=== PATIENT | male | born 1945 ===

== ENCOUNTER 2017-06-01 12:37 | Inpatient (IN) | payer OTHER ==
[2017-06-01 12:47] VITALS: BMI 23.4
[2017-06-01] MEDS ORDERED: Albuterol-Ipratrop 3 mg / 0.5 (3 ml) UD IH STA (12:53)
[2017-06-01] MEDS ORDERED: Magnesium Sulfate 1 gm in D5W 1 GM/100 ML BAG IVPB ONE (12:57)
--- NOTE | 2017-06-01 13:14 | ED PDOC ---
Arrival/HPI - General Chief Complaint: Shortness Of Breath Time Seen by Provider: 06/01/17 12:44 Historian: Patient, EMS EM Caveat: Acuity of Condition, Respiratory Distress - History of Present Illness Narrative History of Present Illness (Text): 06/01/17 13:14 pt p/w + ~ 1-2 days onset of worsening sob/worsening coughing with increased productive sputum/non-bloody; pt states he is wheezing extensively, attempt to use the nebulizer at home failed as he noted his machine was not working; pt states no fever/chills/sweats, no cp/palpitations, no abd pain, no n/v, no numbness/tingling, no urinary/bowel changes, no fall/trauma/sick contact, no travel; pt is here for further eval; pt's without other complaints per EMS, pt was noted to have been wheezing extensively and was given 1 Duonebs prior to ED arrival Time/Duration: Other (1-2 days) Symptom Onset: Sudden Symptom Course: Worsening Quality: Other (n/a) Severity Level: 8 Activities at Onset: Rest Context: Home Past Medical History - Provider Review Nursing Documentation Reviewed: Yes - Travel History Have you recently traveled outside [place] w/in the past 3 mons?: No - Past History Past History: Non-Contributing - Infectious Disease Hx of Infectious Diseases: None - Tetanus Immunization Tetanus Immunization: Unknown - Past Medical History Past Medical History: Non-Contributing (Asthma) - Cardiac Hx Cardiac Disorders: Yes Hx Hypertension: Yes - Pulmonary Hx Respiratory Disorders: Yes Hx Chronic Obstructive Pulmonary Disease (COPD): Yes - Neurological HX Cerebrovascular Accident: No - HEENT Hx HEENT Disorder: No - Renal Hx Renal Failure: No - Endocrine/Metabolic Hx Diabetes Mellitus Type 1: No Hx Diabetes Mellitus Type 2: No Hx Hypothyroidism: No - Hematological/Oncological Hx Cancer: No - Integumentary Hx Dermatological Disorder: Yes (BILATERAL LE SKIN DRYNESS WITH BROWN SKIN DISCOLORATION) - Musculoskeletal/Rheumatological Hx Arthritis: No Hx Rheumatoid Arthritis: No - Gastrointestinal Hx Gastroesophageal Reflux: No - Genitourinary/Gynecological Hx Genitourinary Disorders: Yes Hx Hematuria: Yes Hx Incontinence: Yes Hx Prostate Problems: Yes (BPH) Hx Sexually Transmitted Diseases: No Other/Comment: URINARY RETENTION - Psychiatric Hx Psychophysiologic Disorder: Yes (SMOKED CIGARETTES,ETOH USE QUIT) Hx Anxiety: Yes Hx Bipolar Disorder: Yes Hx Depression: Yes Hx Emotional Abuse: No Hx Physical Abuse: No Hx Schizophrenia: Yes Hx Substance Use: No Other/Comment: H/O SUICIDE - Past Surgical History Past Surgical History: No Previous - Surgical History Other/Comment: VINAY ROMAN CATH - Anesthesia Hx Anesthesia Reactions: No Hx Malignant Hyperthermia: No - Suicidal Assessment Suicidal Thoughts: No Plan: No Comment: pt lives alone Feels Threatened In Home Enviroment: No Family/Social History - Physician Review Nursing Documentation Reviewed: Yes Family/Social History: Unknown Family HX Smoking Status: Former Smoker Hx Alcohol Use: Yes Frequency of alcohol use: Few days per week Hx Substance Use: No Hx Substance Use Treatment: No Allergies/Home Meds Allergies/Adverse Reactions: Allergies No Known Allergies Allergy (Verified 06/01/17 12:47) Home Medications: Home Meds Medication Instructions Recorded Confirmed Tamsulosin [Flomax] 0.4 mg PO BID 01/26/12 06/01/17 Aspirin [Aspirin EC] 81 mg PO DAILY 06/11/14 06/01/17 Pantoprazole Sodium [Protonix] 40 mg PO DAILY 06/11/14 06/01/17 QUEtiapine [Seroquel XR] 600 mg PO HS 06/11/14 06/01/17 Albuterol 0.083% [Albuterol 0.083% 3 ml IH Q6H 12/05/14 06/01/17 Inhal Vicki (2.5 mg/3 ml) UD] Diltiazem HCl [Cardizem] 30 mg PO DAILY 12/05/14 06/01/17 Albuterol HFA [Ventolin HFA 90 2 puff IH TID 06/01/17 06/01/17 mcg/actuation (8 g)] Apixaban [Eliquis] 5 mg PO BID 06/01/17 06/01/17 Cholecalciferol (Vitamin D3) 1 cap PO Q7D 06/01/17 06/01/17 [Vitamin D3] Fluticasone/Salmeterol 500/50 1 puff NEB BID 06/01/17 06/01/17 [Advair Diskus 500/50] Review of Systems - Review of Systems Constitutional: Fatigue. absent: Fevers, Night Sweats Eyes: Normal ENT: Normal Respiratory: SOB, Cough, Sputum, Wheezing Cardiovascular: Normal. absent: Chest Pain, Palpitations Gastrointestinal: Normal Genitourinary Male: Normal Musculoskeletal: Normal Skin: Normal Neurological: Normal Endocrine: Normal Hemo/Lymphatic: Normal Psychiatric: Normal Physical Exam Vital Signs Reviewed: Yes (poor pulse ox, slightly elevated RR) Vital Signs Temp Pulse Resp BP Pulse Ox 06/01/17 13:45 18 96 06/01/17 12:50 97.9 F 90 22 128/77 90 L Temperature: Afebrile Blood Pressure: Normal Pulse: Regular Respiratory Rate: Tachypneic Appearance: Positive for: Other (uncomfortable, mildly unkept) Pain Distress: None Mental Status: Positive for: Alert and Oriented X 3, other (slightly agitated/ uncomfortable; + cooperative) - Systems Exam Head: Present: Atraumatic, Other (mild bi-temoral wasting noted) Pupils: Present: PERRL Extroacular Muscles: Present: EOMI Conjunctiva: Present: Normal Mouth: Present: Other (poor dentitions, mild dry mucous membranes; no drooling/ stridor, no dysphonia) Pharnyx: Present: Normal Nose (External): Present: Atraumatic Nose (Internal): Present: Normal Inspection Neck: Present: Normal Range of Motion Respiratory/Chest: Present: Respiratory Distress (mild resp distress noted), Wheezes (diffuse wheezing noted b/l, no rales/rhonchi), Decreased Breath Sounds (right > left). No: Rales Cardiovascular: Present: Regular Rate and Rhythm, Normal S1, S2. No: Murmurs Abdomen: Present: Normal Bowel Sounds, Other (thin male, no focal tenderness, no burgos's sign, no mcburney's point tenderness). No: Tenderness, Distention Back: Present: Normal Inspection Upper Extremity: Present: Normal Inspection, Normal ROM. No: Cyanosis, Edema Lower Extremity: Present: Normal Inspection, Normal ROM. No: Edema, CALF TENDERNESS, Cyanosis, Rosendo's Sign Neurological: Present: GCS=15, CN II-XII Intact, Speech Normal Skin: Present: Warm, Normal Color, Other (cap refill ~ 1 sec, mild pallor noted) . No: Diaphoretic Psychiatric: Present: Alert, Oriented x 3, Normal Insight, Normal Concentration Medical Decision Making ED Course and Treatment: 06/01/17 15:38 acute on chronic sob, worsening productive cough, persistent wheezing a/p: SOB, coughing, wheezing - labs - iv - xray - treatments - steroids - observe - supportive care after duoneb treatments, pt continues to have right basiliar wheezing/coarse breath sounds >> left; + tachypenia, pt felt some improvement vital signs stable 06/01/17 15:53 pt remained chest pain free 3:50pm - pt is made aware of his medical results pt agrees with admission I spoke to Dr Peoples, pt's PCP, who would like patient admitted by hospitalists I spoke to hospitalists melon packer, Dr Welch, made aware, agrees with ED mgt/ txt/dx, agrees with admission Reassessment Condition: Improving,but remains with symptoms - Critical Care Critical Care Minutes: 45 minutes Critical Care Time: Excluding Proc Time Narrative Critical Care (Text): 06/01/17 15:54 critical care time: 45min, excluding procedure time, excluding time teaching residents/students/mid-level providers; including initial eval/diagnosis, diagnostic interpretation, re-eval, consultations, final disposition - Lab Interpretations Narrative Lab Interpretation (Text): 06/01/17 15:55 elevated BNP, otherwise WNL labs Lab Results: 06/01/17 13:25 06/01/17 13:25 Lab Results 06/01/17 13:25: Sodium 143, Chloride 101, Potassium 3.7, Carbon Dioxide 29, Anion Gap 17, BUN 22 H, Creatinine 0.8, Est GFR ( Amer) > 60, Est GFR ( Non-Af Amer) > 60, Random Glucose 91, Calcium 8.9, Total Bilirubin 0.9, AST 16 L , ALT 21, Alkaline Phosphatase 72, Lactate Dehydrogenase 391, Total Creatine Kinase 39, Troponin I < 0.01, NT-Pro-B Natriuret Pep 868 H, Total Protein 6.6, Albumin 3.2, Globulin 3.4, Albumin/Globulin Ratio 0.9 L 06/01/17 13:25: pO2 34, VBG pH 7.41, VBG pCO2 50.0, VBG HCO3 31.7 H, VBG Total CO2 33.2 H, VBG O2 Sat (Calc) 63.9, VBG Base Excess 5.8 H, VBG Potassium 3.8, Sodium 142.0, Chloride 104.0, Glucose 92, Lactate 1.9, FiO2 21.0, Venous Blood Potassium 3.8 06/01/17 13:25: WBC 8.8 D, RBC 3.31 L, Hgb 10.7 L, Hct 32.4 L, MCV 97.9, MCH 32.3, MCHC 33.0, RDW 13.6, Plt Count 223, MPV 9.3, Gran % 52.2, Lymph % (Auto) 36.9 H, [place] % (Auto) 10.6 H, Eos % (Auto) 0.2 L, Baso % (Auto) 0.1, Gran # 4.60 , Lymph # 3.3, [place] # 0.9 H, Eos # 0.0, Baso # 0.01 I have reviewed the lab results: Yes Interpretation: Abnormal lab values (elevated BNP) - RAD Interpretation Narrative RAD Interpretations (Text): 06/01/17 15:53 FINDINGS: LINES AND TUBES: None. LUNG AND PLEURA: The lungs are hyperinflated and there is peribronchial thickening with chronic changes in both lungs. HEART AND MEDIASTINUM: The heart is not enlarged. The hilar and mediastinal contours are within normal limits. SKELETAL STRUCTURES: The bony structures are within normal limits for the patient's age. VISUALIZED UPPER ABDOMEN: Normal. OTHER FINDINGS: None. IMPRESSION: No active pulmonary disease. COPD. Radiology Orders: 06/01/17 12:48 CHEST TWO VIEWS (PA/LAT) [RAD] Stat Bias Cutter: Radiologist - EKG Interpretation EKG Interpretation (Text): 06/01/17 14:23 Sinus rhythm at 90 bpm, normal axis, + Ectopy, poor baseline, non-specific st-t changes, ABNL EKG; no gross changes compare with old ekg 08/2016 Interpreted by ED Physician: Yes Type: 12 lead EKG Comparison: Similar to previous EKG - Medication Orders Current Medication Orders: Azithromycin (Zithromax 500mg In Ns) 500 mg in 250 mls @ 167 mls/hr IVPB STAT STA PRN Reason: Protocol Stop: 06/01/17 16:13 Last Admin: 06/01/17 15:38 Dose: 167 mls/hr Discontinued Medications Albuterol/Ipratropium (Duoneb 3 Mg/0.5 Mg (3 Ml) Ud) 3 ml IH Q15M SAMEER Stop: 06/01/17 15:04 Albuterol/Ipratropium (Duoneb 3 Mg/0.5 Mg (3 Ml) Ud) 3 ml IH STAT STA Stop: 06/01/17 12:54 Last Admin: 06/01/17 13:30 Dose: 3 ml Aspirin (Ecotrin) 81 mg PO STAT STA Stop: 06/01/17 12:59 Last Admin: 06/01/17 13:31 Dose: 81 mg Magnesium Sulfate/Dextrose (Magnesium Sulfate 1 Gm/100 Ml D5w) 1 gm in 100 mls @ 100 mls/hr IVPB ONCE ONE Stop: 06/01/17 13:56 Last Admin: 06/01/17 13:30 Dose: 100 mls/hr eMAR Start Stop Document 06/01/17 13:30 MS (Rec: 06/01/17 13:30 MS [id number]) Intravenous Solution Start Date 06/01/17 Start Time 13:30 End Date 06/01/17 End time 14:30 Total Infusion Time 60 Ceftriaxone Sodium (Rocephin 1 Gram Ivpb (D5w)) 1 gm in 100 mls @ 200 mls/hr IVPB STAT STA PRN Reason: Protocol Stop: 06/01/17 15:15 Last Admin: 06/01/17 15:18 Dose: 200 mls/hr eMAR Start Stop Document 06/01/17 15:18 MS (Rec: 06/01/17 15:26 MS [id number]) Intravenous Solution Start Date 06/01/17 Start Time 15:26 End Date 06/01/17 End time 15:56 Total Infusion Time 30 Methylprednisolone (Solu-Medrol) 125 mg IVP STAT STA Stop: 06/01/17 12:57 Last Admin: 06/01/17 13:09 Dose: 125 mg IVP Administration Document 06/01/17 13:09 MS (Rec: 06/01/17 13:29 MS [id number]) Charges for Administration # of IVP Administrations 1 Disposition/Present on Arrival - Present on Arrival Any Indicators Present on Arrival: Yes History of DVT/PE: Yes History of Uncontrolled Diabetes: No Urinary Catheter: No History of Decub. Ulcer: No History Surgical Site Infection Following: None - Disposition Have Diagnosis and Disposition been Completed?: Yes Diagnosis: COPD exacerbation, Respiratory distress, acute, Pneumonia Disposition: HOSPITALIZED Disposition Time: 15:30 Patient Plan: Admission, Telemetry Patient Problems: Current Active Problems Problem Status Onset COPD with exacerbation Acute Pneumonia Acute Respiratory distress, acute Acute Condition: STABLE Forms: [employer] (Croatian)
[2017-06-01 13:41] LABS: VENOUS BLOOD GAS BASE EXCESS 5.8 mmol/L (0.0-2.0); VENOUS BLOOD PH 7.41 (7.32-7.43)
[2017-06-01 13:43] LABS: BASO # 0.01 K/mm3 (0.0-2.0); BASO % 0.1 % (0.0-3.0); EOS % 0.2 % (1.5-5.0); GRAN # 4.6 (1.4-6.5); GRAN % 52.2 % (50.0-68.0); HEMATOCRIT 32.4 % (42.0-52.0); LYMPH # 3.3 (1.2-3.4); LYMPH % 36.9 % (22.0-35.0); MEAN CELL VOLUME 97.9 fl (80.0-105.0); MEAN CORPUSCULAR HEMOGLOBIN 32.3 pg (25.0-35.0); MEAN PLATELET VOLUME 9.3 fl (7.0-11.0); MONO # 0.9 (0.1-0.6); MONO % 10.6 % (1.0-6.0); RED CELL DISTRIBUTION WIDTH 13.6 % (11.5-14.5); WHITE BLOOD COUNT 8.8 10^3/ul (4.5-11.0)
[2017-06-01 13:53] LABS: ALB/GLOB RATIO 0.9 (1.1-1.8); ALKALINE PHOSPHATASE 72 U/L (38-126); ALT/SGPT 21 U/L (7-56); AST/SGOT 16 U/L (17-59); BILIRUBIN,TOTAL 0.9 mg/dL (0.2-1.3); BLOOD UREA NITROGEN 22 mg/dL (7-21); CALCIUM 8.9 mg/dL (8.4-10.5); CARBON DIOXIDE 29 mmol/L (21-33); CHLORIDE 101 mmol/L (98-107); GFR AFRICAN-AMERICAN > 60; GLUCOSE,RANDOM 91 mg/dL (70-110); POTASSIUM 3.7 mmol/L (3.6-5.0); SODIUM 143 mmol/L (132-148); TOTAL PROTEIN 6.6 g/dL (5.8-8.3)
[2017-06-01 14:04] LABS: TROPONIN I < 0.01 ng/mL
[2017-06-01] MEDS ORDERED: Azithromycin 500MG/NS 250ml 500 MG/250 ML BAG IVPB STA (14:44)
--- NOTE | 2017-06-01 14:44 | RAD ---
HISTORY: COMPARISON: 09/10/2016 TECHNIQUE: Chest PA and lateral FINDINGS: LINES AND TUBES: None. LUNG AND PLEURA: The lungs are hyperinflated and there is peribronchial thickening with chronic changes in both lungs. HEART AND MEDIASTINUM: The heart is not enlarged. The hilar and mediastinal contours are within normal limits. SKELETAL STRUCTURES: The bony structures are within normal limits for the patient's age. VISUALIZED UPPER ABDOMEN: Normal. OTHER FINDINGS: None. IMPRESSION: No active pulmonary disease. COPD.
[2017-06-01] MEDS ORDERED: cefTRIAXone 1 gm 1 GM/100 ML BAG IVPB STA (14:46)
[2017-06-01] MEDS ORDERED: Albuterol-Ipratrop 3 mg / 0.5 (3 ml) UD IH SCH (14:48)
--- NOTE | 2017-06-01 16:00 | CP.PCM.HP ---
<Eugene Edwards - Last Filed: 06/01/17 17:02> History of Present Illness - History of Present Illness History of Present Illness: Subjective: Patient is a 72 year old male with a past medical history of COPD, asthma, HTN , EtOH abuse, Migraines,, Paroxysmal atrial fibrillation, with multiple admissions for A-fib with RVR, BPH, Hx of urinary retention, Bipolar, schizophrenia, sucidial attempts, and remote hx of polycythemia who presents to the ED via EMS for evaluation and treatment of worsening sob/worsening productive cough (nonbloody clear sputum production). States that he is extensively wheezing since yesterday. He was not able to use his nebulizer machine as it is broken. Denies sick contacts and recent travel. Denies fever, chills, chest pain, shortness of breath, abdominal pain, nausea, vomiting, diarrhea, constipation, and urinary symptoms. 12 Point Review of Systems is negative except as indicated in the HPI PMHx: COPD, asthma, HTN, EtOH abuse, Migraines,, Paroxysmal atrial fibrillation , with multiple admissions for A-fib with RVR, BPH, Hx of urinary retention, Bipolar, schizophrenia, sucidial attempts, and remote hx of polycythemia PSHX: TURP May 2016 (Dr. Dutton) Cardiac catheterization 07/2009 - 30% LAD stenosis FHx: non-contributory SHx: denies recent tobacco use. 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 denies recreational drug use All: NKDA Med: Please See EFRAIN PMD = Bruna Peoples MD [facility] = [facility] Physical Examination: General: agitated Head: atraumatic normocephalic Eyes: EOMI, non icteric Neck: supple Heart: +s1 +s2, no murmurs, no gallops Lungs: expiratory wheezing bilaterally no rales, no rhonchi Abdomen: soft, not tender to palpation, no organomegaly, + bowel sounds x 4 Neuro: AAO x 3, CN II- XII intact, muscle strength 5/5 throughout, Patient is awake, alert, responds to verbal stimuli, answers questions appropriately, follows commands, and moves extremities past midline Extremities: no clubbing, cyanosis, edema Skin: warm and moist Assessment and Plan: Patient is a 72 year old male with a past medical history of COPD, asthma, HTN , EtOH abuse, Migraines,, Paroxysmal atrial fibrillation, with multiple admissions for A-fib with RVR, BPH, Hx of urinary retention, bipolar, schizophrenia, suicidal attempts, and remote hx of polycythemia who was admitted for evaluation and treatment of worsening sob/worsening productive cough. COPD Exacerbation - duonebs q4 - solumedrol 40mg IV q8 - c/w fluticasome/salmeterol - c/w montelukast - supplemental oxygen - azithromycin and ceftriaxone Hx of HTN - HR trended, reviewed, and appreciated, will continue to monitor closely - BPs trended, reviewed, and appreciated, will continue to monitor closely - continue with cardizem Hx of Atrial Fibrillation - ECHO from 2016- LVEF 58%, normal LV thickness and function, no pulm htn - c/w eliquis and cardizem - PT- INR Hx of Bipolar, Schizophrenia, Suicide Attempts - depakote levels - c/w seroquel - will c/w depakote once levels are read - pysch consulted- appreciate recommendations - ativan 1mg q6h Hx of BPH - c/w tamsulosin and proscar Hx of Anemia - Hgbs trended, reviewed, and appreciated, will continue to monitor closely- at baseline - monitor closely via CBC Prophylaxis - GI- pantoprazole - DVT- eqlius Patient seen, case discussed with, and plan approved by attending physician, Dr. Santamaria. Present on Admission - Present on Admission Any Indicators Present on Admission: Yes Past Patient History - Infectious Disease Hx of Infectious Diseases: None - Tetanus Immunizations Tetanus Immunization: Unknown - Past Medical History & Family History Past Medical History?: Yes - Past Social History Smoking Status: Former Smoker - CARDIAC Hx Cardiac Disorders: Yes Hx Hypertension: Yes - PULMONARY Hx Respiratory Disorders: Yes Hx Chronic Obstructive Pulmonary Disease (COPD): Yes - NEUROLOGICAL HX Cerebrovascular Accident: No - HEENT Hx HEENT Problems: No - RENAL Hx Renal Failure: No - ENDOCRINE/METABOLIC Hx Diabetes Mellitus Type 1: No Hx Diabetes Mellitus Type 2: No Hx Hypothyroidism: No - HEMATOLOGICAL/ONCOLOGICAL Hx Cancer: No - INTEGUMENTARY Hx Dermatological Problems: Yes (BILATERAL LE SKIN DRYNESS WITH BROWN SKIN DISCOLORATION) - MUSCULOSKELETAL/RHEUMATOLOGICAL Hx Arthritis: No Hx Rheumatoid Arthritis: No - GASTROINTESTINAL Hx Gastroesophageal Reflux: No - GENITOURINARY/GYNECOLOGICAL Hx Genitourinary Disorders: Yes Hx Hematuria: Yes Hx Incontinence: Yes Hx Prostate Problems: Yes (BPH) Hx Sexually Transmitted Disorders: No Other/Comment: URINARY RETENTION - PSYCHIATRIC Hx Psychophysiologic Disorder: Yes (SMOKED CIGARETTES,ETOH USE QUIT) Hx Anxiety: Yes Hx Bipolar Disorder: Yes Hx Depression: Yes Hx Emotional Abuse: No Hx Physical Abuse: No Hx Schizophrenia: Yes Hx Substance Use: No Other/Comment: H/O SUICIDE - SURGICAL HISTORY Other/Comment: TURP,CARD CATH - ANESTHESIA Hx Anesthesia Reactions: No Hx Malignant Hyperthermia: No Meds Allergies/Adverse Reactions: Allergies Allergy/AdvReac Type Severity Reaction Status Date / Time No Known Allergies Allergy Verified 06/01/17 17:40 Results - Vital Signs Recent Vital Signs: Last Vital Signs Temp 97.9 F 06/01/17 12:50 Pulse 90 06/01/17 12:50 Resp 18 06/01/17 13:45 BP 128/77 06/01/17 12:50 Pulse Ox 96 06/01/17 13:45 - Labs Result Diagrams: 06/01/17 13:25 06/01/17 13:25 Labs: Laboratory Results - last 24 hr 06/01/17 06/01/17 06/01/17 13:25 13:25 13:25 WBC 8.8 D RBC 3.31 L Hgb 10.7 L Hct 32.4 L MCV 97.9 MCH 32.3 MCHC 33.0 RDW 13.6 Plt Count 223 MPV 9.3 Gran % 52.2 Lymph % (Auto) 36.9 H [place] % (Auto) 10.6 H Eos % (Auto) 0.2 L Baso % (Auto) 0.1 Gran # 4.60 Lymph # 3.3 [place] # 0.9 H Eos # 0.0 Baso # 0.01 pO2 34 VBG pH 7.41 VBG pCO2 50.0 VBG HCO3 31.7 H VBG Total CO2 33.2 H VBG O2 Sat (Calc) 63.9 VBG Base Excess 5.8 H VBG Potassium 3.8 Sodium 142.0 143 Chloride 104.0 101 Glucose 92 Lactate 1.9 FiO2 21.0 Potassium 3.7 Carbon Dioxide 29 Anion Gap 17 BUN 22 H Creatinine 0.8 Est GFR ( Amer) > 60 Est GFR (Non-Af Amer) > 60 Random Glucose 91 Calcium 8.9 Total Bilirubin 0.9 AST 16 L ALT 21 Alkaline Phosphatase 72 Lactate Dehydrogenase 391 Total Creatine Kinase 39 Troponin I < 0.01 NT-Pro-B Natriuret Pep 868 H Total Protein 6.6 Albumin 3.2 Globulin 3.4 Albumin/Globulin Ratio 0.9 L Venous Blood Potassium 3.8 <Otis Santamaria - Last Filed: 06/02/17 16:05> Results - Vital Signs Recent Vital Signs: Last Vital Signs Temp 97.9 F 06/02/17 06:00 Pulse 92 H 06/02/17 14:00 Resp 22 06/02/17 06:00 BP 112/53 L 06/02/17 10:59 Pulse Ox 96 06/02/17 06:00 - Labs Result Diagrams: 06/02/17 05:20 06/02/17 05:20 Labs: Laboratory Results - last 24 hr 06/01/17 06/02/17 06/02/17 17:57 04:34 05:20 WBC 4.1 L D RBC 3.11 L Hgb 9.9 L Hct 30.4 L MCV 97.7 MCH 31.8 MCHC 32.6 RDW 13.8 Plt Count 215 MPV 9.5 Gran % 76.9 H Lymph % (Auto) 14.3 L [place] % (Auto) 8.8 H Eos % (Auto) 0.0 L Baso % (Auto) 0.0 Gran # 3.13 Lymph # 0.6 L [place] # 0.4 Eos # 0.0 Baso # 0.00 Neutrophils % (Manual) 68 Band Neutrophils % 3 H Lymphocytes % (Manual) 26 Monocytes % (Manual) 3 Platelet Evaluation Normal PT 15.1 H INR 1.38 H pCO2 40 pO2 98.0 HCO3 27.2 ABG pH 7.44 ABG Total CO2 28.4 H ABG O2 Saturation 98.9 H ABG Base Excess 2.8 ABG Potassium 3.5 L VBG pH VBG pCO2 VBG HCO3 VBG Total CO2 VBG O2 Sat (Calc) VBG Base Excess VBG Potassium Sodium 140.0 Chloride 105.0 Glucose 320 H Lactate 2.4 H FiO2 28.0 Potassium Carbon Dioxide Anion Gap BUN Creatinine Est GFR ( Amer) Est GFR (Non-Af Amer) Random Glucose Lactic Acid Calcium Total Bilirubin AST ALT Alkaline Phosphatase Total Protein Albumin Globulin Albumin/Globulin Ratio Arterial Blood Potassium 3.5 L Venous Blood Potassium Valproic Acid 06/02/17 06/02/17 06/02/17 05:20 08:30 08:30 WBC RBC Hgb Hct MCV MCH MCHC RDW Plt Count MPV Gran % Lymph % (Auto) [place] % (Auto) Eos % (Auto) Baso % (Auto) Gran # Lymph # [place] # Eos # Baso # Neutrophils % (Manual) Band Neutrophils % Lymphocytes % (Manual) Monocytes % (Manual) Platelet Evaluation PT INR pCO2 pO2 30 HCO3 ABG pH ABG Total CO2 ABG O2 Saturation ABG Base Excess ABG Potassium VBG pH 7.35 VBG pCO2 56.0 VBG HCO3 30.9 H VBG Total CO2 32.6 H VBG O2 Sat (Calc) 49.0 VBG Base Excess 3.8 H VBG Potassium 3.5 L Sodium 141 141.0 Chloride 101 103.0 Glucose 153 H Lactate 2.3 H FiO2 21.0 Potassium 3.4 L Carbon Dioxide 24 Anion Gap 19 BUN 32 H Creatinine 0.8 Est GFR ( Amer) > 60 Est GFR (Non-Af Amer) > 60 Random Glucose 273 H Lactic Acid 2.5 H Calcium 8.8 Total Bilirubin 0.4 AST 18 ALT 8 Alkaline Phosphatase 58 Total Protein 6.4 Albumin 3.1 Globulin 3.3 Albumin/Globulin Ratio 1.0 L Arterial Blood Potassium Venous Blood Potassium 3.5 L Valproic Acid 06/02/17 06/02/17 10:20 11:20 WBC RBC Hgb Hct MCV MCH MCHC RDW Plt Count MPV Gran % Lymph % (Auto) [place] % (Auto) Eos % (Auto) Baso % (Auto) Gran # Lymph # [place] # Eos # Baso # Neutrophils % (Manual) Band Neutrophils % Lymphocytes % (Manual) Monocytes % (Manual) Platelet Evaluation PT INR pCO2 pO2 33 HCO3 ABG pH ABG Total CO2 ABG O2 Saturation ABG Base Excess ABG Potassium VBG pH 7.33 VBG pCO2 39.0 L VBG HCO3 20.6 L VBG Total CO2 21.8 L VBG O2 Sat (Calc) 67.7 H VBG Base Excess -4.9 L VBG Potassium 2.6 L Sodium 145.0 Chloride 111.0 H Glucose 144 H Lactate 1.9 FiO2 21.0 Potassium Carbon Dioxide Anion Gap BUN Creatinine Est GFR ( Amer) Est GFR (Non-Af Amer) Random Glucose Lactic Acid Calcium Total Bilirubin AST ALT Alkaline Phosphatase Total Protein Albumin Globulin Albumin/Globulin Ratio Arterial Blood Potassium Venous Blood Potassium 2.6 L Valproic Acid < 10 L Attending/Attestation - Attestation I have personally seen and examined this patient.: Yes I have fully participated in the care of the patient.: Yes I have reviewed all pertinent clinical information: Yes Notes (Text): 06/02/17 16:02 attending note; Patient seen and examined with resident in ER. Patient is a 72 year old male with a past medical history of COPD, asthma, Hypertension, alcohol abuse, Migraines,, Paroxysmal atrial fibrillation, with multiple admissions for A-fib ,BPH, schizophrenia submitted with COPD exacerbation. Continue oxygen, DuoNeb treatment on IV Solu-Medrol. A. fib/history of PE; continue eliquis. schizophrenia; patient is very anxious. Psychiatric evaluation requested. Continue home meds. Upon discharge patient will follow-up with PMD .
[2017-06-01] MEDS ORDERED: CHOLECALCIFEROL PO SCH (16:15)
[2017-06-01] MEDS ORDERED: cefTRIAXone 1,000 MG in Sodium Chloride 0.9% 50 ML IVPB SCH (17:15)
[2017-06-01] MEDS: MethylPREDNISolone 40 mg Vial IV SCH (17:47)
[2017-06-01] MEDS ORDERED: Fluticasone-Salmeterol 500-50mcg Diskus IH SCH (18:00)
[2017-06-01] MEDS ORDERED: Albuterol HFA 90 mcg/actuation (8 g) IH SCH (18:00)
[2017-06-01] MEDS ORDERED: Divalproex 250 mg ER (ONCE DAILY formulation) PO SCH ×2 (18:00)
[2017-06-01 18:11] LABS: INR 1.38 (0.93-1.08)
[2017-06-01] MEDS ORDERED: Influenza Vaccine 60 mcg/0.5 mL SYR (4YR UP) IM ONE (19:22)
[2017-06-01] MEDS ORDERED: Pneumococcal 23-Valent Vaccine IM ONE (19:22)
[2017-06-01] MEDS: Albuterol-Ipratrop 3 mg / 0.5 (3 ml) UD IH SCH ×2 (19:30→23:39)
[2017-06-01] MEDS ORDERED: Albuterol 0.083% Inhal Sol (2.5 mg/3 mL) UD IH SCH (20:00)
[2017-06-01] MEDS ORDERED: Budesonide 0.5 mg/2 ml Inhal Susp UD IH SCH (20:00)
[2017-06-01] MEDS ORDERED: Arformoterol 15 mcg/2 ml Inh Sol IH SCH (20:00)
[2017-06-01] MEDS ORDERED: QUEtiapine 300 mg XR Tab PO SCH (22:00)
[2017-06-02] MEDS: Albuterol-Ipratrop 3 mg / 0.5 (3 ml) UD IH SCH ×5 (04:14→23:31)
[2017-06-02 04:36] LABS: ARTERIAL BLOOD GAS HCO3 27.2 mmol/L (21-28); ARTERIAL BLOOD GAS PH 7.44 (7.35-7.45)
[2017-06-02] MEDS ORDERED: guaiFENesin-DM 600-30 mg ER Tab PO ONE (04:49)
[2017-06-02 06:26] LABS: GRAN # 3.13 (1.4-6.5); GRAN % 76.9 % (50.0-68.0); HEMATOCRIT 30.4 % (42.0-52.0); LYMPH # 0.6 (1.2-3.4); LYMPH % 14.3 % (22.0-35.0); MEAN CELL VOLUME 97.7 fl (80.0-105.0); MEAN CORPUSCULAR HEMOGLOBIN 31.8 pg (25.0-35.0); MEAN CORPUSCULAR HGB CONC 32.6 g/dl (31.0-37.0); MEAN PLATELET VOLUME 9.5 fl (7.0-11.0); MONO # 0.4 (0.1-0.6); MONO % 8.8 % (1.0-6.0); PLATELET COUNT 215 10^3/uL (120.0-450.0); RED CELL DISTRIBUTION WIDTH 13.8 % (11.5-14.5); WHITE BLOOD COUNT 4.1 10^3/ul (4.5-11.0)
[2017-06-02] MEDS ORDERED: SODIUM CHLORIDE 0.9% IV SCH (07:00)
[2017-06-02] MEDS ORDERED: METHYLPREDNISOLONE IV SCH (07:00)
[2017-06-02 08:29] LABS: BAND 3 % (0-2); NEUTROPHIL 68 % (50.0-70.0); PLATELET ESTIMATE NORMAL (NORMAL)
[2017-06-02 08:48] LABS: VENOUS BLOOD GAS BASE EXCESS 3.8 mmol/L (0.0-2.0); VENOUS BLOOD PH 7.35 (7.32-7.43)
[2017-06-02 08:56] LABS: ALKALINE PHOSPHATASE 58 U/L (38-126); ALT/SGPT 8 U/L (7-56); AST/SGOT 18 U/L (17-59); BILIRUBIN,TOTAL 0.4 mg/dL (0.2-1.3); BLOOD UREA NITROGEN 32 mg/dL (7-21); CALCIUM 8.8 mg/dL (8.4-10.5); CARBON DIOXIDE 24 mmol/L (21-33); CHLORIDE 101 mmol/L (98-107); GFR AFRICAN-AMERICAN > 60; GLUCOSE,RANDOM 273 mg/dL (70-110); POTASSIUM 3.4 mmol/L (3.6-5.0); SODIUM 141 mmol/L (132-148); TOTAL PROTEIN 6.4 g/dL (5.8-8.3)
[2017-06-02] MEDS: MethylPREDNISolone 40 mg Vial IV SCH ×2 (08:59→18:17)
[2017-06-02] MEDS: Pantoprazole 40 mg EC Tab PO SCH (08:59)
[2017-06-02] MEDS ORDERED: Potassium Chloride 20 mEq ER Tab PO ONE (09:10)
[2017-06-02] MEDS: Azithromycin 500MG/NS 250ml 500 MG/250 ML BAG IVPB SCH (09:27)
[2017-06-02] MEDS ORDERED: cefTRIAXone 1,000 MG in Sodium Chloride 0.9% 50 ML IVPB SCH (10:00)
[2017-06-02] MEDS: Ergocalciferol 50,000 Intl Units Cap PO SCH (11:07)
[2017-06-02 11:46] LABS: VENOUS BLOOD GAS BASE EXCESS -4.9 mmol/L (0.0-2.0); VENOUS BLOOD PH 7.33 (7.32-7.43)
--- NOTE | 2017-06-02 12:06 | CP.PCM.PN ---
Addendum entered and electronically signed by Eugene Edwards DO 06/02/17 12:08: Addendum to Assessment and Plan Patient meets SIRs criteria without a source. Patient is already on IVF and antibiotics. Original Note: <Eugene Edwards - Last Filed: 06/02/17 11:44> Subjective - Date & Time of Evaluation Date of Evaluation: 06/02/17 Time of Evaluation: 07:45 - Subjective Subjective: Subjective: Patient seen and examined at bedside. Resting comfortably in bed. No acute overnight events. Patient states SOB has improved relative to baseline. Offers no new complaints at this time. Denies fever, chills, chest pain, abdominal pain , nausea, vomiting, diarrhea, constipation, and urinary symptoms. Physical Examination: General: agitated Head: atraumatic normocephalic Eyes: EOMI, non icteric Neck: supple Heart: +s1 +s2, no murmurs, no gallops Lungs: expiratory wheezing bilaterally no rales, no rhonchi Abdomen: soft, not tender to palpation, no organomegaly, + bowel sounds x 4 Neuro: AAO x 3, CN II- XII intact, muscle strength 5/5 throughout, Patient is awake, alert, responds to verbal stimuli, answers questions appropriately, follows commands, and moves extremities past midline Extremities: no clubbing, cyanosis, edema Skin: warm and moist Assessment and Plan: Patient is a 72 year old male with a past medical history of COPD, asthma, HTN , EtOH abuse, Migraines,, Paroxysmal atrial fibrillation, with multiple admissions for A-fib with RVR, BPH, Hx of urinary retention, bipolar, schizophrenia, suicidal attempts, and remote hx of polycythemia who was admitted for evaluation and treatment of worsening sob/worsening productive cough COPD Exacerbation - duonebs q4 - solumedrol 40mg IV q8 - start bipap at night - supplemental oxygen - azithromycin and ceftriaxone - pulm consulted- appreciate recommendations Hx of HTN - HR trended, reviewed, and appreciated, will continue to monitor closely - BPs trended, reviewed, and appreciated, will continue to monitor closely - continue with cardizem Hx of Atrial Fibrillation - ECHO from 2016- LVEF 58%, normal LV thickness and function, no pulm htn - c/w eliquis and cardizem - PT- INR Hx of Bipolar, Schizophrenia, Suicide Attempts - c/w seroquel - depakote levels low- start on depakote 750mg BID - adonis consulted- appreciate recommendations - ativan 1mg q6h Hx of BPH - c/w tamsulosin and proscar Hx of Anemia - Hgbs trended, reviewed, and appreciated, will continue to monitor closely- at baseline - monitor closely via CBC Prophylaxis - GI- pantoprazole - DVT- eqlius Patient seen, case discussed with, and plan approved by attending physician, Dr. Santamaria. Objective - Vital Signs/Intake and Output Vital Signs (last 24 hours): Temp Pulse Resp BP Pulse Ox 97.9 F 81 22 112/53 L 96 06/02/17 06:00 06/02/17 10:59 06/02/17 06:00 06/02/17 10:59 06/02/17 06:00 Intake and Output: 06/02/17 06/02/17 06:59 18:59 Intake Total 720 Balance 720 - Medications Medications: Current Medications Albuterol/Ipratropium (Duoneb 3 Mg/0.5 Mg (3 Ml) Ud) 3 ml IH [id number] [facility] Last Admin: 06/02/17 11:01 Dose: 3 ml Apixaban (Eliquis) 5 mg PO BID [facility] PRN Reason: Protocol Last Admin: 06/02/17 08:59 Dose: 5 mg Aspirin (Ecotrin) 81 mg PO DAILY [facility] Last Admin: 06/02/17 08:59 Dose: 81 mg Diltiazem HCl (Cardizem) 30 mg PO BID [facility] Last Admin: 06/02/17 10:59 Dose: Not Given Ergocalciferol (Drisdol 50,000 Intl Units Cap) 1 cap PO Q7D [facility] Last Admin: 06/02/17 11:07 Dose: 1 cap Finasteride (Proscar) 5 mg PO DAILY [facility] Last Admin: 06/02/17 08:59 Dose: 5 mg Ceftriaxone Sodium 1,000 mg/ (Sodium Chloride) 50 mls @ 100 mls/hr IVPB Q24H [facility] PRN Reason: Protocol Last Admin: 06/02/17 09:27 Dose: 100 mls/hr Azithromycin (Zithromax 500mg In Ns) 500 mg in 250 mls @ 167 mls/hr IVPB DAILY [facility] PRN Reason: Protocol Last Admin: 06/02/17 09:27 Dose: 167 mls/hr Sodium Chloride (Sodium Chloride 0.9%) 1,000 mls @ 75 mls/hr IV .[id number] [facility] Lorazepam (Ativan) 1 mg IV Q6H PRN; Protocol PRN Reason: Agitation Methylprednisolone (Solu-Medrol) 40 mg IV BID [facility] Last Admin: 06/02/17 08:59 Dose: 40 mg Montelukast Sodium (Singulair) 10 mg PO HS [facility] Last Admin: 06/01/17 21:45 Dose: 10 mg Pantoprazole Sodium (Protonix Ec Tab) 40 mg PO ACB [facility] Last Admin: 06/02/17 08:59 Dose: 40 mg Quetiapine Fumarate (Seroquel Xr) 600 mg PO HS [facility] PRN Reason: Protocol Last Admin: 06/01/17 21:44 Dose: 600 mg Tamsulosin HCl (Flomax) 0.4 mg PO BID [facility] Last Admin: 06/02/17 08:59 Dose: 0.4 mg - Labs Labs: 06/02/17 05:20 06/02/17 05:20 PT 15.1 SECONDS (9.4-12.5) H 06/01/17 17:57 INR 1.38 (0.93-1.08) H 06/01/17 17:57 <Otis Santamaria - Last Filed: 06/02/17 16:09> Objective - Vital Signs/Intake and Output Vital Signs (last 24 hours): Temp Pulse Resp BP Pulse Ox 97.9 F 92 H 22 112/53 L 96 06/02/17 06:00 06/02/17 14:00 06/02/17 06:00 06/02/17 10:59 06/02/17 06:00 Intake and Output: 06/02/17 06/02/17 06:59 18:59 Intake Total 720 Balance 720 - Medications Medications: Current Medications Albuterol/Ipratropium (Duoneb 3 Mg/0.5 Mg (3 Ml) Ud) 3 ml IH [id number] [facility] Last Admin: 06/02/17 11:01 Dose: 3 ml Apixaban (Eliquis) 5 mg PO BID [facility] PRN Reason: Protocol Last Admin: 06/02/17 08:59 Dose: 5 mg Aspirin (Ecotrin) 81 mg PO DAILY [facility] Last Admin: 06/02/17 08:59 Dose: 81 mg Diltiazem HCl (Cardizem) 30 mg PO BID [facility] Last Admin: 06/02/17 10:59 Dose: Not Given Divalproex Sodium (Depakote Dr (*Bid*)) 250 mg PO BID [facility] PRN Reason: Protocol Ergocalciferol (Drisdol 50,000 Intl Units Cap) 1 cap PO Q7D [facility] Last Admin: 06/02/17 11:07 Dose: 1 cap Finasteride (Proscar) 5 mg PO DAILY [facility] Last Admin: 06/02/17 08:59 Dose: 5 mg Ceftriaxone Sodium 1,000 mg/ (Sodium Chloride) 50 mls @ 100 mls/hr IVPB Q24H [facility] PRN Reason: Protocol Last Admin: 06/02/17 09:27 Dose: 100 mls/hr Azithromycin (Zithromax 500mg In Ns) 500 mg in 250 mls @ 167 mls/hr IVPB DAILY [facility] PRN Reason: Protocol Last Admin: 06/02/17 09:27 Dose: 167 mls/hr Sodium Chloride (Sodium Chloride 0.9%) 1,000 mls @ 75 mls/hr IV .[id number] [facility] Last Admin: 06/02/17 13:07 Dose: 75 mls/hr Lorazepam (Ativan) 1 mg IV Q6H PRN; Protocol PRN Reason: Agitation Methylprednisolone (Solu-Medrol) 40 mg IV BID [facility] Last Admin: 06/02/17 08:59 Dose: 40 mg Montelukast Sodium (Singulair) 10 mg PO HS [facility] Last Admin: 06/01/17 21:45 Dose: 10 mg Pantoprazole Sodium (Protonix Ec Tab) 40 mg PO ACB [facility] Last Admin: 06/02/17 08:59 Dose: 40 mg Quetiapine Fumarate (Seroquel Xr) 300 mg PO [facility] PRN Reason: Protocol Tamsulosin HCl (Flomax) 0.4 mg PO BID [facility] Last Admin: 06/02/17 08:59 Dose: 0.4 mg - Labs Labs: 06/02/17 05:20 06/02/17 05:20 PT 15.1 SECONDS (9.4-12.5) H 06/01/17 17:57 INR 1.38 (0.93-1.08) H 06/01/17 17:57 Attending/Attestation - Attestation I have personally seen and examined this patient.: Yes I have fully participated in the care of the patient.: Yes I have reviewed all pertinent clinical information, including history, physical exam and plan: Yes Notes (Text): 06/02/17 16:05 attending note; Patient seen and examined with resident in ER. Patient is a 72 year old male with a past medical history of COPD, asthma, Hypertension, alcohol abuse, Migraines,, Paroxysmal atrial fibrillation, with multiple admissions for A-fib ,BPH, schizophrenia submitted with COPD exacerbation. on oxygen, DuoNeb treatment on IV Solu-Medrol. slowly improving respiratory status. A. fib/history of PE; continue eliquis. pulmonary evaluation appreciated. schizophrenia; patient is very anxious. Psychiatric evaluation requested. Continue home meds. difficulty swallowing pills as per psychiatrist. Speech and swallow evaluation appreciated. Currently tolerating cough or aspiration. aspiration precautions ordered. Head end elevated. nursing staff informed. case discussed with social media content specialist for discharge planning. Upon discharge patient will follow-up with PMD . 06/02/17 16:08
[2017-06-02] MEDS: Sodium Chloride 0.9% 1,000 ML IV SCH (13:07)
--- NOTE | 2017-06-02 13:25 | CP.PCM.CON ---
History of Present Illness - History of Present Illness History of Present Illness: PULMONARY CONSULT NOTE HPI: Patient is 72yo male with PMhx of Asthma/COPD, HTN, EtOH abuse, PAF on A/V , Schizophrenia, CAD, presented with SOB and increased cough production. Pt reports he is chronically SOB, with worsening Dyspnea on exertion over the last few days, associated with cough productive of "hill sputum". Denies fever, chills, chest pain, palpitations, COVARRUBIAS, dizziness. No other constitutional symptoms. In the ER, CXR without focal consolidation, started on IV steroids and duonebs with Rocephin/Azithro. Since being in the hospital patient reports he has not felt significant improvement. Patient reports at home he is only on Duonebs, and was prescribed Advair ( unknown dose), but does not take it. PMHx: COPD, asthma, HTN, EtOH abuse,PAF on A/C, BPH, Bipolar, schizophrenia, PSHX: TURP May 2016 FHx: non-contributory SHx: former smoker, quit 1970 denies drug use All: NKDA Med: as per EMR Review of Systems - Review of Systems Review of Systems: as per HPI Past Patient History - Infectious Disease Hx of Infectious Diseases: None - Tetanus Immunizations Tetanus Immunization: Unknown - Past Medical History & Family History Past Medical History?: Yes - Past Social History Smoking Status: Former Smoker - CARDIAC Hx Cardiac Disorders: Yes Hx Hypertension: Yes - PULMONARY Hx Respiratory Disorders: Yes Hx Chronic Obstructive Pulmonary Disease (COPD): Yes - NEUROLOGICAL HX Cerebrovascular Accident: No - HEENT Hx HEENT Problems: No - RENAL Hx Renal Failure: No - ENDOCRINE/METABOLIC Hx Diabetes Mellitus Type 1: No Hx Diabetes Mellitus Type 2: No Hx Hypothyroidism: No - HEMATOLOGICAL/ONCOLOGICAL Hx Cancer: No - INTEGUMENTARY Hx Dermatological Problems: Yes (BILATERAL LE SKIN DRYNESS WITH BROWN SKIN DISCOLORATION) - MUSCULOSKELETAL/RHEUMATOLOGICAL Hx Arthritis: No Hx Falls: Yes - GASTROINTESTINAL Hx Gastroesophageal Reflux: No - GENITOURINARY/GYNECOLOGICAL Hx Genitourinary Disorders: Yes (TURP) Hx Hematuria: Yes Hx Incontinence: Yes Hx Prostate Problems: Yes (BPH) Hx Sexually Transmitted Disorders: No Other/Comment: URINARY RETENTION - PSYCHIATRIC Hx Psychophysiologic Disorder: Yes (SMOKED CIGARETTES,ETOH USE QUIT) Hx Anxiety: Yes Hx Bipolar Disorder: Yes Hx Depression: Yes Hx Emotional Abuse: No Hx Physical Abuse: No Hx Schizophrenia: Yes Hx Substance Use: No Other/Comment: H/O SUICIDE - SURGICAL HISTORY Hx Surgeries: Yes Other/Comment: VINAY ROMAN CATH - ANESTHESIA Hx Anesthesia Reactions: No Hx Malignant Hyperthermia: No Meds Allergies/Adverse Reactions: Allergies Allergy/AdvReac Type Severity Reaction Status Date / Time No Known Allergies Allergy Verified 06/01/17 17:40 - Medications Medications: Current Medications Albuterol/Ipratropium (Duoneb 3 Mg/0.5 Mg (3 Ml) Ud) 3 ml IH [id number] Last Admin: 06/02/17 11:01 Dose: 3 ml Apixaban (Eliquis) 5 mg PO BID [facility] PRN Reason: Protocol Last Admin: 06/02/17 08:59 Dose: 5 mg Aspirin (Ecotrin) 81 mg PO DAILY [facility] Last Admin: 06/02/17 08:59 Dose: 81 mg Diltiazem HCl (Cardizem) 30 mg PO BID [facility] Last Admin: 06/02/17 10:59 Dose: Not Given Divalproex Sodium (Depakote Dr (*Bid*)) 750 mg PO BID [facility] PRN Reason: Protocol Ergocalciferol (Drisdol 50,000 Intl Units Cap) 1 cap PO Q7D [facility] Last Admin: 06/02/17 11:07 Dose: 1 cap Finasteride (Proscar) 5 mg PO DAILY [facility] Last Admin: 06/02/17 08:59 Dose: 5 mg Ceftriaxone Sodium 1,000 mg/ (Sodium Chloride) 50 mls @ 100 mls/hr IVPB Q24H [facility] PRN Reason: Protocol Last Admin: 06/02/17 09:27 Dose: 100 mls/hr Azithromycin (Zithromax 500mg In Ns) 500 mg in 250 mls @ 167 mls/hr IVPB DAILY [facility] PRN Reason: Protocol Last Admin: 06/02/17 09:27 Dose: 167 mls/hr Sodium Chloride (Sodium Chloride 0.9%) 1,000 mls @ 75 mls/hr IV .[id number] [facility] Lorazepam (Ativan) 1 mg IV Q6H PRN; Protocol PRN Reason: Agitation Methylprednisolone (Solu-Medrol) 40 mg IV BID [facility] Last Admin: 06/02/17 08:59 Dose: 40 mg Montelukast Sodium (Singulair) 10 mg PO HS [facility] Last Admin: 06/01/17 21:45 Dose: 10 mg Pantoprazole Sodium (Protonix Ec Tab) 40 mg PO ACB [facility] Last Admin: 06/02/17 08:59 Dose: 40 mg Quetiapine Fumarate (Seroquel Xr) 600 mg PO [facility] PRN Reason: Protocol Last Admin: 06/01/17 21:44 Dose: 600 mg Tamsulosin HCl (Flomax) 0.4 mg PO BID [facility] Last Admin: 06/02/17 08:59 Dose: 0.4 mg Physical Exam - Constitutional Appears: Well, Non-toxic, No Acute Distress, Cachectic - Head Exam Head Exam: ATRAUMATIC - Eye Exam Eye Exam: Normal appearance - ENT Exam ENT Exam: Mucous Membranes Moist - Respiratory Exam Respiratory Exam: Prolonged Expiratory Phase, Wheezes, NORMAL BREATHING PATTERN - Cardiovascular Exam Cardiovascular Exam: REGULAR RHYTHM, +S1, +S2 - GI/Abdominal Exam GI & Abdominal Exam: Normal Bowel Sounds, Soft - Extremities Exam Extremities exam: Positive for: normal inspection Results - Vital Signs Recent Vital Signs: Last Vital Signs Temp 97.9 F 06/02/17 06:00 Pulse 81 06/02/17 10:59 Resp 22 06/02/17 06:00 BP 112/53 L 06/02/17 10:59 Pulse Ox 96 06/02/17 06:00 - Labs Result Diagrams: 06/02/17 05:20 06/02/17 05:20 Labs: Laboratory Results - last 24 hr 06/01/17 06/02/17 06/02/17 17:57 04:34 05:20 WBC 4.1 L D RBC 3.11 L Hgb 9.9 L Hct 30.4 L MCV 97.7 MCH 31.8 MCHC 32.6 RDW 13.8 Plt Count 215 MPV 9.5 Gran % 76.9 H Lymph % (Auto) 14.3 L [place] % (Auto) 8.8 H Eos % (Auto) 0.0 L Baso % (Auto) 0.0 Gran # 3.13 Lymph # 0.6 L [place] # 0.4 Eos # 0.0 Baso # 0.00 Neutrophils % (Manual) 68 Band Neutrophils % 3 H Lymphocytes % (Manual) 26 Monocytes % (Manual) 3 Platelet Evaluation Normal PT 15.1 H INR 1.38 H pCO2 40 pO2 98.0 HCO3 27.2 ABG pH 7.44 ABG Total CO2 28.4 H ABG O2 Saturation 98.9 H ABG Base Excess 2.8 ABG Potassium 3.5 L VBG pH VBG pCO2 VBG HCO3 VBG Total CO2 VBG O2 Sat (Calc) VBG Base Excess VBG Potassium Sodium 140.0 Chloride 105.0 Glucose 320 H Lactate 2.4 H FiO2 28.0 Potassium Carbon Dioxide Anion Gap BUN Creatinine Est GFR ( Amer) Est GFR (Non-Af Amer) Random Glucose Lactic Acid Calcium Total Bilirubin AST ALT Alkaline Phosphatase Total Protein Albumin Globulin Albumin/Globulin Ratio Arterial Blood Potassium 3.5 L Venous Blood Potassium Valproic Acid 06/02/17 06/02/17 06/02/17 05:20 08:30 08:30 WBC RBC Hgb Hct MCV MCH MCHC RDW Plt Count MPV Gran % Lymph % (Auto) [place] % (Auto) Eos % (Auto) Baso % (Auto) Gran # Lymph # [place] # Eos # Baso # Neutrophils % (Manual) Band Neutrophils % Lymphocytes % (Manual) Monocytes % (Manual) Platelet Evaluation PT INR pCO2 pO2 30 HCO3 ABG pH ABG Total CO2 ABG O2 Saturation ABG Base Excess ABG Potassium VBG pH 7.35 VBG pCO2 56.0 VBG HCO3 30.9 H VBG Total CO2 32.6 H VBG O2 Sat (Calc) 49.0 VBG Base Excess 3.8 H VBG Potassium 3.5 L Sodium 141 141.0 Chloride 101 103.0 Glucose 153 H Lactate 2.3 H FiO2 21.0 Potassium 3.4 L Carbon Dioxide 24 Anion Gap 19 BUN 32 H Creatinine 0.8 Est GFR ( Amer) > 60 Est GFR (Non-Af Amer) > 60 Random Glucose 273 H Lactic Acid 2.5 H Calcium 8.8 Total Bilirubin 0.4 AST 18 ALT 8 Alkaline Phosphatase 58 Total Protein 6.4 Albumin 3.1 Globulin 3.3 Albumin/Globulin Ratio 1.0 L Arterial Blood Potassium Venous Blood Potassium 3.5 L Valproic Acid 06/02/17 06/02/17 10:20 11:20 WBC RBC Hgb Hct MCV MCH MCHC RDW Plt Count MPV Gran % Lymph % (Auto) [place] % (Auto) Eos % (Auto) Baso % (Auto) Gran # Lymph # [place] # Eos # Baso # Neutrophils % (Manual) Band Neutrophils % Lymphocytes % (Manual) Monocytes % (Manual) Platelet Evaluation PT INR pCO2 pO2 33 HCO3 ABG pH ABG Total CO2 ABG O2 Saturation ABG Base Excess ABG Potassium VBG pH 7.33 VBG pCO2 39.0 L VBG HCO3 20.6 L VBG Total CO2 21.8 L VBG O2 Sat (Calc) 67.7 H VBG Base Excess -4.9 L VBG Potassium 2.6 L Sodium 145.0 Chloride 111.0 H Glucose 144 H Lactate 1.9 FiO2 21.0 Potassium Carbon Dioxide Anion Gap BUN Creatinine Est GFR ( Amer) Est GFR (Non-Af Amer) Random Glucose Lactic Acid Calcium Total Bilirubin AST ALT Alkaline Phosphatase Total Protein Albumin Globulin Albumin/Globulin Ratio Arterial Blood Potassium Venous Blood Potassium 2.6 L Valproic Acid < 10 L - Imaging and Cardiology Chest x-ray Status: Image reviewed by me, Report reviewed by me Assessment & Plan - Assessment and Plan (Free Text) Assessment: 72yo male a/w COPD exacerbation COPD exacerbation SOB - currently afebrile. HD stable, comfortable - on exam, Cachetic, in NAD, lung exam with diffuse wheezing - reports increased sputum production Recommend: - cont with IV steroids, Solumedrol 40mg IV BID - Rocephin Azithromycin - Duonebs q4-6pRN - Singulair 10mg daily - would hold off BIPAP, no evidence of CO2 retention on ABG - PT eval - Nutrition consult - Will need to be on Advair or Symbicort upon discharge - Pulmonary will continue to follow
--- NOTE | 2017-06-02 17:44 | CARD ---
APPROVED REPORT EKG Measurement Heart [id number] CT [id number] <Conclusion> Sinus rhythm with premature supraventricular complexes significant artifacts Otherwise normal ECG
[2017-06-02] MEDS ORDERED: Divalproex 250 mg DR (BID formulation) PO SCH (18:00)
[2017-06-02] MEDS: Divalproex 250 mg DR (BID formulation) PO SCH (18:17)
[2017-06-02] MEDS: QUEtiapine 300 mg XR Tab PO SCH (21:58)
[2017-06-03] MEDS: Albuterol-Ipratrop 3 mg / 0.5 (3 ml) UD IH SCH ×6 (03:27→23:35)
[2017-06-03] MEDS: Sodium Chloride 0.9% 1,000 ML IV SCH ×2 (06:25→21:37)
[2017-06-03 07:40] LABS: GRAN # 6.45 (1.4-6.5); HEMATOCRIT 32.1 % (42.0-52.0); LYMPH # 0.9 (1.2-3.4); LYMPH % 10.5 % (22.0-35.0); MEAN CELL VOLUME 98.5 fl (80.0-105.0); MEAN CORPUSCULAR HEMOGLOBIN 31.9 pg (25.0-35.0); MEAN CORPUSCULAR HGB CONC 32.4 g/dl (31.0-37.0); MEAN PLATELET VOLUME 9.9 fl (7.0-11.0); MONO % 11.5 % (1.0-6.0); RED CELL DISTRIBUTION WIDTH 13.7 % (11.5-14.5); WHITE BLOOD COUNT 8.3 10^3/ul (4.5-11.0)
[2017-06-03 08:01] LABS: ALB/GLOB RATIO 0.9 (1.1-1.8); ALKALINE PHOSPHATASE 58 U/L (38-126); ALT/SGPT 23 U/L (7-56); AST/SGOT 18 U/L (17-59); BILIRUBIN,TOTAL 0.4 mg/dL (0.2-1.3); BLOOD UREA NITROGEN 27 mg/dL (7-21); CALCIUM 8.8 mg/dL (8.4-10.5); CARBON DIOXIDE 29 mmol/L (21-33); CHLORIDE 105 mmol/L (98-107); GFR AFRICAN-AMERICAN > 60; GLUCOSE,RANDOM 118 mg/dL (70-110); POTASSIUM 4.4 mmol/L (3.6-5.0); SODIUM 144 mmol/L (132-148); TOTAL PROTEIN 6.1 g/dL (5.8-8.3)
[2017-06-03] MEDS: QUEtiapine 300 mg XR Tab PO SCH ×2 (11:09→22:05)
[2017-06-03] MEDS: Divalproex 250 mg DR (BID formulation) PO SCH ×2 (11:10→18:24)
[2017-06-03] MEDS: Pantoprazole 40 mg EC Tab PO SCH (11:10)
[2017-06-03] MEDS: MethylPREDNISolone 40 mg Vial IV SCH (11:11)
[2017-06-03] MEDS: cefTRIAXone 1 gm 1 GM/100 ML BAG IVPB SCH (11:15)
--- NOTE | 2017-06-03 12:13 | CP.PCM.PN ---
<Adriana Acosta - Last Filed: 06/03/17 13:14> Subjective - Date & Time of Evaluation Date of Evaluation: 06/03/17 Time of Evaluation: 12:09 - Subjective Subjective: Adriana Acosta DO, PGY-1, Hospitalist Service Patient seen and examined at bedside. Patient is sleeping comfortably after being given IV Geodon for agitation/code rodrigues. Nurse reports patient is coughing up pink sputum. Objective - Vital Signs/Intake and Output Vital Signs (last 24 hours): Temp Pulse Resp BP Pulse Ox 97.5 F L 50 L 24 127/88 95 06/03/17 08:37 06/03/17 11:10 06/03/17 08:37 06/03/17 11:10 06/03/17 08:37 Intake and Output: 06/03/17 06/03/17 06:59 18:59 Intake Total 1885 120 Output Total 200 Balance 1685 120 - Medications Medications: Current Medications Albuterol/Ipratropium (Duoneb 3 Mg/0.5 Mg (3 Ml) Ud) 3 ml IH [id number] [facility] Last Admin: 06/03/17 11:28 Dose: 3 ml Apixaban (Eliquis) 5 mg PO BID [facility] PRN Reason: Protocol Last Admin: 06/03/17 11:10 Dose: 5 mg Aspirin (Ecotrin) 81 mg PO DAILY [facility] Last Admin: 06/03/17 11:10 Dose: 81 mg Diltiazem HCl (Cardizem) 30 mg PO BID [facility] Last Admin: 06/03/17 11:10 Dose: 30 mg Divalproex Sodium (Depakote Dr (*Bid*)) 250 mg PO BID [facility] PRN Reason: Protocol Last Admin: 06/03/17 11:10 Dose: 250 mg Ergocalciferol (Drisdol 50,000 Intl Units Cap) 1 cap PO Q7D [facility] Last Admin: 06/02/17 11:07 Dose: 1 cap Finasteride (Proscar) 5 mg PO DAILY [facility] Last Admin: 06/03/17 11:10 Dose: 5 mg Azithromycin (Zithromax 500mg In Ns) 500 mg in 250 mls @ 167 mls/hr IVPB DAILY [facility] PRN Reason: Protocol Last Admin: 06/02/17 09:27 Dose: 167 mls/hr Sodium Chloride (Sodium Chloride 0.9%) 1,000 mls @ 75 mls/hr IV .[id number] [facility] Last Admin: 06/03/17 06:25 Dose: 75 mls/hr Ceftriaxone Sodium (Rocephin 1 Gram Ivpb (D5w)) 1 gm in 100 mls @ 100 mls/hr IVPB Q24H [facility] PRN Reason: Protocol Last Admin: 06/03/17 11:15 Dose: 100 mls/hr Lorazepam (Ativan) 1 mg IV Q6H PRN; Protocol PRN Reason: Agitation Last Admin: 06/03/17 07:03 Dose: 1 mg Lorazepam (Ativan) 2 mg IVP Q3H PRN; Protocol PRN Reason: Agitation Methylprednisolone (Solu-Medrol) 40 mg IV BID [facility] Last Admin: 06/03/17 11:11 Dose: 40 mg Montelukast Sodium (Singulair) 10 mg PO HS [facility] Last Admin: 06/02/17 21:59 Dose: 10 mg Pantoprazole Sodium (Protonix Ec Tab) 40 mg PO ACB [facility] Last Admin: 06/03/17 11:10 Dose: 40 mg Quetiapine Fumarate (Seroquel Xr) 300 mg PO AMHS [facility] PRN Reason: Protocol Last Admin: 06/03/17 11:09 Dose: 300 mg Tamsulosin HCl (Flomax) 0.4 mg PO DAILY [facility] - Labs Labs: 06/03/17 06:00 06/03/17 06:00 PT 15.1 SECONDS (9.4-12.5) H 06/01/17 17:57 INR 1.38 (0.93-1.08) H 06/01/17 17:57 - Constitutional Appears: Non-toxic, No Acute Distress - Head Exam Head Exam: ATRAUMATIC, NORMOCEPHALIC - Eye Exam Eye Exam: EOMI, Normal appearance - Respiratory Exam Respiratory Exam: Prolonged Expiratory Phase, Wheezes (diffuse) - Cardiovascular Exam Cardiovascular Exam: RRR, +S1, +S2 - GI/Abdominal Exam GI & Abdominal Exam: Soft, Normal Bowel Sounds - Extremities Exam Extremities Exam: Normal Inspection. absent: Normal Capillary Refill - Back Exam Back Exam: NORMAL INSPECTION. absent: CVA tenderness (L), CVA tenderness (R) - Neurological Exam Neurological Exam: Alert, Awake, CN II-XII Intact, Oriented x3 - Psychiatric Exam Psychiatric exam: Normal Affect, Normal Mood - Skin Skin Exam: Dry, Intact, Normal Color, Warm Assessment and Plan - Assessment and Plan (Free Text) Assessment: Assessment and Plan: Patient is a 72 year old male with a past medical history of COPD, asthma, PE in August 2016, hypertension, EtOH abuse, Migraines, Paroxysmal atrial fibrillation, , BPH, urinary retention, bipolar, schizophrenia, suicidal attempts, and (remote history of polycythemia) who was admitted for evaluation and treatment of worsening sob/worsening productive cough. COPD Exacerbation - Sputum gram stain shows few neutrophils, gram positive cocci in chains, few gram variable rods - Duonebs q4h - Solumedrol 30mg IV q12h - Oxygen 2L NC - Azithromycin and Ceftriaxone - Pulmonology consulted appreciated Hx of Atrial Fibrillation - Eliquis 5 mg PO BID - Diltiazem 30 mg PO BID Hx of Bipolar, Schizophrenia, Suicide Attempts - Quitiapine 300 mg PO AMHS - Depakote 250 mg BID, recheck valproic acid level - Lorazepam 2 mg q3h for agitation - Geodon 20 mg IM PRN for severe agitation - Hx of BPH Tamsulosin 0.4 mg Finasteride 5 mg PO daily Hx of Anemia - Hgbs trended, reviewed, and appreciated, will continue to monitor closely- at baseline - monitor closely via CBC Prophylaxis - GI- pantoprazole - DVT-Eliquis Plan: Disposition: Patient on steroid taper and empiric treatment for community acquired pneumonia. Patient, once medically stable, will be evaluated by psychiatry. <Otis Santamaria - Last Filed: 06/03/17 15:03> Objective - Vital Signs/Intake and Output Vital Signs (last 24 hours): Temp Pulse Resp BP Pulse Ox 97.5 F L 50 L 24 127/88 95 06/03/17 08:37 06/03/17 11:10 06/03/17 08:37 06/03/17 11:10 06/03/17 08:37 Intake and Output: 06/03/17 06/03/17 06:59 18:59 Intake Total 1885 1080 Output Total 200 400 Balance 1685 680 - Medications Medications: Current Medications Albuterol/Ipratropium (Duoneb 3 Mg/0.5 Mg (3 Ml) Ud) 3 ml IH [id number] [facility] Last Admin: 06/03/17 11:28 Dose: 3 ml Apixaban (Eliquis) 5 mg PO BID [facility] PRN Reason: Protocol Last Admin: 06/03/17 11:10 Dose: 5 mg Aspirin (Ecotrin) 81 mg PO DAILY [facility] Last Admin: 06/03/17 11:10 Dose: 81 mg Diltiazem HCl (Cardizem) 30 mg PO BID [facility] Last Admin: 06/03/17 11:10 Dose: 30 mg Divalproex Sodium (Depakote Dr (*Bid*)) 250 mg PO BID [facility] PRN Reason: Protocol Last Admin: 06/03/17 11:10 Dose: 250 mg Ergocalciferol (Drisdol 50,000 Intl Units Cap) 1 cap PO Q7D [facility] Last Admin: 06/02/17 11:07 Dose: 1 cap Finasteride (Proscar) 5 mg PO DAILY [facility] Last Admin: 06/03/17 11:10 Dose: 5 mg Azithromycin (Zithromax 500mg In Ns) 500 mg in 250 mls @ 167 mls/hr IVPB DAILY [facility] PRN Reason: Protocol Last Admin: 06/03/17 12:45 Dose: 167 mls/hr Sodium Chloride (Sodium Chloride 0.9%) 1,000 mls @ 75 mls/hr IV .[id number] [facility] Last Admin: 06/03/17 06:25 Dose: 75 mls/hr Ceftriaxone Sodium (Rocephin 1 Gram Ivpb (D5w)) 1 gm in 100 mls @ 100 mls/hr IVPB Q24H [facility] PRN Reason: Protocol Last Admin: 06/03/17 11:15 Dose: 100 mls/hr Lorazepam (Ativan) 2 mg IVP Q3H PRN; Protocol PRN Reason: Agitation Methylprednisolone (Solu-Medrol) 30 mg IVP Q12 [facility] Montelukast Sodium (Singulair) 10 mg PO HS [facility] Last Admin: 06/02/17 21:59 Dose: 10 mg Pantoprazole Sodium (Protonix Ec Tab) 40 mg PO ACB [facility] Last Admin: 06/03/17 11:10 Dose: 40 mg Quetiapine Fumarate (Seroquel Xr) 300 mg PO AMHS [facility] PRN Reason: Protocol Last Admin: 06/03/17 11:09 Dose: 300 mg Tamsulosin HCl (Flomax) 0.4 mg PO DAILY [facility] - Labs Labs: 06/03/17 06:00 06/03/17 06:00 PT 15.1 SECONDS (9.4-12.5) H 06/01/17 17:57 INR 1.38 (0.93-1.08) H 06/01/17 17:57 Attending/Attestation - Attestation I have personally seen and examined this patient.: Yes I have fully participated in the care of the patient.: Yes I have reviewed all pertinent clinical information, including history, physical exam and plan: Yes Notes (Text): 06/03/17 15:02 attending note; Patient seen and examined with resident. patient had an episode of agitation this morning. Seen by psychiatrist. Patient is a 72 year old male with a past medical history of COPD, asthma, Hypertension, alcohol abuse, Migraines,, Paroxysmal atrial fibrillation, with multiple admissions for A-fib ,BPH, schizophrenia submitted with COPD exacerbation. Continue oxygen, DuoNeb treatment on IV Solu-Medrol. we will taper IV Solu-Medrol. Improving respiratory status. A. fib/history of PE; continue eliquis. schizophrenia; patient is very anxious at times. Psychiatric evaluation appreciated. started on IV Ativan and Geodon when necessary. Upon discharge patient will follow-up with PMD .
[2017-06-03] MEDS: Azithromycin 500MG/NS 250ml 500 MG/250 ML BAG IVPB SCH (12:45)
[2017-06-03] MEDS: guaiFENesin 100 mg/5 ml Syrup UD PO PRN ×2 (18:24→22:06)
[2017-06-03] MEDS ORDERED: MethylPREDNISolone 40 mg Vial IVP SCH (22:00)
--- NOTE | 2017-06-03 22:21 | CON ---
HISTORY OF PRESENT ILLNESS: The patient is a 72-year-old male with extensive psychiatric history, diagnosed with schizoaffective disorder, numerous psychiatric admissions for voluntary and involuntary at [facility] as well as [facility], [facility], reportedly compliant with his medications prior to admission, who was brought in by EMS to the ER for treatment of worsening shortness of breath, wheezing, and productive cough. Psychiatry is following up with the patient with his psychiatric history. Dr. Davila's dictated note is not available at this time. I reviewed recent notes and spoke with Dr. Santamaria as well as interviewed the patient at bedside. The patient does not appear to be at his psychiatric baseline. I am familiar with patient from his multiple admissions to [facility] and generally, the patient is calmer and more passive than his current behavior. The patient is oriented to month, date, location, year, and circumstances, and he indicates he wants to get better. He reports that his main concern is not psychiatric, but it is medical at this time. He denies hallucinations, suicidal thoughts, homicidal thoughts, or depression. No side effects from current medications. The patient is caustic and needlessly argumentative with his provider, mainly indicated that he needs to walk and exercise because he does not want to . It is an illogical connection and he does not respond to reassurance or redirection very well and self-escalates easily. His thoughts are more disorganized than his baseline because his baseline effort is not great. He does appear to show some signs of decompensation on the unit. Nonetheless, he does appear to be cooperative with nursing staff at this time and has been taking his psychiatric medications thus far as of last night. His insight and judgement are considered to be impaired. VITAL SIGNS: Reviewed by this provider. LABORATORY DATA: Labs were also reviewed by this provider. MEDICATIONS: Relevant psychiatric medications include Depakote 250 mg p.o. b.i.d., Ativan 1 mg IV q.6 p.r.n., Ativan 2 mg IV q.3 p.r.n., and Seroquel XR 300 mg in a.m. and h.s. IMPRESSION: Schizoaffective disorder. RECOMMENDATIONS: We will continue with current treatment and plan. Consider increase in Depakote as the patient continues to be labile on the unit. Psychiatry will continue to follow up with this patient. At this time, we would recommend psychiatric hospitalization as the patient does not appear to be at his baseline; however, we will continue to follow up with the patient on the unit, and hopefully if his medical condition improves, his thought process will improve. However, at this point, he is not agreeable to psychiatric voluntary hospitalization and if there is no improvement, we will require screening. Chidi Patel MD
[2017-06-04] MEDS: guaiFENesin 100 mg/5 ml Syrup UD PO PRN ×2 (06:27→14:25)
[2017-06-04] MEDS: cefTRIAXone 1 gm 1 GM/100 ML BAG IVPB SCH (06:43)
[2017-06-04 06:59] LABS: ALB/GLOB RATIO 0.9 (1.1-1.8); ALKALINE PHOSPHATASE 50 U/L (38-126); ALT/SGPT 21 U/L (7-56); AST/SGOT 15 U/L (17-59); BILIRUBIN,TOTAL 0.4 mg/dL (0.2-1.3); BLOOD UREA NITROGEN 17 mg/dL (7-21); CALCIUM 8.7 mg/dL (8.4-10.5); CARBON DIOXIDE 33 mmol/L (21-33); CHLORIDE 102 mmol/L (98-107); GFR AFRICAN-AMERICAN > 60; GLUCOSE,RANDOM 123 mg/dL (70-110); POTASSIUM 4.6 mmol/L (3.6-5.0); SODIUM 143 mmol/L (132-148); TOTAL PROTEIN 5.8 g/dL (5.8-8.3)
[2017-06-04 07:34] LABS: BASO # 0.01 K/mm3 (0.0-2.0); BASO % 0.1 % (0.0-3.0); GRAN # 7.88 (1.4-6.5); GRAN % 89.5 % (50.0-68.0); HEMATOCRIT 32.3 % (42.0-52.0); LYMPH # 0.6 (1.2-3.4); MEAN CELL VOLUME 99.4 fl (80.0-105.0); MEAN CORPUSCULAR HGB CONC 32.2 g/dl (31.0-37.0); MEAN PLATELET VOLUME 9.8 fl (7.0-11.0); MONO # 0.3 (0.1-0.6); MONO % 3.4 % (1.0-6.0); RED CELL DISTRIBUTION WIDTH 13.6 % (11.5-14.5); WHITE BLOOD COUNT 8.8 10^3/ul (4.5-11.0)
[2017-06-04] MEDS: Albuterol-Ipratrop 3 mg / 0.5 (3 ml) UD IH SCH ×5 (08:16→23:15)
--- NOTE | 2017-06-04 08:31 | CP.PCM.PN ---
<Adriana Acosta - Last Filed: 06/04/17 13:07> Subjective - Date & Time of Evaluation Date of Evaluation: 06/04/17 Time of Evaluation: 08:29 - Subjective Subjective: Adriana Acosta DO, PGY-1, Hospitalist Service Patient seen and examined at bedside. Patient is sleeping comfortably. Nurse reports patient has had fair appetite- yesterday, he ate breakfast and lunch, and a shake for dinner. He appears to be less agitated according to the nursing staff. Dr. Murillo note was reviewed and appreciated. Objective - Vital Signs/Intake and Output Vital Signs (last 24 hours): Temp Pulse Resp BP Pulse Ox 97 F L 80 22 141/91 H 96 06/04/17 08:03 06/04/17 08:03 06/04/17 08:03 06/04/17 08:03 06/04/17 08:03 Intake and Output: 06/04/17 06/04/17 06:59 18:59 Intake Total 1800 Balance 1800 - Medications Medications: Current Medications Albuterol/Ipratropium (Duoneb 3 Mg/0.5 Mg (3 Ml) Ud) 3 ml IH [id number] [facility] Last Admin: 06/04/17 08:16 Dose: 3 ml Apixaban (Eliquis) 5 mg PO BID [facility] PRN Reason: Protocol Last Admin: 06/03/17 18:24 Dose: 5 mg Aspirin (Ecotrin) 81 mg PO DAILY [facility] Last Admin: 06/03/17 11:10 Dose: 81 mg Diltiazem HCl (Cardizem) 30 mg PO BID [facility] Last Admin: 06/03/17 18:24 Dose: 30 mg Divalproex Sodium (Depakote Dr(*Bid*)) 500 mg PO TID [facility] PRN Reason: Protocol Ergocalciferol (Drisdol 50,000 Intl Units Cap) 1 cap PO Q7D [facility] Last Admin: 06/02/17 11:07 Dose: 1 cap Finasteride (Proscar) 5 mg PO DAILY [facility] Last Admin: 06/03/17 11:10 Dose: 5 mg Guaifenesin (Robitussin) 100 mg PO Q4H PRN PRN Reason: Cough Last Admin: 06/04/17 06:27 Dose: 100 mg Azithromycin (Zithromax 500mg In Ns) 500 mg in 250 mls @ 167 mls/hr IVPB DAILY [facility] PRN Reason: Protocol Last Admin: 06/03/17 12:45 Dose: 167 mls/hr Sodium Chloride (Sodium Chloride 0.9%) 1,000 mls @ 75 mls/hr IV .[id number] [facility] Last Admin: 06/03/17 21:37 Dose: 75 mls/hr Ceftriaxone Sodium (Rocephin 1 Gram Ivpb (D5w)) 1 gm in 100 mls @ 100 mls/hr IVPB Q24H [facility] PRN Reason: Protocol Last Admin: 06/04/17 06:43 Dose: 100 mls/hr Lorazepam (Ativan) 2 mg IVP Q3H PRN; Protocol PRN Reason: Agitation Last Admin: 06/04/17 06:25 Dose: 2 mg Methylprednisolone (Solu-Medrol) 20 mg IVP Q12 [facility] Montelukast Sodium (Singulair) 10 mg PO HS [facility] Last Admin: 06/03/17 22:06 Dose: 10 mg Pantoprazole Sodium (Protonix Ec Tab) 40 mg PO ACB [facility] Last Admin: 06/03/17 11:10 Dose: 40 mg Quetiapine Fumarate (Seroquel Xr) 300 mg PO AMHS [facility] PRN Reason: Protocol Last Admin: 06/03/17 22:05 Dose: 300 mg Tamsulosin HCl (Flomax) 0.4 mg PO DAILY [facility] - Labs Labs: 06/04/17 06:00 06/04/17 05:00 PT 15.1 SECONDS (9.4-12.5) H 06/01/17 17:57 INR 1.38 (0.93-1.08) H 06/01/17 17:57 - Constitutional Appears: Non-toxic, No Acute Distress, Unkempt - Head Exam Head Exam: ATRAUMATIC, NORMOCEPHALIC - Eye Exam Eye Exam: EOMI, Normal appearance - ENT Exam ENT Exam: Mucous Membranes Moist, Normal Oropharynx - Neck Exam Neck Exam: Normal Inspection - Respiratory Exam Respiratory Exam: Clear to Ausculation Bilateral, NORMAL BREATHING PATTERN - GI/Abdominal Exam GI & Abdominal Exam: Soft, Normal Bowel Sounds - Extremities Exam Additional comments: left hand is swollen, not erythematous or warm - Back Exam Back Exam: NORMAL INSPECTION. absent: CVA tenderness (L), CVA tenderness (R) - Neurological Exam Neurological Exam: Awake, Normal Gait - Psychiatric Exam Psychiatric exam: Agitated (when awake) - Skin Skin Exam: Dry, Intact, Normal Color, Warm Assessment and Plan - Assessment and Plan (Free Text) Assessment: 72 year old with COPD, schizoaffective disorder, and BPH who presented to [facility] for increasing shortness of breath and productive sputum. He is currently being treated for a COPD exacerbation, empirically for a Community Acquired Pneumonia , and for his chronic medical conditions. Psychiatry feels he may need to be committed given his mood changes. Plan: 1) COPD exacerbation - Ceftriaxone 1 gm IVP q24h - Azithromycin 500 mg qday - Duoneb 3 ml IH q4resp - Methylprednisolone 20 mg q12h - Guaifenesin 100 mg q4h PRN - Montelukast 10 mg PO Daily - Sputum gram stain and cultures negative - oxygen 2 L NC 2) Atrial fibrillation - Diltiazem 30 mg BID PO - Eliquis 5 mg BID PO - Aspirin 81 mg daily 3) BPH - Finasteride 5 mg PO daily - Tamsulosin 0.4 mg PO daily 4) Schizoaffective disorder, not controlled - Quetiapine 300 mg AMHS - Depakote Delayed Release 500 mg TID - Psychiatry recommendations appreciated - Ativan discontinued in order to better observe patient's baseline mental status/psyche 5) GI prophylaxis - Protonix EC 40 mg PO daily Disposition: Once patient is medically stable, [facility] <Otis Santamaria - Last Filed: 06/04/17 15:17> Objective - Vital Signs/Intake and Output Vital Signs (last 24 hours): Temp Pulse Resp BP Pulse Ox 97 F L 80 22 141/91 H 96 06/04/17 08:03 06/04/17 10:03 06/04/17 08:03 06/04/17 10:03 06/04/17 08:03 Intake and Output: 06/04/17 06/04/17 06:59 18:59 Intake Total 1800 Balance 1800 - Medications Medications: Current Medications Albuterol/Ipratropium (Duoneb 3 Mg/0.5 Mg (3 Ml) Ud) 3 ml IH [id number] [facility] Last Admin: 06/04/17 11:16 Dose: 3 ml Apixaban (Eliquis) 5 mg PO BID [facility] PRN Reason: Protocol Last Admin: 06/04/17 10:04 Dose: 5 mg Aspirin (Ecotrin) 81 mg PO DAILY [facility] Last Admin: 06/04/17 10:04 Dose: 81 mg Diltiazem HCl (Cardizem) 30 mg PO BID [facility] Last Admin: 06/04/17 10:03 Dose: 30 mg Divalproex Sodium (Depakote Dr(*Bid*)) 500 mg PO TID [facility] PRN Reason: Protocol Last Admin: 06/04/17 14:03 Dose: 500 mg Ergocalciferol (Drisdol 50,000 Intl Units Cap) 1 cap PO Q7D [facility] Last Admin: 06/02/17 11:07 Dose: 1 cap Finasteride (Proscar) 5 mg PO DAILY [facility] Last Admin: 06/04/17 10:04 Dose: 5 mg Guaifenesin (Robitussin) 100 mg PO Q4H PRN PRN Reason: Cough Last Admin: 06/04/17 06:27 Dose: 100 mg Azithromycin (Zithromax 500mg In Ns) 500 mg in 250 mls @ 167 mls/hr IVPB DAILY [facility] PRN Reason: Protocol Last Admin: 06/04/17 10:05 Dose: 167 mls/hr Sodium Chloride (Sodium Chloride 0.9%) 1,000 mls @ 75 mls/hr IV .[id number] [facility] Last Admin: 06/04/17 14:06 Dose: 75 mls/hr Ceftriaxone Sodium (Rocephin 1 Gram Ivpb (D5w)) 1 gm in 100 mls @ 100 mls/hr IVPB Q24H [facility] PRN Reason: Protocol Last Admin: 06/04/17 06:43 Dose: 100 mls/hr Lorazepam (Ativan) 1 mg IVP Q4 [facility] PRN Reason: Protocol Methylprednisolone (Solu-Medrol) 20 mg IVP Q12 [facility] Last Admin: 06/04/17 10:04 Dose: 20 mg Montelukast Sodium (Singulair) 10 mg PO HS [facility] Last Admin: 06/03/17 22:06 Dose: 10 mg Pantoprazole Sodium (Protonix Ec Tab) 40 mg PO ACB [facility] Last Admin: 06/04/17 10:05 Dose: 40 mg Quetiapine Fumarate (Seroquel Xr) 300 mg PO AMHS [facility] PRN Reason: Protocol Last Admin: 06/04/17 10:04 Dose: 300 mg Tamsulosin HCl (Flomax) 0.4 mg PO DAILY [facility] Last Admin: 06/04/17 10:04 Dose: 0.4 mg - Labs Labs: 06/04/17 06:00 06/04/17 05:00 PT 15.1 SECONDS (9.4-12.5) H 06/01/17 17:57 INR 1.38 (0.93-1.08) H 06/01/17 17:57 Attending/Attestation - Attestation I have personally seen and examined this patient.: Yes I have fully participated in the care of the patient.: Yes I have reviewed all pertinent clinical information, including history, physical exam and plan: Yes Notes (Text): 06/04/17 15:11 attending note; Patient seen and examined with resident. patient had episodes of agitation. currently resting comfortably. Not in any acute distress. Seen by psychiatrist. Patient is a 72 year old male with a past medical history of COPD, asthma, Hypertension, alcohol abuse, Migraines,, Paroxysmal atrial fibrillation, with multiple admissions for A-fib ,BPH, schizophrenia submitted with COPD exacerbation. Continue oxygen, DuoNeb treatment on IV Solu-Medrol on IV Rocephin and Zithromax. we will taper IV Solu-Medrol. stable respiratory status. A. fib/history of PE; continue eliquis. schizophrenia; patient is very anxious at times. Psychiatric evaluation appreciated. started on IV Ativan and Geodon when necessary. case discussed with psychiatrist in detail. Patient refused inpatient psychiatric admission. Reevaluation by psychiatrist in a.m. Possible involuntary commitment evaluation tomorrow. Upon discharge patient will follow-up with PMD . 06/04/17 15:16
[2017-06-04] MEDS ORDERED: Divalproex 250 mg DR (BID formulation) PO SCH (10:00)
[2017-06-04] MEDS: Divalproex 500 mg DR(BID formulation) PO SCH ×3 (10:03→18:52)
[2017-06-04] MEDS: QUEtiapine 300 mg XR Tab PO SCH ×2 (10:04→21:40)
[2017-06-04] MEDS: MethylPREDNISolone 40 mg Vial IVP SCH ×2 (10:04→21:40)
[2017-06-04] MEDS: Azithromycin 500MG/NS 250ml 500 MG/250 ML BAG IVPB SCH (10:05)
[2017-06-04] MEDS: Pantoprazole 40 mg EC Tab PO SCH (10:05)
--- NOTE | 2017-06-04 10:27 | CP.PCM.PCO ---
Addendum Addendum: Met with patient at bedside and attempted interview however patient was deeply sedated. Nursing and physician notes indicate that patient has been irritable and agitated. Code Jesus called yesterday. Will c/w current medications including geodon and ativan prns. Likely screening by [facility] when medically cleared, patient was not interested in voluntary transfer to the psychiatric unit yesterday when discussed. Will endorse to Dr. Davila. 06/04/17 10:25
[2017-06-04] MEDS: Sodium Chloride 0.9% 1,000 ML IV SCH (14:06)
[2017-06-05] MEDS: Albuterol-Ipratrop 3 mg / 0.5 (3 ml) UD IH SCH ×5 (04:27→19:22)
[2017-06-05 06:22] LABS: BASO # 0.01 K/mm3 (0.0-2.0); BASO % 0.1 % (0.0-3.0); GRAN # 10.1 (1.4-6.5); GRAN % 85.7 % (50.0-68.0); LYMPH # 0.9 (1.2-3.4); LYMPH % 7.8 % (22.0-35.0); MEAN CELL VOLUME 99.4 fl (80.0-105.0); MEAN CORPUSCULAR HEMOGLOBIN 31.4 pg (25.0-35.0); MEAN CORPUSCULAR HGB CONC 31.6 g/dl (31.0-37.0); MEAN PLATELET VOLUME 9.6 fl (7.0-11.0); MONO # 0.8 (0.1-0.6); MONO % 6.4 % (1.0-6.0); RED CELL DISTRIBUTION WIDTH 13.7 % (11.5-14.5); WHITE BLOOD COUNT 11.8 10^3/ul (4.5-11.0)
[2017-06-05] MEDS: Pantoprazole 40 mg EC Tab PO SCH (06:41)
[2017-06-05] MEDS: cefTRIAXone 1 gm 1 GM/100 ML BAG IVPB SCH (06:41)
[2017-06-05 06:56] LABS: ALB/GLOB RATIO 0.9 (1.1-1.8); ALKALINE PHOSPHATASE 49 U/L (38-126); ALT/SGPT 13 U/L (7-56); AST/SGOT 14 U/L (17-59); BILIRUBIN,TOTAL 0.4 mg/dL (0.2-1.3); BLOOD UREA NITROGEN 15 mg/dL (7-21); CALCIUM 8.9 mg/dL (8.4-10.5); CARBON DIOXIDE 34 mmol/L (21-33); CHLORIDE 99 mmol/L (98-107); GFR AFRICAN-AMERICAN > 60; GLUCOSE,RANDOM 113 mg/dL (70-110); POTASSIUM 4.6 mmol/L (3.6-5.0); SODIUM 144 mmol/L (132-148); TOTAL PROTEIN 5.9 g/dL (5.8-8.3)
--- NOTE | 2017-06-05 08:02 | CON ---
DATE: 06/02/2017 HISTORY OF PRESENT ILLNESS: In short, the patient is a 72-year-old male, reports that history of schizoaffective disorder. The patient has multiple admissions to the psychiatric inpatient unit as well as stayed hospitalizations in the past. This job specification writer is very familiar with this patient from the consultation services here in [place]. The patient was admitted into the medical side for evaluation of worsening of shortness of breath, productive cough, also wheeziness. Psych consult was called because the patient had history of mental illness to evaluate mental status as well as the patient is on psychotropic medication. This job specification writer evaluated the patient. Discussed with the medical team and nurse practitioner. The patient is very familiar to this job specification writer and remember this job specification writer by her name. The patient said that he came to the hospital because of shortness of breath, "I have pneumonia, I have bronchitis, I cannot breath." The patient also said that at present moment , he feels little bit better. The patient said that he has oxygen machine broken at house. The patient reported being compliant with the medications. The patient said that he is following up by PAC team in the community. The patient denied hearing voices. Denied seeing things. Denied paranoid ideations. The patient reported being upset over his medical condition. This job specification writer contacted PAC team. Discussed with . The patient has difficulty to swallow at home and was not compliant with the medications as per the report. The patient supposed to be on Seroquel extended release 600 mg daily, Depakote extended release 750 twice a day. The patient also supposed to be on Singulair 10 mg at the nighttime, Flomax 0.4 mg twice a day, Protonix 40 mg daily, Cardizem 30 mg twice a day, Eliquis 5 mg twice a day, aspirin 81 mg p.o. daily, Proscar 5 mg daily, vitamin D 50,000 units per week, albuterol nebulizer, Advair 500/50 twice a day, Ventolin HFA 2 puffs 3 times a day. PHYSICAL EXAMINATION VITAL SIGNS: This job specification writer reviewed vital signs, temperature 97.9, pulse is 92, blood pressure 112/53, respirations 22, oxygen saturation is 96. At the time of admission oxygen saturation was 90. MENTAL STATUS EXAMINATION: The patient is alert, remember this job specification writer by name, intermittent eye contact, appeared to be anxious, restless. Mood described, I have pneumonia, I have bronchitis, I am upset because of that. Affect was constricted. Thought process concrete. Thought content; the patient denied visual, auditory, or tactile hallucinations. Denied paranoid ideations. The patient denied thoughts of harming himself or others, but the patient was related to this job specification writer with some and some cognitive limitations. Insight and judgment seems to be limited. Impulses are well controlled. MEDICATIONS: Reviewed. The patient is on antibiotics azithromycin and ceftriaxone. The patient also is on DuoNeb, Eliquis, aspirin, Cardizem, Depakote initially was resumed with 750 twice a day, but if patient did not take that medication, we will not resume the same dose. We will start with 250 twice a day. Proscar, Ativan was started, Solu-Medrol, Singulair, Protonix, Seroquel was initially started at 600 mg, but the patient was not taking Seroquel for a while as per report on the PAC team. Sodium chloride will be continued. Flomax is continued. LABORATORY DATA: Reviewed. Hematology reviewed 4.1. Coagulation reviewed. Blood gas reviewed. Chemistries; potassium is 3.4. Toxicology; valproic acid less than 10, most likely the patient was not compliant with the medications. IMPRESSION: As per history of schizoaffective disorder, the patient has multiple medical issues, chronic obstructive pulmonary disease. See medical team notes for more detailed information. PLAN: Continue current management. Continue current medications. The patient also most likely was noncompliant with the medication because of difficulty of swallow. The patient's swallow evaluation recommended. If the patient was noncompliant with medication, which seems to be true, Depakote will be resumed with the smaller doses 250 mg twice a day with the plan to increase that to 750 twice a day. The patient also was not compliant with the other medications and that is why Seroquel needs to be at least divided into twice a day 300 mg. PAC team the patient today. This job specification writer also has problem conversation with PAC team about the patient's care. Discussed with the medical team. Dr. Patel will follow up on this patient over the weekend. Should you have any questions, give me a call back. Thank you very much for letting me to participate in the care of your patient. Sofia Davila MD
[2017-06-05] MEDS: Divalproex 500 mg DR(BID formulation) PO SCH (09:22)
[2017-06-05] MEDS: QUEtiapine 300 mg XR Tab PO SCH (09:23)
[2017-06-05] MEDS: guaiFENesin 100 mg/5 ml Syrup UD PO PRN (09:33)
--- NOTE | 2017-06-05 10:18 | CP.PCM.PN ---
<Adriana Acosta - Last Filed: 06/05/17 10:51> Subjective - Date & Time of Evaluation Date of Evaluation: 06/05/17 Time of Evaluation: 10:14 - Subjective Subjective: Adriana Acosta DO, PGY-1, Hospitalist Service Patient seen and examined at bedside. Patient has tic-like (motor cough) and repeats phrases. Patient is not oriented, and repeats phrase after phrase. I spoke with psychiatry and respiratory therapy in regards to the care of the patient. Objective - Vital Signs/Intake and Output Vital Signs (last 24 hours): Temp Pulse Resp BP Pulse Ox 98.5 F 99 H 22 138/81 99 06/05/17 08:55 06/05/17 09:23 06/05/17 08:55 06/05/17 09:23 06/05/17 08:55 Intake and Output: 06/05/17 06/05/17 06:59 18:59 Intake Total 720 Output Total 350 Balance 370 - Medications Medications: Current Medications Albuterol/Ipratropium (Duoneb 3 Mg/0.5 Mg (3 Ml) Ud) 3 ml IH [id number] [facility] Last Admin: 06/05/17 07:36 Dose: 3 ml Apixaban (Eliquis) 5 mg PO BID [facility] PRN Reason: Protocol Last Admin: 06/05/17 09:22 Dose: 5 mg Aspirin (Ecotrin) 81 mg PO DAILY [facility] Last Admin: 06/05/17 09:22 Dose: 81 mg Diltiazem HCl (Cardizem) 30 mg PO BID [facility] Last Admin: 06/05/17 09:23 Dose: 30 mg Divalproex Sodium (Depakote Dr(*Bid*)) 500 mg PO TID [facility] PRN Reason: Protocol Last Admin: 06/05/17 09:22 Dose: 500 mg Ergocalciferol (Drisdol 50,000 Intl Units Cap) 1 cap PO Q7D [facility] Last Admin: 06/02/17 11:07 Dose: 1 cap Finasteride (Proscar) 5 mg PO DAILY [facility] Last Admin: 06/05/17 09:23 Dose: 5 mg Guaifenesin (Robitussin) 100 mg PO Q4H PRN PRN Reason: Cough Last Admin: 06/05/17 09:33 Dose: 100 mg Azithromycin (Zithromax 500mg In Ns) 500 mg in 250 mls @ 167 mls/hr IVPB DAILY [facility] PRN Reason: Protocol Last Admin: 06/04/17 10:05 Dose: 167 mls/hr Ceftriaxone Sodium (Rocephin 1 Gram Ivpb (D5w)) 1 gm in 100 mls @ 100 mls/hr IVPB Q24H [facility] PRN Reason: Protocol Last Admin: 06/05/17 06:41 Dose: 100 mls/hr Lorazepam (Ativan) 1 mg IVP Q4 PRN; Protocol PRN Reason: Anxiety Last Admin: 06/04/17 22:44 Dose: 1 mg Methylprednisolone (Solu-Medrol) 20 mg IVP Q12 [facility] Montelukast Sodium (Singulair) 10 mg PO HS [facility] Last Admin: 06/04/17 21:40 Dose: 10 mg Pantoprazole Sodium (Protonix Ec Tab) 40 mg PO ACB [facility] Last Admin: 06/05/17 06:41 Dose: 40 mg Quetiapine Fumarate (Seroquel Xr) 300 mg PO AMHS [facility] PRN Reason: Protocol Last Admin: 06/05/17 09:23 Dose: 300 mg Tamsulosin HCl (Flomax) 0.4 mg PO DAILY [facility] Last Admin: 06/05/17 09:22 Dose: 0.4 mg - Labs Labs: 06/05/17 05:15 06/05/17 05:15 PT 15.1 SECONDS (9.4-12.5) H 06/01/17 17:57 INR 1.38 (0.93-1.08) H 06/01/17 17:57 - Constitutional Appears: Non-toxic, Unkempt, Confused - Head Exam Head Exam: ATRAUMATIC, NORMOCEPHALIC - Eye Exam Eye Exam: EOMI, Normal appearance, PERRL Pupil Exam: NORMAL ACCOMODATION - ENT Exam ENT Exam: Mucous Membranes Moist, Normal Oropharynx - Neck Exam Neck Exam: Normal Inspection - Respiratory Exam Respiratory Exam: Wheezes Additional comments: when talking patient starts coughing frenetically - Cardiovascular Exam Cardiovascular Exam: RRR, +S1, +S2 - GI/Abdominal Exam GI & Abdominal Exam: Soft. absent: Rigid, Rebound - Extremities Exam Extremities Exam: Normal Capillary Refill, Normal Inspection - Back Exam Back Exam: NORMAL INSPECTION. absent: CVA tenderness (L), CVA tenderness (R) - Neurological Exam Neurological Exam: Awake, CN II-XII Intact - Psychiatric Exam Psychiatric exam: Agitated Additional comments: agitated, - Skin Skin Exam: Dry, Intact, Normal Color, Warm Assessment and Plan - Assessment and Plan (Free Text) Assessment: 72 year old with COPD, schizoaffective disorder, and likely a form of tic disorder who [place] [facility] [place] shortness of breath and productive sputum. He is currently being treated for a COPD exacerbation, empirically for a Community Acquired Pneumonia, and for his chronic medical conditions. Psychiatry feels he may need to be committed given his mood changes; however, given his persistent cough and seemingly worsening respiratory status- likely secondary to his non-compliance with all of the different breathing treatment we are offering the patient, and worsening psychomotor agitation from IV steroids, he may or may not be a candidate until he is medically optimized by continuing empiric antibiotics, continuing Duonebulized treatment, restarting IV solumedrol, discontinuing the Seroquel and Depakote; and starting Risperidone 2 mg PO daily along with Clonidine 0.3 mg PO q6h, for a total of three doses a day. The Risperidone has a dual benefit in treating his schizoaffective disorder and his motor tics while the clonidine will be for mostly suppresing his motor tics and general psychomotor agitation. Plan: 1) COPD exacerbation - Ceftriaxone 1 gm IVP q24h - Azithromycin 500 mg qday - Duoneb 3 ml IH q4resp- patient is not allowing the breathing treatment to take effect due to his psychomotor agitation and uncontrolled mood disorder. - Methylprednisolone 20 mg q12h - Montelukast 10 mg PO Daily - Sputum gram stain and cultures negative - oxygen 2 L NC 2) Atrial fibrillation - Diltiazem 30 mg BID PO - Eliquis 5 mg BID PO - Aspirin 81 mg daily 3) BPH - Finasteride 5 mg PO daily - Tamsulosin 0.4 mg PO daily 4) Schizoaffective disorder, not controlled, with motor tics (presents as a cough) - Risperidone to start tomorrow, 2 mg daily - Clonidine 0.3 mg PO q6h, total of three doses - Psychiatry recommendations appreciated - Ativan PRN 5) GI prophylaxis - Protonix EC 40 mg PO daily Disposition: Once patient is medically stable, with the help of psychiatry, he can be evaluated for inpatient psychiatric admission <Efra Zuñiga - Last Filed: 06/05/17 12:17> Objective - Vital Signs/Intake and Output Vital Signs (last 24 hours): Temp Pulse Resp BP Pulse Ox 98.5 F 93 H 22 159/100 H 99 06/05/17 08:55 06/05/17 11:11 06/05/17 08:55 06/05/17 11:11 06/05/17 08:55 Intake and Output: 06/05/17 06/05/17 06:59 18:59 Intake Total 720 Output Total 350 Balance 370 - Medications Medications: Current Medications Albuterol/Ipratropium (Duoneb 3 Mg/0.5 Mg (3 Ml) Ud) 3 ml IH [id number] [facility] Last Admin: 06/05/17 11:02 Dose: 3 ml Apixaban (Eliquis) 5 mg PO BID [facility] PRN Reason: Protocol Last Admin: 06/05/17 09:22 Dose: 5 mg Aspirin (Ecotrin) 81 mg PO DAILY [facility] Last Admin: 06/05/17 09:22 Dose: 81 mg Diltiazem HCl (Cardizem) 30 mg PO BID [facility] Last Admin: 06/05/17 09:23 Dose: 30 mg Ergocalciferol (Drisdol 50,000 Intl Units Cap) 1 cap PO Q7D [facility] Last Admin: 06/02/17 11:07 Dose: 1 cap Finasteride (Proscar) 5 mg PO DAILY [facility] Last Admin: 06/05/17 09:23 Dose: 5 mg Azithromycin (Zithromax 500mg In Ns) 500 mg in 250 mls @ 167 mls/hr IVPB DAILY [facility] PRN Reason: Protocol Last Admin: 06/05/17 10:48 Dose: 167 mls/hr Ceftriaxone Sodium (Rocephin 1 Gram Ivpb (D5w)) 1 gm in 100 mls @ 100 mls/hr IVPB Q24H [facility] PRN Reason: Protocol Last Admin: 06/05/17 06:41 Dose: 100 mls/hr Lorazepam (Ativan) 1 mg IVP Q4 PRN; Protocol PRN Reason: Anxiety Last Admin: 06/04/17 22:44 Dose: 1 mg Methylprednisolone (Solu-Medrol) 20 mg IVP Q12 [facility] Last Admin: 06/05/17 10:46 Dose: 20 mg Montelukast Sodium (Singulair) 10 mg PO HS [facility] Last Admin: 06/04/17 21:40 Dose: 10 mg Pantoprazole Sodium (Protonix Ec Tab) 40 mg PO ACB [facility] Last Admin: 06/05/17 06:41 Dose: 40 mg Risperidone (Risperdal Tab) 2 mg PO DAILY [facility] PRN Reason: Protocol Tamsulosin HCl (Flomax) 0.4 mg PO DAILY [facility] Last Admin: 06/05/17 09:22 Dose: 0.4 mg - Labs Labs: 06/05/17 05:15 06/05/17 05:15 PT 15.1 SECONDS (9.4-12.5) H 06/01/17 17:57 INR 1.38 (0.93-1.08) H 06/01/17 17:57 Attending/Attestation - Attestation I have personally seen and examined this patient.: Yes I have fully participated in the care of the patient.: Yes I have reviewed all pertinent clinical information, including history, physical exam and plan: Yes Notes (Text): 06/05/17 12:13 72 year old male with past medical history of COPD, hypertension, paroxysmal afib, and schizophrenia/schizoaffective disorder who is admitted for COPD exacerbation. Today still has cough and wheezing, partly secondary to noncompliance with respiratory treatments. He is on iv steroids, duonebs and antibiotics. Repeat CXR is ordered for today. Psychiatry is following patient as well. Started on risperdal and trial of clonidine for psychomotor agitation/?tics. He is on cardizem and eliquis for history of paroxysmal afib. Efra Zuñiga MD Hospitalist.
[2017-06-05] MEDS: MethylPREDNISolone 40 mg Vial IVP SCH ×2 (10:46→21:17)
[2017-06-05] MEDS: Azithromycin 500MG/NS 250ml 500 MG/250 ML BAG IVPB SCH (10:48)
--- NOTE | 2017-06-05 12:55 | PN ---
DATE: SUBJECTIVE: In short, the patient is a 72-year-old male with long history of schizoaffective disorder. The patient is followed by psychiatric team in [place] PACT team. The patient has history of long psych admissions as well as state hospitalization. The patient was admitted on the medical side for shortness of breath, inability to swallow. Psych consult was called for evaluation of medication as well as because the patient has long history of mental illness. Please see initial consultation note for more detailed information. The patient was followed up by Dr. Patel over the weekend. The patient was not doing well from the medical standpoint as well as psychiatric standpoint. The patient needed to be medicated and lul [facility] was called. Yesterday Dr. Patel tried to evaluate the patient, but the patient was deeply sedated. Today, this blurb writer had prolonged conversation with medical assistant ob gyn. Medical team expressed concerns about tic like motor cough and asked if it is possible for patient to be switched from the Seroquel to Risperdal. We will discuss with the PACT team, but since patient does not have history of side effects from any medication, we will initiate Risperdal. On top of that, the patient appears to be very anxious, very short of breath. Ativan will be also started, Seroquel will be on hold, Depakote will be continued. The patient was seen and examined, but the patient has breathing treatment. The patient was not able to have full sentences and appears to be restless. PHYSICAL EXAMINATION: VITAL SIGNS: Reviewed. Temperature 98.5, pulse is 93, blood pressure 159/100, respiration 22, oxygen saturation is 99. MEDICATIONS: Reviewed. The patient is on DuoNeb, Eliquis, aspirin, Zithromax, Rocephin, Cardizem, Drisdol, Proscar, Ativan 1 mg IV push q.4h. as needed, yesterday was the last dose, Solu-Medrol, Singulair, Protonix, Risperdal will be started 1 mg 3 times a day, also Ativan 0.5 mg 3 times a day. Geodon will be as needed, 20 mg q.8h. as needed for severe agitation. The patient is also on Flomax. LABORATORY DATA: Labs reviewed. The patient has leukocytosis of 11.8. Blood gas reviewed. Chemistry reviewed. Toxicology reviewed. MENTAL STATUS EXAMINATION: The patient appears to be restless, intermittent eye contact, having breathing treatment during the interview. Patient was not able to have full sentences while talking. Mood described "I am fine." Affect was flat. Thought process seems to be disorganized. Thought content, the patient has residual psychotic symptoms, but denies hearing voices. Insight and judgment limited. Impulses are unpredictable. IMPRESSION: The patient has history of schizoaffective disorder. The patient has multiple medical issues. Most likely the patient has delirium stage as well. PLAN: This blurb writer had discussed the case with the medical team, was advised to call Neurology consult to rule out motor tics and cough. Meanwhile, we will discontinue Seroquel, we will start Risperdal liquid form 1 mg 3 times a day for psychosis as well as Ativan will be started 0.5 mg 3 times a day scheduled for anxiety. The patient will be continued on Depakote and the patient will be getting as-needed medication called Geodon 20 mg 3 times a day as needed for severe agitation. The patient also will be continued on Ativan IV push as needed for agitation and anxiety. We will follow up on this patient and advise accordingly. The patient most likely needs to have screening after medical stabilization. At the same time, this blurb writer cannot be excluding the fact that the patient might be improving after medical improvement. We will follow up on this patient and advise accordingly. Thank you very much for letting me participate in care of your patient. Sofia Davila MD
--- NOTE | 2017-06-05 14:13 | RAD ---
HISTORY: worsening cough and dyspnea COMPARISON: 06/01/2017 FINDINGS: LUNGS: There is an infiltrate in the right lower lobe suspicious for pneumonia PLEURA: No significant pleural effusion identified, no pneumothorax apparent. CARDIOVASCULAR: Normal. OSSEOUS STRUCTURES: No significant abnormalities. VISUALIZED UPPER ABDOMEN: Normal. OTHER FINDINGS: None. IMPRESSION: Right lower lobe infiltrate
[2017-06-05] MEDS: AMPicillin/Sulbactam 1.5gm 1 GM/100 ML BAG IVPB SCH ×2 (21:17→23:16)
[2017-06-06] MEDS: Albuterol-Ipratrop 3 mg / 0.5 (3 ml) UD IH SCH ×6 (01:14→20:00)
[2017-06-06] MEDS: AMPicillin/Sulbactam 1.5gm 1 GM/100 ML BAG IVPB SCH ×4 (05:05→23:07)
[2017-06-06 06:30] LABS: GRAN # 5.92 (1.4-6.5); GRAN % 82.7 % (50.0-68.0); HEMATOCRIT 34.1 % (42.0-52.0); LYMPH # 0.7 (1.2-3.4); LYMPH % 9.7 % (22.0-35.0); MEAN CELL VOLUME 100.9 fl (80.0-105.0); MEAN CORPUSCULAR HEMOGLOBIN 31.4 pg (25.0-35.0); MEAN CORPUSCULAR HGB CONC 31.1 g/dl (31.0-37.0); MEAN PLATELET VOLUME 9.7 fl (7.0-11.0); MONO # 0.5 (0.1-0.6); MONO % 7.6 % (1.0-6.0); RED CELL DISTRIBUTION WIDTH 13.7 % (11.5-14.5); WHITE BLOOD COUNT 7.2 10^3/ul (4.5-11.0)
[2017-06-06 07:10] LABS: ALB/GLOB RATIO 0.9 (1.1-1.8); ALKALINE PHOSPHATASE 48 U/L (38-126); ALT/SGPT 24 U/L (7-56); AST/SGOT 15 U/L (17-59); BILIRUBIN,TOTAL 0.2 mg/dL (0.2-1.3); BLOOD UREA NITROGEN 23 mg/dL (7-21); CALCIUM 8.8 mg/dL (8.4-10.5); CARBON DIOXIDE 38 mmol/L (21-33); CHLORIDE 98 mmol/L (98-107); GFR AFRICAN-AMERICAN > 60; GLUCOSE,RANDOM 133 mg/dL (70-110); POTASSIUM 5.2 mmol/L (3.6-5.0); SODIUM 142 mmol/L (132-148)
[2017-06-06] MEDS: Valproic Acid 250 mg/5 ml UD Cup PO SCH ×2 (09:09→17:59)
[2017-06-06] MEDS: MethylPREDNISolone 40 mg Vial IVP SCH ×2 (09:09→21:02)
[2017-06-06] MEDS: Pantoprazole 40 mg EC Tab PO SCH (09:10)
[2017-06-06] MEDS: guaiFENesin 200 mg/10 ml Syrup UD PO SCH ×4 (10:54→23:07)
--- NOTE | 2017-06-06 18:23 | CP.PCM.PN ---
<Adriana Acosta - Last Filed: 06/06/17 19:52> Subjective - Date & Time of Evaluation Date of Evaluation: 06/06/17 Time of Evaluation: 07:30 - Subjective Subjective: Patient seen and examined at bedside. Patient asks how he is doing. He states his, "in the ER, they told me I had a collapsed lung." He states he needs to know how to repair a collapsed lung, in case his lung collapses on him. 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 He then asks what if he needs a transplant too. All questions were answered to my best ability, and the patient was provided reassurance. He displays tangential thought, and in the morning when I evaluated he seemed to be speaking full sentences and not exhibiting a tic-like cough. Nurse reports no events overnight. Objective - Vital Signs/Intake and Output Vital Signs (last 24 hours): Temp Pulse Resp BP Pulse Ox 98.2 F 112 H 18 133/91 H 95 06/06/17 08:22 06/06/17 17:59 06/06/17 08:22 06/06/17 17:59 06/05/17 16:00 Intake and Output: 06/06/17 06/06/17 06:59 18:59 Intake Total 420 Output Total 200 Balance 220 - Medications Medications: Current Medications Acetylcysteine (Acetylcysteine 20%) 4 ml IH [id number] [facility] Albuterol/Ipratropium (Duoneb 3 Mg/0.5 Mg (3 Ml) Ud) 3 ml IH [id number] [facility] Last Admin: 06/06/17 15:52 Dose: 3 ml Apixaban (Eliquis) 5 mg PO BID [facility] PRN Reason: Protocol Last Admin: 06/06/17 17:59 Dose: 5 mg Aspirin (Ecotrin) 81 mg PO DAILY [facility] Last Admin: 06/06/17 09:10 Dose: 81 mg Diltiazem HCl (Cardizem) 30 mg PO BID [facility] Last Admin: 06/06/17 17:59 Dose: 30 mg Ergocalciferol (Drisdol 50,000 Intl Units Cap) 1 cap PO Q7D [facility] Last Admin: 06/02/17 11:07 Dose: 1 cap Finasteride (Proscar) 5 mg PO DAILY [facility] Last Admin: 06/06/17 09:10 Dose: 5 mg Guaifenesin (Robitussin) 200 mg PO Q4H [facility] Last Admin: 06/06/17 17:59 Dose: 200 mg Haloperidol (Haldol) 1 mg PO BID [facility] PRN Reason: Protocol Ampicillin Sodium/Sulbactam Sodium (Unasyn) 1 gm in 100 mls @ 100 mls/hr IVPB Q6 [facility] PRN Reason: Protocol Last Admin: 06/06/17 11:49 Dose: 100 mls/hr Lorazepam (Ativan) 1 mg IVP Q4 PRN; Protocol PRN Reason: Anxiety Last Admin: 06/06/17 01:14 Dose: 1 mg Lorazepam (Ativan) 0.5 mg PO TID [facility] PRN Reason: Protocol Last Admin: 06/06/17 17:58 Dose: 0.5 mg Methylprednisolone (Solu-Medrol) 10 mg IVP Q12 [facility] Montelukast Sodium (Singulair) 10 mg PO HS [facility] Last Admin: 06/05/17 21:17 Dose: 10 mg Pantoprazole Sodium (Protonix Ec Tab) 40 mg PO ACB [facility] Last Admin: 06/06/17 09:10 Dose: 40 mg Quetiapine Fumarate (Seroquel Xr) 300 mg PO AMHS [facility] PRN Reason: Protocol Tamsulosin HCl (Flomax) 0.4 mg PO DAILY [facility] Last Admin: 06/06/17 09:10 Dose: 0.4 mg Valproate Sodium (Depakene Oral Soln) 500 mg PO BID [facility] Last Admin: 06/06/17 17:59 Dose: 500 mg Ziprasidone (Geodon Inj) 20 mg IM TID PRN; Protocol PRN Reason: Agitation - Labs Labs: 06/06/17 05:30 06/06/17 05:30 PT 15.1 SECONDS (9.4-12.5) H 06/01/17 17:57 INR 1.38 (0.93-1.08) H 06/01/17 17:57 - Constitutional Appears: Non-toxic, No Acute Distress - Head Exam Head Exam: ATRAUMATIC, NORMOCEPHALIC - Eye Exam Eye Exam: EOMI, Normal appearance - ENT Exam ENT Exam: Mucous Membranes Moist, Normal Oropharynx - Neck Exam Neck Exam: Normal Inspection - Respiratory Exam Respiratory Exam: Accessory Muscle Use Additional comments: monophasic, inspiratory stridor - Cardiovascular Exam Cardiovascular Exam: RRR, +S1, +S2 - GI/Abdominal Exam GI & Abdominal Exam: Soft, Normal Bowel Sounds - Extremities Exam Extremities Exam: Normal Capillary Refill, Normal Inspection - Back Exam Back Exam: NORMAL INSPECTION. absent: CVA tenderness (L), CVA tenderness (R) - Psychiatric Exam Additional comments: tangential speech and thoughts - Skin Skin Exam: Dry, Intact, Normal Color, Warm Assessment and Plan - Assessment and Plan (Free Text) Assessment: 1) COPD exacerbation - Ceftriaxone 1 gm IVP q24h - Azithromycin 500 mg qday - Duoneb 3 ml IH q4resp- patient is not allowing the breathing treatment to take effect due to his psychomotor agitation and uncontrolled mood disorder. - Methylprednisolone 20 mg q12h - Montelukast 10 mg PO Daily - Sputum gram stain and cultures negative - oxygen 2 L NC 2) Atrial fibrillation - Diltiazem 30 mg BID PO - Eliquis 5 mg BID PO - Aspirin 81 mg daily 3) BPH - Finasteride 5 mg PO daily - Tamsulosin 0.4 mg PO daily 4) Schizoaffective disorder, not controlled, with motor tics (presents as a cough) - Risperidone to start tomorrow, 2 mg daily - Clonidine 0.3 mg PO q6h, total of three doses - Psychiatry recommendations appreciated - Ativan PRN 5) GI prophylaxis - Protonix EC 40 mg PO daily Disposition: Once patient is medically stable, with the help of psychiatry, he can be evaluated for inpatient psychiatric admission Plan: 1) COPD exacerbation with possible aspiration pneumonia - Ampicillin/Sulfabactam 1 gm q6h - Duoneb 3 ml IH q4RESP [facility] - Acetylcysteine 20% 4 ml IH [id number] [facility] - Methylprednisolone 10 mg q12h - Montelukast 10 mg PO Daily - Sputum gram stain and cultures negative - Oxygen via non-rebreather mask to maintain pulse oximetry greater than 92%. - Robitussin 2) Atrial fibrillation - Diltiazem 30 mg BID PO - Eliquis 5 mg BID PO - Aspirin 81 mg daily 3) BPH - Finasteride 5 mg PO daily - Tamsulosin 0.4 mg PO daily 4) Schizoaffective disorder, possible motor tics - Seroquel 300 mg PO AMHS - Ativan 1 mg q4h PRN - 0.5 mg Ativan TID [facility] - Ziprasidone 20 mg IM TID PRN - Haldol 1 mg PO BID [facility] - Depakene 500 mg PO BID 5) GI prophylaxis - Protonix EC 40 mg PO daily Disposition: Once patient is medically stable, with the help of psychiatry, he can be evaluated for inpatient psychiatric admission by [facility] <Efra Zuñiga - Last Filed: 06/06/17 21:10> Objective - Vital Signs/Intake and Output Vital Signs (last 24 hours): Temp Pulse Resp BP Pulse Ox 97.5 F L 112 H 28 H 133/91 H 88 L 06/06/17 16:00 06/06/17 17:59 06/06/17 16:00 06/06/17 17:59 06/06/17 16:00 - Medications Medications: Current Medications Acetylcysteine (Acetylcysteine 20%) 4 ml IH [id number] [facility] Last Admin: 06/06/17 20:00 Dose: 4 ml Albuterol/Ipratropium (Duoneb 3 Mg/0.5 Mg (3 Ml) Ud) 3 ml IH [id number] [facility] Last Admin: 06/06/17 20:00 Dose: 3 ml Apixaban (Eliquis) 5 mg PO BID [facility] PRN Reason: Protocol Last Admin: 06/06/17 17:59 Dose: 5 mg Aspirin (Ecotrin) 81 mg PO DAILY [facility] Last Admin: 06/06/17 09:10 Dose: 81 mg Diltiazem HCl (Cardizem) 30 mg PO BID [facility] Last Admin: 06/06/17 17:59 Dose: 30 mg Ergocalciferol (Drisdol 50,000 Intl Units Cap) 1 cap PO Q7D [facility] Last Admin: 06/02/17 11:07 Dose: 1 cap Finasteride (Proscar) 5 mg PO DAILY [facility] Last Admin: 06/06/17 09:10 Dose: 5 mg Guaifenesin (Robitussin) 200 mg PO Q4H [facility] Last Admin: 06/06/17 17:59 Dose: 200 mg Haloperidol (Haldol) 1 mg PO BID [facility] PRN Reason: Protocol Last Admin: 06/06/17 18:29 Dose: 1 mg Ampicillin Sodium/Sulbactam Sodium (Unasyn) 1 gm in 100 mls @ 100 mls/hr IVPB Q6 [facility] PRN Reason: Protocol Last Admin: 06/06/17 18:29 Dose: 100 mls/hr Lorazepam (Ativan) 1 mg IVP Q4 PRN; Protocol PRN Reason: Anxiety Last Admin: 06/06/17 01:14 Dose: 1 mg Lorazepam (Ativan) 0.5 mg PO TID [facility] PRN Reason: Protocol Last Admin: 06/06/17 17:58 Dose: 0.5 mg Methylprednisolone (Solu-Medrol) 10 mg IVP Q12 [facility] Montelukast Sodium (Singulair) 10 mg PO HS [facility] Last Admin: 06/05/17 21:17 Dose: 10 mg Pantoprazole Sodium (Protonix Ec Tab) 40 mg PO ACB [facility] Last Admin: 06/06/17 09:10 Dose: 40 mg Quetiapine Fumarate (Seroquel Xr) 300 mg PO AMHS [facility] PRN Reason: Protocol Tamsulosin HCl (Flomax) 0.4 mg PO DAILY [facility] Last Admin: 06/06/17 09:10 Dose: 0.4 mg Valproate Sodium (Depakene Oral Soln) 500 mg PO BID [facility] Last Admin: 06/06/17 17:59 Dose: 500 mg Ziprasidone (Geodon Inj) 20 mg IM TID PRN; Protocol PRN Reason: Agitation - Labs Labs: 06/06/17 05:30 06/06/17 05:30 PT 15.1 SECONDS (9.4-12.5) H 06/01/17 17:57 INR 1.38 (0.93-1.08) H 06/01/17 17:57 Attending/Attestation - Attestation I have personally seen and examined this patient.: Yes I have fully participated in the care of the patient.: Yes I have reviewed all pertinent clinical information, including history, physical exam and plan: Yes Notes (Text): 06/06/17 21:07 72 year old male with past medical history of COPD, hypertension, paroxysmal afib, and schizophrenia/schizoaffective disorder who is admitted for COPD exacerbation. He is on tapering iv steroids and duonebs. Repeat CXR yesterday showed RLL pneumonia and antibiotics were switched to unasyn. He still has upper respiratory secretions, wheezing and cough. Mucomyst is added. Psychiatry is following patient as well. He is on risperdal for psychomotor agitation/?tics. Neurology evaluation was requested. He is on cardizem and eliquis for history of paroxysmal afib. Efra Zuñiga MD Hospitalist.
[2017-06-06] MEDS: Acetylcysteine 20% Inhal Soln (4ml) IH SCH (20:00)
[2017-06-06] MEDS: QUEtiapine 300 mg XR Tab PO SCH (21:01)
--- NOTE | 2017-06-07 02:26 | PN ---
DATE: SUBJECTIVE: The patient is 72-year-old. The patient has long history of mental illness, schizoaffective disorder, schizophrenia and spectrum disorder. The patient was admitted on the medical side for evaluation of shortness of breath. The patient has productive sputum and COPD exacerbation. Psych consult was called for evaluation of medications. This underwriter mortgage loan made adjustment of medication as per medical team request. The patient has been on Seroquel for many years and was tolerating that medication well. Medical team requested to start Risperdal, but at present moment, medical team started Haldol. It is no point for the patient to be on 3 antipsychotic medications. Please be aware that the patient has long history of mental illness and side effect profile is very high. This underwriter mortgage loan will discontinue Risperdal as of now. Will continue Seroquel, Haldol was started by medical team. The patient was not able to have like full sentences and has shortness of breath. As per staff, the patient also has circumstantial and tangential thought process, but there is no agitation or aggression. This underwriter mortgage loan also had prolonged conversation with the PAC team, Risperdal was not effective in the past so this underwriter mortgage loan will resume Seroquel. Vital signs reviewed; seems to be stable. Medications reviewed, Risperdal will be discontinued because the patient was on this medication, but was not improving. Seroquel will be resumed, Haldol was started by medical team. This underwriter mortgage loan suggested to call for Neurology consultation. IMPRESSION: Long history of schizophrenia spectrum, rule out schizoaffective disorder. PLAN: This underwriter mortgage loan will resume Seroquel 300 mg twice a day, haloperidol should be continued because medical team feels that it could be helpful for tic-like spasmatic episodes while he is breathing. This underwriter mortgage loan would suggest Neurology consultation to rule out any neurological causes or difficult to swallow. This underwriter mortgage loan also would continue Depakote as well as Ativan as needed for anxiety and agitation. The patient does not have any aggression or agitation. Discussed with the medical team. Should you have any questions give me a call back. Thank you very much. Sofia Davila MD [facility] # [phone]
[2017-06-07] MEDS: Acetylcysteine 20% Inhal Soln (4ml) IH SCH ×5 (04:50→19:45)
[2017-06-07] MEDS: Albuterol-Ipratrop 3 mg / 0.5 (3 ml) UD IH SCH ×4 (04:50→19:45)
[2017-06-07] MEDS: AMPicillin/Sulbactam 1.5gm 1 GM/100 ML BAG IVPB SCH ×3 (05:30→18:02)
[2017-06-07] MEDS: guaiFENesin 200 mg/10 ml Syrup UD PO SCH ×6 (05:31→21:11)
[2017-06-07 06:21] LABS: GRAN # 6.15 (1.4-6.5); GRAN % 77.2 % (50.0-68.0); HEMATOCRIT 32.3 % (42.0-52.0); LYMPH # 1.1 (1.2-3.4); LYMPH % 13.4 % (22.0-35.0); MEAN CELL VOLUME 100.6 fl (80.0-105.0); MEAN CORPUSCULAR HEMOGLOBIN 31.5 pg (25.0-35.0); MEAN CORPUSCULAR HGB CONC 31.3 g/dl (31.0-37.0); MEAN PLATELET VOLUME 9.6 fl (7.0-11.0); MONO # 0.8 (0.1-0.6); MONO % 9.4 % (1.0-6.0); RED CELL DISTRIBUTION WIDTH 13.5 % (11.5-14.5)
--- NOTE | 2017-06-07 06:43 | CP.PCM.PN ---
Subjective - Date & Time of Evaluation Date of Evaluation: 06/07/17 Time of Evaluation: 00:10 - Subjective Subjective: pt is noticed to have severe sob , pt is admitted with copd exacerbation. has hx of schizoaffective disorder.and atrial fib. Objective - Vital Signs/Intake and Output Vital Signs (last 24 hours): Temp Pulse Resp BP Pulse Ox 97.6 F 110 H 28 H 132/90 92 L 06/06/17 22:00 06/06/17 22:00 06/06/17 22:00 06/06/17 22:00 06/06/17 22:00 Intake and Output: 06/06/17 06/07/17 18:59 06:59 Intake Total 1020 Output Total 400 Balance 620 - Medications Medications: Current Medications Acetylcysteine (Acetylcysteine 20%) 4 ml IH [id number] [facility] Last Admin: 06/07/17 04:50 Dose: 4 ml Albuterol/Ipratropium (Duoneb 3 Mg/0.5 Mg (3 Ml) Ud) 3 ml IH [id number] [facility] Last Admin: 06/07/17 04:50 Dose: 3 ml Apixaban (Eliquis) 5 mg PO BID [facility] PRN Reason: Protocol Last Admin: 06/06/17 17:59 Dose: 5 mg Aspirin (Ecotrin) 81 mg PO DAILY [facility] Last Admin: 06/06/17 09:10 Dose: 81 mg Diltiazem HCl (Cardizem) 30 mg PO BID [facility] Last Admin: 06/06/17 17:59 Dose: 30 mg Ergocalciferol (Drisdol 50,000 Intl Units Cap) 1 cap PO Q7D [facility] Last Admin: 06/02/17 11:07 Dose: 1 cap Finasteride (Proscar) 5 mg PO DAILY [facility] Last Admin: 06/06/17 09:10 Dose: 5 mg Guaifenesin (Robitussin) 200 mg PO Q4H [facility] Last Admin: 06/07/17 05:32 Dose: 200 mg Haloperidol (Haldol) 1 mg PO BID [facility] PRN Reason: Protocol Last Admin: 06/06/17 18:29 Dose: 1 mg Ampicillin Sodium/Sulbactam Sodium (Unasyn) 1 gm in 100 mls @ 100 mls/hr IVPB Q6 [facility] PRN Reason: Protocol Last Admin: 06/07/17 05:30 Dose: 100 mls/hr Lorazepam (Ativan) 1 mg IVP Q4 PRN; Protocol PRN Reason: Anxiety Last Admin: 06/07/17 01:18 Dose: 1 mg Lorazepam (Ativan) 0.5 mg PO TID [facility] PRN Reason: Protocol Last Admin: 06/06/17 17:58 Dose: 0.5 mg Methylprednisolone (Solu-Medrol) 10 mg IVP Q12 [facility] Last Admin: 06/06/17 21:02 Dose: 10 mg Montelukast Sodium (Singulair) 10 mg PO HS [facility] Last Admin: 06/06/17 21:01 Dose: 10 mg Pantoprazole Sodium (Protonix Ec Tab) 40 mg PO ACB [facility] Last Admin: 06/06/17 09:10 Dose: 40 mg Quetiapine Fumarate (Seroquel Xr) 300 mg PO AMHS [facility] PRN Reason: Protocol Last Admin: 06/06/17 21:01 Dose: 300 mg Tamsulosin HCl (Flomax) 0.4 mg PO DAILY [facility] Last Admin: 06/06/17 09:10 Dose: 0.4 mg Valproate Sodium (Depakene Oral Soln) 500 mg PO BID [facility] Last Admin: 06/06/17 17:59 Dose: 500 mg Ziprasidone (Geodon Inj) 20 mg IM TID PRN; Protocol PRN Reason: Agitation - Labs Labs: 06/07/17 06:00 06/06/17 05:30 PT 15.1 SECONDS (9.4-12.5) H 06/01/17 17:57 INR 1.38 (0.93-1.08) H 06/01/17 17:57 - Constitutional Appears: In Acute Distress - Head Exam Head Exam: NORMOCEPHALIC - Eye Exam Eye Exam: PERRL Pupil Exam: PERRL - ENT Exam ENT Exam: Mucous Membranes Moist - Neck Exam Neck Exam: Full ROM - Respiratory Exam Respiratory Exam: Wheezes - Cardiovascular Exam Cardiovascular Exam: RRR, +S1, +S2 - Rectal Exam Rectal Exam: Deferred - Extremities Exam Extremities Exam: Full ROM - Neurological Exam Neurological Exam: Alert, Oriented x3 - Psychiatric Exam Psychiatric exam: Anxious - Skin Skin Exam: Dry, Warm Assessment and Plan - Assessment and Plan (Free Text) Assessment: acute exacerbation of copd. atrial fib . hx of schizo affective disorder. Plan: duo neb stat. benadryl 25 mg stat x1 pt improved.
[2017-06-07 06:59] LABS: ALB/GLOB RATIO 0.9 (1.1-1.8); ALKALINE PHOSPHATASE 46 U/L (38-126); ALT/SGPT 15 U/L (7-56); AST/SGOT 22 U/L (17-59); BILIRUBIN,TOTAL 0.5 mg/dL (0.2-1.3); BLOOD UREA NITROGEN 24 mg/dL (7-21); CALCIUM 8.9 mg/dL (8.4-10.5); CHLORIDE 96 mmol/L (98-107); GFR AFRICAN-AMERICAN > 60; GLUCOSE,RANDOM 120 mg/dL (70-110); POTASSIUM 4.8 mmol/L (3.6-5.0); SODIUM 144 mmol/L (132-148); TOTAL PROTEIN 5.8 g/dL (5.8-8.3)
[2017-06-07 07:25] LABS: CARBON DIOXIDE 39 mmol/L (21-33)
[2017-06-07] MEDS: Pantoprazole 40 mg EC Tab PO SCH (08:24)
[2017-06-07] MEDS: MethylPREDNISolone 40 mg Vial IVP SCH ×2 (09:40→21:12)
[2017-06-07] MEDS: Valproic Acid 250 mg/5 ml UD Cup PO SCH ×2 (09:43→17:59)
[2017-06-07] MEDS: QUEtiapine 300 mg XR Tab PO SCH ×2 (09:45→21:11)
[2017-06-07] MEDS ORDERED: Fluticasone-Salmeterol 500-50mcg Diskus INH SCH (11:15)
--- NOTE | 2017-06-07 11:28 | CP.PCM.PN ---
Subjective - Date & Time of Evaluation Date of Evaluation: 06/07/17 Time of Evaluation: 10:40 - Subjective Subjective: Pt seen and examined, currently having breakfast. Reports to cough, dry non productive. Reports mild SOB. Pulse Ox 87-88% on room air on my exam. Refused to walk to determine pulse ox. Objective - Vital Signs/Intake and Output Vital Signs (last 24 hours): Temp Pulse Resp BP Pulse Ox 97.9 F 102 H 22 128/88 92 L 06/07/17 06:00 06/07/17 06:00 06/07/17 06:00 06/07/17 06:00 06/07/17 06:00 Intake and Output: 06/07/17 06/07/17 06:59 18:59 Intake Total 1020 700 Output Total 400 1000 Balance 620 -300 - Medications Medications: Current Medications Acetaminophen (Tylenol 325mg Tab) 650 mg PO Q4H PRN PRN Reason: Pain, Mild (1-3) Last Admin: 06/07/17 08:25 Dose: 650 mg Acetylcysteine (Acetylcysteine 20%) 4 ml IH [id number] [facility] Last Admin: 06/07/17 11:02 Dose: 4 ml Albuterol/Ipratropium (Duoneb 3 Mg/0.5 Mg (3 Ml) Ud) 3 ml IH [id number] [facility] Apixaban (Eliquis) 5 mg PO BID [facility] PRN Reason: Protocol Last Admin: 06/07/17 09:46 Dose: 5 mg Aspirin (Ecotrin) 81 mg PO DAILY [facility] Last Admin: 06/07/17 09:45 Dose: 81 mg Diltiazem HCl (Cardizem) 30 mg PO BID [facility] Last Admin: 06/07/17 09:46 Dose: 30 mg Ergocalciferol (Drisdol 50,000 Intl Units Cap) 1 cap PO Q7D [facility] Last Admin: 06/02/17 11:07 Dose: 1 cap Finasteride (Proscar) 5 mg PO DAILY [facility] Last Admin: 06/07/17 09:44 Dose: 5 mg Guaifenesin (Robitussin) 200 mg PO Q4H [facility] Last Admin: 06/07/17 09:43 Dose: 200 mg Haloperidol (Haldol) 1 mg PO BID [facility] PRN Reason: Protocol Last Admin: 12/06/17 09:43 Dose: 1 mg Ampicillin Sodium/Sulbactam Sodium (Unasyn) 1 gm in 100 mls @ 100 mls/hr IVPB Q6 [facility] PRN Reason: Protocol Last Admin: 06/07/17 05:30 Dose: 100 mls/hr Lorazepam (Ativan) 1 mg IVP Q4 PRN; Protocol PRN Reason: Anxiety Last Admin: 06/07/17 01:18 Dose: 1 mg Lorazepam (Ativan) 0.5 mg PO TID [facility] PRN Reason: Protocol Last Admin: 06/07/17 09:46 Dose: 0.5 mg Methylprednisolone (Solu-Medrol) 40 mg IVP Q12 [facility] Montelukast Sodium (Singulair) 10 mg PO HS [facility] Last Admin: 06/06/17 21:01 Dose: 10 mg Pantoprazole Sodium (Protonix Ec Tab) 40 mg PO ACB [facility] Last Admin: 06/07/17 08:24 Dose: 40 mg Quetiapine Fumarate (Seroquel Xr) 300 mg PO AMHS [facility] PRN Reason: Protocol Last Admin: 06/07/17 09:45 Dose: 300 mg Fluticasone/Salmeterol (Advair Diskus 500/50) 1 puff INH Q12 [facility] Tamsulosin HCl (Flomax) 0.4 mg PO DAILY [facility] Last Admin: 06/07/17 09:45 Dose: 0.4 mg Tiotropium Marydel (Spiriva) 18 mcg IH DAILY [facility] Valproate Sodium (Depakene Oral Soln) 500 mg PO BID [facility] Last Admin: 06/07/17 09:43 Dose: 500 mg Ziprasidone (Geodon Inj) 20 mg IM TID PRN; Protocol PRN Reason: Agitation - Labs Labs: 06/07/17 06:00 06/07/17 06:00 PT 15.1 SECONDS (9.4-12.5) H 06/01/17 17:57 INR 1.38 (0.93-1.08) H 06/01/17 17:57 - Constitutional Appears: No Acute Distress, Cachectic - Head Exam Head Exam: ATRAUMATIC - ENT Exam ENT Exam: Mucous Membranes Moist - Respiratory Exam Respiratory Exam: Prolonged Expiratory Phase, Wheezes, NORMAL BREATHING PATTERN - Cardiovascular Exam Cardiovascular Exam: REGULAR RHYTHM, +S1, +S2 - GI/Abdominal Exam GI & Abdominal Exam: Soft, Normal Bowel Sounds - Extremities Exam Extremities Exam: Normal Inspection - Neurological Exam Neurological Exam: Alert, Awake, Oriented x3 - Psychiatric Exam Psychiatric exam: Anxious, Flat Affect Assessment and Plan - Assessment and Plan (Free Text) Assessment: 72yo male a/w COPD exacerbation, SOB COPD exacerbation SOB - currently AAOx3, NAD, comfortable while sitting in chair - O2 sat 87-88% on room air on my exam, refused to ambulate - Patient already anticoagulated with Eliquis, doubt thromboembolic event. - on exam has diffuse wheezing, with prolonged inspiratory phase - CXR from 06/06 with cinreased markings in RLL, Procalcitonin negative, finished course of antibiotics Recommend: - supp O2, goal sat 88-92%, please avoid NRB - would increase IV steroids to Solumedrol 40mg IV BID - Duonebs q4-6pRN - Singulair 10mg daily, Advair 500/50 BID - PT eval - Nutrition consult - Pulmonary will continue to follow
[2017-06-07] MEDS: Tiotropium 18 mcg Cap For Inhalation IH SCH (12:38)
--- NOTE | 2017-06-07 13:53 | CON ---
DATE: 06/07/2017 REASON FOR CONSULTATION: Vocal tics. HISTORY OF PRESENT ILLNESS: The patient is a 72-year-old male who has been asked for evaluation of vocal tics. The patient has diagnosis of schizophrenia. Apparently, he has vocal tics for a while. He has tried Risperdal and clonidine, but neither helped him in the past. Because of this vocal tics, it is difficult for him to eat also. At the moment, he was admitted with exacerbation of COPD. REVIEW OF SYSTEMS: Denies any headache, dizziness. Positive for cough. Positive for shortness of breath. Positive for some abdominal pain. Denies any constipation, diarrhea, dysuria, cough, or sputum production. PAST MEDICAL HISTORY: Includes COPD, asthma, hypertension, migraines, paroxysmal atrial fibrillation, urinary retention, schizophrenia, polycythemia. PAST SURGICAL HISTORY: Includes cardiac catheterization, TURP. ALLERGIES: NO KNOWN DRUG ALLERGIES. SOCIAL HISTORY: Denies smoking. Used to smoke in the past. Denies use of alcohol or illicit drugs. FAMILY HISTORY: Noncontributory to the case. PHYSICAL EXAMINATION: GENERAL: The patient is an elderly male, lying on the bed, having slight shortness of breath. VITAL SIGNS: His blood pressure is 128/80, heart rate is 102 per minute, breathing at a rate of 16 per minute, temperature is 97.9 degrees Fahrenheit. HEENT: Normocephalic and atraumatic. NECK: Supple. There are no carotid bruits. LUNGS: Clear CARDIOVASCULAR SYSTEM: S1 and S2 audible. No murmurs. ABDOMEN: Soft and nontender. Bowel sounds are present. NEUROLOGY: Mental status: The patient is awake and alert, oriented to time, place, and person. Speech is fluent. I did not appreciate any vocal tics at the moment. He follows all simple commands. Cranial nerve examination: Pupils are 3 mm bilaterally reactive to light. Visual guerrero are full. Extraocular movements are intact. There is no facial asymmetry. Palate is upgoing bilaterally. Tongue is midline. Motor examination: Tone is normal. Power is 5/5 bilaterally in all extremities. Reflexes are 1+ and symmetrical. Plantars are downgoing bilaterally. Gait is deferred at the moment. Sensory examination intact to soft touch and pinprick. LABORATORY DATA: Labs reviewed, showed WBC of 8.0, hemoglobin of 10.1, hematocrit 32.3, and platelet of 275. His sodium is 144, potassium 4.8, chloride 96, carbon dioxide content of 39, BUN of 24, creatinine 0.7, and glucose of 120. IMPRESSION: 1. Vocal tics. 2. Chronic obstructive pulmonary disease exacerbation. 3. History of atrial fibrillation. RECOMMENDATION: 1. The patient to be tried on haloperidol 1 mg twice a day to see if that helps his vocal tics. 2. If that does not help, then patient may be tried on pimozide. However, we should give few days of trial with Haldol before switching to pimozide. 3. Please continue supportive care and other treatment. Thank you for the opportunity to participate in the care of this patient. Adenike Rothman MD
--- NOTE | 2017-06-07 15:45 | CP.PCM.PN ---
<Adriana Acosta - Last Filed: 06/07/17 15:53> Subjective - Date & Time of Evaluation Date of Evaluation: 06/07/17 Time of Evaluation: 08:00 - Subjective Subjective: Adriana Acosta DO, PGY-1, Hospitalist Service Patient seen and examined at bedside. Patient denies any fevers, chills, chest pain, but admits to dyspnea. Nurse reports no atypical events overnight Objective - Vital Signs/Intake and Output Vital Signs (last 24 hours): Temp Pulse Resp BP Pulse Ox 97.9 F 102 H 22 128/88 92 L 06/07/17 06:00 06/07/17 06:00 06/07/17 06:00 06/07/17 06:00 06/07/17 06:00 Intake and Output: 06/07/17 06/07/17 06:59 18:59 Intake Total 1020 700 Output Total 400 1000 Balance 620 -300 - Medications Medications: Current Medications Acetaminophen (Tylenol 325mg Tab) 650 mg PO Q4H PRN PRN Reason: Pain, Mild (1-3) Last Admin: 06/07/17 12:38 Dose: 650 mg Acetylcysteine (Acetylcysteine 20%) 4 ml IH [id number] [facility] Last Admin: 06/07/17 11:02 Dose: 4 ml Albuterol/Ipratropium (Duoneb 3 Mg/0.5 Mg (3 Ml) Ud) 3 ml IH [id number] [facility] Apixaban (Eliquis) 5 mg PO BID [facility] PRN Reason: Protocol Last Admin: 06/07/17 09:46 Dose: 5 mg Arformoterol Tartrate (Brovana) 15 mcg IH [id number] [facility] Aspirin (Ecotrin) 81 mg PO DAILY [facility] Last Admin: 06/07/17 09:45 Dose: 81 mg Budesonide (Pulmicort Respules) 1 mg IH [id number] [facility] Diltiazem HCl (Cardizem) 30 mg PO BID [facility] Last Admin: 06/07/17 09:46 Dose: 30 mg Ergocalciferol (Drisdol 50,000 Intl Units Cap) 1 cap PO Q7D [facility] Last Admin: 06/02/17 11:07 Dose: 1 cap Finasteride (Proscar) 5 mg PO DAILY [facility] Last Admin: 06/07/17 09:44 Dose: 5 mg Guaifenesin (Robitussin) 200 mg PO Q4H [facility] Last Admin: 06/07/17 09:43 Dose: 200 mg Haloperidol (Haldol) 1 mg PO BID [facility] PRN Reason: Protocol Last Admin: 06/07/17 09:43 Dose: 1 mg Ampicillin Sodium/Sulbactam Sodium (Unasyn) 1 gm in 100 mls @ 100 mls/hr IVPB Q6 [facility] PRN Reason: Protocol Last Admin: 06/07/17 05:30 Dose: 100 mls/hr Lorazepam (Ativan) 1 mg IVP Q4 PRN; Protocol PRN Reason: Anxiety Last Admin: 06/07/17 01:18 Dose: 1 mg Lorazepam (Ativan) 0.5 mg PO TID [facility] PRN Reason: Protocol Last Admin: 06/07/17 09:46 Dose: 0.5 mg Methylprednisolone (Solu-Medrol) 40 mg IVP Q12 [facility] Montelukast Sodium (Singulair) 10 mg PO HS [facility] Last Admin: 06/06/17 21:01 Dose: 10 mg Pantoprazole Sodium (Protonix Ec Tab) 40 mg PO ACB [facility] Last Admin: 06/07/17 08:24 Dose: 40 mg Quetiapine Fumarate (Seroquel Xr) 300 mg PO AMHS [facility] PRN Reason: Protocol Last Admin: 06/07/17 09:45 Dose: 300 mg Tamsulosin HCl (Flomax) 0.4 mg PO DAILY [facility] Last Admin: 06/07/17 09:45 Dose: 0.4 mg Tiotropium [place] (Spiriva) 18 mcg IH DAILY [facility] Last Admin: 06/07/17 12:38 Dose: 18 mcg Valproate Sodium (Depakene Oral Soln) 500 mg PO BID [facility] Last Admin: 06/07/17 09:43 Dose: 500 mg Ziprasidone (Geodon Inj) 20 mg IM TID PRN; Protocol PRN Reason: Agitation - Labs Labs: 06/07/17 06:00 06/07/17 06:00 PT 15.1 SECONDS (9.4-12.5) H 06/01/17 17:57 INR 1.38 (0.93-1.08) H 06/01/17 17:57 - Constitutional Appears: Well, Non-toxic - Head Exam Head Exam: ATRAUMATIC, NORMOCEPHALIC - Eye Exam Eye Exam: EOMI, Normal appearance Pupil Exam: NORMAL ACCOMODATION - ENT Exam ENT Exam: Mucous Membranes Moist, Normal Oropharynx - Neck Exam Neck Exam: Normal Inspection - Respiratory Exam Additional comments: tachypneic - Cardiovascular Exam Cardiovascular Exam: RRR, +S1, +S2 - GI/Abdominal Exam GI & Abdominal Exam: Soft, Normal Bowel Sounds - Extremities Exam Extremities Exam: Normal Capillary Refill, Normal Inspection. absent: Pedal Edema - Back Exam Back Exam: NORMAL INSPECTION. absent: CVA tenderness (L), CVA tenderness (R) - Psychiatric Exam Additional comments: not normal - Skin Skin Exam: Dry, Intact, Normal Color, Warm Assessment and Plan - Assessment and Plan (Free Text) Assessment: 72 year old with COPD, schizoaffective disorder, atrial fibrillation, and likely a form of tic disorder who presented to [facility] for increasing shortness of breath and productive sputum. Plan: 1) COPD exacerbation with possible aspiration pneumonia - WBC is less than 10 today; patient is afebrile, - Ampicillin/Sulfabactam 1 gm q6h - Duoneb 3 ml IH q4RESP [facility] - Acetylcysteine 20% 4 ml IH [id number] [facility] - Methylprednisolone 40 mg q12h - Montelukast 10 mg PO Daily - Budesonide 1 mg q12h - Sputum gram stain and cultures negative - Robitussin 200 mg PO q4h [facility] - Brovana 15 mcg q12h resp 2) Atrial fibrillation - Diltiazem 30 mg BID PO - Eliquis 5 mg BID PO - Aspirin 81 mg daily 3) BPH - Finasteride 5 mg PO daily - Tamsulosin 0.4 mg PO daily 4) Schizoaffective disorder, possible motor tics - Seroquel 300 mg PO AMHS - Ativan 1 mg q4h PRN - 0.5 mg Ativan TID [facility] - Ziprasidone 20 mg IM TID PRN - Haldol 1 mg PO BID [facility] - Depakene 500 mg PO BID 5) GI prophylaxis - Protonix EC 40 mg PO daily 6) Aches and pain - Acetaminophen 325 mg tab PRN Pulmonology, Psychiatry, PACT, INSULATION FOREMAN, Respiratory team, Neurology recommendations appreciated. <Efra Zuñiga - Last Filed: 06/07/17 16:15> Objective - Vital Signs/Intake and Output Vital Signs (last 24 hours): Temp Pulse Resp BP Pulse Ox 97.9 F 102 H 22 128/88 92 L 06/07/17 06:00 06/07/17 06:00 06/07/17 06:00 06/07/17 06:00 06/07/17 06:00 Intake and Output: 06/07/17 06/07/17 06:59 18:59 Intake Total 1020 700 Output Total 400 1000 Balance 620 -300 - Medications Medications: Current Medications Acetaminophen (Tylenol 325mg Tab) 650 mg PO Q4H PRN PRN Reason: Pain, Mild (1-3) Last Admin: 06/07/17 12:38 Dose: 650 mg Acetylcysteine (Acetylcysteine 20%) 4 ml IH [id number] [facility] Last Admin: 06/07/17 11:02 Dose: 4 ml Albuterol/Ipratropium (Duoneb 3 Mg/0.5 Mg (3 Ml) Ud) 3 ml IH [id number] [facility] Apixaban (Eliquis) 5 mg PO BID [facility] PRN Reason: Protocol Last Admin: 06/07/17 09:46 Dose: 5 mg Arformoterol Tartrate (Brovana) 15 mcg IH [id number] [facility] Aspirin (Ecotrin) 81 mg PO DAILY [facility] Last Admin: 06/07/17 09:45 Dose: 81 mg Budesonide (Pulmicort Respules) 1 mg IH [id number] [facility] Diltiazem HCl (Cardizem) 30 mg PO BID [facility] Last Admin: 06/07/17 09:46 Dose: 30 mg Ergocalciferol (Drisdol 50,000 Intl Units Cap) 1 cap PO Q7D [facility] Last Admin: 06/02/17 11:07 Dose: 1 cap Finasteride (Proscar) 5 mg PO DAILY [facility] Last Admin: 06/07/17 09:44 Dose: 5 mg Guaifenesin (Robitussin) 200 mg PO Q4H [facility] Last Admin: 06/07/17 15:22 Dose: 200 mg Haloperidol (Haldol) 1 mg PO BID [facility] PRN Reason: Protocol Last Admin: 06/07/17 09:43 Dose: 1 mg Ampicillin Sodium/Sulbactam Sodium (Unasyn) 1 gm in 100 mls @ 100 mls/hr IVPB Q6 [facility] PRN Reason: Protocol Last Admin: 06/07/17 15:21 Dose: 100 mls/hr Lorazepam (Ativan) 1 mg IVP Q4 PRN; Protocol PRN Reason: Anxiety Last Admin: 06/07/17 01:18 Dose: 1 mg Lorazepam (Ativan) 0.5 mg PO TID [facility] PRN Reason: Protocol Last Admin: 06/07/17 15:22 Dose: 0.5 mg Methylprednisolone (Solu-Medrol) 40 mg IVP Q12 [facility] Montelukast Sodium (Singulair) 10 mg PO HS [facility] Last Admin: 06/06/17 21:01 Dose: 10 mg Pantoprazole Sodium (Protonix Ec Tab) 40 mg PO ACB [facility] Last Admin: 06/07/17 08:24 Dose: 40 mg Quetiapine Fumarate (Seroquel Xr) 300 mg PO AMHS [facility] PRN Reason: Protocol Last Admin: 06/07/17 09:45 Dose: 300 mg Tamsulosin HCl (Flomax) 0.4 mg PO DAILY [facility] Last Admin: 06/07/17 09:45 Dose: 0.4 mg Tiotropium [place] (Spiriva) 18 mcg IH DAILY [facility] Last Admin: 06/07/17 12:38 Dose: 18 mcg Valproate Sodium (Depakene Oral Soln) 500 mg PO BID [facility] Last Admin: 06/07/17 09:43 Dose: 500 mg Ziprasidone (Geodon Inj) 20 mg IM TID PRN; Protocol PRN Reason: Agitation - Labs Labs: 06/07/17 06:00 06/07/17 06:00 PT 15.1 SECONDS (9.4-12.5) H 06/01/17 17:57 INR 1.38 (0.93-1.08) H 06/01/17 17:57 Attending/Attestation - Attestation I have personally seen and examined this patient.: Yes I have fully participated in the care of the patient.: Yes I have reviewed all pertinent clinical information, including history, physical exam and plan: Yes Notes (Text): 06/07/17 16:10 72 year old male with past medical history of COPD, hypertension, paroxysmal afib, and schizophrenia/schizoaffective disorder who is admitted for COPD exacerbation and pneumonia. Overnight events were reviewed. Pulmonary follow up was requested and his steroids were increased. He is also on mucomyst and duonebs. Continue with supplement oxygen as needed. Continue with unasyn. Psychiatry is following patient as well. He is on risperdal for psychomotor agitation/?tics. Neurology evaluation was appreciated who suggestive trial of haldol. He is on cardizem and eliquis for history of paroxysmal afib. Efra Zuñiga MD Hospitalist.
[2017-06-07] MEDS: Budesonide 0.5 mg/2 ml Inhal Susp UD IH SCH (19:45)
[2017-06-07] MEDS: Arformoterol 15 mcg/2 ml Inh Sol IH SCH (19:45)
[2017-06-08] MEDS: AMPicillin/Sulbactam 1.5gm 1 GM/100 ML BAG IVPB SCH ×5 (00:33→23:22)
[2017-06-08] MEDS: Acetylcysteine 20% Inhal Soln (4ml) IH SCH ×4 (02:30→19:23)
[2017-06-08] MEDS: Albuterol-Ipratrop 3 mg / 0.5 (3 ml) UD IH SCH ×4 (02:30→19:27)
[2017-06-08] MEDS: guaiFENesin 200 mg/10 ml Syrup UD PO SCH ×6 (04:24→21:57)
[2017-06-08 07:14] LABS: BASO # 0.01 K/mm3 (0.0-2.0); BASO % 0.1 % (0.0-3.0); GRAN # 7.02 (1.4-6.5); GRAN % 85.6 % (50.0-68.0); HEMATOCRIT 34.8 % (42.0-52.0); LYMPH # 0.8 (1.2-3.4); LYMPH % 9.3 % (22.0-35.0); MEAN CELL VOLUME 101.8 fl (80.0-105.0); MEAN CORPUSCULAR HEMOGLOBIN 31.6 pg (25.0-35.0); MEAN PLATELET VOLUME 9.4 fl (7.0-11.0); MONO # 0.4 (0.1-0.6); RED CELL DISTRIBUTION WIDTH 13.5 % (11.5-14.5); WHITE BLOOD COUNT 8.2 10^3/ul (4.5-11.0)
[2017-06-08] MEDS: Budesonide 0.5 mg/2 ml Inhal Susp UD IH SCH ×2 (08:16→19:22)
[2017-06-08] MEDS: Arformoterol 15 mcg/2 ml Inh Sol IH SCH ×2 (08:16→19:22)
[2017-06-08] MEDS: Pantoprazole 40 mg EC Tab PO SCH (08:25)
--- NOTE | 2017-06-08 08:37 | PN ---
DATE: 06/07/2017 SUBJECTIVE: The patient was followed up today. The patient has long history of mental illness, most likely schizophrenia spectrum disorder. The patient was followed up by PACT team in the community. This sports writer involved into the patient care for medication management. The patient has multiple issues as well including COPD exacerbation, possible aspiration pneumonia. Please see medical team notes for more detailed information. This sports writer just adjusting medication on daily basis. The patient was resumed on ____Depakene because the patient has difficulty to swallow. Seroquel was resumed because the patient has history of early decompensation if she will be off psychotropic medications. Haloperidol was started by medical team in order to give the patient relief from the tic-like disorder and inability to swallow. The patient also is on small dose of Ativan. The patient seems to be improving from the mental standpoint, but still saying that he cannot breathe as well as the patient said that my lungs are collapsing. VITAL SIGNS: Seems to be stable. Temperature is 97.7, pulse is 92, respirations 26, blood pressure 129/76, saturation 92, later on today it was 95. LABS: Reviewed. The patient does not have leukocytosis. Granulocytes level are within normal limits. There are no signs of granulocytosis. Coagulation reviewed. Chemistry reviewed. is 0.08. Toxicology reviewed. MENTAL STATUS EXAMINATION: The patient seems to be dramatic, exaggerating. The patient obviously has difficulty to breathe and talk in full sentences. Mood described, "I don't feel good." Affect was constricted. Mood congruent. Thought process at times circumstantial, but seems to be coherent. Thought content, the patient denied visual, auditory, or tactile hallucinations. Denied paranoid ideation. The patient denied thoughts of harming himself or others. Denied intents or plan. Insight and judgment improving. Impulses were well controlled. IMPRESSION: The patient has long history of mental illness, schizophrenia spectrum disorder, multiple medical issues. PLAN: Depakote resumed. Monitor Depakote level. The patient also is on Ativan small dose for anxiety. Seroquel was resumed 300 mg twice a day. The patient was not improving on Risperdal. Please continue haloperidol, but this is up to the medical team for tic-like spasmodic episodes in his throat. PACT team is following the patient up on the medical side. Physical therapy evaluation. The patient was seen by dust box tender and public health outreach worker. The patient is on Spiriva as well as Robitussin, as well as Unasyn. Before discharge the patient, PACT team has to be notified. Nurse practitioner, Fernando, will take over, over the weekend, Dr. Patel covers. Meanwhile, Dr. Bates will follow up on this patient. Sofia Davila MD
[2017-06-08 08:58] LABS: ALB/GLOB RATIO 0.9 (1.1-1.8); ALKALINE PHOSPHATASE 50 U/L (38-126); ALT/SGPT 18 U/L (7-56); AST/SGOT 17 U/L (17-59); BILIRUBIN,TOTAL 0.5 mg/dL (0.2-1.3); BLOOD UREA NITROGEN 18 mg/dL (7-21); CALCIUM 9.2 mg/dL (8.4-10.5); CHLORIDE 94 mmol/L (98-107); GFR AFRICAN-AMERICAN > 60; GLUCOSE,RANDOM 139 mg/dL (70-110); POTASSIUM 4.8 mmol/L (3.6-5.0); SODIUM 143 mmol/L (132-148); TOTAL PROTEIN 6.5 g/dL (5.8-8.3)
[2017-06-08] MEDS: Valproic Acid 250 mg/5 ml UD Cup PO SCH ×2 (09:57→17:37)
[2017-06-08] MEDS: Tiotropium 18 mcg Cap For Inhalation IH SCH (09:57)
[2017-06-08] MEDS: MethylPREDNISolone 40 mg Vial IVP SCH ×2 (09:57→21:58)
[2017-06-08] MEDS: QUEtiapine 300 mg XR Tab PO SCH ×2 (09:58→21:58)
[2017-06-08 10:02] LABS: CARBON DIOXIDE 38 mmol/L (21-33)
[2017-06-08 14:31] LABS: ARTERIAL BLOOD GAS O2 CONTENT 13.3 ML/dl (15-23); ARTERIAL BLOOD GAS PH 7.41 (7.35-7.45); ARTERIAL BLOOD HGB O2 SAT 91.3 % (95.0-98.0); CARBOXYHEMOGLOBIN 2.7 % (0.5-1.5); HHB 4.9 % (0-5); METHEMOGLOBIN 1.1 % (0.0-3.0)
[2017-06-08 14:35] LABS: ARTERIAL BLOOD GAS HCO3 41.8 mmol/L (21-28)
--- NOTE | 2017-06-08 14:43 | CP.PCM.PN ---
<Adriana Acosta - Last Filed: 06/08/17 15:57> Subjective - Date & Time of Evaluation Date of Evaluation: 06/08/17 Time of Evaluation: 09:43 - Subjective Subjective: Adriana Acosta DO PGY-1, Hospitalist Service Patient seen and examined at bedside. Patient states that he "feels like his lungs are collapsing and that he is going to ." Nurse reports no events overnight. Patient was taken off non-rebreather mask and placed on simple face mask with oxygen at 3L NC. Objective - Vital Signs/Intake and Output Vital Signs (last 24 hours): Temp Pulse Resp BP Pulse Ox 97.4 F L 97 H 22 122/78 91 L 06/08/17 07:50 06/08/17 07:50 06/08/17 07:50 06/08/17 07:50 06/08/17 07:50 Intake and Output: 06/08/17 06/08/17 06:59 18:59 Intake Total 680 Output Total 1000 Balance -320 - Medications Medications: Current Medications Acetaminophen (Tylenol 325mg Tab) 650 mg PO Q4H PRN PRN Reason: Pain, Mild (1-3) Last Admin: 06/07/17 12:38 Dose: 650 mg Acetylcysteine (Acetylcysteine 20%) 4 ml IH [id number] [facility] Last Admin: 06/08/17 14:09 Dose: 4 ml Albuterol/Ipratropium (Duoneb 3 Mg/0.5 Mg (3 Ml) Ud) 3 ml IH [id number] [facility] Last Admin: 06/08/17 14:09 Dose: 3 ml Apixaban (Eliquis) 5 mg PO BID [facility] PRN Reason: Protocol Last Admin: 06/08/17 09:57 Dose: 5 mg Arformoterol Tartrate (Brovana) 15 mcg IH [id number] [facility] Last Admin: 06/08/17 08:16 Dose: 15 mcg Aspirin (Ecotrin) 81 mg PO DAILY [facility] Last Admin: 06/08/17 09:58 Dose: 81 mg Budesonide (Pulmicort Respules) 1 mg IH [id number] [facility] Last Admin: 06/08/17 08:16 Dose: 1 mg Diltiazem HCl (Cardizem) 30 mg PO BID [facility] Last Admin: 06/08/17 09:58 Dose: 30 mg Ergocalciferol (Drisdol 50,000 Intl Units Cap) 1 cap PO Q7D [facility] Last Admin: 06/02/17 11:07 Dose: 1 cap Finasteride (Proscar) 5 mg PO DAILY [facility] Last Admin: 06/07/17 09:44 Dose: 5 mg Guaifenesin (Robitussin) 200 mg PO Q4H [facility] Last Admin: 06/08/17 09:57 Dose: 200 mg Haloperidol (Haldol) 1 mg PO BID [facility] PRN Reason: Protocol Last Admin: 06/08/17 09:58 Dose: 1 mg Ampicillin Sodium/Sulbactam Sodium (Unasyn) 1 gm in 100 mls @ 100 mls/hr IVPB Q6 [facility] PRN Reason: Protocol Last Admin: 06/08/17 13:49 Dose: 100 mls/hr Lorazepam (Ativan) 1 mg IVP Q4 PRN; Protocol PRN Reason: Anxiety Last Admin: 06/08/17 11:51 Dose: 1 mg Lorazepam (Ativan) 0.5 mg PO TID [facility] PRN Reason: Protocol Last Admin: 06/08/17 09:58 Dose: 0.5 mg Methylprednisolone (Solu-Medrol) 40 mg IVP Q12 [facility] Last Admin: 06/08/17 09:57 Dose: 40 mg Montelukast Sodium (Singulair) 10 mg PO HS [facility] Last Admin: 06/07/17 21:12 Dose: 10 mg Pantoprazole Sodium (Protonix Ec Tab) 40 mg PO ACB [facility] Last Admin: 06/08/17 08:25 Dose: 40 mg Quetiapine Fumarate (Seroquel Xr) 300 mg PO AMHS [facility] PRN Reason: Protocol Last Admin: 06/08/17 09:58 Dose: 300 mg Tamsulosin HCl (Flomax) 0.4 mg PO DAILY [facility] Last Admin: 06/08/17 09:58 Dose: 0.4 mg Tiotropium [place] (Spiriva) 18 mcg IH DAILY [facility] Last Admin: 06/08/17 09:57 Dose: 18 mcg Valproate Sodium (Depakene Oral Soln) 500 mg PO BID [facility] Last Admin: 06/08/17 09:57 Dose: 500 mg Ziprasidone (Geodon Inj) 20 mg IM TID PRN; Protocol PRN Reason: Agitation - Labs Labs: 06/08/17 06:30 06/08/17 06:30 PT 15.1 SECONDS (9.4-12.5) H 06/01/17 17:57 INR 1.38 (0.93-1.08) H 06/01/17 17:57 - Constitutional Appears: Toxic, Chronically Ill - Head Exam Head Exam: ATRAUMATIC, NORMOCEPHALIC - Eye Exam Eye Exam: EOMI, Normal appearance - ENT Exam ENT Exam: Mucous Membranes Moist, Normal Oropharynx - Neck Exam Neck Exam: Normal Inspection - Respiratory Exam Respiratory Exam: Decreased Breath Sounds (right lung sounds diminished compared to left) Additional comments: tachypneic - Cardiovascular Exam Cardiovascular Exam: RRR, +S1, +S2 - GI/Abdominal Exam GI & Abdominal Exam: Soft, Normal Bowel Sounds. absent: Guarding - Extremities Exam Extremities Exam: Normal Inspection - Back Exam Back Exam: NORMAL INSPECTION. absent: CVA tenderness (L), CVA tenderness (R) - Neurological Exam Neurological Exam: Alert, Awake, CN II-XII Intact, Oriented x3 Neuro motor strength exam: Left Upper Extremity: 5, Right Upper Extremity: 5, Left Lower Extremity: 5, Right Lower Extremity: 5 - Psychiatric Exam Psychiatric exam: Flat Affect - Skin Skin Exam: Dry, Intact, Normal Color, Warm Assessment and Plan - Assessment and Plan (Free Text) Assessment: 72 year old with COPD, schizoaffective disorder, history of pulmonary embolism, atrial fibrillation, and likely a form of tic disorder who presented to [facility] for worsening shortness of breath and a productive sputum. The patient is being treated for a COPD exacerbation and his chronic medical problems. . Plan: 1) COPD exacerbation with possible aspiration pneumonia: patient afebrile without leukocytosis - ABG reads as pCO2 66, pO2 64, HCO3 41.8, pH 7.41 - Ampicillin/Sulfabactam 1 gm q6h - O2 3L Nasal Cannula - Duoneb 3 ml IH q4RESP [facility] - Acetylcysteine 20% 4 ml IH [id number] [facility] - Methylprednisolone 40 mg q12h - Montelukast 10 mg PO Daily - Budesonide 1 mg q12h - Robitussin 200 mg PO q4h [facility] - Brovana 15 mcg q12h resp - Pulmonology recommendations appreciated 2) Atrial fibrillation - Diltiazem 30 mg BID PO - Eliquis 5 mg BID PO - Aspirin 81 mg daily 3) BPH - Finasteride 5 mg PO daily - Tamsulosin 0.4 mg PO daily 4) Schizoaffective disorder - Seroquel 300 mg PO AMHS - Ativan 1 mg q4h PRN - 0.5 mg Ativan TID [facility] - Ziprasidone 20 mg IM TID PRN - Haldol 1 mg PO BID [facility] - Depakene 500 mg PO BID - Psychiatry recommendations appreciated 5) GI prophylaxis - Protonix EC 40 mg PO daily 6) Aches and pain - Acetaminophen 325 mg tab PRN <Efra Zuñiga - Last Filed: 06/08/17 17:43> Objective - Vital Signs/Intake and Output Vital Signs (last 24 hours): Temp Pulse Resp BP Pulse Ox 97.4 F L 60 20 141/72 99 06/08/17 17:26 06/08/17 17:26 06/08/17 17:26 06/08/17 17:26 06/08/17 17:26 Intake and Output: 06/08/17 06/08/17 06:59 18:59 Intake Total 680 Output Total 1000 Balance -320 - Medications Medications: Current Medications Acetaminophen (Tylenol 325mg Tab) 650 mg PO Q4H PRN PRN Reason: Pain, Mild (1-3) Last Admin: 06/07/17 12:38 Dose: 650 mg Acetylcysteine (Acetylcysteine 20%) 4 ml IH [id number] [facility] Last Admin: 06/08/17 14:09 Dose: 4 ml Albuterol/Ipratropium (Duoneb 3 Mg/0.5 Mg (3 Ml) Ud) 3 ml IH [id number] [facility] Last Admin: 06/08/17 14:09 Dose: 3 ml Apixaban (Eliquis) 5 mg PO BID [facility] PRN Reason: Protocol Last Admin: 06/08/17 09:57 Dose: 5 mg Arformoterol Tartrate (Brovana) 15 mcg IH [id number] [facility] Last Admin: 06/08/17 08:16 Dose: 15 mcg Aspirin (Ecotrin) 81 mg PO DAILY [facility] Last Admin: 06/08/17 09:58 Dose: 81 mg Budesonide (Pulmicort Respules) 1 mg IH [id number] [facility] Last Admin: 06/08/17 08:16 Dose: 1 mg Diltiazem HCl (Cardizem) 30 mg PO BID [facility] Last Admin: 06/08/17 09:58 Dose: 30 mg Ergocalciferol (Drisdol 50,000 Intl Units Cap) 1 cap PO Q7D [facility] Last Admin: 06/02/17 11:07 Dose: 1 cap Finasteride (Proscar) 5 mg PO DAILY [facility] Last Admin: 06/08/17 15:01 Dose: 5 mg Guaifenesin (Robitussin) 200 mg PO Q4H [facility] Last Admin: 06/08/17 15:01 Dose: 200 mg Haloperidol (Haldol) 1 mg PO BID [facility] PRN Reason: Protocol Last Admin: 06/08/17 09:58 Dose: 1 mg Ampicillin Sodium/Sulbactam Sodium (Unasyn) 1 gm in 100 mls @ 100 mls/hr IVPB Q6 [facility] PRN Reason: Protocol Last Admin: 06/08/17 13:49 Dose: 100 mls/hr Lorazepam (Ativan) 1 mg IVP Q4 PRN; Protocol PRN Reason: Anxiety Last Admin: 06/08/17 11:51 Dose: 1 mg Lorazepam (Ativan) 0.5 mg PO TID [facility] PRN Reason: Protocol Last Admin: 06/08/17 15:00 Dose: 0.5 mg Methylprednisolone (Solu-Medrol) 40 mg IVP Q12 [facility] Last Admin: 06/08/17 09:57 Dose: 40 mg Montelukast Sodium (Singulair) 10 mg PO HS [facility] Last Admin: 06/07/17 21:12 Dose: 10 mg Pantoprazole Sodium (Protonix Ec Tab) 40 mg PO ACB [facility] Last Admin: 06/08/17 08:25 Dose: 40 mg Quetiapine Fumarate (Seroquel Xr) 300 mg PO AMHS [facility] PRN Reason: Protocol Last Admin: 06/08/17 09:58 Dose: 300 mg Tamsulosin HCl (Flomax) 0.4 mg PO DAILY [facility] Last Admin: 06/08/17 09:58 Dose: 0.4 mg Tiotropium [place] (Spiriva) 18 mcg IH DAILY [facility] Last Admin: 06/08/17 09:57 Dose: 18 mcg Valproate Sodium (Depakene Oral Soln) 500 mg PO BID [facility] Last Admin: 06/08/17 09:57 Dose: 500 mg Ziprasidone (Geodon Inj) 20 mg IM TID PRN; Protocol PRN Reason: Agitation - Labs Labs: 06/08/17 06:30 06/08/17 06:30 PT 15.1 SECONDS (9.4-12.5) H 06/01/17 17:57 INR 1.38 (0.93-1.08) H 06/01/17 17:57 Attending/Attestation - Attestation I have personally seen and examined this patient.: Yes I have fully participated in the care of the patient.: Yes I have reviewed all pertinent clinical information, including history, physical exam and plan: Yes Notes (Text): 06/08/17 17:36 72 year old male with past medical history of COPD, hypertension, paroxysmal afib, and schizophrenia/schizoaffective disorder who is admitted for COPD exacerbation and pneumonia. He is on iv steroids, duonebs, and antibiotics. Wheezing is still present although he sounds less congested today. Pulmonary follow up today was requested. Psychiatry is following patient as well. He is on risperdal and also started on trial of haldol for psychomotor agitation/?tics. Neurology evaluation was appreciated. He is on cardizem and eliquis for history of paroxysmal afib. Efra Zuñiga MD Hospitalist.
[2017-06-09] MEDS: Acetylcysteine 20% Inhal Soln (4ml) IH SCH ×4 (01:06→19:42)
[2017-06-09] MEDS: Albuterol-Ipratrop 3 mg / 0.5 (3 ml) UD IH SCH ×5 (01:06→19:41)
[2017-06-09] MEDS: guaiFENesin 200 mg/10 ml Syrup UD PO SCH ×7 (01:44→21:45)
[2017-06-09] MEDS: AMPicillin/Sulbactam 1.5gm 1 GM/100 ML BAG IVPB SCH ×3 (06:11→17:05)
--- NOTE | 2017-06-09 06:42 | CP.PCM.PN ---
<Eugene Edwards - Last Filed: 06/09/17 07:01> Subjective - Date & Time of Evaluation Date of Evaluation: 06/09/17 Time of Evaluation: 03:55 - Subjective Subjective: Code star was called on patient: Patient seen and examined. Patient was resting comfortably in bedside chair. As per tech the patient experienced a mechanical fall after getting out of bed to use the bedside commode. Patient was found sitting on the ground and, as per witnesses, transferred to the bedside chair with no overt difficulty. Patient offers no new complaints at this time. States that he did not step properly on the ground getting out of bed leading to his fall. Admits to baseline SOB. Denies fever, chills, chest pain, loss of consciousness, dizziness, and head trauma. Physical Examination: Head: AT-NC Eyes: Perrla Heart: +s1 +s2 Lungs: CTA bilaterally Abdomen: soft NTTP Neuro: CN II- XII intact, no focal neurological deficits, awake, alert, responds to verbal stimuli, follows commands, moves extremities past midline. 5 /5 muscle strength throughout, sensation intact to touch throughout major dermatomes Assessment and Plan: Patient 72 year old male with a past medical history of COPD, asthma, HTN, EtOH abuse, Migraines,, Paroxysmal atrial fibrillation, with multiple admissions for A-fib with RVR, BPH, Hx of urinary retention, Bipolar, schizophrenia, sucidial attempts, and remote hx of polycythemia who experienced a mechanical fall. Mechanical Fall - patient education provided on importance of safe transfer - at this time no acute imaging is required - 1:1 ordered - monitor closely, neurochecks q4 Case discussed with attending physician. Objective - Vital Signs/Intake and Output Vital Signs (last 24 hours): Temp Pulse Resp BP Pulse Ox 97.4 F L 60 20 141/72 99 06/08/17 17:26 06/08/17 17:26 06/08/17 17:26 06/08/17 17:26 06/08/17 17:26 Intake and Output: 06/08/17 06/09/17 18:59 06:59 Intake Total 240 Output Total 1800 Balance -1560 - Medications Medications: Current Medications Acetaminophen (Tylenol 325mg Tab) 650 mg PO Q4H PRN PRN Reason: Pain, Mild (1-3) Last Admin: 06/08/17 17:39 Dose: 650 mg Acetylcysteine (Acetylcysteine 20%) 4 ml IH [id number] [facility] Last Admin: 06/09/17 01:06 Dose: 4 ml Albuterol/Ipratropium (Duoneb 3 Mg/0.5 Mg (3 Ml) Ud) 3 ml IH [id number] [facility] Last Admin: 06/09/17 04:02 Dose: 3 ml Apixaban (Eliquis) 5 mg PO BID [facility] PRN Reason: Protocol Last Admin: 06/08/17 17:38 Dose: 5 mg Arformoterol Tartrate (Brovana) 15 mcg IH [id number] [facility] Last Admin: 06/08/17 19:22 Dose: 15 mcg Aspirin (Ecotrin) 81 mg PO DAILY [facility] Last Admin: 06/08/17 09:58 Dose: 81 mg Budesonide (Pulmicort Respules) 1 mg IH [id number] [facility] Last Admin: 06/08/17 19:22 Dose: 1 mg Diltiazem HCl (Cardizem) 30 mg PO BID [facility] Last Admin: 06/08/17 17:39 Dose: 30 mg Ergocalciferol (Drisdol 50,000 Intl Units Cap) 1 cap PO Q7D [facility] Last Admin: 06/02/17 11:07 Dose: 1 cap Finasteride (Proscar) 5 mg PO DAILY [facility] Last Admin: 06/08/17 15:01 Dose: 5 mg Guaifenesin (Robitussin) 200 mg PO Q4H [facility] Last Admin: 06/09/17 01:44 Dose: 200 mg Haloperidol (Haldol) 1 mg PO BID [facility] PRN Reason: Protocol Last Admin: 06/08/17 17:38 Dose: 1 mg Ampicillin Sodium/Sulbactam Sodium (Unasyn) 1 gm in 100 mls @ 100 mls/hr IVPB Q6 [facility] PRN Reason: Protocol Last Admin: 06/08/17 23:22 Dose: 100 mls/hr Lorazepam (Ativan) 1 mg IVP Q4 PRN; Protocol PRN Reason: Anxiety Last Admin: 06/09/17 01:45 Dose: 1 mg Lorazepam (Ativan) 0.5 mg PO TID [facility] PRN Reason: Protocol Last Admin: 06/08/17 17:38 Dose: 0.5 mg Methylprednisolone (Solu-Medrol) 40 mg IVP Q12 [facility] Last Admin: 06/08/17 21:58 Dose: 40 mg Montelukast Sodium (Singulair) 10 mg PO HS [facility] Last Admin: 06/08/17 21:57 Dose: 10 mg Pantoprazole Sodium (Protonix Ec Tab) 40 mg PO ACB [facility] Last Admin: 06/08/17 08:25 Dose: 40 mg Quetiapine Fumarate (Seroquel Xr) 300 mg PO AMHS [facility] PRN Reason: Protocol Last Admin: 06/08/17 21:58 Dose: 300 mg Tamsulosin HCl (Flomax) 0.4 mg PO DAILY [facility] Last Admin: 06/08/17 09:58 Dose: 0.4 mg Tiotropium [place] (Spiriva) 18 mcg IH DAILY [facility] Last Admin: 06/08/17 09:57 Dose: 18 mcg Valproate Sodium (Depakene Oral Soln) 500 mg PO BID [facility] Last Admin: 06/08/17 17:37 Dose: 500 mg Ziprasidone (Geodon Inj) 20 mg IM TID PRN; Protocol PRN Reason: Agitation - Labs Labs: 06/08/17 06:30 06/08/17 06:30 PT 15.1 SECONDS (9.4-12.5) H 06/01/17 17:57 INR 1.38 (0.93-1.08) H 06/01/17 17:57 <Fawn Slaughter - Last Filed: 06/14/17 04:54> Objective - Vital Signs/Intake and Output Vital Signs (last 24 hours): Temp Pulse Resp BP Pulse Ox 97.6 F 84 84 H 137/82 92 L 06/13/17 16:00 06/13/17 23:51 06/13/17 16:00 06/13/17 17:45 06/13/17 16:00 Intake and Output: 06/13/17 06/14/17 18:59 06:59 Intake Total 1240 Output Total 300 Balance 940 - Medications Medications: Current Medications Acetaminophen (Tylenol 325mg Tab) 650 mg PO Q4H PRN PRN Reason: Pain, Mild (1-3) Last Admin: 06/13/17 15:25 Dose: 650 mg Albuterol/Ipratropium (Duoneb 3 Mg/0.5 Mg (3 Ml) Ud) 3 ml IH Q2H PRN PRN Reason: Shortness of Breath Albuterol/Ipratropium (Duoneb 3 Mg/0.5 Mg (3 Ml) Ud) 3 ml IH Q4H [facility] Last Admin: 06/13/17 23:03 Dose: 3 ml Apixaban (Eliquis) 5 mg PO BID [facility] PRN Reason: Protocol Last Admin: 06/13/17 17:44 Dose: 5 mg Arformoterol Tartrate (Brovana) 15 mcg IH [id number] [facility] Last Admin: 06/13/17 19:43 Dose: 15 mcg Aspirin (Ecotrin) 81 mg PO DAILY [facility] Last Admin: 06/13/17 09:15 Dose: 81 mg Budesonide (Pulmicort Respules) 1 mg IH [id number] [facility] Last Admin: 06/13/17 19:43 Dose: 1 mg Diltiazem HCl (Cardizem) 30 mg PO BID [facility] Last Admin: 06/13/17 17:45 Dose: 30 mg Ergocalciferol (Drisdol 50,000 Intl Units Cap) 1 cap PO Q7D [facility] Last Admin: 06/09/17 11:40 Dose: 1 cap Finasteride (Proscar) 5 mg PO DAILY [facility] Last Admin: 06/13/17 09:16 Dose: 5 mg Sodium Chloride (Sodium Chloride 0.9%) 1,000 mls @ 100 mls/hr IV .Q10H [facility] Last Admin: 06/13/17 21:16 Dose: 100 mls/hr Vancomycin HCl (Vancomycin 1gm) 1 gm in 250 mls @ 167 mls/hr IVPB Q12H [facility] PRN Reason: Protocol Last Admin: 06/14/17 03:35 Dose: 167 mls/hr Piperacillin Sod/Tazobactam Sod (Zosyn 3.375 In Ns 100ml) 100 mls @ 200 mls/hr IVPB Q6 [facility] PRN Reason: Protocol Stop: 06/18/17 00:01 Last Admin: 06/13/17 23:58 Dose: 200 mls/hr Lorazepam (Ativan) 1 mg IVP BID PRN; Protocol PRN Reason: Anxiety Last Admin: 06/13/17 16:45 Dose: 1 mg Methylprednisolone (Solu-Medrol) 20 mg IVP Q12 [facility] Last Admin: 06/13/17 21:15 Dose: 20 mg Montelukast Sodium (Singulair) 10 mg PO HS [facility] Last Admin: 06/13/17 21:18 Dose: Not Given Pantoprazole Sodium (Protonix Ec Tab) 40 mg PO ACB [facility] Last Admin: 06/13/17 09:16 Dose: 40 mg Quetiapine Fumarate (Seroquel Xr) 300 mg PO 1700 [facility] Last Admin: 06/13/17 17:44 Dose: 300 mg Quetiapine Fumarate (Seroquel Xr) 100 mg PO 1700 [facility] Last Admin: 06/13/17 17:44 Dose: 100 mg Tamsulosin HCl (Flomax) 0.4 mg PO DAILY [facility] Last Admin: 06/13/17 09:16 Dose: 0.4 mg Valproate Sodium (Depakene Oral Soln) 500 mg PO BID [facility] Last Admin: 06/13/17 17:45 Dose: 500 mg Ziprasidone (Geodon Inj) 20 mg IM TID PRN; Protocol PRN Reason: Agitation - Labs Labs: 06/13/17 06:00 06/13/17 06:00 PT 15.1 SECONDS (9.4-12.5) H 06/01/17 17:57 INR 1.38 (0.93-1.08) H 06/01/17 17:57 Attending/Attestation - Attestation I have personally seen and examined this patient.: Yes I have fully participated in the care of the patient.: Yes I have reviewed all pertinent clinical information, including history, physical exam and plan: Yes
--- NOTE | 2017-06-09 07:48 | PN ---
DATE: 06/08/2017 SUBJECTIVE: The patient is seen and examined at bedside. He is sleepy, but easily arousable. He appears to be comfortable. Not in respiratory or otherwise distress. PHYSICAL EXAMINATION: VITAL SIGNS: Temperature 97.4, heart rate 97, blood pressure 123/78, respiratory rate 22, oxygen saturation 91% on 2 L nasal cannula. HEENT: Head and neck atraumatic. LUNGS: Scattered wheezes bilaterally, some upper airway rhonchi. HEART: Regular rate and rhythm. S1, S2 distant. ABDOMEN: Soft, nontender, nondistended. MUSCULOSKELETAL: No C/C/E. NEURO: The patient moves all extremities spontaneously. SKIN: Moist. PSYCH: The patient is lethargic. LABORATORY DATA: WBC 8.2, hemoglobin 10.8, platelet count 307. Sodium 143, potassium 4.8, chloride 94, carbon dioxide 38, BUN 18, creatinine 0.7, glucose 139. MEDICATIONS: Tylenol p.r.n., Mucomyst, DuoNeb every 6 hours, Eliquis 5 mg p.o. daily, Brovana, aspirin, Pulmicort inhaler twice a day 1 mg, Cardizem 30 mg p.o. daily, Proscar, Haldol, Robitussin, Ativan p.r.n. and 3 times a day, Solu-Medrol 40 mg IV q.12 hours, Singulair, Protonix, quetiapine, Flomax, valproic acid, Geodon p.r.n. ASSESSMENT AND PLAN: This is a 72-year-old gentleman with severe chronic obstructive pulmonary disease, who presented with COPD exacerbation. At the present, the patient is on inhaled steroids as well as steroid taper, antibiotics, and bronchodilators. I would also recommend BiPAP at night. The patient has psychiatric disorder, which appears to be schizoaffective disorder with episodes of agitation for which the patient is on antipsychotics and benzodiazepines. I would be careful with benzodiazepines as it may suppress respiratory center and tip off his hypoventilation. I would use BiPAP at night. Apparently, the patient may benefit from pulmonary rehab upon discharge from the hospital if his mental status and psychiatric disorder allows. He would benefit from infection prophylaxis with vaccination. Deep vein thrombosis/gastrointestinal prophylaxis. The patient is on apixaban for stroke prophylaxis in the setting of afib. I would continue to target euvolemia, euglycemia, normothermia, and oxygen saturation more than 90%. I would continue with deep vein thrombosis/gastrointestinal prophylaxis. Patient is somewhat lethargic and wheezing-->I will check his ABG to rule out C02 narcosis Addendum: AB.41/66/64. ccm time 40 min Héctor Wallace MD MTDD
[2017-06-09] MEDS: Arformoterol 15 mcg/2 ml Inh Sol IH SCH ×2 (08:03→19:42)
[2017-06-09] MEDS: Budesonide 0.5 mg/2 ml Inhal Susp UD IH SCH ×2 (08:04→19:41)
--- NOTE | 2017-06-09 08:47 | PN ---
DATE: 06/07/2017 He is being seen today in consultation. SUBJECTIVE: The patient is a 72-year-old male seen at bedside . He is being seen in consultation because he has a long history of schizophrenia. He has been medicated and treated on the outpatient by the PACT team and he was admitted to the hospital for respiratory infection. He continues to have severe difficulty breathing and today he is concerned that he is going to . He psychiatrically appears to be clear than he has been. He remembered that he has seen me before. He was able to talk with me about what has been going on with him and he requested to see the Stella. He additionally was able to tell me that his brother, Justin had been to visit as well. He has been compliant with his treatments and medication and hospital routine. Labs were reviewed and nursing staff was consulted. OBJECTIVE: MENTAL STATUS EXAM: The patient is alert. He is oriented x3. His eyes contact is good. His behavior is cooperative today. He is childlike in his appearance. His mood is euthymic, less irritable than previously seen. His affect is improving. His thoughts are tangential and the patient believes that one of his lungs have collapsed, which apparently according to the nursing staff is not true and he feels very strongly that he cannot live without 2 lungs, so he is concerned that they fix up, so that he is able to go on and this is why he wants to see the A[facility]. He denies being suicidal or homicidal. He denies the presence of hallucinations, delusion, or paranoia. He gets irritated with mental status questions because they were asked at him so frequently; however, he does understand that this is something that I have to ask every time I see him. His focus and concentration he indicates are pretty good. 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 His appetite he states is very good, but he does have some trouble sleeping due to his breathing. The patient, at this point, is not medically stable and psychiatrically, he appears to be approaching his baseline. I have spoken with Josefina, his PACT team nurse at [phone] and she describes this is his baseline. We will continue to follow while he is in hospital and I will expect him to return to the PACT team when discharged. Mis King APN [facility] # [id number]
--- NOTE | 2017-06-09 09:03 | PN ---
DATE: 06/08/2017 He is being seen today for a followup consultation. PRESENTATION: Client is a 72-year-old male, seen at his bedside. The patient was originally admitted to the hospital on 06/01/2017 with an infection in his lung. He has a long history of COPD, asthma, hypertension, alcohol abuse, migraines, atrial fibrillation, BPH, urinary retention. Psychiatrically, he has a history of bipolar disorder, schizophrenia, suicide attempts. He has been followed by the PACT team in the community and they were seeing him daily and bringing him his medications. The patient psychiatrically appears to be fairly at his baseline. He is oriented. He is conversational. Today, he appears to be in slightly less respiratory distress and so, he is more talkative. He does tend to focus on his somatic complaints which are many, and his concern is that he is going to from his lung problem or something else that he thinks might be going on. He is medication compliant and appears to be stabilizing psychiatrically. MENTAL STATUS EXAM: The patient is alert and oriented x3. His eye contact is good. His behavior is pleasant and cooperative. His speech rate and volume are labored. He is having a hard time with breathing, so he is sort of almost shouts out and spits out the words as he is talking, but he does enjoy the contact and does enjoy talking anyway. His mood is euthymic today. His affect is improved. His thoughts are goal directed, but there are some delusional things that are concerning some of his physical symptoms, but this appears to be an ongoing issue. He denies being suicidal or homicidal. He denies the presence of hallucinations, delusions or paranoia. His concentration and focus, he indicates, are good. He watches TV and he is able to follow a conversation very well. His memory both short and long-term appears to be adequate. His appetite is good and he is sleeping a little bit better he says because his breathing is improving. DIAGNOSTIC IMPRESSION: Bipolar, schizophrenia, history of suicide attempts. He has good support in the community with the PACT team. PLAN: Client continues to have difficulties with his chronic obstructive pulmonary disease, his asthma, and his respiratory infection. However, he does appear to be improving. Psychiatrically, he appears to be stabilized. He does have concerns about dying, but these are slowly related to the seriousness of his medical symptoms more than anything else. He is now cooperative with all of his treatments. He is taking his medication and appears to be improving. We will continue to follow. Dr. Patel will pear picker with him tomorrow. Mis King APN
[2017-06-09] MEDS: Valproic Acid 250 mg/5 ml UD Cup PO SCH ×2 (09:13→17:03)
[2017-06-09] MEDS: MethylPREDNISolone 40 mg Vial IVP SCH ×2 (09:17→21:45)
[2017-06-09] MEDS: QUEtiapine 300 mg XR Tab PO SCH (09:17)
[2017-06-09] MEDS: Tiotropium 18 mcg Cap For Inhalation IH SCH (09:18)
[2017-06-09] MEDS: Pantoprazole 40 mg EC Tab PO SCH (09:18)
[2017-06-09 09:52] LABS: BASO # 0.01 K/mm3 (0.0-2.0); BASO % 0.1 % (0.0-3.0); GRAN # 8.51 (1.4-6.5); GRAN % 76.4 % (50.0-68.0); HEMATOCRIT 35.2 % (42.0-52.0); LYMPH # 1.3 (1.2-3.4); LYMPH % 11.9 % (22.0-35.0); MEAN CELL VOLUME 101.7 fl (80.0-105.0); MEAN CORPUSCULAR HEMOGLOBIN 32.1 pg (25.0-35.0); MEAN CORPUSCULAR HGB CONC 31.5 g/dl (31.0-37.0); MEAN PLATELET VOLUME 9.3 fl (7.0-11.0); MONO # 1.3 (0.1-0.6); MONO % 11.6 % (1.0-6.0); RED CELL DISTRIBUTION WIDTH 13.5 % (11.5-14.5); WHITE BLOOD COUNT 11.1 10^3/ul (4.5-11.0)
[2017-06-09 10:18] LABS: ALB/GLOB RATIO 0.9 (1.1-1.8); ALKALINE PHOSPHATASE 46 U/L (38-126); ALT/SGPT 19 U/L (7-56); AST/SGOT 17 U/L (17-59); BILIRUBIN,TOTAL 0.3 mg/dL (0.2-1.3); BLOOD UREA NITROGEN 23 mg/dL (7-21); CALCIUM 9.1 mg/dL (8.4-10.5); CARBON DIOXIDE 39 mmol/L (21-33); CHLORIDE 94 mmol/L (98-107); GFR AFRICAN-AMERICAN > 60; GLUCOSE,RANDOM 153 mg/dL (70-110); POTASSIUM 5.1 mmol/L (3.6-5.0); SODIUM 142 mmol/L (132-148); TOTAL PROTEIN 6.3 g/dL (5.8-8.3)
[2017-06-09] MEDS: Ergocalciferol 50,000 Intl Units Cap PO SCH (11:40)
[2017-06-09 12:59] LABS: ARTERIAL BLOOD GAS O2 CAPACITY 14.9 mL/dl (16-24); ARTERIAL BLOOD GAS O2 CONTENT 13.4 ML/dl (15-23); ARTERIAL BLOOD GAS PH 7.42 (7.35-7.45); ARTERIAL BLOOD HGB O2 SAT 86.5 % (95.0-98.0); CARBOXYHEMOGLOBIN 2.7 % (0.5-1.5); HHB 9.9 % (0-5)
[2017-06-09 13:04] LABS: ARTERIAL BLOOD GAS HCO3 46.1 mmol/L (21-28)
--- NOTE | 2017-06-09 14:13 | RAD ---
HISTORY: diminished breath sounds of right lung field COMPARISON: 06/05/2017 FINDINGS: LUNGS: The infiltrate previously seen at the right lung base has resolved. Minimal interstitial changes are seen PLEURA: No significant pleural effusion identified, no pneumothorax apparent. CARDIOVASCULAR: Normal. OSSEOUS STRUCTURES: No significant abnormalities. VISUALIZED UPPER ABDOMEN: Normal. OTHER FINDINGS: None. IMPRESSION: Improved right lower lobe infiltrate
[2017-06-09] MEDS: Sodium Chloride 0.9% 1,000 ML IV SCH (17:05)
--- NOTE | 2017-06-09 20:45 | CP.PCM.PN ---
<Adriana Acosta - Last Filed: 06/09/17 22:50> Subjective - Date & Time of Evaluation Date of Evaluation: 06/09/17 Time of Evaluation: 20:40 - Subjective Subjective: Adriana Acosta DO, PGY-1, Hospitalist Service Patient seen and examined at bedside. Code start noted on chart review. Patient complains of no pain. Patient states he can't go home because he will just have to come back. Nurse reports no events overnight. Objective - Vital Signs/Intake and Output Vital Signs (last 24 hours): Temp Pulse Resp BP Pulse Ox 97.8 F 90 20 132/90 97 06/09/17 08:44 06/09/17 17:02 06/09/17 08:44 06/09/17 17:02 06/09/17 08:44 - Medications Medications: Current Medications Acetaminophen (Tylenol 325mg Tab) 650 mg PO Q4H PRN PRN Reason: Pain, Mild (1-3) Last Admin: 06/08/17 17:39 Dose: 650 mg Acetylcysteine (Acetylcysteine 20%) 4 ml IH [id number] [facility] Last Admin: 06/09/17 19:42 Dose: 4 ml Albuterol/Ipratropium (Duoneb 3 Mg/0.5 Mg (3 Ml) Ud) 3 ml IH [id number] [facility] Last Admin: 06/09/17 19:41 Dose: 3 ml Apixaban (Eliquis) 5 mg PO BID [facility] PRN Reason: Protocol Last Admin: 06/09/17 17:03 Dose: 5 mg Arformoterol Tartrate (Brovana) 15 mcg IH [id number] [facility] Last Admin: 06/09/17 19:42 Dose: 15 mcg Aspirin (Ecotrin) 81 mg PO DAILY [facility] Last Admin: 06/09/17 09:14 Dose: 81 mg Budesonide (Pulmicort Respules) 1 mg IH [id number] [facility] Last Admin: 06/09/17 19:41 Dose: 0.5 mg Diltiazem HCl (Cardizem) 30 mg PO BID [facility] Last Admin: 06/09/17 17:02 Dose: 30 mg Ergocalciferol (Drisdol 50,000 Intl Units Cap) 1 cap PO Q7D [facility] Last Admin: 06/09/17 11:40 Dose: 1 cap Finasteride (Proscar) 5 mg PO DAILY [facility] Last Admin: 06/09/17 09:16 Dose: 5 mg Guaifenesin (Robitussin) 200 mg PO Q4H [facility] Last Admin: 06/09/17 17:36 Dose: 200 mg Ampicillin Sodium/Sulbactam Sodium (Unasyn) 1 gm in 100 mls @ 100 mls/hr IVPB Q6 [facility] PRN Reason: Protocol Last Admin: 06/09/17 17:05 Dose: 100 mls/hr Sodium Chloride (Sodium Chloride 0.9%) 1,000 mls @ 100 mls/hr IV .Q10H [facility] Last Admin: 06/09/17 17:05 Dose: 100 mls/hr Lorazepam (Ativan) 1 mg IVP Q4 PRN; Protocol PRN Reason: Anxiety Last Admin: 06/09/17 08:42 Dose: 1 mg Methylprednisolone (Solu-Medrol) 20 mg IVP Q12 [facility] Montelukast Sodium (Singulair) 10 mg PO HS [facility] Last Admin: 06/08/17 21:57 Dose: 10 mg Pantoprazole Sodium (Protonix Ec Tab) 40 mg PO ACB [facility] Last Admin: 06/09/17 09:18 Dose: 40 mg Quetiapine Fumarate (Seroquel Xr) 200 mg PO AMHS [facility] PRN Reason: Protocol Tamsulosin HCl (Flomax) 0.4 mg PO DAILY [facility] Last Admin: 06/09/17 09:15 Dose: 0.4 mg Tiotropium [place] (Spiriva) 18 mcg IH DAILY [facility] Last Admin: 06/09/17 09:18 Dose: 18 mcg Valproate Sodium (Depakene Oral Soln) 500 mg PO BID [facility] Last Admin: 06/09/17 17:03 Dose: 500 mg Ziprasidone (Geodon Inj) 20 mg IM TID PRN; Protocol PRN Reason: Agitation - Labs Labs: 06/09/17 09:45 06/09/17 09:45 PT 15.1 SECONDS (9.4-12.5) H 06/01/17 17:57 INR 1.38 (0.93-1.08) H 06/01/17 17:57 - Constitutional Appears: Non-toxic, Unkempt - Head Exam Head Exam: ATRAUMATIC, NORMOCEPHALIC - Eye Exam Eye Exam: EOMI, Normal appearance - ENT Exam ENT Exam: Mucous Membranes Moist, Normal Exam - Neck Exam Neck Exam: Normal Inspection - Respiratory Exam Respiratory Exam: Decreased Breath Sounds - Cardiovascular Exam Cardiovascular Exam: RRR, +S1, +S2 - GI/Abdominal Exam GI & Abdominal Exam: Soft, Normal Bowel Sounds - Rectal Exam Rectal Exam: NORMAL INSPECTION - Back Exam Back Exam: NORMAL INSPECTION. absent: CVA tenderness (L), CVA tenderness (R) - Neurological Exam Neurological Exam: Awake, CN II-XII Intact - Psychiatric Exam Psychiatric exam: Normal Affect, Normal Mood - Skin Skin Exam: Dry, Intact, Normal Color, Warm Assessment and Plan - Assessment and Plan (Free Text) Assessment: 72 year old with COPD, schizoaffective disorder, history of pulmonary embolism, atrial fibrillation, and likely a form of tic disorder who presented to [facility] for worsening shortness of breath and a productive sputum. The patient is being treated for a COPD exacerbation and his chronic medical problems. Plan: Plan: 1) COPD exacerbation with possible aspiration pneumonia: patient afebrile without leukocytosis - ABG reads as pCO2 71, pO2 51, HCO3 46, pH 7.42 - Ampicillin/Sulfabactam 1 gm q6h - O2 3L Nasal Cannula - Duoneb 3 ml IH q4RESP [facility] - Acetylcysteine 20% 4 ml IH [id number] [facility] - Methylprednisolone 20 mg q12h - Montelukast 10 mg PO Daily - Budesonide 1 mg q12h - Robitussin 200 mg PO q4h [facility] - Brovana 15 mcg q12h resp - Pulmonology recommendations appreciated 2) Atrial fibrillation - Diltiazem 30 mg BID PO - Eliquis 5 mg BID PO - Aspirin 81 mg daily 3) BPH - Finasteride 5 mg PO daily - Tamsulosin 0.4 mg PO daily 4) Schizoaffective disorder - Seroquel 200 mg PO AMHS - Ativan 1 mg IVP BID PRN for anxiety/agitation - Ziprasidone 20 mg IM TID PRN - Depakene 500 mg PO BID: Valproic acid level 25 - Psychiatry recommendations appreciated 5) GI prophylaxis - Protonix EC 40 mg PO daily 6) Aches and pain - Acetaminophen 325 mg tab PRN <Efra Zuñiga - Last Filed: 06/10/17 06:57> Objective - Vital Signs/Intake and Output Vital Signs (last 24 hours): Temp Pulse Resp BP Pulse Ox 97.8 F 90 20 132/90 97 06/09/17 08:44 06/10/17 01:08 06/09/17 08:44 06/09/17 17:02 06/09/17 08:44 Intake and Output: 06/09/17 06/10/17 18:59 06:59 Intake Total 240 Output Total 950 Balance -710 - Medications Medications: Current Medications Acetaminophen (Tylenol 325mg Tab) 650 mg PO Q4H PRN PRN Reason: Pain, Mild (1-3) Last Admin: 06/10/17 06:23 Dose: 650 mg Acetylcysteine (Acetylcysteine 20%) 4 ml IH [id number] [facility] Last Admin: 06/10/17 01:06 Dose: 4 ml Albuterol/Ipratropium (Duoneb 3 Mg/0.5 Mg (3 Ml) Ud) 3 ml IH [id number] [facility] Last Admin: 06/10/17 01:05 Dose: 3 ml Apixaban (Eliquis) 5 mg PO BID [facility] PRN Reason: Protocol Last Admin: 06/09/17 17:03 Dose: 5 mg Arformoterol Tartrate (Brovana) 15 mcg IH [id number] [facility] Last Admin: 06/09/17 19:42 Dose: 15 mcg Aspirin (Ecotrin) 81 mg PO DAILY [facility] Last Admin: 06/09/17 09:14 Dose: 81 mg Budesonide (Pulmicort Respules) 1 mg IH [id number] [facility] Last Admin: 06/09/17 19:41 Dose: 0.5 mg Diltiazem HCl (Cardizem) 30 mg PO BID [facility] Last Admin: 06/09/17 17:02 Dose: 30 mg Ergocalciferol (Drisdol 50,000 Intl Units Cap) 1 cap PO Q7D [facility] Last Admin: 06/09/17 11:40 Dose: 1 cap Finasteride (Proscar) 5 mg PO DAILY [facility] Last Admin: 06/09/17 09:16 Dose: 5 mg Guaifenesin (Robitussin) 200 mg PO Q4H [facility] Last Admin: 06/10/17 05:53 Dose: 200 mg Ampicillin Sodium/Sulbactam Sodium (Unasyn) 1 gm in 100 mls @ 100 mls/hr IVPB Q6 [facility] PRN Reason: Protocol Last Admin: 06/10/17 05:52 Dose: 100 mls/hr Sodium Chloride (Sodium Chloride 0.9%) 1,000 mls @ 100 mls/hr IV .Q10H [facility] Last Admin: 06/09/17 17:05 Dose: 100 mls/hr Lorazepam (Ativan) 1 mg IVP BID PRN; Protocol PRN Reason: Anxiety Last Admin: 06/10/17 03:47 Dose: 1 mg Methylprednisolone (Solu-Medrol) 20 mg IVP Q12 [facility] Last Admin: 06/09/17 21:45 Dose: 20 mg Montelukast Sodium (Singulair) 10 mg PO HS [facility] Last Admin: 06/09/17 21:45 Dose: 10 mg Pantoprazole Sodium (Protonix Ec Tab) 40 mg PO ACB [facility] Last Admin: 06/09/17 09:18 Dose: 40 mg Quetiapine Fumarate (Seroquel Xr) 200 mg PO AMHS [facility] PRN Reason: Protocol Last Admin: 06/09/17 21:45 Dose: 200 mg Tamsulosin HCl (Flomax) 0.4 mg PO DAILY [facility] Last Admin: 06/09/17 09:15 Dose: 0.4 mg Tiotropium [place] (Spiriva) 18 mcg IH DAILY [facility] Last Admin: 06/09/17 09:18 Dose: 18 mcg Valproate Sodium (Depakene Oral Soln) 500 mg PO BID [facility] Last Admin: 06/09/17 17:03 Dose: 500 mg Ziprasidone (Geodon Inj) 20 mg IM TID PRN; Protocol PRN Reason: Agitation - Labs Labs: 06/09/17 09:45 06/09/17 09:45 PT 15.1 SECONDS (9.4-12.5) H 06/01/17 17:57 INR 1.38 (0.93-1.08) H 06/01/17 17:57 Attending/Attestation - Attestation I have personally seen and examined this patient.: Yes I have fully participated in the care of the patient.: Yes I have reviewed all pertinent clinical information, including history, physical exam and plan: Yes Notes (Text): 06/10/17 06:56 72 year old male with past medical history of COPD, hypertension, paroxysmal afib, and schizophrenia/schizoaffective disorder who is admitted for COPD exacerbation and pneumonia. He is on iv steroids, duonebs, and antibiotics. This morning he was lethargic. ABG was reviewed as above and he was started on bipap and fluids. Pulmonary follow up was appreciated. Continue with steroids taper as per pulmonary. Will also request for psychiatry follow up for medications adjustment. He is on cardizem and eliquis for history of paroxysmal afib. Efra Zuñiga MD Hospitalist.
--- NOTE | 2017-06-09 21:37 | PN ---
DATE: 06/09/2017 SUBJECTIVE: The patient is seen and examined at bedside. He is comfortable. He is comfortably sleeping, but easily arousable. He is on BiPAP 06/07 with backup rate 10. Uneventful day. Breathing appears to be much better today. VITAL SIGNS: Heart rate 90, blood pressure 153/91, temperature 97.8, oxygen saturation 97% on 40% FiO2. The patient pulls >350 ml Vt with respiratory rate 19. HEENT: Head and neck atraumatic. Mucosa dry. LUNGS: Decreased breath sounds bilaterally, but no wheezing today and no upper airway rhonchi. HEART: Regular rate and rhythm, S1 and S2 distant. ABDOMEN: Soft, nontender, nondistended. MUSCULOSKELETAL EXAM: No C/C/E. NEURO: The patient moves all extremities spontaneously. SKIN: Dry. PSYCH: The patient is calmer today. LABORATORY DATA: Sodium 142, potassium 5.1, chloride 94 (low), carbon dioxide 39, BUN 23, creatinine 0.7, glucose 153. WBC 11.1, hemoglobin 11.1, platelet count 335. AST 17, ALT 19, glucose 153, albumin 3.1. ABG is 7.42/71/51 on 40% FiO2. Chest x-ray showed improved in right lower lobe infiltrate. ASSESSMENT AND PLAN: This is a 72-year-old gentleman, who presented with chronic obstructive pulmonary disease exacerbation due to noncompliance with his medication and upper respiratory tract infection. At the present time, the patient clinical examination substantially improved. He, however, has significant component of metabolic/contraction alkalosis. He is negative more than 1.5 L in terms of fluid balance over the last 48 hours. It is possible that his p.o. intake including oral hydration is very much suboptimal due to his psychiatric illness. We will proceed with administration of normal saline at a rate of 100 cc/hour. We will also taper down his systemic steroids, which also may help to offset his metabolic alkalosis. According to nurse, even though the patient was recommended to use BiPAP only at night, he, however, insists on using it during the daytime as well. Hopefully with IV hydration, steroid taper, overuse of BiPAP will not result in significant overventilation and exacerbation of alkalosis. At the present time, I would continue with steroid taper, antibiotics, bronchodilators. BiPAP at night with still be recommended. We will continue with normal saline at 100 cc/hour. We will repeat BMP and ABG in the morning. We will continue with GI prophylaxis. We will continue with apixaban for deep venous thrombosis and with GI prophylaxis ccm time 40 min. Héctor Wallace MD MTDChema
[2017-06-09] MEDS: QUEtiapine 200 mg XR Tab PO SCH (21:45)
--- NOTE | 2017-06-09 22:24 | CON ---
DATE: HISTORY OF PRESENT ILLNESS: The patient is a 72-year-old male with a history of schizoaffective disorder, multiple hospitalizations, both voluntary and involuntary, who was followed by the PACT team in the community. Psychiatry has been involved and the patient's care was medically optimized for multiple medical issues including COPD exacerbations. I saw the patient last week and reviewed Dr. Davila's note and with the patient at bedside today. He does present better today than he did 5 days ago. He is more focused. Behavior is in better control. He is less impulsive, he is less irritable, though at baseline he is little edgy. He is definitely in better control and expressive. His mood is better with self-escalating. The patient still reports he is short of breath with his medical issues. Regarding his psychiatric medications, he denies having any issues with that they look good for him. He denies any hallucinations. He is oriented to month, date, year, and circumstances. Denies any issues with depression. He wants to live and he is hopeful about living but he just wants to be medically stabilized. Overall, the patient is improving from a psychiatric standpoint. He does seem to be close to his psychiatric baseline. This provider is familiar with the patient's psychiatric baseline as I have treated him before at [facility] on the involuntary unit. Vital signs and labs were reviewed by this provider. The patient had elevated blood pressure this morning. RELEVANT PSYCHIATRIC MEDICATIONS: Include Haldol 1 mg p.o. b.i.d., Ativan 0.5 mg p.o. t.i.d., Seroquel XR 300 mg in a.m. and at bedtime, Depakote 500 mg p.o. b.i.d., and Geodon 20 mg IM t.i.d. p.r.n. IMPRESSION: Schizoaffective disorder. PLAN: We will continue with current medications. There are no acute indications to change doses at this time. The patient does appear to be notably improved and close to his psychiatric baseline. Psychiatry will continue to follow up with the patient on the unit and obtain Depakote level for patient. At this time, there does not appear to be any acute indication for psychiatric hospitalization; however, PACT team should be called for if patient is discharged. I would be on this weekend. Please contact me if there are any issues. Chidi Patel MD
[2017-06-10] MEDS: AMPicillin/Sulbactam 1.5gm 1 GM/100 ML BAG IVPB SCH ×4 (00:28→17:32)
[2017-06-10] MEDS: Albuterol-Ipratrop 3 mg / 0.5 (3 ml) UD IH SCH ×4 (01:05→21:15)
[2017-06-10] MEDS: Acetylcysteine 20% Inhal Soln (4ml) IH SCH ×4 (01:06→20:15)
[2017-06-10] MEDS: guaiFENesin 200 mg/10 ml Syrup UD PO SCH ×6 (02:30→22:28)
[2017-06-10] MEDS: Budesonide 0.5 mg/2 ml Inhal Susp UD IH SCH ×2 (08:04→20:15)
[2017-06-10] MEDS: Arformoterol 15 mcg/2 ml Inh Sol IH SCH ×2 (08:04→20:15)
[2017-06-10] MEDS: Valproic Acid 250 mg/5 ml UD Cup PO SCH ×2 (09:11→17:26)
[2017-06-10] MEDS: Pantoprazole 40 mg EC Tab PO SCH (09:13)
[2017-06-10] MEDS: QUEtiapine 200 mg XR Tab PO SCH ×2 (09:14→22:29)
[2017-06-10] MEDS: Tiotropium 18 mcg Cap For Inhalation IH SCH (09:15)
[2017-06-10] MEDS: MethylPREDNISolone 40 mg Vial IVP SCH ×2 (09:15→22:28)
[2017-06-10 09:23] LABS: BASO # 0.01 K/mm3 (0.0-2.0); BASO % 0.1 % (0.0-3.0); GRAN # 6.09 (1.4-6.5); GRAN % 70.7 % (50.0-68.0); HEMATOCRIT 33.6 % (42.0-52.0); LYMPH # 1.5 (1.2-3.4); LYMPH % 17.6 % (22.0-35.0); MEAN CELL VOLUME 101.8 fl (80.0-105.0); MEAN CORPUSCULAR HEMOGLOBIN 31.8 pg (25.0-35.0); MEAN CORPUSCULAR HGB CONC 31.3 g/dl (31.0-37.0); MEAN PLATELET VOLUME 9.3 fl (7.0-11.0); MONO % 11.6 % (1.0-6.0); RED CELL DISTRIBUTION WIDTH 13.7 % (11.5-14.5); WHITE BLOOD COUNT 8.6 10^3/ul (4.5-11.0)
[2017-06-10 09:46] LABS: ALB/GLOB RATIO 0.9 (1.1-1.8); BILIRUBIN,TOTAL 0.3 mg/dL (0.2-1.3); CALCIUM 8.8 mg/dL (8.4-10.5); GFR AFRICAN-AMERICAN > 60; GLUCOSE,RANDOM 85 mg/dL (70-110)
[2017-06-10 09:48] LABS: ALKALINE PHOSPHATASE 43 U/L (38-126); ALT/SGPT 22 U/L (7-56); AST/SGOT 14 U/L (17-59); BLOOD UREA NITROGEN 23 mg/dL (7-21); CARBON DIOXIDE 38 mmol/L (21-33); CHLORIDE 96 mmol/L (98-107); SODIUM 139 mmol/L (132-148)
[2017-06-10 10:25] LABS: ARTERIAL BLOOD GAS HCO3 37.8 mmol/L (21-28); ARTERIAL BLOOD GAS O2 CAPACITY 13.9 mL/dl (16-24); ARTERIAL BLOOD GAS O2 CONTENT 11.7 ML/dl (15-23); ARTERIAL BLOOD HGB O2 SAT 81.5 % (95.0-98.0); CARBOXYHEMOGLOBIN 2.4 % (0.5-1.5); HHB 15.1 % (0-5); METHEMOGLOBIN 0.9 % (0.0-3.0)
[2017-06-10] MEDS: Sodium Chloride 0.9% 1,000 ML IV SCH (12:11)
--- NOTE | 2017-06-10 17:55 | CP.PCM.PN ---
<Acosta Brito - Last Filed: 06/10/17 17:33> Subjective - Date & Time of Evaluation Date of Evaluation: 06/10/17 Time of Evaluation: 07:30 - Subjective Subjective: Acosta Brito DO PGY1 - Internal Medicine Progress Note Patient seen and examined at bedside. Patient was confused and lethargic yesterday, noted to be hypercapnic on ABG, though did well on BIPAP overnight. Patient tolerating BIPAP well, feels more comfortable with it on. Speaking in incomplete, interrupted sentences, requesting 4 egg salad sandwiches. Denies chest pain. Objective - Vital Signs/Intake and Output Vital Signs (last 24 hours): Temp Pulse Resp BP Pulse Ox 97.3 F L 86 21 134/84 93 L 06/10/17 06:00 06/10/17 17:24 06/10/17 06:00 06/10/17 17:24 06/10/17 06:00 Intake and Output: 06/10/17 06/10/17 06:59 18:59 Intake Total 240 Output Total 950 Balance -710 - Medications Medications: Current Medications Acetaminophen (Tylenol 325mg Tab) 650 mg PO Q4H PRN PRN Reason: Pain, Mild (1-3) Last Admin: 06/10/17 06:23 Dose: 650 mg Acetylcysteine (Acetylcysteine 20%) 4 ml IH [id number] [facility] Last Admin: 06/10/17 14:04 Dose: 4 ml Albuterol/Ipratropium (Duoneb 3 Mg/0.5 Mg (3 Ml) Ud) 3 ml IH [id number] [facility] Last Admin: 06/10/17 14:04 Dose: 3 ml Apixaban (Eliquis) 5 mg PO BID [facility] PRN Reason: Protocol Last Admin: 06/10/17 17:26 Dose: 5 mg Arformoterol Tartrate (Brovana) 15 mcg IH [id number] [facility] Last Admin: 06/10/17 08:04 Dose: 15 mcg Aspirin (Ecotrin) 81 mg PO DAILY [facility] Last Admin: 06/10/17 09:11 Dose: 81 mg Budesonide (Pulmicort Respules) 1 mg IH [id number] [facility] Last Admin: 06/10/17 08:04 Dose: 1 mg Diltiazem HCl (Cardizem) 30 mg PO BID [facility] Last Admin: 06/10/17 17:24 Dose: 30 mg Ergocalciferol (Drisdol 50,000 Intl Units Cap) 1 cap PO Q7D [facility] Last Admin: 06/09/17 11:40 Dose: 1 cap Finasteride (Proscar) 5 mg PO DAILY [facility] Last Admin: 06/10/17 09:13 Dose: 5 mg Guaifenesin (Robitussin) 200 mg PO Q4H [facility] Last Admin: 06/10/17 17:26 Dose: Not Given Ampicillin Sodium/Sulbactam Sodium (Unasyn) 1 gm in 100 mls @ 100 mls/hr IVPB Q6 [facility] PRN Reason: Protocol Last Admin: 06/10/17 17:32 Dose: 100 mls/hr Sodium Chloride (Sodium Chloride 0.9%) 1,000 mls @ 100 mls/hr IV .Q10H [facility] Last Admin: 06/10/17 12:11 Dose: 100 mls/hr Lorazepam (Ativan) 1 mg IVP BID PRN; Protocol PRN Reason: Anxiety Last Admin: 06/10/17 08:16 Dose: 1 mg Methylprednisolone (Solu-Medrol) 20 mg IVP Q12 [facility] Last Admin: 06/10/17 09:15 Dose: 20 mg Montelukast Sodium (Singulair) 10 mg PO HS [facility] Last Admin: 06/09/17 21:45 Dose: 10 mg Pantoprazole Sodium (Protonix Ec Tab) 40 mg PO ACB [facility] Last Admin: 06/10/17 09:13 Dose: 40 mg Quetiapine Fumarate (Seroquel Xr) 200 mg PO AMHS [facility] PRN Reason: Protocol Last Admin: 06/10/17 09:14 Dose: 200 mg Tamsulosin HCl (Flomax) 0.4 mg PO DAILY [facility] Last Admin: 06/10/17 09:13 Dose: 0.4 mg Tiotropium [place] (Spiriva) 18 mcg IH DAILY [facility] Last Admin: 06/10/17 09:15 Dose: 18 mcg Valproate Sodium (Depakene Oral Soln) 500 mg PO BID [facility] Last Admin: 06/10/17 17:26 Dose: 500 mg Ziprasidone (Geodon Inj) 20 mg IM TID PRN; Protocol PRN Reason: Agitation - Labs Labs: 06/10/17 08:10 06/10/17 08:10 PT 15.1 SECONDS (9.4-12.5) H 06/01/17 17:57 INR 1.38 (0.93-1.08) H 06/01/17 17:57 - Constitutional Appears: Non-toxic, In Acute Distress (mild), Unkempt, Agitated - Head Exam Head Exam: ATRAUMATIC, NORMOCEPHALIC - Eye Exam Eye Exam: EOMI, Normal appearance - ENT Exam ENT Exam: Mucous Membranes Moist - Neck Exam Neck Exam: Normal Inspection - Respiratory Exam Respiratory Exam: Decreased Breath Sounds Additional comments: Poor inspiratory effort Mild diffuse wheezing - Cardiovascular Exam Cardiovascular Exam: RRR, +S1, +S2 - GI/Abdominal Exam GI & Abdominal Exam: Soft, Normal Bowel Sounds. absent: Tenderness - Extremities Exam Extremities Exam: absent: Calf Tenderness, Pedal Edema - Neurological Exam Neurological Exam: Alert, Awake, Oriented x3 - Psychiatric Exam Psychiatric exam: Normal Affect, Normal Mood - Skin Skin Exam: Dry, Intact Assessment and Plan - Assessment and Plan (Free Text) Assessment: 72 year old with COPD, schizoaffective disorder, history of pulmonary embolism, atrial fibrillation, and likely a form of tic disorder who presented to [facility] for worsening shortness of breath and a productive sputum. The patient is being treated for a COPD exacerbation and his chronic medical problems. Plan: 1) COPD exacerbation with possible aspiration pneumonia: patient afebrile without leukocytosis - Patient seen still on BIPAP from overnight; reports shortness of breath when off BIPAP - Will obtain ABG off BIPAP today to evaluate respiratory status - Continue BIPAP at night - Continue Duoneb 3 ml IH q6h gretta - Continue Unasyn for total 4-7 days; repeat CXR shows improvement of focal consolidations - Acetylcysteine 20% 4 ml IH [id number] [facility] - Continue to taper down on IV steroids per pulm; currently on Methylprednisolone 20 mg q12h - Montelukast 10 mg PO Daily - Budesonide 1 mg q12h - Robitussin 200 mg PO q4h [facility] - Brovana 15 mcg q12h resp - Pulmonology recommendations appreciated 2) Atrial fibrillation - rate controlled - Diltiazem 30 mg BID PO - Eliquis 5 mg BID PO - Aspirin 81 mg daily 3) BPH - Finasteride 5 mg PO daily - Tamsulosin 0.4 mg PO daily 4) Schizoaffective disorder - Seroquel 200 mg PO AMHS - Ativan 1 mg IVP BID PRN for anxiety/agitation - Ziprasidone 20 mg IM TID PRN - Depakene 500 mg PO BID: Valproic acid level 25 - Psychiatry recommendations appreciated 5) GI prophylaxis - Protonix EC 40 mg PO daily Patient seen, discussed, and reviewed with attending <Efra Zuñiga - Last Filed: 06/10/17 18:45> Objective - Vital Signs/Intake and Output Vital Signs (last 24 hours): Temp Pulse Resp BP Pulse Ox 98.3 F 86 18 134/84 93 L 06/10/17 17:53 06/10/17 17:53 06/10/17 17:53 06/10/17 17:53 06/10/17 17:53 Intake and Output: 06/10/17 06/10/17 06:59 18:59 Intake Total 240 Output Total 950 Balance -710 - Medications Medications: Current Medications Acetaminophen (Tylenol 325mg Tab) 650 mg PO Q4H PRN PRN Reason: Pain, Mild (1-3) Last Admin: 06/10/17 06:23 Dose: 650 mg Acetylcysteine (Acetylcysteine 20%) 4 ml IH [id number] [facility] Last Admin: 06/10/17 14:04 Dose: 4 ml Albuterol/Ipratropium (Duoneb 3 Mg/0.5 Mg (3 Ml) Ud) 3 ml IH [id number] [facility] Last Admin: 06/10/17 14:04 Dose: 3 ml Apixaban (Eliquis) 5 mg PO BID [facility] PRN Reason: Protocol Last Admin: 06/10/17 17:26 Dose: 5 mg Arformoterol Tartrate (Brovana) 15 mcg IH [id number] [facility] Last Admin: 06/10/17 08:04 Dose: 15 mcg Aspirin (Ecotrin) 81 mg PO DAILY [facility] Last Admin: 06/10/17 09:11 Dose: 81 mg Budesonide (Pulmicort Respules) 1 mg IH [id number] [facility] Last Admin: 06/10/17 08:04 Dose: 1 mg Diltiazem HCl (Cardizem) 30 mg PO BID [facility] Last Admin: 06/10/17 17:24 Dose: 30 mg Ergocalciferol (Drisdol 50,000 Intl Units Cap) 1 cap PO Q7D [facility] Last Admin: 06/09/17 11:40 Dose: 1 cap Finasteride (Proscar) 5 mg PO DAILY [facility] Last Admin: 06/10/17 09:13 Dose: 5 mg Guaifenesin (Robitussin) 200 mg PO Q4H [facility] Last Admin: 06/10/17 17:33 Dose: 200 mg Ampicillin Sodium/Sulbactam Sodium (Unasyn) 1 gm in 100 mls @ 100 mls/hr IVPB Q6 [facility] PRN Reason: Protocol Last Admin: 06/10/17 17:32 Dose: 100 mls/hr Sodium Chloride (Sodium Chloride 0.9%) 1,000 mls @ 100 mls/hr IV .Q10H [facility] Last Admin: 06/10/17 12:11 Dose: 100 mls/hr Lorazepam (Ativan) 1 mg IVP BID PRN; Protocol PRN Reason: Anxiety Last Admin: 06/10/17 08:16 Dose: 1 mg Methylprednisolone (Solu-Medrol) 20 mg IVP Q12 [facility] Last Admin: 06/10/17 09:15 Dose: 20 mg Montelukast Sodium (Singulair) 10 mg PO HS [facility] Last Admin: 06/09/17 21:45 Dose: 10 mg Pantoprazole Sodium (Protonix Ec Tab) 40 mg PO ACB [facility] Last Admin: 06/10/17 09:13 Dose: 40 mg Quetiapine Fumarate (Seroquel Xr) 200 mg PO AMHS [facility] PRN Reason: Protocol Last Admin: 06/10/17 09:14 Dose: 200 mg Tamsulosin HCl (Flomax) 0.4 mg PO DAILY [facility] Last Admin: 06/10/17 09:13 Dose: 0.4 mg Tiotropium [place] (Spiriva) 18 mcg IH DAILY [facility] Last Admin: 06/10/17 09:15 Dose: 18 mcg Valproate Sodium (Depakene Oral Soln) 500 mg PO BID [facility] Last Admin: 06/10/17 17:26 Dose: 500 mg Ziprasidone (Geodon Inj) 20 mg IM TID PRN; Protocol PRN Reason: Agitation - Labs Labs: 06/10/17 08:10 06/10/17 08:10 PT 15.1 SECONDS (9.4-12.5) H 06/01/17 17:57 INR 1.38 (0.93-1.08) H 06/01/17 17:57 Attending/Attestation - Attestation I have personally seen and examined this patient.: Yes I have fully participated in the care of the patient.: Yes I have reviewed all pertinent clinical information, including history, physical exam and plan: Yes Notes (Text): 06/10/17 18:44 72 year old male with past medical history of COPD, hypertension, paroxysmal afib, and schizophrenia/schizoaffective disorder who is admitted for COPD exacerbation and pneumonia. He is on iv steroids, duonebs, and antibiotics. Pulmonary is following. He is on bipap. Repeat ABG today was reviewed. Psychiatry is also following for agitation and anxiety. He is on cardizem and eliquis for history of paroxysmal afib. Efra Zuñiga MD Hospitalist.
--- NOTE | 2017-06-11 01:38 | CON ---
DATE: HISTORY OF PRESENT ILLNESS: The patient is a 72-year-old male who has a history of schizoaffective disorder, numerous hospitalizations, both involuntary and voluntary, who is followed by PACT team at [facility]. Psychiatry is involved in the patient's care on the medical floor, specifically Dr. Davila followed the patient during the week and I met this patient yesterday and again today. Yesterday, he presented better than he did 5 days prior when I first interviewed him on the unit. He was more focused. His behavior was better controlled. He was less impulsive, and he was less irritable and he was less belligerent and demanding and could maintain a conversation. The patient ____ express himself better and less obtund. He did not appear to be lethargic during my interview yesterday. Regarding his psychiatric symptoms, he appears to be close to baseline. This provider is familiar with the patient's baseline, because I have treated this patient psychiatrically on the inpatient unit at [facility] for multiple involuntary hospitalizations. I was contacted yesterday regarding the patient's lethargy which I did not observe yesterday morning; however, I cannot rule out that he became progressively more tired during the day. I recommended Seroquel to decrease to 200 mg a.m. and at bedtime and the medical team went ahead and discontinued Ativan as well as Haldol. I met the patient today and he does appear lethargic this morning despite the medication changes. He is also very tired and does have laryngitis and his voice does appear to be quite weak. He is short of breath and he has difficulty responding questioning. He is not actively delusional although difficult to maintain a projective conversation due to his distress from trying to vocalize with laryngitis. Again, the patient does not want to , not suicidal, not homicidal. However, he has a lot of anxiety regarding his medical issues and he does not feel safe to go home because he does not feel medically well. VITAL SIGNS: Not reviewed by this provider. RELEVANT PSYCHIATRIC MEDICATIONS: Include Ativan 1 mg IV b.i.d. p.r.n. The patient received 1 dose at 3:47 a.m. and one dose at 8:16 a.m. due to behavior and for the anxiety. Seroquel XR 200 mg a.m. and at bedtime and Depakote 500 mg p.o. b.i.d. as well as Geodon 20 mg IM t.i.d. p.r.n. IMPRESSION: Schizoaffective disorder. PLAN: We will continue with Seroquel XR 200 mg a.m. and at bedtime, Depakote 500 mg p.o. b.i.d., and Geodon 20 mg IM t.i.d. p.r.n. and monitor the patient's behavior. Of note, Depakote level that was ordered yesterday returned at 25, which is low. This dose does not appear to be toxic for the patient. As a conservative measure, this provider left a voice mail for Martine Lynne from [facility] this morning at approximately 9:25 a.m., number I called is [phone]. I left my cell phone number and requested to call back as soon as possible just to let her view the patient's medications with Martine. Prior documentation does indicate that this has been done already; however, I want to ensure that everything has been viewed appropriately and accurately as well as comprehensively regarding this elderly gentleman with a long psychiatric history and multiple medical issues. Psychiatry will continue to follow up with the patient and update medication according to behavior and collateral information obtained from Martine Lynne. Chidi Patel MD
[2017-06-11] MEDS: Albuterol-Ipratrop 3 mg / 0.5 (3 ml) UD IH SCH ×3 (02:20→13:58)
[2017-06-11] MEDS: Acetylcysteine 20% Inhal Soln (4ml) IH SCH ×2 (02:20→07:49)
[2017-06-11] MEDS: guaiFENesin 200 mg/10 ml Syrup UD PO SCH ×4 (02:30→21:59)
[2017-06-11] MEDS: AMPicillin/Sulbactam 1.5gm 1 GM/100 ML BAG IVPB SCH ×4 (05:54→17:07)
[2017-06-11] MEDS: Arformoterol 15 mcg/2 ml Inh Sol IH SCH ×2 (07:49→19:52)
[2017-06-11] MEDS: Budesonide 0.5 mg/2 ml Inhal Susp UD IH SCH (07:50)
--- NOTE | 2017-06-11 09:33 | CP.PCM.PCO ---
Addendum Addendum: Spoke with Martine Lynne at 9:30 am today ([phone]). Martine provided list of patient's psychiatric medications today. * Patient is prescribed Depakote ER 1500 mg daily, 250 mg tablets x6, BECAUSE PATIENT HAS TROUBLE SWALLOWING 500 MG TABLETS. Will continue dose at 1000 mg until patient's alertness and medical condition improve. * Patient is prescribed Seroquel XR 600 mg ONCE DAILY. It is unclear why it was prescribed as Seroquel XR 300 mg TWICE DAILY. Please note that this Seroquel XR 300 mg po bid dose was changed to Seroquel XR 200 mg po bid on 06/10/17 due to patient's sedation. This provider changed timing of dose to Seroquel XR 400 mg at 5 pm to be started on 06/12/17. Please review dictated progress note from today for more information. Per Martine Lynne from PACT, patient should be assessed for ability to care for self once he is medically cleared. Martine Lynne believes patient has limited skills and has refused [employer] for years. He cannot use oxygen machine by himself and never uses it at home despite multiple interactive teaching.
[2017-06-11 09:49] LABS: BASO # 0.01 K/mm3 (0.0-2.0); BASO % 0.1 % (0.0-3.0); GRAN # 7.06 (1.4-6.5); HEMATOCRIT 34.2 % (42.0-52.0); LYMPH % 19.7 % (22.0-35.0); MEAN CELL VOLUME 101.8 fl (80.0-105.0); MEAN CORPUSCULAR HEMOGLOBIN 31.8 pg (25.0-35.0); MEAN CORPUSCULAR HGB CONC 31.3 g/dl (31.0-37.0); MEAN PLATELET VOLUME 9.1 fl (7.0-11.0); MONO # 0.9 (0.1-0.6); MONO % 9.2 % (1.0-6.0); RED CELL DISTRIBUTION WIDTH 13.7 % (11.5-14.5); WHITE BLOOD COUNT 9.9 10^3/ul (4.5-11.0)
[2017-06-11] MEDS ORDERED: Acetylcysteine 20% Inhal Soln (4ml) IH PRN (09:58)
[2017-06-11] MEDS: MethylPREDNISolone 40 mg Vial IVP SCH ×2 (09:58→22:49)
[2017-06-11] MEDS: Valproic Acid 250 mg/5 ml UD Cup PO SCH ×2 (09:58→17:08)
[2017-06-11] MEDS ORDERED: Albuterol-Ipratrop 3 mg / 0.5 (3 ml) UD IH PRN (09:58)
[2017-06-11] MEDS: QUEtiapine 200 mg XR Tab PO SCH (09:59)
[2017-06-11] MEDS: Tiotropium 18 mcg Cap For Inhalation IH SCH (09:59)
[2017-06-11] MEDS: Pantoprazole 40 mg EC Tab PO SCH (09:59)
[2017-06-11 10:06] LABS: ALB/GLOB RATIO 0.8 (1.1-1.8); ALKALINE PHOSPHATASE 52 U/L (38-126); ALT/SGPT 19 U/L (7-56); AST/SGOT 23 U/L (17-59); BILIRUBIN,TOTAL 0.4 mg/dL (0.2-1.3); BLOOD UREA NITROGEN 18 mg/dL (7-21); CALCIUM 8.6 mg/dL (8.4-10.5); CARBON DIOXIDE 40 mmol/L (21-33); CHLORIDE 96 mmol/L (98-107); GFR AFRICAN-AMERICAN > 60; GLUCOSE,RANDOM 88 mg/dL (70-110); POTASSIUM 4.7 mmol/L (3.6-5.0); SODIUM 140 mmol/L (132-148); TOTAL PROTEIN 6.1 g/dL (5.8-8.3)
[2017-06-11 10:19] LABS: ARTERIAL BLOOD GAS HCO3 38.5 mmol/L (21-28); ARTERIAL BLOOD GAS O2 CAPACITY 13.9 mL/dl (16-24); ARTERIAL BLOOD GAS O2 CONTENT 11.7 ML/dl (15-23); ARTERIAL BLOOD GAS PH 7.43 (7.35-7.45); ARTERIAL BLOOD HGB O2 SAT 81.7 % (95.0-98.0); CARBOXYHEMOGLOBIN 2.1 % (0.5-1.5); HHB 15.5 % (0-5); METHEMOGLOBIN 0.7 % (0.0-3.0)
--- NOTE | 2017-06-11 16:26 | CP.PCM.PN ---
<Acosta Brito - Last Filed: 06/11/17 16:23> Subjective - Date & Time of Evaluation Date of Evaluation: 06/11/17 Time of Evaluation: 07:30 - Subjective Subjective: Acosta Brito DO PGY1 - Internal Medicine Progress Note Patient seen and examined at bedside. Patient again required BIPAP overnight, but intermittently refused it. Today, he is again requesting BIPAP. He is very anxious about being discharged, and repeatedly states that he cannot go home. Patient occasionally seen breathing, speaking, and behaving normally on room air , but at other times, seen very agitated, and desaturating even on 4-5L O2 by NC. Patient denies any chest pain, fever, chills, abdominal pain. Objective - Vital Signs/Intake and Output Vital Signs (last 24 hours): Temp Pulse Resp BP Pulse Ox 97.8 F 87 19 141/86 89 L 06/11/17 06:00 06/11/17 06:00 06/11/17 06:00 06/11/17 06:00 06/11/17 06:00 - Medications Medications: Current Medications Acetaminophen (Tylenol 325mg Tab) 650 mg PO Q4H PRN PRN Reason: Pain, Mild (1-3) Last Admin: 06/11/17 11:11 Dose: 650 mg Acetylcysteine (Acetylcysteine 20%) 4 ml IH [id number] PRN PRN Reason: Upper Respiratory Secretions Albuterol/Ipratropium (Duoneb 3 Mg/0.5 Mg (3 Ml) Ud) 3 ml IH [id number] [facility] Last Admin: 06/11/17 13:58 Dose: 3 ml Albuterol/Ipratropium (Duoneb 3 Mg/0.5 Mg (3 Ml) Ud) 3 ml IH Q2H PRN PRN Reason: Shortness of Breath Apixaban (Eliquis) 5 mg PO BID [facility] PRN Reason: Protocol Last Admin: 06/11/17 09:58 Dose: 5 mg Arformoterol Tartrate (Brovana) 15 mcg IH [id number] [facility] Last Admin: 06/11/17 07:49 Dose: 15 mcg Aspirin (Ecotrin) 81 mg PO DAILY [facility] Last Admin: 06/11/17 09:58 Dose: 81 mg Budesonide (Pulmicort Respules) 1 mg IH [id number] [facility] Last Admin: 06/11/17 07:50 Dose: 1 mg Diltiazem HCl (Cardizem) 30 mg PO BID [facility] Last Admin: 06/11/17 10:19 Dose: 30 mg Ergocalciferol (Drisdol 50,000 Intl Units Cap) 1 cap PO Q7D [facility] Last Admin: 06/09/17 11:40 Dose: 1 cap Finasteride (Proscar) 5 mg PO DAILY [facility] Last Admin: 06/11/17 09:59 Dose: 5 mg Guaifenesin (Robitussin) 200 mg PO Q4H [facility] Last Admin: 06/11/17 10:25 Dose: Not Given Ampicillin Sodium/Sulbactam Sodium (Unasyn) 1 gm in 100 mls @ 100 mls/hr IVPB Q6 [facility]TTA PRN Reason: Protocol Last Admin: 06/11/17 11:11 Dose: 100 mls/hr Sodium Chloride (Sodium Chloride 0.9%) 1,000 mls @ 100 mls/hr IV .Q10H [facility] Last Admin: 06/10/17 12:11 Dose: 100 mls/hr Lorazepam (Ativan) 1 mg IVP BID PRN; Protocol PRN Reason: Anxiety Last Admin: 06/11/17 10:51 Dose: 1 mg Methylprednisolone (Solu-Medrol) 20 mg IVP Q12 [facility] Last Admin: 06/11/17 09:58 Dose: 20 mg Montelukast Sodium (Singulair) 10 mg PO HS [facility] Last Admin: 06/10/17 22:30 Dose: 10 mg Pantoprazole Sodium (Protonix Ec Tab) 40 mg PO ACB [facility] Last Admin: 06/11/17 09:59 Dose: 40 mg Quetiapine Fumarate (Seroquel Xr) 400 mg PO 1700 [facility] Tamsulosin HCl (Flomax) 0.4 mg PO DAILY [facility] Last Admin: 06/11/17 09:59 Dose: 0.4 mg Tiotropium [place] (Spiriva) 18 mcg IH DAILY [facility] Last Admin: 06/11/17 09:59 Dose: 18 mcg Valproate Sodium (Depakene Oral Soln) 500 mg PO BID [facility] Last Admin: 06/11/17 09:58 Dose: 500 mg Ziprasidone (Geodon Inj) 20 mg IM TID PRN; Protocol PRN Reason: Agitation - Labs Labs: 06/11/17 09:30 06/11/17 09:30 PT 15.1 SECONDS (9.4-12.5) H 06/01/17 17:57 INR 1.38 (0.93-1.08) H 06/01/17 17:57 - Constitutional Appears: Non-toxic, In Acute Distress, Confused, Chronically Ill - Head Exam Head Exam: ATRAUMATIC, NORMOCEPHALIC - Eye Exam Eye Exam: EOMI, Normal appearance - ENT Exam ENT Exam: Mucous Membranes Dry - Neck Exam Neck Exam: Normal Inspection - Respiratory Exam Additional comments: Slight diffuse wheezing heard on exam Patient intermittently seen breathing comfortably on room air, but occasionally seen in distress even on 4-5 L O2 by NC. - Cardiovascular Exam Cardiovascular Exam: RRR, +S1, +S2 - GI/Abdominal Exam GI & Abdominal Exam: Soft, Normal Bowel Sounds. absent: Tenderness - Extremities Exam Extremities Exam: absent: Calf Tenderness, Pedal Edema - Neurological Exam Neurological Exam: Alert, Awake, Oriented x3 - Psychiatric Exam Psychiatric exam: Agitated, Anxious - Skin Skin Exam: Dry, Intact Assessment and Plan - Assessment and Plan (Free Text) Assessment: 72 year old with COPD, schizoaffective disorder, history of pulmonary embolism, atrial fibrillation, and likely a form of tic disorder who presented to [facility] for worsening shortness of breath and a productive sputum. The patient is being treated for a COPD exacerbation and his chronic medical problems. Plan: 1) COPD exacerbation with possible aspiration pneumonia: patient afebrile without leukocytosis - ABG off BIPAP yesterday showed hypoxemia on 4LNC. Patient still requiring BIPAP - Will obtain ABG off BIPAP today to reevaluate respiratory status - Continue BIPAP at night - Continue Duoneb 3 ml IH q6h gretta and Q2h PRN - Continue Unasyn for total 4-7 days (d6) - Acetylcysteine 20% 4 ml IH [id number] - Changed to PRN, secretions decreased - Continue to taper down on IV steroids per pulm; currently on Methylprednisolone 20 mg q12h - Montelukast 10 mg PO Daily - Budesonide 1 mg q12h - Robitussin 200 mg PO q4h GRETTA - Brovana 15 mcg q12h resp - Pulmonology recommendations appreciated 2) Atrial fibrillation - rate controlled - Diltiazem 30 mg BID PO - Eliquis 5 mg BID PO - Aspirin 81 mg daily 3) BPH - Finasteride 5 mg PO daily - Tamsulosin 0.4 mg PO daily 4) Schizoaffective disorder - Seroquel 400mg PO 1700 - recently adjusted by psych - Ativan 1 mg IVP BID PRN for anxiety/agitation - Ziprasidone 20 mg IM TID PRN - Depakene 500 mg PO BID: Valproic acid level 25 - Psychiatry recommendations appreciated 5) GI/DVT prophylaxis - Protonix EC 40 mg PO daily - SCDs Patient seen, discussed, and reviewed with attending <Efra Zuñiga - Last Filed: 06/11/17 16:40> Objective - Vital Signs/Intake and Output Vital Signs (last 24 hours): Temp Pulse Resp BP Pulse Ox 97.8 F 87 19 141/86 89 L 06/11/17 06:00 06/11/17 06:00 06/11/17 06:00 06/11/17 06:00 06/11/17 06:00 - Medications Medications: Current Medications Acetaminophen (Tylenol 325mg Tab) 650 mg PO Q4H PRN PRN Reason: Pain, Mild (1-3) Last Admin: 06/11/17 11:11 Dose: 650 mg Acetylcysteine (Acetylcysteine 20%) 4 ml IH [id number] PRN PRN Reason: Upper Respiratory Secretions Albuterol/Ipratropium (Duoneb 3 Mg/0.5 Mg (3 Ml) Ud) 3 ml IH [id number] [facility] Last Admin: 06/11/17 13:58 Dose: 3 ml Albuterol/Ipratropium (Duoneb 3 Mg/0.5 Mg (3 Ml) Ud) 3 ml IH Q2H PRN PRN Reason: Shortness of Breath Apixaban (Eliquis) 5 mg PO BID [facility] PRN Reason: Protocol Last Admin: 06/11/17 09:58 Dose: 5 mg Arformoterol Tartrate (Brovana) 15 mcg IH [id number] [facility] Last Admin: 06/11/17 07:49 Dose: 15 mcg Aspirin (Ecotrin) 81 mg PO DAILY [facility] Last Admin: 06/11/17 09:58 Dose: 81 mg Budesonide (Pulmicort Respules) 1 mg IH [id number] [facility] Last Admin: 06/11/17 07:50 Dose: 1 mg Diltiazem HCl (Cardizem) 30 mg PO BID [facility] Last Admin: 06/11/17 10:19 Dose: 30 mg Ergocalciferol (Drisdol 50,000 Intl Units Cap) 1 cap PO Q7D [facility] Last Admin: 06/09/17 11:40 Dose: 1 cap Finasteride (Proscar) 5 mg PO DAILY [facility] Last Admin: 06/11/17 09:59 Dose: 5 mg Guaifenesin (Robitussin) 200 mg PO Q4H [facility] Last Admin: 06/11/17 10:25 Dose: Not Given Ampicillin Sodium/Sulbactam Sodium (Unasyn) 1 gm in 100 mls @ 100 mls/hr IVPB Q6 [facility] PRN Reason: Protocol Last Admin: 06/11/17 11:11 Dose: 100 mls/hr Sodium Chloride (Sodium Chloride 0.9%) 1,000 mls @ 100 mls/hr IV .Q10H [facility] Last Admin: 06/10/17 12:11 Dose: 100 mls/hr Lorazepam (Ativan) 1 mg IVP BID PRN; Protocol PRN Reason: Anxiety Last Admin: 06/11/17 10:51 Dose: 1 mg Methylprednisolone (Solu-Medrol) 20 mg IVP Q12 [facility] Last Admin: 06/11/17 09:58 Dose: 20 mg Montelukast Sodium (Singulair) 10 mg PO HS [facility] Last Admin: 06/10/17 22:30 Dose: 10 mg Pantoprazole Sodium (Protonix Ec Tab) 40 mg PO ACB [facility] Last Admin: 06/11/17 09:59 Dose: 40 mg Quetiapine Fumarate (Seroquel Xr) 400 mg PO 1700 [facility] Tamsulosin HCl (Flomax) 0.4 mg PO DAILY [facility] Last Admin: 06/11/17 09:59 Dose: 0.4 mg Tiotropium [place] (Spiriva) 18 mcg IH DAILY [facility] Last Admin: 06/11/17 09:59 Dose: 18 mcg Valproate Sodium (Depakene Oral Soln) 500 mg PO BID [facility] Last Admin: 06/11/17 09:58 Dose: 500 mg Ziprasidone (Geodon Inj) 20 mg IM TID PRN; Protocol PRN Reason: Agitation - Labs Labs: 06/11/17 09:30 06/11/17 09:30 PT 15.1 SECONDS (9.4-12.5) H 06/01/17 17:57 INR 1.38 (0.93-1.08) H 06/01/17 17:57 Attending/Attestation - Attestation I have personally seen and examined this patient.: Yes I have fully participated in the care of the patient.: Yes I have reviewed all pertinent clinical information, including history, physical exam and plan: Yes Notes (Text): 06/11/17 16:37 72 year old male with past medical history of COPD, hypertension, paroxysmal afib, and schizophrenia/schizoaffective disorder who is admitted for COPD exacerbation and pneumonia. He is on iv steroids, duonebs, and antibiotics. Pulmonary has been following the patient. His wheezing and secretions have improved although he remains hypoxic and anxious at times. ABG was reviewed. He is on bipap. Psychiatry is also following for agitation, schizoaffective disorder and anxiety. He is on cardizem and eliquis for history of paroxysmal afib. Efra Zuñiga MD Hospitalist.
[2017-06-11] MEDS ORDERED: QUEtiapine 200 mg XR Tab PO SCH (17:00)
--- NOTE | 2017-06-11 20:04 | CON ---
DATE: HISTORY OF PRESENT ILLNESS: The patient is a 72-year-old male who has a history of schizoaffective disorder, numerous hospitalizations, both involuntary and voluntary, who is followed by [place] team [place]. Psychiatry has been involved in patient's care on the medical floor, specifically Dr. Davila followed the patient during the week, and I met with patient on Monday, Monday, and again today. The patient has slowly been returning to his baseline; however, his medical condition has been increasing his anxiety level. I met with him at bedside today and he continues to be aware of current year and location; however, he is not aware of the month. The patient is well aware of current circumstances and he is very concerned about his ability to brief and his energy level and ability to eat and speak. The patient is notably much more anxious than he had been during prior visits with him. He is not hallucinating and responses are generally relevant when asked simply and directly. As noted, patient reported he is "stressed about medical issues, and I will if they release me." The patient does not want to . The patient is not suicidal, he is not homicidal. He looks more anxious than angry or confrontational at this time. The patient does not appear to be either at psychiatric baseline or medical baseline as I am familiar with this patient's baseline from my multiple encounters with him on the inpatient unit involuntary side at [facility]. Vital signs and labs were reviewed by this provider. Please not that the dictation from 06/10/2017 erroneously indicated vital signs were not reviewed by this provider. They reviewed daily by this provider. MEDICATIONS: Relevant psychiatric medications include Ativan 1 mg IV b.i.d. p.r.n. anxiety., which the patient received a dose at 3:16 a.m. this morning, the patient received 3 doses yesterday. Seroquel XR 200 mg a.m. and at bedtime, Depakote 500 mg p.o. b.i.d., and Geodon 20 mg IM t.i.d. p.r.n. agitation, the patient has been receiving the recent doses of this p.r.n. IMPRESSION: Schizoaffective disorder. PLAN: 1. We will continue with Seroquel XR 200 mg a.m. and at bedtime. 2. We will continue Depakote 500 mg. p.o. b.i.d. 3. We will also continue Geodon 20 mg IM t.i.d. p.r.n. 4. Continue with Ativan p.r.n for patient's and overt anxiety. Please note, as a conservative measure, this provider left a voice mail for Martine Lynne from [facility] yesterday morning, 06/10/2017, at [phone]. I left my cell phone number and requested to call back as soon as possible, so that we can review patient's medication regimen and ensure that his medications are being prescribed accurately. I have not received phone call back and I will continue to outreach to her for this collateral. Psychiatry will continue to follow up with the patient and update medication according to behavior and collateral information obtained. Chidi Patel MD
[2017-06-12] MEDS: AMPicillin/Sulbactam 1.5gm 1 GM/100 ML BAG IVPB SCH ×4 (00:23→17:58)
[2017-06-12] MEDS: Albuterol-Ipratrop 3 mg / 0.5 (3 ml) UD IH SCH ×7 (00:44→23:56)
[2017-06-12] MEDS: Sodium Chloride 0.9% 1,000 ML IV SCH (03:43)
[2017-06-12] MEDS: guaiFENesin 200 mg/10 ml Syrup UD PO SCH (05:40)
[2017-06-12 07:15] LABS: BASO # 0.01 K/mm3 (0.0-2.0); BASO % 0.1 % (0.0-3.0); EOS % 0.2 % (1.5-5.0); GRAN # 12.99 (1.4-6.5); GRAN % 74.2 % (50.0-68.0); HEMATOCRIT 32.9 % (42.0-52.0); LYMPH % 16.8 % (22.0-35.0); MEAN CELL VOLUME 101.5 fl (80.0-105.0); MEAN CORPUSCULAR HEMOGLOBIN 32.1 pg (25.0-35.0); MEAN CORPUSCULAR HGB CONC 31.6 g/dl (31.0-37.0); MONO # 1.5 (0.1-0.6); MONO % 8.7 % (1.0-6.0); RED CELL DISTRIBUTION WIDTH 13.7 % (11.5-14.5); WHITE BLOOD COUNT 17.5 10^3/ul (4.5-11.0)
[2017-06-12 07:47] LABS: ALB/GLOB RATIO 0.8 (1.1-1.8); ALKALINE PHOSPHATASE 51 U/L (38-126); ALT/SGPT 21 U/L (7-56); AST/SGOT 22 U/L (17-59); BILIRUBIN,TOTAL 0.3 mg/dL (0.2-1.3); BLOOD UREA NITROGEN 16 mg/dL (7-21); CALCIUM 8.3 mg/dL (8.4-10.5); CARBON DIOXIDE 40 mmol/L (21-33); CHLORIDE 91 mmol/L (98-107); GFR AFRICAN-AMERICAN > 60; GLUCOSE,RANDOM 117 mg/dL (70-110); POTASSIUM 4.3 mmol/L (3.6-5.0); SODIUM 136 mmol/L (132-148); TOTAL PROTEIN 6.3 g/dL (5.8-8.3)
[2017-06-12] MEDS: Pantoprazole 40 mg EC Tab PO SCH (07:50)
[2017-06-12] MEDS: Arformoterol 15 mcg/2 ml Inh Sol IH SCH ×2 (08:26→19:41)
[2017-06-12] MEDS: Budesonide 0.5 mg/2 ml Inhal Susp UD IH SCH ×2 (08:26→19:42)
[2017-06-12] MEDS: Valproic Acid 250 mg/5 ml UD Cup PO SCH ×2 (09:26→17:56)
[2017-06-12] MEDS: Tiotropium 18 mcg Cap For Inhalation IH SCH (09:29)
[2017-06-12] MEDS: MethylPREDNISolone 40 mg Vial IVP SCH (09:32)
--- NOTE | 2017-06-12 11:18 | CP.PCM.PN ---
Addendum entered and electronically signed by Nancy Husain DO 06/12/17 15:05: CXR showed new bibasilar infiltrates and patchy infiltrate in the R upper lobe suspicious for pneumonia Patient started on Vancomycin and Zosyn and ID Dr. Messer consulted Discussed with Dr. Lula Husain PGY2 Original Note: <Adriana Acosta - Last Filed: 06/12/17 11:37> Subjective - Date & Time of Evaluation Date of Evaluation: 06/12/17 Time of Evaluation: 11:17 - Subjective Subjective: Adriana Acosta DO, PGY-1: Hospitalist Service Patient seen and examined at bedside. On initial encounter patient wearing BIPAP mask and does not take off BIPAP mask upon request. On subsequent encounter patient is on 3L NC and lethargic. Patient does not have any complaints at this time, but states he is sleepy. Nurse reports patient has been agitated off and on, but has not fallen since he has been with a one-to- one. Objective - Vital Signs/Intake and Output Vital Signs (last 24 hours): Temp Pulse Resp BP Pulse Ox 98.9 F 114 H 24 162/98 H 80 L 06/12/17 08:00 06/12/17 08:00 06/12/17 08:00 06/12/17 08:00 06/12/17 08:00 Intake and Output: 06/12/17 06/12/17 06:59 18:59 Intake Total 720 0 Output Total 1100 1400 Balance -380 -1400 - Medications Medications: Current Medications Acetaminophen (Tylenol 325mg Tab) 650 mg PO Q4H PRN PRN Reason: Pain, Mild (1-3) Last Admin: 06/11/17 11:11 Dose: 650 mg Albuterol/Ipratropium (Duoneb 3 Mg/0.5 Mg (3 Ml) Ud) 3 ml IH Q2H PRN PRN Reason: Shortness of Breath Albuterol/Ipratropium (Duoneb 3 Mg/0.5 Mg (3 Ml) Ud) 3 ml IH Q4H [facility] Last Admin: 06/12/17 11:05 Dose: 3 ml Apixaban (Eliquis) 5 mg PO BID [facility] PRN Reason: Protocol Last Admin: 06/12/17 09:31 Dose: 5 mg Arformoterol Tartrate (Brovana) 15 mcg IH [id number] [facility] Last Admin: 06/12/17 08:26 Dose: 15 mcg Aspirin (Ecotrin) 81 mg PO DAILY [facility] Last Admin: 06/12/17 09:31 Dose: 81 mg Budesonide (Pulmicort Respules) 1 mg IH [id number] [facility] Last Admin: 06/12/17 08:26 Dose: 1 mg Diltiazem HCl (Cardizem) 30 mg PO BID [facility] Last Admin: 06/12/17 09:30 Dose: 30 mg Ergocalciferol (Drisdol 50,000 Intl Units Cap) 1 cap PO Q7D [facility] Last Admin: 06/09/17 11:40 Dose: 1 cap Finasteride (Proscar) 5 mg PO DAILY [facility] Last Admin: 06/12/17 09:30 Dose: 5 mg Ampicillin Sodium/Sulbactam Sodium (Unasyn) 1 gm in 100 mls @ 100 mls/hr IVPB Q6 [facility] PRN Reason: Protocol Stop: 06/12/17 23:59 Last Admin: 06/12/17 05:40 Dose: 100 mls/hr Sodium Chloride (Sodium Chloride 0.9%) 1,000 mls @ 100 mls/hr IV .Q10H [facility] Last Admin: 06/12/17 03:43 Dose: 100 mls/hr Lorazepam (Ativan) 1 mg IVP BID PRN; Protocol PRN Reason: Anxiety Last Admin: 06/12/17 09:27 Dose: 1 mg Methylprednisolone (Solu-Medrol) 20 mg IVP Q12 [facility] Last Admin: 06/12/17 09:32 Dose: 20 mg Montelukast Sodium (Singulair) 10 mg PO HS [facility] Last Admin: 06/11/17 21:59 Dose: 10 mg Pantoprazole Sodium (Protonix Ec Tab) 40 mg PO ACB [facility] Last Admin: 06/12/17 07:50 Dose: 40 mg Quetiapine Fumarate (Seroquel Xr) 400 mg PO 1700 [facility] Last Admin: 06/11/17 17:08 Dose: 400 mg Tamsulosin HCl (Flomax) 0.4 mg PO DAILY [facility] Last Admin: 06/12/17 09:32 Dose: 0.4 mg Valproate Sodium (Depakene Oral Soln) 500 mg PO BID [facility] Last Admin: 06/12/17 09:26 Dose: 500 mg Ziprasidone (Geodon Inj) 20 mg IM TID PRN; Protocol PRN Reason: Agitation - Labs Labs: 06/12/17 06:30 06/12/17 06:30 PT 15.1 SECONDS (9.4-12.5) H 06/01/17 17:57 INR 1.38 (0.93-1.08) H 06/01/17 17:57 - Constitutional Appears: Unkempt, Chronically Ill - Head Exam Head Exam: ATRAUMATIC, NORMOCEPHALIC - Eye Exam Eye Exam: EOMI, Normal appearance - ENT Exam ENT Exam: Mucous Membranes Dry - Neck Exam Neck Exam: Normal Inspection - Respiratory Exam Respiratory Exam: Wheezes (diffusely) Additional comments: respiratory rate is 10 - Cardiovascular Exam Cardiovascular Exam: Tachycardia, +S1, +S2 - GI/Abdominal Exam GI & Abdominal Exam: Soft, Normal Bowel Sounds - Extremities Exam Extremities Exam: Normal Inspection - Back Exam Back Exam: NORMAL INSPECTION. absent: CVA tenderness (L), CVA tenderness (R) - Neurological Exam Additional comments: arousable to touch and loud vocal stimuli - Psychiatric Exam Psychiatric exam: Flat Affect - Skin Skin Exam: Cyanosis (orally) Assessment and Plan - Assessment and Plan (Free Text) Assessment: 72 year old with COPD, schizoaffective disorder, history of pulmonary embolism, atrial fibrillation, and likely a form of tic disorder who presented to [facility] for worsening shortness of breath and a productive sputum. The patient is being treated for a COPD exacerbation and his chronic medical problems. Plan: 1) COPD exacerbation with possible aspiration pneumonia: patient afebrile, with leukocytosis, likely reactive secondary to agitation - Patient taken off of BIPAP due to ineffective results obtained with past three ABGs. - Will Repeat ABG with patient on Oxygen 2L NC. - Continue BIPAP at night only, and if patient able to use it correctly and it can be ascertained that patient is using it correctly - Continue Duoneb 3 ml IH q4h gretta and Q2h PRN - Last dose of Unasyn is today - Methylprednisolone 20 mg q12h - Montelukast 10 mg PO Daily - Budesonide 1 mg q12h - Robitussin 200 mg PO q4h [facility] - Brovana 15 mcg q12h resp - Pulmonology recommendations appreciated 2) Atrial fibrillation - rate controlled - Diltiazem 30 mg BID PO - Eliquis 5 mg BID PO - Aspirin 81 mg daily 3) BPH - Finasteride 5 mg PO daily - Tamsulosin 0.4 mg PO daily 4) Schizoaffective disorder - Seroquel 400mg PO 1700 - recently adjusted by psych - Ativan 1 mg IVP BID PRN for anxiety/agitation - Ziprasidone 20 mg IM TID PRN - Depakene 500 mg PO BID - Psychiatry recommendations appreciated 5) GI/DVT prophylaxis - Protonix EC 40 mg PO daily - SCDs <Jessie Cotton - Last Filed: 06/12/17 17:31> Objective - Vital Signs/Intake and Output Vital Signs (last 24 hours): Temp Pulse Resp BP Pulse Ox 99.4 F 97 H 22 146/78 92 L 06/12/17 16:00 06/12/17 16:00 06/12/17 16:00 06/12/17 16:00 06/12/17 16:00 Intake and Output: 06/12/17 06/12/17 06:59 18:59 Intake Total 720 0 Output Total 1100 1400 Balance -380 -1400 - Medications Medications: Current Medications Acetaminophen (Tylenol 325mg Tab) 650 mg PO Q4H PRN PRN Reason: Pain, Mild (1-3) Last Admin: 06/12/17 16:16 Dose: 650 mg Albuterol/Ipratropium (Duoneb 3 Mg/0.5 Mg (3 Ml) Ud) 3 ml IH Q2H PRN PRN Reason: Shortness of Breath Albuterol/Ipratropium (Duoneb 3 Mg/0.5 Mg (3 Ml) Ud) 3 ml IH Q4H [facility] Last Admin: 06/12/17 16:01 Dose: 3 ml Apixaban (Eliquis) 5 mg PO BID [facility] PRN Reason: Protocol Last Admin: 06/12/17 09:31 Dose: 5 mg Arformoterol Tartrate (Brovana) 15 mcg IH [id number] [facility] Last Admin: 06/12/17 08:26 Dose: 15 mcg Aspirin (Ecotrin) 81 mg PO DAILY [facility] Last Admin: 06/12/17 09:31 Dose: 81 mg Budesonide (Pulmicort Respules) 1 mg IH [id number] [facility] Last Admin: 06/12/17 08:26 Dose: 1 mg Diltiazem HCl (Cardizem) 30 mg PO BID [facility] Last Admin: 06/12/17 09:30 Dose: 30 mg Ergocalciferol (Drisdol 50,000 Intl Units Cap) 1 cap PO Q7D [facility] Last Admin: 06/09/17 11:40 Dose: 1 cap Finasteride (Proscar) 5 mg PO DAILY [facility] Last Admin: 06/12/17 09:30 Dose: 5 mg Ampicillin Sodium/Sulbactam Sodium (Unasyn) 1 gm in 100 mls @ 100 mls/hr IVPB Q6 [facility] PRN Reason: Protocol Stop: 06/12/17 23:59 Last Admin: 06/12/17 12:18 Dose: 100 mls/hr Sodium Chloride (Sodium Chloride 0.9%) 1,000 mls @ 100 mls/hr IV .Q10H [facility] Last Admin: 06/12/17 03:43 Dose: 100 mls/hr Vancomycin HCl (Vancomycin 1gm) 1 gm in 250 mls @ 167 mls/hr IVPB Q12H [facility] PRN Reason: Protocol Last Admin: 06/12/17 15:42 Dose: 167 mls/hr Piperacillin Sod/Tazobactam Sod (Zosyn 3.375 In Ns 100ml) 100 mls @ 200 mls/hr IVPB Q6 [facility] PRN Reason: Protocol Stop: 06/13/17 00:29 Lorazepam (Ativan) 1 mg IVP BID PRN; Protocol PRN Reason: Anxiety Last Admin: 06/12/17 09:27 Dose: 1 mg Methylprednisolone (Solu-Medrol) 40 mg IVP Q12 [facility] Montelukast Sodium (Singulair) 10 mg PO HS [facility] Last Admin: 06/11/17 21:59 Dose: 10 mg Pantoprazole Sodium (Protonix Ec Tab) 40 mg PO ACB [facility] Last Admin: 06/12/17 07:50 Dose: 40 mg Quetiapine Fumarate (Seroquel Xr) 400 mg PO 1700 [facility] Tamsulosin HCl (Flomax) 0.4 mg PO DAILY [facility] Last Admin: 06/12/17 09:32 Dose: 0.4 mg Valproate Sodium (Depakene Oral Soln) 500 mg PO BID [facility] Last Admin: 06/12/17 09:26 Dose: 500 mg Ziprasidone (Geodon Inj) 20 mg IM TID PRN; Protocol PRN Reason: Agitation - Labs Labs: 06/12/17 06:30 06/12/17 06:30 PT 15.1 SECONDS (9.4-12.5) H 06/01/17 17:57 INR 1.38 (0.93-1.08) H 06/01/17 17:57 Attending/Attestation - Attestation I have personally seen and examined this patient.: Yes I have fully participated in the care of the patient.: Yes I have reviewed all pertinent clinical information, including history, physical exam and plan: Yes Notes (Text): 06/12/17 17:27 Patient was seen and examined with medical records library professor. 72 year old male with past medical history of COPD, hypertension, paroxysmal afib, and schizophrenia/schizoaffective disorder was admitted for COPD exacerbation and aspiration pneumonia.Patient hypoxia is getting worse.He is wheezing.Chest X rays showed bilateral infilterate, new, will change antibiotics to Vancomycin and Zosyn.We will also increase methylprednisoon dose to 40 mg BID, increase Nebs to Q 4hour. We will put parameter for Psychiatric medications as patient is drowsy today. Prognosis is guarded.
[2017-06-12 12:05] LABS: ARTERIAL BLOOD GAS HCO3 37.8 mmol/L (21-28); ARTERIAL BLOOD GAS O2 CAPACITY 14.9 mL/dl (16-24); ARTERIAL BLOOD GAS O2 CONTENT 12.2 ML/dl (15-23); ARTERIAL BLOOD GAS PH 7.43 (7.35-7.45); ARTERIAL BLOOD HGB O2 SAT 78.9 % (95.0-98.0); CARBOXYHEMOGLOBIN 2.6 % (0.5-1.5); HHB 17.4 % (0-5); METHEMOGLOBIN 1.1 % (0.0-3.0)
[2017-06-12] MEDS ORDERED: QUEtiapine 200 mg XR Tab PO SCH (12:32)
--- NOTE | 2017-06-12 13:31 | RAD ---
HISTORY: hypoxemic COMPARISON: 04/09/2017 FINDINGS: LUNGS: There are new bibasilar infiltrates. There is also patchy infiltrate in the right upper lobe. Findings are most suspicious for pneumonia PLEURA: No significant pleural effusion identified, no pneumothorax apparent. CARDIOVASCULAR: Normal. OSSEOUS STRUCTURES: No significant abnormalities. VISUALIZED UPPER ABDOMEN: Normal. OTHER FINDINGS: None. IMPRESSION: There are new bibasilar infiltrates. There is also patchy infiltrate in the right upper lobe. Findings are most suspicious for pneumonia
[2017-06-12] MEDS ORDERED: Iodixanol 320 MG/ML 100 ML BOTTLE IV ONE (14:31)
[2017-06-12] MEDS: Vancomycin 1gm in NS 250ml 1 GM/250 ML BAG IVPB SCH (15:42)
--- NOTE | 2017-06-12 16:24 | CT ---
PROCEDURE: CT Chest with contrast (Pulmonary Angiogram) HISTORY: COPD, exacerbation. Pneumonia, respiratory distress COMPARISON: June 12, 2017. Portable chest single view 09/10/2016 CT pulmonary angiogram. Summary of findings on the comparison examination: Bilateral pulmonary emboli, peripheral primarily affecting lower lobe on the right and left upper lobe. TECHNIQUE: Axial computed tomography images were obtained of the chest in the pulmonary arterial phase of enhancement. Coronal and sagittal reformatted images were created and reviewed. Intravenous contrast dose: 100 cc Visipaque 320 Mean Hounsfield unit values in the main pulmonary artery: 196.2. Suboptimal quantitatively for assessment of pulmonary emboli beyond the segmental branches. Radiation dose: Total exam DLP = 274.22 mGy-cm. This CT exam was performed using one or more of the following dose reduction techniques: Automated exposure control, adjustment of the mA and/or kV according to patient size, and/or use of iterative reconstruction technique. FINDINGS: PULMONARY ARTERIES: Unremarkable. No pulmonary embolism. AORTA: No acute findings. No thoracic aortic aneurysm. Focal narrowing at the origin of the celiac axis and incidental finding of uncertain and presumed doubtful clinical significance. LUNGS: Atelectasis, consolidative changes both lung bases. These represent new findings compared to the prior study. Increased interstitial markings which are diffuse areas is progressive parabronchial thickening consistent with underlying bronchitis/pneumonitis. PLEURAL SPACES: Unremarkable. No effusion or pneuomothorax. HEART: Unremarkable. No cardiomegaly. No significant pericardial effusion. LYMPH NODES: Stable mediastinal lymphadenopathy. BONES, CHEST WALL: Unremarkable. No fracture or destructive lesion OTHER FINDINGS: Unremarkable. IMPRESSION: No large or central pulmonary emboli.Limitations of the current examination: Poor opacification of the pulmonary arteries precludes assessment of pulmonary emboli beyond the segmental branch. Consolidative changes of both lung bases perhaps dependent atelectasis a new finding compared to the prior study. Superimposed mild-moderate pneumonitis.
[2017-06-12] MEDS ORDERED: QUEtiapine 50 mg XR Tab PO SCH (17:00)
[2017-06-12] MEDS ORDERED: QUEtiapine 300 mg XR Tab PO SCH (17:00)
[2017-06-12] MEDS: Piperacillin/Tazobact 3.375 gm 100 ML IVPB SCH ×2 (17:58→23:46)
[2017-06-12] MEDS: QUEtiapine 300 mg XR Tab PO SCH (18:55)
--- NOTE | 2017-06-12 19:50 | CP.PCM.CON ---
History of Present Illness - History of Present Illness History of Present Illness: Infectious Disease Consultation: June 12, 2017 72 yo male initially admitted for right sided chest pain, cough, and vomiting. The patient also had abdominal pain. Patient was found to have bilateral pulmonary emboli on admission. Patient has been requiring BiPAP to breath. The patient has schizoaffective disorder and history of Atrial fibrillation. He was on Unasyn for antibiotic treatment as well as steroids. Today changed to Zosyn and Vancomycin IV. The patient's CT Chest showing consolidative changes to bases of both lungs. ID called for antibiotic management. PMHx: COPD, asthma, HTN, EtOH abuse, Migraines,, Paroxysmal atrial fibrillation, with multiple admissions for A-fib with RVR, BPH, Hx of urinary retention, Bipolar, schizophrenia, sucidial attempts, and remote hx of polycythemia PSHx: TURP May 2016 (Dr. Dutton) Cardiac catheterization 07/2009 - 30% LAD stenosis Allergies: NKDA Social Hx: Prior tobacco use. No illicit drug use. EtOH use Active Medications Acetaminophen (Tylenol 325mg Tab) 650 mg PO Q4H PRN PRN Reason: Pain, Mild (1-3) Last Admin: 06/12/17 16:16 Dose: 650 mg Albuterol/Ipratropium (Duoneb 3 Mg/0.5 Mg (3 Ml) Ud) 3 ml IH Q2H PRN PRN Reason: Shortness of Breath Albuterol/Ipratropium (Duoneb 3 Mg/0.5 Mg (3 Ml) Ud) 3 ml IH Q4H [facility] Last Admin: 06/12/17 16:01 Dose: 3 ml Apixaban (Eliquis) 5 mg PO BID [facility] PRN Reason: Protocol Last Admin: 06/12/17 17:57 Dose: 5 mg Arformoterol Tartrate (Brovana) 15 mcg IH [id number] [facility] Last Admin: 06/12/17 08:26 Dose: 15 mcg Aspirin (Ecotrin) 81 mg PO DAILY [facility] Last Admin: 06/12/17 09:31 Dose: 81 mg Budesonide (Pulmicort Respules) 1 mg IH [id number] [facility] Last Admin: 06/12/17 08:26 Dose: 1 mg Diltiazem HCl (Cardizem) 30 mg PO BID [facility] Last Admin: 06/12/17 17:56 Dose: 30 mg Ergocalciferol (Drisdol 50,000 Intl Units Cap) 1 cap PO Q7D [facility] Last Admin: 06/09/17 11:40 Dose: 1 cap Finasteride (Proscar) 5 mg PO DAILY [facility] Last Admin: 06/12/17 09:30 Dose: 5 mg Ampicillin Sodium/Sulbactam Sodium (Unasyn) 1 gm in 100 mls @ 100 mls/hr IVPB Q6 [facility] PRN Reason: Protocol Stop: 06/12/17 23:59 Last Admin: 06/12/17 17:58 Dose: 100 mls/hr Sodium Chloride (Sodium Chloride 0.9%) 1,000 mls @ 100 mls/hr IV .Q10H [facility] Last Admin: 06/12/17 03:43 Dose: 100 mls/hr Vancomycin HCl (Vancomycin 1gm) 1 gm in 250 mls @ 167 mls/hr IVPB Q12H [facility] PRN Reason: Protocol Last Admin: 06/12/17 15:42 Dose: 167 mls/hr Piperacillin Sod/Tazobactam Sod (Zosyn 3.375 In Ns 100ml) 100 mls @ 200 mls/hr IVPB Q6 [facility] PRN Reason: Protocol Stop: 06/13/17 00:29 Last Admin: 06/12/17 17:58 Dose: 200 mls/hr Lorazepam (Ativan) 1 mg IVP BID PRN; Protocol PRN Reason: Anxiety Last Admin: 06/12/17 09:27 Dose: 1 mg Methylprednisolone (Solu-Medrol) 40 mg IVP Q12 [facility] Montelukast Sodium (Singulair) 10 mg PO HS [facility] Last Admin: 06/11/17 21:59 Dose: 10 mg Pantoprazole Sodium (Protonix Ec Tab) 40 mg PO ACB [facility] Last Admin: 06/12/17 07:50 Dose: 40 mg Quetiapine Fumarate (Seroquel Xr) 300 mg PO 1700 [facility] Last Admin: 06/12/17 18:55 Dose: 300 mg Quetiapine Fumarate (Seroquel Xr) 100 mg PO 1700 [facility] Tamsulosin HCl (Flomax) 0.4 mg PO DAILY [facility] Last Admin: 06/12/17 09:32 Dose: 0.4 mg Valproate Sodium (Depakene Oral Soln) 500 mg PO BID [facility] Last Admin: 06/12/17 17:56 Dose: 500 mg Ziprasidone (Geodon Inj) 20 mg IM TID PRN; Protocol PRN Reason: Agitation Family Hx: none given ROS: Cough, abdominal pain, chest pain, vomiting. NO melena, hematuria, hematemesis , hematochezia, depression, anxiety. No LOC. Past Patient History - Infectious Disease Hx of Infectious Diseases: None - Tetanus Immunizations Tetanus Immunization: Unknown - Past Medical History & Family History Past Medical History?: Yes - Past Social History Smoking Status: Former Smoker - CARDIAC Hx Cardiac Disorders: Yes Hx Hypertension: Yes - PULMONARY Hx Respiratory Disorders: Yes Hx Chronic Obstructive Pulmonary Disease (COPD): Yes - NEUROLOGICAL HX Cerebrovascular Accident: No - HEENT Hx HEENT Problems: No - RENAL Hx Renal Failure: No - ENDOCRINE/METABOLIC Hx Diabetes Mellitus Type 1: No Hx Diabetes Mellitus Type 2: No Hx Hypothyroidism: No - HEMATOLOGICAL/ONCOLOGICAL Hx Cancer: No - INTEGUMENTARY Hx Dermatological Problems: Yes (BILATERAL LE SKIN DRYNESS WITH BROWN SKIN DISCOLORATION) - MUSCULOSKELETAL/RHEUMATOLOGICAL Hx Arthritis: No Hx Falls: Yes - GASTROINTESTINAL Hx Gastroesophageal Reflux: No - GENITOURINARY/GYNECOLOGICAL Hx Genitourinary Disorders: Yes (TURP) Hx Hematuria: Yes Hx Incontinence: Yes Hx Prostate Problems: Yes (BPH) Hx Sexually Transmitted Disorders: No Other/Comment: URINARY RETENTION - PSYCHIATRIC Hx Psychophysiologic Disorder: Yes (SMOKED CIGARETTES,ETOH USE QUIT) Hx Anxiety: Yes Hx Bipolar Disorder: Yes Hx Depression: Yes Hx Emotional Abuse: No Hx Physical Abuse: No Hx Schizophrenia: Yes Hx Substance Use: No Other/Comment: H/O SUICIDE - SURGICAL HISTORY Hx Surgeries: Yes Other/Comment: TURP,CARD CATH - ANESTHESIA Hx Anesthesia Reactions: No Hx Malignant Hyperthermia: No Meds Allergies/Adverse Reactions: Allergies Allergy/AdvReac Type Severity Reaction Status Date / Time No Known Allergies Allergy Verified 06/01/17 17:40 - Medications Medications: Current Medications Acetaminophen (Tylenol 325mg Tab) 650 mg PO Q4H PRN PRN Reason: Pain, Mild (1-3) Last Admin: 06/12/17 16:16 Dose: 650 mg Albuterol/Ipratropium (Duoneb 3 Mg/0.5 Mg (3 Ml) Ud) 3 ml IH Q2H PRN PRN Reason: Shortness of Breath Albuterol/Ipratropium (Duoneb 3 Mg/0.5 Mg (3 Ml) Ud) 3 ml IH Q4H [facility] Last Admin: 06/12/17 16:01 Dose: 3 ml Apixaban (Eliquis) 5 mg PO BID [facility] PRN Reason: Protocol Last Admin: 06/12/17 17:57 Dose: 5 mg Arformoterol Tartrate (Brovana) 15 mcg IH [id number] [facility] Last Admin: 06/12/17 08:26 Dose: 15 mcg Aspirin (Ecotrin) 81 mg PO DAILY [facility] Last Admin: 06/12/17 09:31 Dose: 81 mg Budesonide (Pulmicort Respules) 1 mg IH [id number] [facility] Last Admin: 06/12/17 08:26 Dose: 1 mg Diltiazem HCl (Cardizem) 30 mg PO BID [facility] Last Admin: 06/12/17 17:56 Dose: 30 mg Ergocalciferol (Drisdol 50,000 Intl Units Cap) 1 cap PO Q7D [facility] Last Admin: 06/09/17 11:40 Dose: 1 cap Finasteride (Proscar) 5 mg PO DAILY [facility] Last Admin: 06/12/17 09:30 Dose: 5 mg Ampicillin Sodium/Sulbactam Sodium (Unasyn) 1 gm in 100 mls @ 100 mls/hr IVPB Q6 [facility] PRN Reason: Protocol Stop: 06/12/17 23:59 Last Admin: 06/12/17 17:58 Dose: 100 mls/hr Sodium Chloride (Sodium Chloride 0.9%) 1,000 mls @ 100 mls/hr IV .Q10H [facility] Last Admin: 06/12/17 03:43 Dose: 100 mls/hr Vancomycin HCl (Vancomycin 1gm) 1 gm in 250 mls @ 167 mls/hr IVPB Q12H [facility] PRN Reason: Protocol Last Admin: 06/12/17 15:42 Dose: 167 mls/hr Piperacillin Sod/Tazobactam Sod (Zosyn 3.375 In Ns 100ml) 100 mls @ 200 mls/hr IVPB Q6 [facility] PRN Reason: Protocol Stop: 06/13/17 00:29 Last Admin: 06/12/17 17:58 Dose: 200 mls/hr Lorazepam (Ativan) 1 mg IVP BID PRN; Protocol PRN Reason: Anxiety Last Admin: 06/12/17 09:27 Dose: 1 mg Methylprednisolone (Solu-Medrol) 40 mg IVP Q12 [facility] Montelukast Sodium (Singulair) 10 mg PO HS [facility] Last Admin: 06/11/17 21:59 Dose: 10 mg Pantoprazole Sodium (Protonix Ec Tab) 40 mg PO ACB [facility] Last Admin: 06/12/17 07:50 Dose: 40 mg Quetiapine Fumarate (Seroquel Xr) 300 mg PO 1700 [facility] Last Admin: 06/12/17 18:55 Dose: 300 mg Quetiapine Fumarate (Seroquel Xr) 100 mg PO 1700 [facility] Tamsulosin HCl (Flomax) 0.4 mg PO DAILY [facility] Last Admin: 06/12/17 09:32 Dose: 0.4 mg Valproate Sodium (Depakene Oral Soln) 500 mg PO BID [facility] Last Admin: 06/12/17 17:56 Dose: 500 mg Ziprasidone (Geodon Inj) 20 mg IM TID PRN; Protocol PRN Reason: Agitation Physical Exam - Constitutional Appears: Unkempt, Chronically Ill - Head Exam Head Exam: ATRAUMATIC, NORMOCEPHALIC - Eye Exam Eye Exam: EOMI, PERRL Pupil Exam: NORMAL ACCOMODATION, PERRL - ENT Exam ENT Exam: Mucous Membranes Moist, Normal External Ear Exam, TM's Normal Bilaterally - Neck Exam Neck exam: Positive for: Full Rom, Normal Inspection - Respiratory Exam Respiratory Exam: Decreased Breath Sounds, Rhonchi, Wheezes - Cardiovascular Exam Cardiovascular Exam: Tachycardia, +S1, +S2 - GI/Abdominal Exam GI & Abdominal Exam: Normal Bowel Sounds, Soft. absent: Distended, Tenderness - Extremities Exam Extremities exam: Positive for: full ROM, normal inspection - Neurological Exam Neurological exam: Alert, CN II-XII Intact - Psychiatric Exam Psychiatric exam: Flat Affect - Skin Skin Exam: Pallor Results - Vital Signs Recent Vital Signs: Last Vital Signs Temp 99.4 F 06/12/17 16:00 Pulse 97 H 06/12/17 16:00 Resp 22 06/12/17 16:00 BP 146/78 06/12/17 16:00 Pulse Ox 92 L 06/12/17 16:00 - Labs Result Diagrams: 06/12/17 06:30 06/12/17 06:30 Labs: Laboratory Results - last 24 hr 06/12/17 06/12/17 06/12/17 06:30 06:30 11:55 WBC 17.5 H D RBC 3.24 L Hgb 10.4 L Hct 32.9 L MCV 101.5 MCH 32.1 MCHC 31.6 RDW 13.7 Plt Count 383 MPV 9.0 Gran % 74.2 H Lymph % (Auto) 16.8 L Keith % (Auto) 8.7 H Eos % (Auto) 0.2 L Baso % (Auto) 0.1 Gran # 12.99 H Lymph # 3.0 Keith # 1.5 H Eos # 0.0 Baso # 0.01 pCO2 57 H pO2 40.0 L* HCO3 37.8 H ABG pH 7.43 ABG Total CO2 39.5 H ABG O2 Saturation 81.9 L ABG O2 Content 12.2 L ABG Base Excess 11.6 H ABG Hemoglobin 11.0 L ABG Carboxyhemoglobin 2.6 H POC ABG HHb (Measured) 17.4 H ABG Methemoglobin 1.1 ABG O2 Capacity 14.9 L Hgb O2 Saturation 78.9 L FiO2 40.0 Sodium 136 Potassium 4.3 Chloride 91 L Carbon Dioxide 40 H Anion Gap 10 BUN 16 Creatinine 0.7 L Est GFR ( Amer) > 60 Est GFR (Non-Af Amer) > 60 Random Glucose 117 H Calcium 8.3 L Total Bilirubin 0.3 AST 22 ALT 21 Alkaline Phosphatase 51 Total Protein 6.3 Albumin 2.8 L Globulin 3.5 Albumin/Globulin Ratio 0.8 L Assessment & Plan - Assessment and Plan (Free Text) Assessment: 72 yo male with COPD exacerbation with possible aspiration or HCAP complicating matters. Currently on Zosyn and IV Vancomycin for care. CT Chest showing new bibasilar infiltrates. On BiPAP for some time in hospital. Patient also has schizoaffective disorder. The patient still has production of thick mucoid sputum with frequent cough. Inability to move at time due to the severity of the coughing fits. Poor air entry and movement. For now continue with Zosyn and IV Vancomycin. Sputum cultures should be taken. Thank you for allowing me to participate in the care of the patient, we will follow with you.
[2017-06-12] MEDS ORDERED: MethylPREDNISolone 40 mg Vial IVP SCH (22:00)
[2017-06-13] MEDS: Sodium Chloride 0.9% 1,000 ML IV SCH ×2 (00:35→21:16)
[2017-06-13] MEDS: Albuterol-Ipratrop 3 mg / 0.5 (3 ml) UD IH SCH ×6 (03:22→23:03)
[2017-06-13] MEDS: Vancomycin 1gm in NS 250ml 1 GM/250 ML BAG IVPB SCH ×2 (03:34→16:27)
--- NOTE | 2017-06-13 06:34 | CP.PCM.PN ---
<Adriana Acosta - Last Filed: 06/13/17 19:55> Subjective - Date & Time of Evaluation Date of Evaluation: 06/13/17 Time of Evaluation: 07:00 - Subjective Subjective: Adriana Acosta DO, PGY-1: Hospitalist Service Patient seen and examined at bedside. Patient was placed on a venti mask with a target O2 saturation of 88-92%. Rothman was discontinued without complications. Nurse reports no events overnight. Objective - Vital Signs/Intake and Output Vital Signs (last 24 hours): Temp Pulse Resp BP Pulse Ox 99.4 F 84 22 146/78 92 L 06/12/17 16:00 06/12/17 22:48 06/12/17 16:00 06/12/17 16:00 06/12/17 16:00 Intake and Output: 06/12/17 06/13/17 18:59 06:59 Intake Total 0 120 Output Total 1400 1200 Balance -1400 -1080 - Medications Medications: Current Medications Acetaminophen (Tylenol 325mg Tab) 650 mg PO Q4H PRN PRN Reason: Pain, Mild (1-3) Last Admin: 06/13/17 04:11 Dose: 650 mg Albuterol/Ipratropium (Duoneb 3 Mg/0.5 Mg (3 Ml) Ud) 3 ml IH Q2H PRN PRN Reason: Shortness of Breath Albuterol/Ipratropium (Duoneb 3 Mg/0.5 Mg (3 Ml) Ud) 3 ml IH Q4H [facility] Last Admin: 06/13/17 03:22 Dose: 3 ml Apixaban (Eliquis) 5 mg PO BID [facility] PRN Reason: Protocol Last Admin: 06/12/17 17:57 Dose: 5 mg Arformoterol Tartrate (Brovana) 15 mcg IH [id number] [facility] Last Admin: 06/12/17 19:41 Dose: 15 mcg Aspirin (Ecotrin) 81 mg PO DAILY [facility] Last Admin: 06/12/17 09:31 Dose: 81 mg Budesonide (Pulmicort Respules) 1 mg IH [id number] [facility] Last Admin: 06/12/17 19:42 Dose: 0.5 mg Diltiazem HCl (Cardizem) 30 mg PO BID [facility] Last Admin: 06/12/17 17:56 Dose: 30 mg Ergocalciferol (Drisdol 50,000 Intl Units Cap) 1 cap PO Q7D [facility] Last Admin: 06/09/17 11:40 Dose: 1 cap Finasteride (Proscar) 5 mg PO DAILY [facility] Last Admin: 06/12/17 09:30 Dose: 5 mg Sodium Chloride (Sodium Chloride 0.9%) 1,000 mls @ 100 mls/hr IV .Q10H [facility] Last Admin: 06/13/17 00:35 Dose: Not Given Vancomycin HCl (Vancomycin 1gm) 1 gm in 250 mls @ 167 mls/hr IVPB Q12H [facility] PRN Reason: Protocol Last Admin: 06/13/17 03:34 Dose: 167 mls/hr Lorazepam (Ativan) 1 mg IVP BID PRN; Protocol PRN Reason: Anxiety Last Admin: 06/12/17 09:27 Dose: 1 mg Methylprednisolone (Solu-Medrol) 40 mg IVP Q12 [facility] Last Admin: 06/12/17 22:21 Dose: 40 mg Montelukast Sodium (Singulair) 10 mg PO HS [facility] Last Admin: 06/12/17 22:21 Dose: 10 mg Pantoprazole Sodium (Protonix Ec Tab) 40 mg PO ACB [facility] Last Admin: 06/12/17 07:50 Dose: 40 mg Quetiapine Fumarate (Seroquel Xr) 300 mg PO 1700 [facility] Last Admin: 06/12/17 18:55 Dose: 300 mg Quetiapine Fumarate (Seroquel Xr) 100 mg PO 1700 [facility] Tamsulosin HCl (Flomax) 0.4 mg PO DAILY [facility] Last Admin: 06/12/17 09:32 Dose: 0.4 mg Valproate Sodium (Depakene Oral Soln) 500 mg PO BID [facility] Last Admin: 06/12/17 17:56 Dose: 500 mg Ziprasidone (Geodon Inj) 20 mg IM TID PRN; Protocol PRN Reason: Agitation - Labs Labs: 06/12/17 06:30 06/12/17 06:30 PT 15.1 SECONDS (9.4-12.5) H 06/01/17 17:57 INR 1.38 (0.93-1.08) H 06/01/17 17:57 - Constitutional Appears: Well, Non-toxic - Head Exam Head Exam: ATRAUMATIC, NORMOCEPHALIC - Eye Exam Eye Exam: EOMI, Normal appearance, PERRL - ENT Exam ENT Exam: Mucous Membranes Moist, Normal Oropharynx - Neck Exam Neck Exam: Normal Inspection - Respiratory Exam Respiratory Exam: Wheezes (diffuse), NORMAL BREATHING PATTERN - Cardiovascular Exam Cardiovascular Exam: RRR, +S1, +S2 - GI/Abdominal Exam GI & Abdominal Exam: Soft, Normal Bowel Sounds - Extremities Exam Extremities Exam: Normal Capillary Refill, Normal Inspection - Back Exam Back Exam: NORMAL INSPECTION. absent: CVA tenderness (L), CVA tenderness (R) - Neurological Exam Neurological Exam: Alert, CN II-XII Intact, Oriented x3 - Psychiatric Exam Psychiatric exam: Normal Affect, Normal Mood - Skin Skin Exam: Dry, Intact, Normal Color, Warm Assessment and Plan - Assessment and Plan (Free Text) Assessment: 72 year old with COPD, schizoaffective disorder, history of pulmonary embolism, atrial fibrillation, and likely a form of tic disorder who presented [place] [facility] [place] worsening shortness of breath and a productive sputum. The patient is being treated for a COPD exacerbation, pneumonia, and his chronic medical/psychiatric problems. Plan: 1) COPD exacerbation with possible aspiration pneumonia: - Patient taken off of BIPAP due to ineffective results obtained with past three ABGs. - Continue BIPAP at night only, and if patient able to use it correctly and it can be ascertained that patient is using it correctly - Patient on Venti mask with O2 saturation targeted for 88-92%. - Continue Duoneb 3 ml IH q4h gretta and Q2h PRN - Methylprednisolone 20 mg q12h - Montelukast 10 mg PO Daily - Budesonide 1 mg q12h - Robitussin 200 mg PO q4h [facility] - Brovana 15 mcg q12h resp - Pulmonology recommendations appreciated 2) Atrial fibrillation - rate controlled - Diltiazem 30 mg BID PO - Eliquis 5 mg BID PO - Aspirin 81 mg daily 3) BPH - Finasteride 5 mg PO daily - Tamsulosin 0.4 mg PO daily 4) Schizoaffective disorder - Seroquel 400mg PO - Ativan 1 mg IVP BID PRN for anxiety/agitation - Ziprasidone 20 mg IM TID PRN - Depakene 500 mg PO BID - Psychiatry recommendations appreciated 5) GI/DVT prophylaxis - Protonix - Pateint is already on Eliquis and asprin, and thus no need for additional anticoagulants. <Jessie Cotton - Last Filed: 06/14/17 07:53> Objective - Vital Signs/Intake and Output Vital Signs (last 24 hours): Temp Pulse Resp BP Pulse Ox 97.6 F 84 84 H 137/82 92 L 06/13/17 16:00 06/14/17 05:05 06/13/17 16:00 06/13/17 17:45 06/13/17 16:00 Intake and Output: 06/14/17 06/14/17 06:59 18:59 Intake Total 1240 Output Total 300 Balance 940 - Medications Medications: Current Medications Acetaminophen (Tylenol 325mg Tab) 650 mg PO Q4H PRN PRN Reason: Pain, Mild (1-3) Last Admin: 06/13/17 15:25 Dose: 650 mg Albuterol/Ipratropium (Duoneb 3 Mg/0.5 Mg (3 Ml) Ud) 3 ml IH Q2H PRN PRN Reason: Shortness of Breath Albuterol/Ipratropium (Duoneb 3 Mg/0.5 Mg (3 Ml) Ud) 3 ml IH Q4H [facility] Last Admin: 06/14/17 05:04 Dose: 3 ml Apixaban (Eliquis) 5 mg PO BID [facility] PRN Reason: Protocol Last Admin: 06/13/17 17:44 Dose: 5 mg Arformoterol Tartrate (Brovana) 15 mcg IH [id number] [facility] Last Admin: 06/13/17 19:43 Dose: 15 mcg Aspirin (Ecotrin) 81 mg PO DAILY [facility] Last Admin: 06/13/17 09:15 Dose: 81 mg Budesonide (Pulmicort Respules) 1 mg IH [id number] [facility] Last Admin: 06/13/17 19:43 Dose: 1 mg Diltiazem HCl (Cardizem) 30 mg PO BID [facility] Last Admin: 06/13/17 17:45 Dose: 30 mg Ergocalciferol (Drisdol 50,000 Intl Units Cap) 1 cap PO Q7D [facility] Last Admin: 06/09/17 11:40 Dose: 1 cap Finasteride (Proscar) 5 mg PO DAILY [facility] Last Admin: 06/13/17 09:16 Dose: 5 mg Sodium Chloride (Sodium Chloride 0.9%) 1,000 mls @ 100 mls/hr IV .Q10H [facility] Last Admin: 06/13/17 21:16 Dose: 100 mls/hr Vancomycin HCl (Vancomycin 1gm) 1 gm in 250 mls @ 167 mls/hr IVPB Q12H [facility] PRN Reason: Protocol Last Admin: 06/14/17 03:35 Dose: 167 mls/hr Piperacillin Sod/Tazobactam Sod (Zosyn 3.375 In Ns 100ml) 100 mls @ 200 mls/hr IVPB Q6 [facility] PRN Reason: Protocol Stop: 06/18/17 00:01 Last Admin: 06/14/17 05:41 Dose: 200 mls/hr Lorazepam (Ativan) 1 mg IVP BID PRN; Protocol PRN Reason: Anxiety Last Admin: 06/13/17 16:45 Dose: 1 mg Methylprednisolone (Solu-Medrol) 20 mg IVP Q12 [facility] Last Admin: 06/13/17 21:15 Dose: 20 mg Montelukast Sodium (Singulair) 10 mg PO HS [facility] Last Admin: 06/13/17 21:18 Dose: Not Given Pantoprazole Sodium (Protonix Ec Tab) 40 mg PO ACB [facility] Last Admin: 06/13/17 09:16 Dose: 40 mg Quetiapine Fumarate (Seroquel Xr) 300 mg PO 1700 [facility] Last Admin: 06/13/17 17:44 Dose: 300 mg Quetiapine Fumarate (Seroquel Xr) 100 mg PO 1700 [facility] Last Admin: 06/13/17 17:44 Dose: 100 mg Tamsulosin HCl (Flomax) 0.4 mg PO DAILY [facility] Last Admin: 06/13/17 09:16 Dose: 0.4 mg Valproate Sodium (Depakene Oral Soln) 500 mg PO BID [facility] Last Admin: 06/13/17 17:45 Dose: 500 mg Ziprasidone (Geodon Inj) 20 mg IM TID PRN; Protocol PRN Reason: Agitation - Labs Labs: 06/14/17 07:00 06/14/17 07:00 PT 15.1 SECONDS (9.4-12.5) H 06/01/17 17:57 INR 1.38 (0.93-1.08) H 06/01/17 17:57 Attending/Attestation - Attestation I have personally seen and examined this patient.: Yes I have fully participated in the care of the patient.: Yes I have reviewed all pertinent clinical information, including history, physical exam and plan: Yes Notes (Text): 06/14/17 07:40 Patient was seen and examined with medical screener. 72 year old male with past medical history of COPD, hypertension, paroxysmal afib, and schizophrenia/Schizoaffective disorder with hypercapnic hypoxic respiratory failure due to Pneumonia and COPD exacerbation.Patient is awake , mental status is better,hypoxia is improving. Patient is high risk for aspiration.We will continue Neb/Steroid and antibiotics.Case was discussed with ID. Prognosis is guarded.
[2017-06-13 06:53] LABS: BASO # 0.01 K/mm3 (0.0-2.0); BASO % 0.1 % (0.0-3.0); GRAN # 10.36 (1.4-6.5); GRAN % 90.9 % (50.0-68.0); HEMATOCRIT 32.2 % (42.0-52.0); LYMPH # 0.8 (1.2-3.4); LYMPH % 6.8 % (22.0-35.0); MEAN CELL VOLUME 97.9 fl (80.0-105.0); MEAN CORPUSCULAR HEMOGLOBIN 31.3 pg (25.0-35.0); MONO # 0.3 (0.1-0.6); MONO % 2.2 % (1.0-6.0); PLATELET COUNT 333 10^3/uL (120.0-450.0); RED CELL DISTRIBUTION WIDTH 13.6 % (11.5-14.5); WHITE BLOOD COUNT 11.4 10^3/ul (4.5-11.0)
[2017-06-13 07:39] LABS: ALB/GLOB RATIO 0.8 (1.1-1.8); ALKALINE PHOSPHATASE 51 U/L (38-126); ALT/SGPT 14 U/L (7-56); AST/SGOT 16 U/L (17-59); BILIRUBIN,TOTAL 0.4 mg/dL (0.2-1.3); BLOOD UREA NITROGEN 19 mg/dL (7-21); CALCIUM 8.4 mg/dL (8.4-10.5); CARBON DIOXIDE 30 mmol/L (21-33); CHLORIDE 94 mmol/L (98-107); GFR AFRICAN-AMERICAN > 60; GLUCOSE,RANDOM 121 mg/dL (70-110); POTASSIUM 4.6 mmol/L (3.6-5.0); SODIUM 134 mmol/L (132-148); TOTAL PROTEIN 6.4 g/dL (5.8-8.3)
[2017-06-13] MEDS: Budesonide 0.5 mg/2 ml Inhal Susp UD IH SCH ×3 (07:40→19:43)
[2017-06-13] MEDS: Arformoterol 15 mcg/2 ml Inh Sol IH SCH ×2 (07:41→19:43)
[2017-06-13 08:33] LABS: NEUTROPHIL 88 % (50.0-70.0)
[2017-06-13 08:34] LABS: ANISOCYTOSIS 1+; ATYPICAL LYMPHOCYTE 2 % (0.0-0.0); HYPOCHROMIA 1+; PLATELET ESTIMATE NORMAL (NORMAL); POLYCHROMASIA SLIGHT
[2017-06-13] MEDS: Valproic Acid 250 mg/5 ml UD Cup PO SCH ×2 (09:15→17:45)
[2017-06-13] MEDS: Pantoprazole 40 mg EC Tab PO SCH (09:16)
[2017-06-13] MEDS: MethylPREDNISolone 40 mg Vial IVP SCH ×2 (09:29→21:15)
[2017-06-13] MEDS ORDERED: Piperacillin/Tazobact 3.375 gm 100 ML IVPB SCH (12:00)
[2017-06-13] MEDS: Piperacillin/Tazobact 3.375 gm 100 ML IVPB SCH ×3 (13:19→23:58)
--- NOTE | 2017-06-13 16:45 | CP.PCM.PN ---
Subjective - Date & Time of Evaluation Date of Evaluation: 06/13/17 Time of Evaluation: 12:00 - Subjective Subjective: Infectious Disease Follow Up: June 13, 2017 72 yo male initially admitted for right sided chest pain, cough, and vomiting. The patient also had abdominal pain. Patient was found to have bilateral pulmonary emboli on admission. Patient has been requiring BiPAP to breath. The patient has schizoaffective disorder and history of Atrial fibrillation. He was on Unasyn for antibiotic treatment as well as steroids. Today changed to Zosyn and Vancomycin IV. The patient's CT Chest showing consolidative changes to bases of both lungs. ID called for antibiotic management. The patient clinically appears better although wheezing is worse. Lungs are clearer on auscultation. The patient is more delirious and confused today. Objective - Vital Signs/Intake and Output Vital Signs (last 24 hours): Temp Pulse Resp BP Pulse Ox 99.4 F 115 H 22 125/61 92 L 06/12/17 16:00 06/13/17 09:21 06/12/17 16:00 06/13/17 09:21 06/12/17 16:00 Intake and Output: 06/13/17 06/13/17 06:59 18:59 Intake Total 120 Output Total 1200 Balance -1080 - Medications Medications: Current Medications Acetaminophen (Tylenol 325mg Tab) 650 mg PO Q4H PRN PRN Reason: Pain, Mild (1-3) Last Admin: 06/13/17 15:25 Dose: 650 mg Albuterol/Ipratropium (Duoneb 3 Mg/0.5 Mg (3 Ml) Ud) 3 ml IH Q2H PRN PRN Reason: Shortness of Breath Albuterol/Ipratropium (Duoneb 3 Mg/0.5 Mg (3 Ml) Ud) 3 ml IH Q4H [facility] Last Admin: 06/13/17 11:10 Dose: 3 ml Apixaban (Eliquis) 5 mg PO BID [facility] PRN Reason: Protocol Last Admin: 06/13/17 09:15 Dose: 5 mg Arformoterol Tartrate (Brovana) 15 mcg IH [id number] [facility] Last Admin: 06/13/17 07:41 Dose: 15 mcg Aspirin (Ecotrin) 81 mg PO DAILY [facility] Last Admin: 06/13/17 09:15 Dose: 81 mg Budesonide (Pulmicort Respules) 1 mg IH [id number] [facility] Last Admin: 06/13/17 07:42 Dose: 1 mg Diltiazem HCl (Cardizem) 30 mg PO BID [facility] Last Admin: 06/13/17 09:21 Dose: 30 mg Ergocalciferol (Drisdol 50,000 Intl Units Cap) 1 cap PO Q7D [facility] Last Admin: 06/09/17 11:40 Dose: 1 cap Finasteride (Proscar) 5 mg PO DAILY [facility] Last Admin: 06/13/17 09:16 Dose: 5 mg Sodium Chloride (Sodium Chloride 0.9%) 1,000 mls @ 100 mls/hr IV .Q10H [facility] Last Admin: 06/13/17 00:35 Dose: Not Given Vancomycin HCl (Vancomycin 1gm) 1 gm in 250 mls @ 167 mls/hr IVPB Q12H [facility] PRN Reason: Protocol Last Admin: 06/13/17 03:34 Dose: 167 mls/hr Piperacillin Sod/Tazobactam Sod (Zosyn 3.375 In Ns 100ml) 100 mls @ 200 mls/hr IVPB Q6 [facility] PRN Reason: Protocol Stop: 06/13/17 18:29 Last Admin: 06/13/17 13:19 Dose: 200 mls/hr Lorazepam (Ativan) 1 mg IVP BID PRN; Protocol PRN Reason: Anxiety Last Admin: 06/12/17 09:27 Dose: 1 mg Methylprednisolone (Solu-Medrol) 20 mg IVP Q12 [facility] Last Admin: 06/13/17 09:29 Dose: 20 mg Montelukast Sodium (Singulair) 10 mg PO HS [facility] Last Admin: 06/12/17 22:21 Dose: 10 mg Pantoprazole Sodium (Protonix Ec Tab) 40 mg PO ACB [facility] Last Admin: 06/13/17 09:16 Dose: 40 mg Quetiapine Fumarate (Seroquel Xr) 300 mg PO 1700 [facility] Last Admin: 06/12/17 18:55 Dose: 300 mg Quetiapine Fumarate (Seroquel Xr) 100 mg PO 1700 [facility] Tamsulosin HCl (Flomax) 0.4 mg PO DAILY [facility] Last Admin: 06/13/17 09:16 Dose: 0.4 mg Valproate Sodium (Depakene Oral Soln) 500 mg PO BID [facility] Last Admin: 06/13/17 09:15 Dose: 500 mg Ziprasidone (Geodon Inj) 20 mg IM TID PRN; Protocol PRN Reason: Agitation - Labs Labs: 06/13/17 06:00 06/13/17 06:00 PT 15.1 SECONDS (9.4-12.5) H 06/01/17 17:57 INR 1.38 (0.93-1.08) H 06/01/17 17:57 - Constitutional Appears: Non-toxic, No Acute Distress, Chronically Ill - Head Exam Head Exam: ATRAUMATIC, NORMOCEPHALIC - Eye Exam Eye Exam: EOMI, PERRL Pupil Exam: NORMAL ACCOMODATION, PERRL - ENT Exam ENT Exam: Mucous Membranes Moist, Normal External Ear Exam, TM's Normal Bilaterally - Neck Exam Neck Exam: Full ROM, Normal Inspection - Respiratory Exam Respiratory Exam: Decreased Breath Sounds, Rhonchi, Wheezes, NORMAL BREATHING PATTERN. absent: Rales - Cardiovascular Exam Cardiovascular Exam: REGULAR RHYTHM, RRR, +S1, +S2 - GI/Abdominal Exam GI & Abdominal Exam: Soft, Normal Bowel Sounds. absent: Distended, Tenderness - Extremities Exam Extremities Exam: Full ROM, Normal Inspection - Neurological Exam Neurological Exam: Alert, Awake, CN II-XII Intact, Oriented x3 - Psychiatric Exam Psychiatric exam: Agitated - Skin Skin Exam: Intact, Normal Color Assessment and Plan - Assessment and Plan (Free Text) Assessment: 72 yo male with COPD exacerbation with possible aspiration or HCAP complicating matters. Currently on Zosyn and IV Vancomycin for care. CT Chest showing new bibasilar infiltrates. On BiPAP for some time in hospital. Patient also has schizoaffective disorder. The patient still has production of thick mucoid sputum with frequent cough. Inability to move at time due to the severity of the coughing fits. Poor air entry and movement. For now continue with Zosyn and IV Vancomycin. Sputum cultures should be taken. Today the patient's cough and inspiratory effort is greatly improved. The patient's wheezing is worse. The patient is also more confused compared to yesterday. Spoke with Dr. Cotton. Thank you for allowing me to participate in the care of the patient, we will follow with you.
[2017-06-13] MEDS: QUEtiapine 50 mg XR Tab PO SCH (17:44)
[2017-06-13] MEDS: QUEtiapine 300 mg XR Tab PO SCH (17:44)
[2017-06-14] MEDS ORDERED: Piperacillin/Tazobact 3.375 gm 100 ML IVPB SCH
[2017-06-14] MEDS: Vancomycin 1gm in NS 250ml 1 GM/250 ML BAG IVPB SCH ×2 (03:35→15:20)
[2017-06-14] MEDS: Albuterol-Ipratrop 3 mg / 0.5 (3 ml) UD IH SCH ×6 (05:04→23:54)
[2017-06-14] MEDS: Piperacillin/Tazobact 3.375 gm 100 ML IVPB SCH ×3 (05:41→18:15)
[2017-06-14] MEDS ORDERED: Nitroglycerin 2% Ointment Foilpak UD TOP STA (07:02)
[2017-06-14 07:08] LABS: ARTERIAL BLOOD GAS HCO3 35.7 mmol/L (21-28); ARTERIAL BLOOD GAS O2 CONTENT 14.9 ML/dl (15-23); ARTERIAL BLOOD GAS PH 7.47 (7.35-7.45); ARTERIAL BLOOD HGB O2 SAT 95.7 % (95.0-98.0); CARBOXYHEMOGLOBIN 2.2 % (0.5-1.5); HHB 0.8 % (0-5); METHEMOGLOBIN 1.2 % (0.0-3.0)
[2017-06-14 07:13] LABS: BASO # 0.01 K/mm3 (0.0-2.0); BASO % 0.1 % (0.0-3.0); EOS % 0.1 % (1.5-5.0); GRAN # 14.49 (1.4-6.5); GRAN % 79.7 % (50.0-68.0); HEMATOCRIT 32.8 % (42.0-52.0); LYMPH # 1.2 (1.2-3.4); LYMPH % 6.6 % (22.0-35.0); MEAN CELL VOLUME 99.1 fl (80.0-105.0); MEAN CORPUSCULAR HEMOGLOBIN 32.9 pg (25.0-35.0); MEAN CORPUSCULAR HGB CONC 33.2 g/dl (31.0-37.0); MEAN PLATELET VOLUME 9.7 fl (7.0-11.0); MONO # 2.4 (0.1-0.6); MONO % 13.5 % (1.0-6.0); RED CELL DISTRIBUTION WIDTH 13.9 % (11.5-14.5); WHITE BLOOD COUNT 18.1 10^3/ul (4.5-11.0)
[2017-06-14 07:26] LABS: SODIUM 135 mmol/L (132-148)
[2017-06-14 07:31] LABS: ALB/GLOB RATIO 0.8 (1.1-1.8); ALKALINE PHOSPHATASE 66 U/L (38-126); ALT/SGPT 22 U/L (7-56); AST/SGOT 16 U/L (17-59); BILIRUBIN,TOTAL 0.8 mg/dL (0.2-1.3); BLOOD UREA NITROGEN 16 mg/dL (7-21); CALCIUM 8.8 mg/dL (8.4-10.5); CARBON DIOXIDE 34 mmol/L (21-33); CHLORIDE 93 mmol/L (98-107); GFR AFRICAN-AMERICAN > 60; GLUCOSE,RANDOM 104 mg/dL (70-110); POTASSIUM 4.1 mmol/L (3.6-5.0); TOTAL PROTEIN 7.2 g/dL (5.8-8.3)
[2017-06-14 07:37] LABS: TROPONIN I 0.03 ng/mL
--- NOTE | 2017-06-14 07:46 | PN ---
DATE: 06/13/2017 He is being seen today for consultation and followup. PRESENTATION: The patient is a 72-year-old male, small in stature and of average built, seen in his hospital bedside. He has a one-to-one staff member observing him. The patient is very restless in the bed. He is agitated today and he is irritable. He has very restless movements of his feet, indicates that he is having more trouble breathing and that "something must be done." He originally came into the hospital with extensive wheezing and a respiratory infection and his hospital course since then has been fairly difficult. He originally was refusing treatments. He now is cooperative with his treatments and his medication, but has increased mental health symptoms when his steroids are increased. He is fearful of dying. He does want to live. He has limited insight in terms of the fact that he medically was not taking care of himself prior to going into the hospital and this has been going on for a alf and he really is not able to take care of his own ADLs and live independently. He has been followed by the PACT team in [facility]; however, they feel that he needs long-term shelter or at least in an assisted living type of situation. Past notes were reviewed. Labs were reviewed and the case was discussed with the nursing staff. I talked to the patient about what he felt his disposition should be. He only wants to return home and is fully unable to consider any other alternative and becomes very agitated even discussing anything else. He additionally has been offered voluntary admission and does not want anything to do with that. When I bring it out, he indicates that he thinks that I am trying to fool him that in the past someone had forced him to sign into the unit and he does not want to be forced into anything other than going back home. MENTAL STATUS EXAM: The patient is alert and oriented x3. His eye contact is fair. His behavior is irritable. He is having a lot of difficulty breathing and that appears to be quite a bit, he becomes very short of breath when he gets excited and starts yelling at me. He denies being suicidal or homicidal. He denies the presence of hallucinations, delusions, or paranoia. He does not like to be asked mental status exam questions. His appetite, he indicates is good and he indicates he has a lot of trouble sleeping at night, he has to go to the bathroom frequently. He has very restless movement of his feet, I am not sure if this is a tardive symptom or if that is due to his anxiety and agitation. PLAN: He is nonmedically stable at this point. Apparently, the plan is to move him into some sort of a shelter or assisted living situation where he will have both medical and psychiatric support. The patient is not in favor of this at this time. He is actively taking part in his treatment in terms of cooperating with his medical needs and in addition, he is taking his psychiatric medications. The nurses report some difficulty in keeping down the Depakene, but as that is a liquid that probably is the easiest way to deliver the Depakote. We will continue to follow. Mis King APN
[2017-06-14] MEDS ORDERED: Propofol 10 mg/ml 1,000 MG/100 ML VIAL IV PRN (08:00)
--- NOTE | 2017-06-14 08:02 | CP.PCM.PN ---
<Adriana Acosta - Last Filed: 06/14/17 15:48> Subjective - Date & Time of Evaluation Date of Evaluation: 06/14/17 Time of Evaluation: 06:55 - Subjective Subjective: Adriana Acosta DO, PGY-1: Hospitalist Service Pateint seen and examined during Rapid Response. Dr. Slaughter and highway construction inspector resident present at bedside. I spoke with a number of staff on 3RN, including the 1:1 sitter and nurses in regards to the patient. Apparently, the patient was not eating for the past two days, and very unusual for him, did not request his night time tea. At the present time, ICU consult was placed and the patient will likely be managed in the ICU for airway protection. Objective - Vital Signs/Intake and Output Vital Signs (last 24 hours): Temp Pulse Resp BP Pulse Ox 97.6 F 84 84 H 137/82 92 L 06/13/17 16:00 06/14/17 05:05 06/13/17 16:00 06/13/17 17:45 06/13/17 16:00 Intake and Output: 06/14/17 06/14/17 06:59 18:59 Intake Total 1240 Output Total 300 Balance 940 - Medications Medications: Current Medications Acetaminophen (Tylenol 325mg Tab) 650 mg PO Q4H PRN PRN Reason: Pain, Mild (1-3) Last Admin: 06/13/17 15:25 Dose: 650 mg Albuterol/Ipratropium (Duoneb 3 Mg/0.5 Mg (3 Ml) Ud) 3 ml IH Q2H PRN PRN Reason: Shortness of Breath Albuterol/Ipratropium (Duoneb 3 Mg/0.5 Mg (3 Ml) Ud) 3 ml IH Q4H [facility] Last Admin: 06/14/17 05:04 Dose: 3 ml Apixaban (Eliquis) 5 mg PO BID [facility] PRN Reason: Protocol Last Admin: 06/13/17 17:44 Dose: 5 mg Arformoterol Tartrate (Brovana) 15 mcg IH [id number] [facility] Last Admin: 06/13/17 19:43 Dose: 15 mcg Aspirin (Ecotrin) 81 mg PO DAILY [facility] Last Admin: 06/13/17 09:15 Dose: 81 mg Budesonide (Pulmicort Respules) 1 mg IH [id number] [facility] Last Admin: 06/13/17 19:43 Dose: 1 mg Diltiazem HCl (Cardizem) 30 mg PO BID [facility] Last Admin: 06/13/17 17:45 Dose: 30 mg Ergocalciferol (Drisdol 50,000 Intl Units Cap) 1 cap PO Q7D [facility] Last Admin: 06/09/17 11:40 Dose: 1 cap Finasteride (Proscar) 5 mg PO DAILY [facility] Last Admin: 06/13/17 09:16 Dose: 5 mg Sodium Chloride (Sodium Chloride 0.9%) 1,000 mls @ 100 mls/hr IV .Q10H [facility] Last Admin: 06/13/17 21:16 Dose: 100 mls/hr Vancomycin HCl (Vancomycin 1gm) 1 gm in 250 mls @ 167 mls/hr IVPB Q12H [facility] PRN Reason: Protocol Last Admin: 06/14/17 03:35 Dose: 167 mls/hr Piperacillin Sod/Tazobactam Sod (Zosyn 3.375 In Ns 100ml) 100 mls @ 200 mls/hr IVPB Q6 [facility] PRN Reason: Protocol Stop: 06/18/17 00:01 Last Admin: 06/14/17 05:41 Dose: 200 mls/hr Lorazepam (Ativan) 1 mg IVP BID PRN; Protocol PRN Reason: Anxiety Last Admin: 06/13/17 16:45 Dose: 1 mg Methylprednisolone (Solu-Medrol) 20 mg IVP Q12 [facility] Last Admin: 06/13/17 21:15 Dose: 20 mg Montelukast Sodium (Singulair) 10 mg PO HS [facility] Last Admin: 06/13/17 21:18 Dose: Not Given Pantoprazole Sodium (Protonix Ec Tab) 40 mg PO ACB [facility] Last Admin: 06/13/17 09:16 Dose: 40 mg Quetiapine Fumarate (Seroquel Xr) 300 mg PO 1700 [facility] Last Admin: 06/13/17 17:44 Dose: 300 mg Quetiapine Fumarate (Seroquel Xr) 100 mg PO 1700 [facility] Last Admin: 06/13/17 17:44 Dose: 100 mg Tamsulosin HCl (Flomax) 0.4 mg PO DAILY [facility] Last Admin: 06/13/17 09:16 Dose: 0.4 mg Valproate Sodium (Depakene Oral Soln) 500 mg PO BID [facility] Last Admin: 06/13/17 17:45 Dose: 500 mg Ziprasidone (Geodon Inj) 20 mg IM TID PRN; Protocol PRN Reason: Agitation - Labs Labs: 06/14/17 07:00 06/14/17 07:00 PT 15.1 SECONDS (9.4-12.5) H 06/01/17 17:57 INR 1.38 (0.93-1.08) H 06/01/17 17:57 - Constitutional Appears: Toxic, In Acute Distress - Head Exam Head Exam: ATRAUMATIC, NORMOCEPHALIC - Eye Exam Additional comments: left eye dilated, does not constrict to light. - ENT Exam ENT Exam: Mucous Membranes Dry - Respiratory Exam Additional comments: Patient does not appear to be breathing on his own - Cardiovascular Exam Cardiovascular Exam: +S2 - Neurological Exam Additional comments: Patient does not move left upper and lower extremity to painful sensation - Psychiatric Exam Additional comments: unable to assess - Skin Skin Exam: Pallor Assessment and Plan - Assessment and Plan (Free Text) Assessment: 72 year old male with a past medical history of end-staged COPD, s/p pulmonary embolus on oral anticoagulation, paroxysmal atrial fibrillation, and schizoaffective disorder who presented to [facility] for a COPD exacerbation. His hospital course was complicated by pneumonia, hypercapnic, hypoxemic respiratory failure, and newly found right sided subdural hematoma with greater than 10 mm of midline shift after rapid response team called for patient unresponsive to painful stimuli. Patient admitted to the ICU, intubated with poor prognosis. ICU, Neurosurgery, Neurology consults placed. Plan: 1) Inability to protect airway and altered mental status secondary to subdural hematoma with greater than 10 mm midline shift. - Intubated for airway protection - Neurosurgery consulted, Neurology consulted, ICU team closely following. 2) Ensuing , comfort care. - Palliative care consult, [facility]. <Jessie Cotton - Last Filed: 06/14/17 18:31> Objective - Vital Signs/Intake and Output Vital Signs (last 24 hours): Temp Pulse Resp BP Pulse Ox 101.5 F H 107 H 21 122/107 H 98 06/14/17 17:30 06/14/17 17:30 06/14/17 08:00 06/14/17 13:31 06/14/17 17:30 Intake and Output: 06/14/17 06/14/17 06:59 18:59 Intake Total 1240 2624 Output Total 300 1340 Balance 940 1284 - Medications Medications: Current Medications Acetaminophen (Tylenol 325mg Tab) 650 mg PO Q4H PRN PRN Reason: Pain, Mild (1-3) Last Admin: 06/13/17 15:25 Dose: 650 mg Albuterol/Ipratropium (Duoneb 3 Mg/0.5 Mg (3 Ml) Ud) 3 ml IH Q2H PRN PRN Reason: Shortness of Breath Albuterol/Ipratropium (Duoneb 3 Mg/0.5 Mg (3 Ml) Ud) 3 ml IH Q4H [facility] Last Admin: 06/14/17 16:14 Dose: 3 ml Arformoterol Tartrate (Brovana) 15 mcg IH [id number] [facility] Last Admin: 06/14/17 08:40 Dose: 15 mcg Aspirin (Ecotrin) 81 mg PO DAILY [facility] Last Admin: 06/14/17 10:22 Dose: 81 mg Budesonide (Pulmicort Respules) 1 mg IH [id number] [facility] Last Admin: 06/14/17 08:40 Dose: 0.5 mg Diltiazem HCl (Cardizem) 30 mg PO BID [facility] Last Admin: 06/14/17 10:21 Dose: 30 mg Ergocalciferol (Drisdol 50,000 Intl Units Cap) 1 cap PO Q7D [facility] Last Admin: 06/09/17 11:40 Dose: 1 cap Finasteride (Proscar) 5 mg PO DAILY [facility] Last Admin: 06/14/17 10:21 Dose: 5 mg Sodium Chloride (Sodium Chloride 0.9%) 1,000 mls @ 100 mls/hr IV .Q10H [facility] Last Admin: 06/14/17 10:18 Dose: 100 mls/hr Vancomycin HCl (Vancomycin 1gm) 1 gm in 250 mls @ 167 mls/hr IVPB Q12H [facility] PRN Reason: Protocol Last Admin: 06/14/17 15:20 Dose: 167 mls/hr Piperacillin Sod/Tazobactam Sod (Zosyn 3.375 In Ns 100ml) 100 mls @ 200 mls/hr IVPB Q6 [facility] PRN Reason: Protocol Stop: 06/18/17 00:01 Last Admin: 06/14/17 15:19 Dose: 200 mls/hr Acetaminophen (Ofirmev) 1,000 mg in 100 mls @ 400 mls/hr IVPB Q6H PRN PRN Reason: Fever > 99 Stop: 06/16/17 12:09 Propofol (Diprivan) 1,000 mg in 100 mls @ 1.633 mls/hr IV .Q24H PRN; Protocol; 5 MCG/KG/MIN PRN Reason: TITRATE PER MD ORDER Last Titration: 06/14/17 12:15 Dose: 0 mcg/kg/min, 0 mls/hr Lorazepam (Ativan) 1 mg IVP BID PRN; Protocol PRN Reason: Anxiety Last Admin: 06/13/17 16:45 Dose: 1 mg Methylprednisolone (Solu-Medrol) 20 mg IVP Q12 [facility] Last Admin: 06/14/17 10:15 Dose: 20 mg Montelukast Sodium (Singulair) 10 mg PO HS [facility] Last Admin: 06/13/17 21:18 Dose: Not Given Pantoprazole Sodium (Protonix Inj) 40 mg IVP DAILY [facility] Quetiapine Fumarate (Seroquel Xr) 300 mg PO 1700 [facility] Last Admin: 06/14/17 16:15 Dose: Not Given Quetiapine Fumarate (Seroquel Xr) 100 mg PO 1700 [facility] Last Admin: 06/14/17 16:16 Dose: Not Given Tamsulosin HCl (Flomax) 0.4 mg PO DAILY [facility] Last Admin: 06/14/17 10:21 Dose: 0.4 mg Valproate Sodium (Depakene Oral Soln) 500 mg PO BID [facility] Last Admin: 06/14/17 10:18 Dose: 500 mg Ziprasidone (Geodon Inj) 20 mg IM TID PRN; Protocol PRN Reason: Agitation - Labs Labs: 06/14/17 07:00 06/14/17 15:26 PT 16.1 SECONDS (9.4-12.5) H 06/14/17 13:07 INR 1.45 (0.93-1.08) H 06/14/17 13:07 APTT 22.4 Seconds (25.1-36.5) L 06/14/17 13:07 Attending/Attestation - Attestation I have personally seen and examined this patient.: Yes I have fully participated in the care of the patient.: Yes I have reviewed all pertinent clinical information, including history, physical exam and plan: Yes Notes (Text): 06/14/17 18:01 Patient was seen and examined with certified medical asst. Patient was found to be unresponsive this morning, Rapid response was called, patient was transferred to ICU , and was intubated. CT head showed large right sided subdural hematoma with mid line shift.Patient was evaluated by Neuro surgery, no plan for any intervention as per Neuro surgery.Patient was given PCC4 . Prognosis is guarded. 06/14/17 18:29
--- NOTE | 2017-06-14 08:05 | RAD ---
HISTORY: AMS COMPARISON: 06/12/2017 -1232 hours portable chest x-ray and angio chest PE study 06/12/2017 FINDINGS: LUNGS: The prior bibasilar patchy coalescent airspace opacities are now less -.Study leftwardly rotated PLEURA: No significant pleural effusion identified, no pneumothorax apparent. CARDIOVASCULAR: Normal. OSSEOUS STRUCTURES: No significant abnormalities. VISUALIZED UPPER ABDOMEN: Normal. OTHER FINDINGS: None. IMPRESSION: Bibasilar clearing patchy airspace opacities - clearing pneumonitis. No worsening/new infiltrates.
[2017-06-14] MEDS: Budesonide 0.5 mg/2 ml Inhal Susp UD IH SCH ×2 (08:40→19:45)
[2017-06-14] MEDS: Arformoterol 15 mcg/2 ml Inh Sol IH SCH ×2 (08:40→19:45)
[2017-06-14] MEDS ORDERED: Sodium Chloride 0.9% 1,000 ML IV STA (08:41)
[2017-06-14 09:59] LABS: ARTERIAL BLOOD GAS HCO3 32.5 mmol/L (21-28); ARTERIAL BLOOD GAS PH 7.38 (7.35-7.45)
[2017-06-14] MEDS: MethylPREDNISolone 40 mg Vial IVP SCH ×2 (10:15→21:53)
[2017-06-14] MEDS: Valproic Acid 250 mg/5 ml UD Cup PO SCH ×2 (10:18→18:15)
[2017-06-14] MEDS: Sodium Chloride 0.9% 1,000 ML IV SCH (10:18)
[2017-06-14] MEDS: Pantoprazole 40 mg EC Tab PO SCH (10:20)
--- NOTE | 2017-06-14 10:34 | RAD ---
HISTORY: respiratory failure s/p intubation COMPARISON: Earlier same day FINDINGS: LUNGS: The endotracheal tube and nasogastric tube are in satisfactory position. There is a patchy infiltrate at the left lung base. Prominent interstitial markings bilaterally PLEURA: No significant pleural effusion identified, no pneumothorax apparent. CARDIOVASCULAR: Normal. OSSEOUS STRUCTURES: No significant abnormalities. VISUALIZED UPPER ABDOMEN: Normal. OTHER FINDINGS: None. IMPRESSION: The endotracheal tube and nasogastric tube are in satisfactory position. There is a patchy infiltrate at the left lung base. Prominent interstitial markings bilaterally
--- NOTE | 2017-06-14 11:32 | CT ---
PROCEDURE: CT HEAD WITHOUT CONTRAST. HISTORY: altered mental status COMPARISON: 12/14/2014 TECHNIQUE: Axial computed tomography images were obtained through the head/brain without intravenous contrast. Radiation dose: Total exam DLP = 803 mGy-cm. This CT exam was performed using one or more of the following dose reduction techniques: Automated exposure control, adjustment of the mA and/or kV according to patient size, and/or use of iterative reconstruction technique. FINDINGS: HEMORRHAGE: There is a large subdural hematoma over the entire right cerebral convexity with a maximal thickness of 16 mm. There is mass effect with effacement of the sulci and 10 mm of midline shift. These findings were discussed with Dr. Wallace at 11:30 a.m. BRAIN: As above VENTRICLES: Unremarkable. No hydrocephalus. CALVARIUM: Unremarkable. PARANASAL SINUSES: Unremarkable as visualized. No significant inflammatory changes. MASTOID AIR CELLS: Unremarkable as visualized. No inflammatory changes. OTHER FINDINGS: None. IMPRESSION: There is a large subdural hematoma over the entire right cerebral convexity with a maximal thickness of 16 mm. There is mass effect with effacement of the sulci and 10 mm of midline shift.
[2017-06-14] MEDS ORDERED: Sodium Chloride 3% 100 ML IV ONE (11:45)
[2017-06-14] MEDS ORDERED: WATER FOR INJECTION IV ONE ×4 (13:00→14:00)
[2017-06-14] MEDS ORDERED: HUM PROTHROMBIN CPLX IV ONE ×4 (13:00→14:00)
[2017-06-14] MEDS ORDERED: [UNRECOGNIZED DRUG - OTHER] IV ONE (13:00)
[2017-06-14] MEDS ORDERED: [UNRECOGNIZED DRUG - OTHER] IV ONE (13:05)
[2017-06-14] MEDS ORDERED: [UNRECOGNIZED DRUG - OTHER] IV ONE ×2 (13:07→14:00)
--- NOTE | 2017-06-14 13:14 | CP.PCM.CON ---
History of Present Illness - History of Present Illness History of Present Illness: Palliative consult requested by Dr. Cotton Reason: Goals of care 72 year old male with history of COPD,HTN, PAT,schizophrenia /Bipolar disorder who presented with with right sided chest pain,abdominal pain, productive cough and vomiting. CT of chest showed bibasilar congestive changes. He was admitted with COPD exacerbation, pneumonia,sepsis and psychiatric disorder. Yesterday the patient was noted to have decreased appetite, lethargy and altered mental status. A rapid response was called and he was transferred to ICU. He was intubated in order to protect his airways. CT of head revealed a large subdural hematoma over the right cerebral convexity with maximal thickness of 16mm and a mass effect with effacement of the sulci and 10mm midline shift. PMHx: COPD,asthma,CAD, LAD stenosis, ETOH abuse, Bipolar disorder, schizophrenia , PAT, A Fib, BPH, urinary retention and multiple suicide attempts in the past. Social History: Former smoker, ETOH abuse, no illicit drug use. Lived alone. His bother Jose Ramon is next of kin. Family History: Non contributory. Advance Care Planning: the patient does not have an Advanced Directive. Review of Systems: As per HPI, the patient is intubated unable to complete comprehensive review. Past Patient History - Infectious Disease Hx of Infectious Diseases: None - Tetanus Immunizations Tetanus Immunization: Unknown - Past Medical History & Family History Past Medical History?: Yes - Past Social History Smoking Status: Former Smoker - CARDIAC Hx Cardiac Disorders: Yes Hx Hypertension: Yes - PULMONARY Hx Respiratory Disorders: Yes Hx Chronic Obstructive Pulmonary Disease (COPD): Yes - NEUROLOGICAL HX Cerebrovascular Accident: No - HEENT Hx HEENT Problems: No - RENAL Hx Renal Failure: No - ENDOCRINE/METABOLIC Hx Diabetes Mellitus Type 1: No Hx Diabetes Mellitus Type 2: No Hx Hypothyroidism: No - HEMATOLOGICAL/ONCOLOGICAL Hx Cancer: No - INTEGUMENTARY Hx Dermatological Problems: Yes (BILATERAL LE SKIN DRYNESS WITH BROWN SKIN DISCOLORATION) - MUSCULOSKELETAL/RHEUMATOLOGICAL Hx Arthritis: No Hx Falls: Yes - GASTROINTESTINAL Hx Gastroesophageal Reflux: No - GENITOURINARY/GYNECOLOGICAL Hx Genitourinary Disorders: Yes (TURP) Hx Hematuria: Yes Hx Incontinence: Yes Hx Prostate Problems: Yes (BPH) Hx Sexually Transmitted Disorders: No Other/Comment: URINARY RETENTION - PSYCHIATRIC Hx Psychophysiologic Disorder: Yes (SMOKED CIGARETTES,ETOH USE QUIT) Hx Anxiety: Yes Hx Bipolar Disorder: Yes Hx Depression: Yes Hx Emotional Abuse: No Hx Physical Abuse: No Hx Schizophrenia: Yes Hx Substance Use: No Other/Comment: H/O SUICIDE - SURGICAL HISTORY Hx Surgeries: Yes Other/Comment: VINAY ROMAN CATH - ANESTHESIA Hx Anesthesia Reactions: No Hx Malignant Hyperthermia: No Meds Allergies/Adverse Reactions: Allergies Allergy/AdvReac Type Severity Reaction Status Date / Time No Known Allergies Allergy Verified 06/01/17 17:40 - Medications Medications: Current Medications Acetaminophen (Tylenol 325mg Tab) 650 mg PO Q4H PRN PRN Reason: Pain, Mild (1-3) Last Admin: 06/13/17 15:25 Dose: 650 mg Albuterol/Ipratropium (Duoneb 3 Mg/0.5 Mg (3 Ml) Ud) 3 ml IH Q2H PRN PRN Reason: Shortness of Breath Albuterol/Ipratropium (Duoneb 3 Mg/0.5 Mg (3 Ml) Ud) 3 ml IH Q4H [facility] Last Admin: 06/14/17 11:38 Dose: 3 ml Arformoterol Tartrate (Brovana) 15 mcg IH [id number] [facility] Last Admin: 06/14/17 08:40 Dose: 15 mcg Aspirin (Ecotrin) 81 mg PO DAILY [facility] Last Admin: 06/14/17 10:22 Dose: 81 mg Budesonide (Pulmicort Respules) 1 mg IH [id number] [facility] Last Admin: 06/14/17 08:40 Dose: 0.5 mg Diltiazem HCl (Cardizem) 30 mg PO BID [facility] Last Admin: 06/14/17 10:21 Dose: 30 mg Ergocalciferol (Drisdol 50,000 Intl Units Cap) 1 cap PO Q7D [facility] Last Admin: 06/09/17 11:40 Dose: 1 cap Finasteride (Proscar) 5 mg PO DAILY [facility] Last Admin: 06/14/17 10:21 Dose: 5 mg Sodium Chloride (Sodium Chloride 0.9%) 1,000 mls @ 100 mls/hr IV .Q10H [facility] Last Admin: 06/14/17 10:18 Dose: 100 mls/hr Vancomycin HCl (Vancomycin 1gm) 1 gm in 250 mls @ 167 mls/hr IVPB Q12H [facility] PRN Reason: Protocol Last Admin: 06/14/17 03:35 Dose: 167 mls/hr Piperacillin Sod/Tazobactam Sod (Zosyn 3.375 In Ns 100ml) 100 mls @ 200 mls/hr IVPB Q6 [facility] PRN Reason: Protocol Stop: 06/18/17 00:01 Last Admin: 06/14/17 05:41 Dose: 200 mls/hr Acetaminophen (Ofirmev) 1,000 mg in 100 mls @ 400 mls/hr IVPB Q6H PRN PRN Reason: Fever > 99 Stop: 06/16/17 12:09 Hum Prothrombin CPLX(PCC)4FACT (2,500 unit/ Sterile Water) 108.8 mls @ 426.39 mls/hr IV .Q17M ONE PRN Reason: 3 UNITS/KG/MIN Stop: 06/14/17 13:16 Lorazepam (Ativan) 1 mg IVP BID PRN; Protocol PRN Reason: Anxiety Last Admin: 06/13/17 16:45 Dose: 1 mg Methylprednisolone (Solu-Medrol) 20 mg IVP Q12 [facility] Last Admin: 06/14/17 10:15 Dose: 20 mg Montelukast Sodium (Singulair) 10 mg PO HS [facility] Last Admin: 06/13/17 21:18 Dose: Not Given Pantoprazole Sodium (Protonix Inj) 40 mg IVP DAILY [facility] Quetiapine Fumarate (Seroquel Xr) 300 mg PO 1700 [facility] Last Admin: 06/13/17 17:44 Dose: 300 mg Quetiapine Fumarate (Seroquel Xr) 100 mg PO 1700 [facility] Last Admin: 06/13/17 17:44 Dose: 100 mg Tamsulosin HCl (Flomax) 0.4 mg PO DAILY [facility] Last Admin: 06/14/17 10:21 Dose: 0.4 mg Valproate Sodium (Depakene Oral Soln) 500 mg PO BID [facility] Last Admin: 06/14/17 10:18 Dose: 500 mg Ziprasidone (Geodon Inj) 20 mg IM TID PRN; Protocol PRN Reason: Agitation Physical Exam - Constitutional Appears: Cachectic, Chronically Ill - Eye Exam Pupil Exam: Fixed - ENT Exam ENT Exam: Mucous Membranes Moist Additional comments: minimal gag reflex - Respiratory Exam Respiratory Exam: Decreased Breath Sounds Additional comments: intubated vent dependent - Cardiovascular Exam Cardiovascular Exam: Tachycardia, +S1 - GI/Abdominal Exam GI & Abdominal Exam: Diminished Bowel Sounds, Soft - Extremities Exam Extremities exam: Positive for: pedal pulses present Additional comments: posturing - Back Exam Back exam: NORMAL INSPECTION - Additional Findings Additional findings: Palliative performance scale rating 20% Results - Vital Signs Recent Vital Signs: Last Vital Signs Temp 102.6 F H 06/14/17 10:50 Pulse 96 H 06/14/17 11:00 Resp 21 06/14/17 08:00 BP 142/89 06/14/17 10:30 Pulse Ox 95 06/14/17 11:00 - Labs Result Diagrams: 06/14/17 07:00 06/14/17 13:30 Labs: Laboratory Results - last 24 hr 06/14/17 06/14/17 06/14/17 07:00 07:00 07:00 WBC 18.1 H D RBC 3.31 L Hgb 10.9 L Hct 32.8 L MCV 99.1 MCH 32.9 MCHC 33.2 RDW 13.9 Plt Count 486 H MPV 9.7 Gran % 79.7 H Lymph % (Auto) 6.6 L Warren % (Auto) 13.5 H Eos % (Auto) 0.1 L Baso % (Auto) 0.1 Gran # 14.49 H Lymph # 1.2 Warren # 2.4 H Eos # 0.0 Baso # 0.01 pCO2 49 H pO2 129.0 H HCO3 35.7 H ABG pH 7.47 H ABG Total CO2 37.2 H ABG O2 Saturation 99.2 H ABG O2 Content 14.9 L ABG Base Excess 10.6 H ABG Hemoglobin 10.9 L ABG Carboxyhemoglobin 2.2 H POC ABG HHb (Measured) 0.8 ABG Methemoglobin 1.2 ABG O2 Capacity 15.0 L ABG Potassium Hgb O2 Saturation 95.7 Glucose Lactate FiO2 100.0 Sodium 135 Potassium 4.1 Chloride 93 L Carbon Dioxide 34 H Anion Gap 14 BUN 16 Creatinine 0.5 L Est GFR ( Amer) > 60 Est GFR (Non-Af Amer) > 60 POC Glucose (mg/dL) Random Glucose 104 Calcium 8.8 Total Bilirubin 0.8 AST 16 L ALT 22 Alkaline Phosphatase 66 Troponin I 0.03 D Total Protein 7.2 Albumin 3.2 Globulin 3.9 Albumin/Globulin Ratio 0.8 L Arterial Blood Potassium Influenza Typ A,B (EIA) RSV Antigen 06/14/17 06/14/17 06/14/17 07:01 09:00 09:30 WBC RBC Hgb Hct MCV MCH MCHC RDW Plt Count MPV Gran % Lymph % (Auto) Warren % (Auto) Eos % (Auto) Baso % (Auto) Gran # Lymph # Warren # Eos # Baso # pCO2 pO2 HCO3 ABG pH ABG Total CO2 ABG O2 Saturation ABG O2 Content ABG Base Excess ABG Hemoglobin ABG Carboxyhemoglobin POC ABG HHb (Measured) ABG Methemoglobin ABG O2 Capacity ABG Potassium Hgb O2 Saturation Glucose Lactate FiO2 Sodium Potassium Chloride Carbon Dioxide Anion Gap BUN Creatinine Est GFR ( Amer) Est GFR (Non-Af Amer) POC Glucose (mg/dL) 110 Random Glucose Calcium Total Bilirubin AST ALT Alkaline Phosphatase Troponin I Total Protein Albumin Globulin Albumin/Globulin Ratio Arterial Blood Potassium Influenza Typ A,B (EIA) Negative for flu a/b RSV Antigen Negative 06/14/17 09:55 WBC RBC Hgb Hct MCV MCH MCHC RDW Plt Count MPV Gran % Lymph % (Auto) Warren % (Auto) Eos % (Auto) Baso % (Auto) Gran # Lymph # Warren # Eos # Baso # pCO2 55 H pO2 68.0 L HCO3 32.5 H ABG pH 7.38 ABG Total CO2 34.2 H ABG O2 Saturation 95.8 ABG O2 Content ABG Base Excess 5.8 H ABG Hemoglobin ABG Carboxyhemoglobin POC ABG HHb (Measured) ABG Methemoglobin ABG O2 Capacity ABG Potassium 3.4 L Hgb O2 Saturation Glucose 110 Lactate 1.1 FiO2 80.0 Sodium 138.0 Potassium Chloride 102.0 Carbon Dioxide Anion Gap BUN Creatinine Est GFR ( Amer) Est GFR (Non-Af Amer) POC Glucose (mg/dL) Random Glucose Calcium Total Bilirubin AST ALT Alkaline Phosphatase Troponin I Total Protein Albumin Globulin Albumin/Globulin Ratio Arterial Blood Potassium 3.4 L Influenza Typ A,B (EIA) RSV Antigen Assessment & Plan - Assessment and Plan (Free Text) Assessment: 72 year old male with hsitory of multiple comorbidities who is admitted with pneumonia, sepsis, behavioral disorder,subdural hematoma with midline shift, respiratory failure. The pupils are fixed, corneal reflex is absent, minimal gag reflex, posturing with noxious stimuli,GCS 4 ,intubated >vent dependant. Family spoke with Dr. Wallace and Dr Rey. Patients medical condition and extremely poor prognosis was explained to Mr Ramon and family. Palliative services introduced as support mechanism for family. A lengthy discussion regarding patients future quality of life and goals of care ensued. Questions answered. I asked t the family to consider making patient a DNR. Psychosocial support given. Time spent with family in goals of care discussion and providing psychosocial support, 30 minutes Plan: Palliative support in establishing goals of care
--- NOTE | 2017-06-14 13:25 | CP.PCM.CON ---
History of Present Illness - History of Present Illness History of Present Illness: emergency consult dictated Huge acute SDH GCS = 4T pupils 3mm no rx absent r corneal min L no dolls eyes min gag decerebrates to noxious min residual neuro function prognosis dismal would not rec any aggressive care spoke with brother re supportive care,DNR etc case d/w Dr Wallace and neuro resident Past Patient History - Infectious Disease Hx of Infectious Diseases: None - Tetanus Immunizations Tetanus Immunization: Unknown - Past Medical History & Family History Past Medical History?: Yes - Past Social History Smoking Status: Former Smoker - CARDIAC Hx Cardiac Disorders: Yes Hx Hypertension: Yes - PULMONARY Hx Respiratory Disorders: Yes Hx Chronic Obstructive Pulmonary Disease (COPD): Yes - NEUROLOGICAL HX Cerebrovascular Accident: No - HEENT Hx HEENT Problems: No - RENAL Hx Renal Failure: No - ENDOCRINE/METABOLIC Hx Diabetes Mellitus Type 1: No Hx Diabetes Mellitus Type 2: No Hx Hypothyroidism: No - HEMATOLOGICAL/ONCOLOGICAL Hx Cancer: No - INTEGUMENTARY Hx Dermatological Problems: Yes (BILATERAL LE SKIN DRYNESS WITH BROWN SKIN DISCOLORATION) - MUSCULOSKELETAL/RHEUMATOLOGICAL Hx Arthritis: No Hx Falls: Yes - GASTROINTESTINAL Hx Gastroesophageal Reflux: No - GENITOURINARY/GYNECOLOGICAL Hx Genitourinary Disorders: Yes (TURP) Hx Hematuria: Yes Hx Incontinence: Yes Hx Prostate Problems: Yes (BPH) Hx Sexually Transmitted Disorders: No Other/Comment: URINARY RETENTION - PSYCHIATRIC Hx Psychophysiologic Disorder: Yes (SMOKED CIGARETTES,ETOH USE QUIT) Hx Anxiety: Yes Hx Bipolar Disorder: Yes Hx Depression: Yes Hx Emotional Abuse: No Hx Physical Abuse: No Hx Schizophrenia: Yes Hx Substance Use: No Other/Comment: H/O SUICIDE - SURGICAL HISTORY Hx Surgeries: Yes Other/Comment: TURP,CARD CATH - ANESTHESIA Hx Anesthesia Reactions: No Hx Malignant Hyperthermia: No Meds Allergies/Adverse Reactions: Allergies Allergy/AdvReac Type Severity Reaction Status Date / Time No Known Allergies Allergy Verified 06/01/17 17:40 - Medications Medications: Current Medications Acetaminophen (Tylenol 325mg Tab) 650 mg PO Q4H PRN PRN Reason: Pain, Mild (1-3) Last Admin: 06/13/17 15:25 Dose: 650 mg Albuterol/Ipratropium (Duoneb 3 Mg/0.5 Mg (3 Ml) Ud) 3 ml IH Q2H PRN PRN Reason: Shortness of Breath Albuterol/Ipratropium (Duoneb 3 Mg/0.5 Mg (3 Ml) Ud) 3 ml IH Q4H [facility] Last Admin: 06/14/17 11:38 Dose: 3 ml Arformoterol Tartrate (Brovana) 15 mcg IH [id number] [facility] Last Admin: 06/14/17 08:40 Dose: 15 mcg Aspirin (Ecotrin) 81 mg PO DAILY [facility] Last Admin: 06/14/17 10:22 Dose: 81 mg Budesonide (Pulmicort Respules) 1 mg IH [id number] [facility] Last Admin: 06/14/17 08:40 Dose: 0.5 mg Diltiazem HCl (Cardizem) 30 mg PO BID [facility] Last Admin: 06/14/17 10:21 Dose: 30 mg Ergocalciferol (Drisdol 50,000 Intl Units Cap) 1 cap PO Q7D [facility] Last Admin: 06/09/17 11:40 Dose: 1 cap Finasteride (Proscar) 5 mg PO DAILY [facility] Last Admin: 06/14/17 10:21 Dose: 5 mg Sodium Chloride (Sodium Chloride 0.9%) 1,000 mls @ 100 mls/hr IV .Q10H [facility] Last Admin: 06/14/17 10:18 Dose: 100 mls/hr Vancomycin HCl (Vancomycin 1gm) 1 gm in 250 mls @ 167 mls/hr IVPB Q12H [facility] PRN Reason: Protocol Last Admin: 06/14/17 03:35 Dose: 167 mls/hr Piperacillin Sod/Tazobactam Sod (Zosyn 3.375 In Ns 100ml) 100 mls @ 200 mls/hr IVPB Q6 [facility] PRN Reason: Protocol Stop: 06/18/17 00:01 Last Admin: 06/14/17 05:41 Dose: 200 mls/hr Acetaminophen (Ofirmev) 1,000 mg in 100 mls @ 400 mls/hr IVPB Q6H PRN PRN Reason: Fever > 99 Stop: 06/16/17 12:09 Hum Prothrombin CPLX(PCC)4FACT (2,500 unit/ Sterile Water) 100 mls @ 391.9 mls/ hr IV .Q16M ONE PRN Reason: 3 UNITS/KG/MIN Stop: 06/14/17 13:20 Lorazepam (Ativan) 1 mg IVP BID PRN; Protocol PRN Reason: Anxiety Last Admin: 06/13/17 16:45 Dose: 1 mg Methylprednisolone (Solu-Medrol) 20 mg IVP Q12 [facility] Last Admin: 06/14/17 10:15 Dose: 20 mg Montelukast Sodium (Singulair) 10 mg PO HS [facility] Last Admin: 06/13/17 21:18 Dose: Not Given Pantoprazole Sodium (Protonix Inj) 40 mg IVP DAILY [facility] Quetiapine Fumarate (Seroquel Xr) 300 mg PO 1700 [facility] Last Admin: 06/13/17 17:44 Dose: 300 mg Quetiapine Fumarate (Seroquel Xr) 100 mg PO 1700 [facility] Last Admin: 06/13/17 17:44 Dose: 100 mg Tamsulosin HCl (Flomax) 0.4 mg PO DAILY [facility] Last Admin: 06/14/17 10:21 Dose: 0.4 mg Valproate Sodium (Depakene Oral Soln) 500 mg PO BID [facility] Last Admin: 06/14/17 10:18 Dose: 500 mg Ziprasidone (Geodon Inj) 20 mg IM TID PRN; Protocol PRN Reason: Agitation Results - Vital Signs Recent Vital Signs: Last Vital Signs Temp 102.6 F H 06/14/17 10:50 Pulse 96 H 06/14/17 11:00 Resp 21 06/14/17 08:00 BP 142/89 06/14/17 10:30 Pulse Ox 95 06/14/17 11:00 - Labs Result Diagrams: 06/14/17 07:00 06/14/17 07:00 Labs: Laboratory Results - last 24 hr 06/14/17 06/14/17 06/14/17 07:00 07:00 07:00 WBC 18.1 H D RBC 3.31 L Hgb 10.9 L Hct 32.8 L MCV 99.1 MCH 32.9 MCHC 33.2 RDW 13.9 Plt Count 486 H MPV 9.7 Gran % 79.7 H Lymph % (Auto) 6.6 L [place] % (Auto) 13.5 H Eos % (Auto) 0.1 L Baso % (Auto) 0.1 Gran # 14.49 H Lymph # 1.2 [place] # 2.4 H Eos # 0.0 Baso # 0.01 pCO2 49 H pO2 129.0 H HCO3 35.7 H ABG pH 7.47 H ABG Total CO2 37.2 H ABG O2 Saturation 99.2 H ABG O2 Content 14.9 L ABG Base Excess 10.6 H ABG Hemoglobin 10.9 L ABG Carboxyhemoglobin 2.2 H POC ABG HHb (Measured) 0.8 ABG Methemoglobin 1.2 ABG O2 Capacity 15.0 L ABG Potassium Hgb O2 Saturation 95.7 Glucose Lactate FiO2 100.0 Sodium 135 Potassium 4.1 Chloride 93 L Carbon Dioxide 34 H Anion Gap 14 BUN 16 Creatinine 0.5 L Est GFR ( Amer) > 60 Est GFR (Non-Af Amer) > 60 POC Glucose (mg/dL) Random Glucose 104 Calcium 8.8 Total Bilirubin 0.8 AST 16 L ALT 22 Alkaline Phosphatase 66 Troponin I 0.03 D Total Protein 7.2 Albumin 3.2 Globulin 3.9 Albumin/Globulin Ratio 0.8 L Arterial Blood Potassium Influenza Typ A,B (EIA) RSV Antigen 06/14/17 06/14/17 06/14/17 07:01 09:00 09:30 WBC RBC Hgb Hct MCV MCH MCHC RDW Plt Count MPV Gran % Lymph % (Auto) [place] % (Auto) Eos % (Auto) Baso % (Auto) Gran # Lymph # [place] # Eos # Baso # pCO2 pO2 HCO3 ABG pH ABG Total CO2 ABG O2 Saturation ABG O2 Content ABG Base Excess ABG Hemoglobin ABG Carboxyhemoglobin POC ABG HHb (Measured) ABG Methemoglobin ABG O2 Capacity ABG Potassium Hgb O2 Saturation Glucose Lactate FiO2 Sodium Potassium Chloride Carbon Dioxide Anion Gap BUN Creatinine Est GFR ( Amer) Est GFR (Non-Af Amer) POC Glucose (mg/dL) 110 Random Glucose Calcium Total Bilirubin AST ALT Alkaline Phosphatase Troponin I Total Protein Albumin Globulin Albumin/Globulin Ratio Arterial Blood Potassium Influenza Typ A,B (EIA) Negative for flu a/b RSV Antigen Negative 06/14/17 09:55 WBC RBC Hgb Hct MCV MCH MCHC RDW Plt Count MPV Gran % Lymph % (Auto) [place] % (Auto) Eos % (Auto) Baso % (Auto) Gran # Lymph # [place] # Eos # Baso # pCO2 55 H pO2 68.0 L HCO3 32.5 H ABG pH 7.38 ABG Total CO2 34.2 H ABG O2 Saturation 95.8 ABG O2 Content ABG Base Excess 5.8 H ABG Hemoglobin ABG Carboxyhemoglobin POC ABG HHb (Measured) ABG Methemoglobin ABG O2 Capacity ABG Potassium 3.4 L Hgb O2 Saturation Glucose 110 Lactate 1.1 FiO2 80.0 Sodium 138.0 Potassium Chloride 102.0 Carbon Dioxide Anion Gap BUN Creatinine Est GFR ( Amer) Est GFR (Non-Af Amer) POC Glucose (mg/dL) Random Glucose Calcium Total Bilirubin AST ALT Alkaline Phosphatase Troponin I Total Protein Albumin Globulin Albumin/Globulin Ratio Arterial Blood Potassium 3.4 L Influenza Typ A,B (EIA) RSV Antigen
--- NOTE | 2017-06-14 13:35 | RAD ---
HISTORY: central line COMPARISON: 06/14/2017 0837 hours FINDINGS: LUNGS: Bilateral hyperaeration-similar background COPD suggested. Bilateral patchy prominent interstitial lung marking with some patchy coalescence -left lung base most notably in overall appearance here- similar. No more dense consolidation appreciated PLEURA: No significant pleural effusion identified, no pneumothorax apparent. CARDIOVASCULAR: Normal. OSSEOUS STRUCTURES: Thoracic spondylosis VISUALIZED UPPER ABDOMEN: Normal. OTHER FINDINGS: Endotracheal tube tip 4 cm cephalad to hayder. NG tube insertion tip in gastric fundus. Right internal jugular vein central line -tip superior vena cava. The right internal jugular vein central line catheter is an interval change. No pneumothorax IMPRESSION: Interval right central internal jugular vein catheter insertion tip superior vena cava. No pneumothorax Endotracheal tube and NG tubes satisfactory positions COPD. Bilateral patchy interstitial lung marking prominence -coalescence of these prominent interstitial lung markings -overlapping with coalescing minimal airspace opacities over the left lung base-appearance similar Patchy infiltrates here a consideration. Continued follow-up advised
[2017-06-14 13:44] LABS: BLOOD UREA NITROGEN 15 mg/dL (7-21); CALCIUM 7.4 mg/dL (8.4-10.5); CARBON DIOXIDE 32 mmol/L (21-33); CHLORIDE 102 mmol/L (98-107); GFR AFRICAN-AMERICAN > 60; GLUCOSE,RANDOM 85 mg/dL (70-110); POTASSIUM 3.7 mmol/L (3.6-5.0); SODIUM 140 mmol/L (132-148)
[2017-06-14 13:55] LABS: TROPONIN I 0.02 ng/mL
--- NOTE | 2017-06-14 14:00 | PCM.PROC ---
<Jeremy Sepulveda - Last Filed: 06/14/17 14:01> Procedures Attestation:: I certify that I have explained the specified Operation(s) or Procedure(s), risks, benefits and reasonable alternatives to the Patient and/or other person responsible. The opportunity was given to ask questions and all questions answered - Central Line Placement Right Internal Jugular Triple Lumen Catheter Aseptic technique was employed throughout the procedure: Hand Hygiene done prior to procedure, Full sterile barriers (mask, hair cover, sterile gown, sterile gloves), Full body sterile drape, Chloraprep Antiseptic: 30 second prep for IJ or SC sites CVP Time Out Performed: Yes Pt. Placed on Pulse Ox Monitor: Yes Central Line Prep: Chlorhexidine-Alcohol Combination Local Anesthesia Used: Lidocaine 1% Amount of Anesthesia Used (mls): 3 Ultrasound Used for Placement: Yes Central Line Lumen Inserted: triple Central Line Length: 16 cm Post Procedure: Sutured in Place, Good Blood Return, All Ports Aspirated, Flushed, Capped, Sterile Dressing Applied Secured by: Securement device Post procedure dressing: Clear vapor permeable, Chlorhexidine disc (Biopatch) Post Procedure X-Ray: Yes Patient Tolerated Procedure: Well Immediate Complications: None <Héctor Wallace - Last Filed: 06/14/17 15:05> Attending/Attestation - Attestation I have personally seen and examined this patient.: Yes I have fully participated in the care of the patient.: Yes I have reviewed all pertinent clinical information, including history, physical exam and plan: Yes Notes (Text): 06/14/17 15:02 R. IJ CVL Indication Hemodyanmic monitoring and hypertonic saline infusion After obtaining informed consent, operational area was sterilized and maximum barrier precautions used. R.IJ was cannulated according to sterile seldinger technique. Guidewire removed, hemostasis acheived, sterile dressing applied. I have been present in the room and directly supervised procedure for almost entire procedure
[2017-06-14 14:05] LABS: INR 1.45 (0.93-1.08); PARTIAL THROMBOPLASTIN TIME 22.4 Seconds (25.1-36.5)
--- NOTE | 2017-06-14 14:05 | PN ---
DATE: 06/14/2017 SUBJECTIVE: The patient was seen and examined at bedside up on the third floor. The patient was obtunded, unresponsive to touch stimuli, clearly unable to protect his airway. The patient was on BiPAP. The patient was emergently transferred to ICU. BiPAP removed and emergent endotracheal intubation for airway protection was performed. A large amount of gastric content and secretion was found in hypopharynx and in the lungs upon successful intubation. All of those were suctioned out. Subsequent chest x-ray confirmed correct position of the endotracheal tube. The patient is on propofol drip for sedation. OBJECTIVE: VITAL SIGNS: The patient is on PRVC 3 mL (close to 7 mL per predicted body weight), FiO2 80%, PEEP 10, respiratory rate 25 (the patient is overbreathing vent). On vent setting, he has oxygen saturation 94%, blood pressure 132/81. End-tidal CO2 on the monitor of 33 and heart rate 110. HEENT: Head and neck atraumatic. LUNGS: Decreased breath sounds bilaterally with few crackles in the left basal area. HEART: Regular rate and rhythm. S1 and S2 normal. ABDOMEN: Soft, nontender, and nondistended. MUSCULOSKELETAL: No C/C/E. NEUROLOGIC: The patient was obtunded and was not observed moving all extremities. CAT scan of the head is pending. SKIN: Moist. PSYCHIATRIC: The patient is obtunded, nonresponsive to touch stimuli. LABORATORY DATA: Sodium 135, potassium 4.1, chloride 93, carbon dioxide 34, BUN 16, creatinine 0.5, glucose 110, AST 16, and ALT 22. Troponin 0.03. Procalcitonin 0.29. WBC 18.1, hemoglobin 10.9, and platelet count 286,000, eosinophils 0. ABG prior to intubation 7.47/49/129 on 60% FiO2 with BiPap. MEDICATIONS: Tylenol p.r.n., DuoNeb p.r.n., DuoNeb every 4 hours on standard basis, Eliquis, Brovana, aspirin, budesonide, Cardizem, Proscar, Ativan p.r.n., Solu-Medrol 20 mg IV q.12 hours, Singulair, Protonix, quetiapine, normal saline 100 mL/hour, Flomax, valproic acid, vancomycin, Geodon p.r.n., and Zosyn. Chest x-ray on this patient showed emphysematous lungs with left lower lobe and right upper lobe infiltrates. Of note, CAT scan of the chest performed 2 days ago showed tree-in-bud opacities bilaterally, some bibasilar consolidation. No pulmonary embolism. ASSESSMENT AND PLAN: This is a 72 yo gentleman who presented with inability to protect his airways, aspiration pneumonia/pneumonitis, accompanied by fever and leukocytosis in the setting of/through antibiotic therapy and steroid taper. 1. Neuro: The patient is sedated with propofol. CAT scan of the head to rule out intracranial abnormality that would explain acute change in mental status is ordered and pending. If negative, EEG will be ordered. However, probability of nonconvulsive status is lower on my differential list as the patient is on some benzodiazepine coverage and valproic acid. Nevertheless, I cannot rule out this possibility at the present time. 2 Pulmonary: The patient has aspiration pneumonitis versus pneumonia. He is febrile and has leukocytosis despite broad-spectrum antibiotic therapy. The patient will be on protective lung ventilation strategy with low tidal volume ventilation at 6 mL per predicted body weight. While we will use somewhat higher PEEP (10 cm of water), we will avoid recruitment maneuvers (ART trial). We will continue with head of bed elevated at >35 degrees. Oral hygiene. Conservative fluid management. Conservative oxygen management. We will continue with ventilator-associated pneumonia bundle, including deep venous thrombosis and gastrointestinal prophylaxis. We will continue low-dose steroids. We will discuss upgrading antibiotics to meropenem/zyvox with Infectious Disease as well. Tree-in-bud opacities on recent CAT scan are commonly seen in aspiration pneumonitis/bronchiolitis, however, possibility of other causes cannot be ruled out. Sputum for culture, gram stain, AFB stain, and fungal stain will be sent as well. RSV serology will be sent as well. Influenza serology will be sent as well. 3. Cardiovascular: The patient is hemodynamically stable. The patient had echocardiogram about 8 months ago, which revealed normal left ventricular wall thickness and function. We will repeat echocardiogram to rule out cardiogenic etiology of the patient's respiratory deterioration. We will also trend troponin to make sure that troponin x2 are negative. The patient did not complain of chest pain prior to this episode. We will repeat EKG as well. 4. Gastrointestinal: Nasogastric tube was placed and put on suction for now. We will continue with gastrointestinal prophylaxis. We will keep the patient n.p.o. today and resume medications and nutrition tomorrow. 5. Infectious Disease: The patient has fever and leukocytosis, most likely attributable to aspiration pneumonitis, however, superimposed infection cannot be ruled out. We will discuss with Infectious Disease Service. Meanwhile, blood culture, urine culture, and sputum culture with gram stain, AFB stain, and fungal stain will be sent. Antibiotics will be upgraded to meropenem and linezolid. RSV and influenza serology will be sent as well. 6. Renal: The patient has Rothman catheter. Urine output will be aggressively monitored. At the present time, the patient does not have signs of acute kidney injury and acute tubular necrosis. We will continue to maintain blood pressure at mean arterial pressure more than 65. We will avoid nephrotoxic medication, but not in expense of treating underlying disease. We will maintain euglycemia and euvolemia. 7. Endocrine: We will continue with low-dose steroids. We will maintain blood glucose within 140-180 range and avoid hypoglycemia episodes. Addendum: CTH: large acute subdural hematoma with substantial midline shift: Propofol continued, ph is 7.38. 2L NS given; 100 cc of hypertonic saline bolus is given. BMP q4hrs, plasma osm is orderd. Head is in neutral position 35 degree , aPCC is given (patient is on apixaban). Neurosurgery at bedside Addendum: Dr. Leiva discussed the case with patient's brother-->no neuro sx intervention due to futility. Will discuss DNR/DNI/comfort care with family. ccm time 40 min Héctor Wallace MD EB
--- NOTE | 2017-06-14 14:56 | CP.PCM.CON ---
<Nell Bhakta - Last Filed: 06/14/17 17:23> History of Present Illness - History of Present Illness History of Present Illness: PGY-2 Neurology progress note for Dr[address] Kwong's service 72 yo male with PMH of COPD, asthma, HTN, alcohol abuse, migraines headaches, a. fib was found to be unresponsive this am. Patient was initially admitted for chest pain, sob, productive cough. This morning he was found to be unresponsive and was intubated for airway protection. CT head showed large subdural hematoma with midline shift. Unable to obtain review of systems. PMH: COPD, asthma, HTN, alcohol abuse, Migraines,, Paroxysmal atrial fibrillation, with multiple admissions for A-fib with RVR, BPH, Hx of urinary retention, Bipolar, schizophrenia, suicidal attempts, and remote hx of polycythemia PSH: TURP May 2016 (Dr. Dutton), Cardiac catheterization 07/2009 - 30% LAD stenosis Family History: non-contributory Social History: former smoker, alcohol abuse, denies recreational drug use Allergy: NKDA Review of Systems - Review of Systems Systems not reviewed;Unavailable: Altered Mental Status, Intubated Past Patient History - Infectious Disease Hx of Infectious Diseases: None - Tetanus Immunizations Tetanus Immunization: Unknown - Past Medical History & Family History Past Medical History?: Yes - Past Social History Smoking Status: Former Smoker - CARDIAC Hx Cardiac Disorders: Yes Hx Hypertension: Yes - PULMONARY Hx Respiratory Disorders: Yes Hx Chronic Obstructive Pulmonary Disease (COPD): Yes - NEUROLOGICAL HX Cerebrovascular Accident: No - HEENT Hx HEENT Problems: No - RENAL Hx Renal Failure: No - ENDOCRINE/METABOLIC Hx Diabetes Mellitus Type 1: No Hx Diabetes Mellitus Type 2: No Hx Hypothyroidism: No - HEMATOLOGICAL/ONCOLOGICAL Hx Cancer: No - INTEGUMENTARY Hx Dermatological Problems: Yes (BILATERAL LE SKIN DRYNESS WITH BROWN SKIN DISCOLORATION) - MUSCULOSKELETAL/RHEUMATOLOGICAL Hx Arthritis: No Hx Falls: Yes - GASTROINTESTINAL Hx Gastroesophageal Reflux: No - GENITOURINARY/GYNECOLOGICAL Hx Genitourinary Disorders: Yes (TURP) Hx Hematuria: Yes Hx Incontinence: Yes Hx Prostate Problems: Yes (BPH) Hx Sexually Transmitted Disorders: No Other/Comment: URINARY RETENTION - PSYCHIATRIC Hx Psychophysiologic Disorder: Yes (SMOKED CIGARETTES,ETOH USE QUIT) Hx Anxiety: Yes Hx Bipolar Disorder: Yes Hx Depression: Yes Hx Emotional Abuse: No Hx Physical Abuse: No Hx Schizophrenia: Yes Hx Substance Use: No Other/Comment: H/O SUICIDE - SURGICAL HISTORY Hx Surgeries: Yes Other/Comment: VINAY ROMAN CATH - ANESTHESIA Hx Anesthesia Reactions: No Hx Malignant Hyperthermia: No Meds Allergies/Adverse Reactions: Allergies Allergy/AdvReac Type Severity Reaction Status Date / Time No Known Allergies Allergy Verified 06/01/17 17:40 - Medications Medications: Current Medications Acetaminophen (Tylenol 325mg Tab) 650 mg PO Q4H PRN PRN Reason: Pain, Mild (1-3) Last Admin: 06/13/17 15:25 Dose: 650 mg Albuterol/Ipratropium (Duoneb 3 Mg/0.5 Mg (3 Ml) Ud) 3 ml IH Q2H PRN PRN Reason: Shortness of Breath Albuterol/Ipratropium (Duoneb 3 Mg/0.5 Mg (3 Ml) Ud) 3 ml IH Q4H [facility] Last Admin: 06/14/17 11:38 Dose: 3 ml Arformoterol Tartrate (Brovana) 15 mcg IH [id number] [facility] Last Admin: 06/14/17 08:40 Dose: 15 mcg Aspirin (Ecotrin) 81 mg PO DAILY [facility] Last Admin: 06/14/17 10:22 Dose: 81 mg Budesonide (Pulmicort Respules) 1 mg IH [id number] [facility] Last Admin: 06/14/17 08:40 Dose: 0.5 mg Diltiazem HCl (Cardizem) 30 mg PO BID [facility] Last Admin: 06/14/17 10:21 Dose: 30 mg Ergocalciferol (Drisdol 50,000 Intl Units Cap) 1 cap PO Q7D [facility] Last Admin: 06/09/17 11:40 Dose: 1 cap Finasteride (Proscar) 5 mg PO DAILY [facility] Last Admin: 06/14/17 10:21 Dose: 5 mg Sodium Chloride (Sodium Chloride 0.9%) 1,000 mls @ 100 mls/hr IV .Q10H [facility] Last Admin: 06/14/17 10:18 Dose: 100 mls/hr Vancomycin HCl (Vancomycin 1gm) 1 gm in 250 mls @ 167 mls/hr IVPB Q12H [facility] PRN Reason: Protocol Last Admin: 06/14/17 03:35 Dose: 167 mls/hr Piperacillin Sod/Tazobactam Sod (Zosyn 3.375 In Ns 100ml) 100 mls @ 200 mls/hr IVPB Q6 [facility] PRN Reason: Protocol Stop: 06/18/17 00:01 Last Admin: 06/14/17 05:41 Dose: 200 mls/hr Acetaminophen (Ofirmev) 1,000 mg in 100 mls @ 400 mls/hr IVPB Q6H PRN PRN Reason: Fever > 99 Stop: 06/16/17 12:09 Propofol (Diprivan) 1,000 mg in 100 mls @ 1.633 mls/hr IV .Q24H PRN; Protocol; 5 MCG/KG/MIN PRN Reason: TITRATE PER MD ORDER Lorazepam (Ativan) 1 mg IVP BID PRN; Protocol PRN Reason: Anxiety Last Admin: 06/13/17 16:45 Dose: 1 mg Methylprednisolone (Solu-Medrol) 20 mg IVP Q12 [facility] Last Admin: 06/14/17 10:15 Dose: 20 mg Montelukast Sodium (Singulair) 10 mg PO HS [facility] Last Admin: 06/13/17 21:18 Dose: Not Given Pantoprazole Sodium (Protonix Inj) 40 mg IVP DAILY [facility] Quetiapine Fumarate (Seroquel Xr) 300 mg PO 1700 [facility] Last Admin: 06/13/17 17:44 Dose: 300 mg Quetiapine Fumarate (Seroquel Xr) 100 mg PO 1700 [facility] Last Admin: 06/13/17 17:44 Dose: 100 mg Tamsulosin HCl (Flomax) 0.4 mg PO DAILY [facility] Last Admin: 06/14/17 10:21 Dose: 0.4 mg Valproate Sodium (Depakene Oral Soln) 500 mg PO BID [facility] Last Admin: 06/14/17 10:18 Dose: 500 mg Ziprasidone (Geodon Inj) 20 mg IM TID PRN; Protocol PRN Reason: Agitation Physical Exam - Head Exam Head Exam: ATRAUMATIC, NORMOCEPHALIC - Eye Exam Additional comments: pupils sluggish - Respiratory Exam Respiratory Exam: Clear to Auscultation Bilateral. absent: Wheezes, Respiratory Distress, Stridor Additional comments: intubated for airway protection - Cardiovascular Exam Cardiovascular Exam: REGULAR RHYTHM - Neurological Exam Neurological exam: Alert Additional comments: patient is unresponsive off sedation, no purposeful movements, no pupillary reflexes, mild gag reflex - Expanded Neurological Exam Expanded Coma Scale Eye Opening: None Coma Scale Motor Response: None Coma Scale Verbal: None Coma Scale Total: 3 Results - Vital Signs Recent Vital Signs: Last Vital Signs Temp 102.6 F H 06/14/17 10:50 Pulse 96 H 06/14/17 11:00 Resp 21 06/14/17 08:00 BP 142/89 06/14/17 10:30 Pulse Ox 95 06/14/17 11:00 - Labs Result Diagrams: 06/14/17 07:00 06/14/17 15:26 Labs: Laboratory Results - last 24 hr 06/14/17 06/14/17 06/14/17 07:00 07:00 07:00 WBC 18.1 H D RBC 3.31 L Hgb 10.9 L Hct 32.8 L MCV 99.1 MCH 32.9 MCHC 33.2 RDW 13.9 Plt Count 486 H MPV 9.7 Gran % 79.7 H Lymph % (Auto) 6.6 L Cedar % (Auto) 13.5 H Eos % (Auto) 0.1 L Baso % (Auto) 0.1 Gran # 14.49 H Lymph # 1.2 Cedar # 2.4 H Eos # 0.0 Baso # 0.01 PT INR APTT pCO2 49 H pO2 129.0 H HCO3 35.7 H ABG pH 7.47 H ABG Total CO2 37.2 H ABG O2 Saturation 99.2 H ABG O2 Content 14.9 L ABG Base Excess 10.6 H ABG Hemoglobin 10.9 L ABG Carboxyhemoglobin 2.2 H POC ABG HHb (Measured) 0.8 ABG Methemoglobin 1.2 ABG O2 Capacity 15.0 L ABG Potassium Hgb O2 Saturation 95.7 Glucose Lactate FiO2 100.0 Sodium 135 Potassium 4.1 Chloride 93 L Carbon Dioxide 34 H Anion Gap 14 BUN 16 Creatinine 0.5 L Est GFR ( Amer) > 60 Est GFR (Non-Af Amer) > 60 POC Glucose (mg/dL) Random Glucose 104 Calcium 8.8 Total Bilirubin 0.8 AST 16 L ALT 22 Alkaline Phosphatase 66 Troponin I 0.03 D Total Protein 7.2 Albumin 3.2 Globulin 3.9 Albumin/Globulin Ratio 0.8 L Arterial Blood Potassium Influenza Typ A,B (EIA) RSV Antigen 06/14/17 06/14/17 06/14/17 07:01 09:00 09:30 WBC RBC Hgb Hct MCV MCH MCHC RDW Plt Count MPV Gran % Lymph % (Auto) Cedar % (Auto) Eos % (Auto) Baso % (Auto) Gran # Lymph # Cedar # Eos # Baso # PT INR APTT pCO2 pO2 HCO3 ABG pH ABG Total CO2 ABG O2 Saturation ABG O2 Content ABG Base Excess ABG Hemoglobin ABG Carboxyhemoglobin POC ABG HHb (Measured) ABG Methemoglobin ABG O2 Capacity ABG Potassium Hgb O2 Saturation Glucose Lactate FiO2 Sodium Potassium Chloride Carbon Dioxide Anion Gap BUN Creatinine Est GFR ( Amer) Est GFR (Non-Af Amer) POC Glucose (mg/dL) 110 Random Glucose Calcium Total Bilirubin AST ALT Alkaline Phosphatase Troponin I Total Protein Albumin Globulin Albumin/Globulin Ratio Arterial Blood Potassium Influenza Typ A,B (EIA) Negative for flu a/b RSV Antigen Negative 06/14/17 06/14/17 06/14/17 09:55 13:07 13:30 WBC RBC Hgb Hct MCV MCH MCHC RDW Plt Count MPV Gran % Lymph % (Auto) Cedar % (Auto) Eos % (Auto) Baso % (Auto) Gran # Lymph # Cedar # Eos # Baso # PT 16.1 H INR 1.45 H APTT 22.4 L pCO2 55 H pO2 68.0 L HCO3 32.5 H ABG pH 7.38 ABG Total CO2 34.2 H ABG O2 Saturation 95.8 ABG O2 Content ABG Base Excess 5.8 H ABG Hemoglobin ABG Carboxyhemoglobin POC ABG HHb (Measured) ABG Methemoglobin ABG O2 Capacity ABG Potassium 3.4 L Hgb O2 Saturation Glucose 110 Lactate 1.1 FiO2 80.0 Sodium 138.0 140 Potassium 3.7 Chloride 102.0 102 Carbon Dioxide 32 Anion Gap 9 L BUN 15 Creatinine 0.7 L Est GFR ( Amer) > 60 Est GFR (Non-Af Amer) > 60 POC Glucose (mg/dL) Random Glucose 85 Calcium 7.4 L Total Bilirubin AST ALT Alkaline Phosphatase Troponin I 0.02 D Total Protein Albumin Globulin Albumin/Globulin Ratio Arterial Blood Potassium 3.4 L Influenza Typ A,B (EIA) RSV Antigen Assessment & Plan - Assessment and Plan (Free Text) Assessment: 72 yo male with PMH of COPD, asthma, HTN, alcohol abuse, migraines headaches, a. fib was found to be unresponsive this am due to large subdural bleed. 1. large subdrual hematoma 2. intubated for airway protection - CT head showed subdural bleed over right cerebral convexity measured 16mm with midline shift of 10mm - neurosurgery consulted, do not recommend surgery, supportive care - keppra for seizure prophylaxis - repeat CT head in AM case reviewed and discussed with attending <Ramirez Kwong - Last Filed: 06/14/17 19:51> Meds - Medications Medications: Current Medications Acetaminophen (Tylenol 325mg Tab) 650 mg PO Q4H PRN PRN Reason: Pain, Mild (1-3) Last Admin: 06/13/17 15:25 Dose: 650 mg Albuterol/Ipratropium (Duoneb 3 Mg/0.5 Mg (3 Ml) Ud) 3 ml IH Q2H PRN PRN Reason: Shortness of Breath Albuterol/Ipratropium (Duoneb 3 Mg/0.5 Mg (3 Ml) Ud) 3 ml IH Q4H [facility] Last Admin: 06/14/17 16:14 Dose: 3 ml Arformoterol Tartrate (Brovana) 15 mcg IH [id number] [facility] Last Admin: 06/14/17 08:40 Dose: 15 mcg Aspirin (Ecotrin) 81 mg PO DAILY [facility] Last Admin: 06/14/17 10:22 Dose: 81 mg Budesonide (Pulmicort Respules) 1 mg IH [id number] [facility] Last Admin: 06/14/17 08:40 Dose: 0.5 mg Diltiazem HCl (Cardizem) 30 mg PO BID [facility] Last Admin: 06/14/17 18:14 Dose: Not Given Ergocalciferol (Drisdol 50,000 Intl Units Cap) 1 cap PO Q7D [facility] Last Admin: 06/09/17 11:40 Dose: 1 cap Finasteride (Proscar) 5 mg PO DAILY [facility] Last Admin: 06/14/17 10:21 Dose: 5 mg Sodium Chloride (Sodium Chloride 0.9%) 1,000 mls @ 100 mls/hr IV .Q10H [facility] Last Admin: 06/14/17 10:18 Dose: 100 mls/hr Vancomycin HCl (Vancomycin 1gm) 1 gm in 250 mls @ 167 mls/hr IVPB Q12H [facility] PRN Reason: Protocol Last Admin: 06/14/17 15:20 Dose: 167 mls/hr Piperacillin Sod/Tazobactam Sod (Zosyn 3.375 In Ns 100ml) 100 mls @ 200 mls/hr IVPB Q6 [facility] PRN Reason: Protocol Stop: 06/18/17 00:01 Last Admin: 06/14/17 18:15 Dose: 200 mls/hr Acetaminophen (Ofirmev) 1,000 mg in 100 mls @ 400 mls/hr IVPB Q6H PRN PRN Reason: Fever > 99 Stop: 06/16/17 12:09 Propofol (Diprivan) 1,000 mg in 100 mls @ 1.633 mls/hr IV .Q24H PRN; Protocol; 5 MCG/KG/MIN PRN Reason: TITRATE PER MD ORDER Last Titration: 06/14/17 12:15 Dose: 0 mcg/kg/min, 0 mls/hr Lorazepam (Ativan) 1 mg IVP BID PRN; Protocol PRN Reason: Anxiety Last Admin: 06/13/17 16:45 Dose: 1 mg Methylprednisolone (Solu-Medrol) 20 mg IVP Q12 [facility] Last Admin: 06/14/17 10:15 Dose: 20 mg Montelukast Sodium (Singulair) 10 mg PO HS [facility] Last Admin: 06/13/17 21:18 Dose: Not Given Pantoprazole Sodium (Protonix Inj) 40 mg IVP DAILY [facility] Quetiapine Fumarate (Seroquel Xr) 300 mg PO 1700 [facility] Last Admin: 06/14/17 16:15 Dose: Not Given Quetiapine Fumarate (Seroquel Xr) 100 mg PO 1700 [facility] Last Admin: 06/14/17 16:16 Dose: Not Given Tamsulosin HCl (Flomax) 0.4 mg PO DAILY [facility] Last Admin: 06/14/17 10:21 Dose: 0.4 mg Valproate Sodium (Depakene Oral Soln) 500 mg PO BID [facility] Last Admin: 06/14/17 18:15 Dose: Not Given Ziprasidone (Geodon Inj) 20 mg IM TID PRN; Protocol PRN Reason: Agitation Results - Vital Signs Recent Vital Signs: Last Vital Signs Temp 101.8 F H 06/14/17 19:10 Pulse 106 H 06/14/17 19:10 Resp 21 06/14/17 08:00 BP 121/76 06/14/17 19:00 Pulse Ox 98 06/14/17 19:10 - Labs Result Diagrams: 06/14/17 07:00 06/14/17 15:26 Labs: Laboratory Results - last 24 hr 06/14/17 06/14/17 06/14/17 07:00 07:00 07:00 WBC 18.1 H D RBC 3.31 L Hgb 10.9 L Hct 32.8 L MCV 99.1 MCH 32.9 MCHC 33.2 RDW 13.9 Plt Count 486 H MPV 9.7 Gran % 79.7 H Lymph % (Auto) 6.6 L Cedar % (Auto) 13.5 H Eos % (Auto) 0.1 L Baso % (Auto) 0.1 Gran # 14.49 H Lymph # 1.2 Cedar # 2.4 H Eos # 0.0 Baso # 0.01 PT INR APTT pCO2 49 H pO2 129.0 H HCO3 35.7 H ABG pH 7.47 H ABG Total CO2 37.2 H ABG O2 Saturation 99.2 H ABG O2 Content 14.9 L ABG Base Excess 10.6 H ABG Hemoglobin 10.9 L ABG Carboxyhemoglobin 2.2 H POC ABG HHb (Measured) 0.8 ABG Methemoglobin 1.2 ABG O2 Capacity 15.0 L ABG Potassium Hgb O2 Saturation 95.7 Glucose Lactate FiO2 100.0 Sodium 135 Potassium 4.1 Chloride 93 L Carbon Dioxide 34 H Anion Gap 14 BUN 16 Creatinine 0.5 L Est GFR ( Amer) > 60 Est GFR (Non-Af Amer) > 60 POC Glucose (mg/dL) Random Glucose 104 Serum Osmolality Calcium 8.8 Total Bilirubin 0.8 AST 16 L ALT 22 Alkaline Phosphatase 66 Troponin I 0.03 D Total Protein 7.2 Albumin 3.2 Globulin 3.9 Albumin/Globulin Ratio 0.8 L Arterial Blood Potassium Influenza Typ A,B (EIA) RSV Antigen 06/14/17 06/14/17 06/14/17 07:01 09:00 09:30 WBC RBC Hgb Hct MCV MCH MCHC RDW Plt Count MPV Gran % Lymph % (Auto) Cedar % (Auto) Eos % (Auto) Baso % (Auto) Gran # Lymph # Cedar # Eos # Baso # PT INR APTT pCO2 pO2 HCO3 ABG pH ABG Total CO2 ABG O2 Saturation ABG O2 Content ABG Base Excess ABG Hemoglobin ABG Carboxyhemoglobin POC ABG HHb (Measured) ABG Methemoglobin ABG O2 Capacity ABG Potassium Hgb O2 Saturation Glucose Lactate FiO2 Sodium Potassium Chloride Carbon Dioxide Anion Gap BUN Creatinine Est GFR ( Amer) Est GFR (Non-Af Amer) POC Glucose (mg/dL) 110 Random Glucose Serum Osmolality Calcium Total Bilirubin AST ALT Alkaline Phosphatase Troponin I Total Protein Albumin Globulin Albumin/Globulin Ratio Arterial Blood Potassium Influenza Typ A,B (EIA) Negative for flu a/b RSV Antigen Negative 06/14/17 06/14/17 06/14/17 09:55 13:07 13:30 WBC RBC Hgb Hct MCV MCH MCHC RDW Plt Count MPV Gran % Lymph % (Auto) Cedar % (Auto) Eos % (Auto) Baso % (Auto) Gran # Lymph # Cedar # Eos # Baso # PT 16.1 H INR 1.45 H APTT 22.4 L pCO2 55 H pO2 68.0 L HCO3 32.5 H ABG pH 7.38 ABG Total CO2 34.2 H ABG O2 Saturation 95.8 ABG O2 Content ABG Base Excess 5.8 H ABG Hemoglobin ABG Carboxyhemoglobin POC ABG HHb (Measured) ABG Methemoglobin ABG O2 Capacity ABG Potassium 3.4 L Hgb O2 Saturation Glucose 110 Lactate 1.1 FiO2 80.0 Sodium 138.0 140 Potassium 3.7 Chloride 102.0 102 Carbon Dioxide 32 Anion Gap 9 L BUN 15 Creatinine 0.7 L Est GFR ( Amer) > 60 Est GFR (Non-Af Amer) > 60 POC Glucose (mg/dL) Random Glucose 85 Serum Osmolality Calcium 7.4 L Total Bilirubin AST ALT Alkaline Phosphatase Troponin I 0.02 D Total Protein Albumin Globulin Albumin/Globulin Ratio Arterial Blood Potassium 3.4 L Influenza Typ A,B (EIA) RSV Antigen 06/14/17 06/14/17 06/14/17 13:30 15:26 17:43 WBC RBC Hgb Hct MCV MCH MCHC RDW Plt Count MPV Gran % Lymph % (Auto) Cedar % (Auto) Eos % (Auto) Baso % (Auto) Gran # Lymph # Cedar # Eos # Baso # PT INR APTT pCO2 pO2 HCO3 ABG pH ABG Total CO2 ABG O2 Saturation ABG O2 Content ABG Base Excess ABG Hemoglobin ABG Carboxyhemoglobin POC ABG HHb (Measured) ABG Methemoglobin ABG O2 Capacity ABG Potassium Hgb O2 Saturation Glucose Lactate FiO2 Sodium 138 Potassium 3.7 Chloride 99 Carbon Dioxide 34 H Anion Gap 9 L BUN 14 Creatinine 0.6 L Est GFR ( Amer) > 60 Est GFR (Non-Af Amer) > 60 POC Glucose (mg/dL) 85 Random Glucose 91 Serum Osmolality 293 Calcium 7.9 L Total Bilirubin AST ALT Alkaline Phosphatase Troponin I Total Protein Albumin Globulin Albumin/Globulin Ratio Arterial Blood Potassium Influenza Typ A,B (EIA) RSV Antigen Attending/Attestation - Attestation I have personally seen and examined this patient.: Yes I have fully participated in the care of the patient.: Yes I have reviewed all pertinent clinical information: Yes
[2017-06-14 15:45] LABS: BLOOD UREA NITROGEN 14 mg/dL (7-21); CALCIUM 7.9 mg/dL (8.4-10.5); CARBON DIOXIDE 34 mmol/L (21-33); CHLORIDE 99 mmol/L (98-107); GFR AFRICAN-AMERICAN > 60; GLUCOSE,RANDOM 91 mg/dL (70-110); POTASSIUM 3.7 mmol/L (3.6-5.0); SODIUM 138 mmol/L (132-148)
[2017-06-14] MEDS: QUEtiapine 300 mg XR Tab PO SCH (16:15)
[2017-06-14] MEDS: QUEtiapine 50 mg XR Tab PO SCH (16:16)
--- NOTE | 2017-06-14 20:20 | CARD ---
APPROVED REPORT EXAM: Two-dimensional and M-mode echocardiogram with Doppler and color Doppler. INDICATION COPD LVFX 2D DIMENSIONS IVSd1.0 (0.7-1.1cm)LVDd3.4 (3.9-5.9cm) PWd1.0 (0.7-1.1cm)LVDs2.2 (2.5-4.0cm) FS (%) 34.8 %LVEF (%)65.1 (>50%) M-Mode DIMENSIONS Aortic Root3.50 (2.2-3.7cm)Aortic Cusp Exc.1.70 (1.5-2.0cm) Aortic Valve AoV Peak Dxcvksic449.0cm/Ivelisse Peak GR.7mmHg Mitral Valve MV E Wrwunjre34.6cm/sMV A Qhhejnyc74.5cm/sE/A ratio0.8 TDI E/Lateral E'0.0E/Medial E'0.0 Pulmonary Valve PV Peak Lmzczuyq370.0cm/sPV Peak Grad.5mmHg Tricuspid Valve TR Peak [id number]/sRAP [id number] Peak Gr.26mmHg [id number] LEFT VENTRICLE The left ventricle is normal size. There is normal left ventricular wall thickness. The left ventricular function is normal. The left ventricular ejection fraction is within the normal range. There is normal LV segmental wall motion. Transmitral Doppler flow pattern is Grade I-abnormal relaxation pattern. RIGHT VENTRICLE The right ventricle is borderline dilated. There is normal right ventricular wall thickness. RV Systolic function is mildly reduced. ATRIA The left atrium size is normal. The right atrium size is normal. AORTIC VALVE The aortic valve is normal in structure. No aortic regurgitation is present. MITRAL VALVE The mitral valve is normal in structure. There is no mitral valve stenosis. TRICUSPID VALVE There is mild pulmonary hypertension. GREAT VESSELS The aortic root is normal in size. <Conclusion> The left ventricle is normal size. There is normal left ventricular wall thickness. The left ventricular function is normal. The left ventricular ejection fraction is within the normal range. There is normal LV segmental wall motion. Transmitral Doppler flow pattern is Grade I-abnormal relaxation pattern. There is mild pulmonary hypertension.
--- NOTE | 2017-06-14 20:41 | PCM.RRT ---
<Denise Haywardn - Last Filed: 06/14/17 20:36> [employer] Nurse Assessment - Situation Date: 06/14/17 Time [employer] was called: 06:52 [employer] Responder Arrival Time: 06:55 [employer] Location:: [address] [place] [address] Room Number: 360-1 [employer] Reason for Call: Change in Mental Status [employer] Called By: RN - IV IV Inserted during [employer]ER?: No - Respiratory Oxygen Delivery Method: BiPAP @% Received Nebulizer Treatments:: No Was the Patient Ventilated with Bag/Mask 100% O2?: No Secretions Suctioned?: No Was the Patient Intubated?: No Was the Patient Placed on a Ventilator?: No - Medication Medications Administered During [employer]: Nitro paste 2in - Diagnostic Test Ordered EKG: Yes Chest X-Ray: Yes CT Scan: Yes (Head) - Stat Labs Ordered [employer] Stat Labs Ordered: TROPONIN, ABG CPR started during [employer]ER?: No - Vital Signs Vital Sign: Rapid Response Vital Sign Blood Pressure 192/128 Pulse Rate 133 Respiratory Rate 32 Oxygen Saturation 85 - Finger Stick Blood Glucose Finger Stick Blood Glucose: 110 - Time [employer] Ended Time [employer] Ended: 07:19 - Vital Signs at end of [employer] Vital Signs at end of [employer]: Rapid Response End Vital Sign Blood Pressure 179/117 Pulse Rate 126 Respiratory Rate 34 O2 Sat by Pulse Oximetry 100 - Recommendations Notifications: Attending Physician - Respiratory Oxygen Delivery Method: BiPAP @% - Head Head Exam: ATRAUMATIC, NORMAL INSPECTION, NORMOCEPHALIC - Eyes Eye Exam: absent: Periorbital tenderness Additional Comments: Left side. No reactive to light and no accomodation. - Respiratory Exam Respiratory Exam: Clear to Ausculation Bilateral, NORMAL BREATHING PATTERN. absent: Chest Wall Tenderness, Prolonged Expiratory Phase, Respiratory Distress - Cardiovascular Exam Cardiovascular Exam: REGULAR RHYTHM, +S1, +S2 - GI/Abdominal Exam GI & Abdominal Exam: Soft, Normal Bowel Sounds. absent: Rigid, Hyperactive Bowel Sounds - Neurological Exam Neurological Exam: Altered, Motor Sensory Deficit - Extremities Exam Extremities Exam: absent: Joint Swelling, Pedal Edema, Tenderness Plan - Assessment of Findings&Treatment Plan 72 year old male with past medical history of COPD, PE (on anticoagulation), schizoaffective disorder who was seen by the nurse this morning unresponsive to verbal and painful stimuli. When examined it was found that his oxygen saturation was in the low 80's and a rapid response was called. The patient as a result was moved to the ICU where he was intubated. Plan: STAT Head CT Eliquis and ASA discontinued Started Prothrombin Neurology Consulted Neurosurgery consulted STAT cxr EKG Troponins were trended x 3 Lactate ordered. <Jessie Cotton - Last Filed: 06/16/17 17:04> [employer] Nurse Assessment - Vital Signs Vital Sign: Rapid Response Vital Sign Blood Pressure 192/128 Pulse Rate 133 Respiratory Rate 32 Oxygen Saturation 85 - Vital Signs at end of [employer] Vital Signs at end of [employer]: Rapid Response End Vital Sign Blood Pressure 179/117 Pulse Rate 126 Respiratory Rate 34 O2 Sat by Pulse Oximetry 100 Attending/Attestation - Attestation I have personally seen and examined this patient.: Yes I have fully participated in the care of the patient.: Yes I have reviewed all pertinent clinical information, including history, physical exam and plan: Yes
[2017-06-14 21:22] LABS: BLOOD UREA NITROGEN 16 mg/dL (7-21); CALCIUM 8.1 mg/dL (8.4-10.5); CARBON DIOXIDE 33 mmol/L (21-33); CHLORIDE 100 mmol/L (98-107); GFR AFRICAN-AMERICAN > 60; GLUCOSE,RANDOM 88 mg/dL (70-110); POTASSIUM 3.9 mmol/L (3.6-5.0); SODIUM 138 mmol/L (132-148)
--- NOTE | 2017-06-14 21:51 | OP ---
PROCEDURE DATE: 06/14/2017 PROCEDURE: Endotracheal intubation. INDICATION: Inability to protect airway, in hypoxemic respiratory failure. DESCRIPTION OF PROCEDURE: The patient was pre-oxygenated with 100% FiO2 via Ambu bag. A liter of normal saline wide open was given prior to intubation. Vital signs monitored throughout the procedure every one minute. Sedation provided with 50 mg of propofol IV. Large amount of gastric secretion was seen in hypopharynx, which was suctioned out. Direct laryngoscopy performed with MAC 4 curve blade. Trachea intubated with 7.5 Divehi endotracheal tube and secured 25 cm at the lips. Position confirmed with end-tidal CO2 color change after 8 respiratory cycles, bilateral lung auscultation and gastric auscultation. Chest x-ray confirmed correct position of the endotracheal tube. The patient tolerated the procedure well. Héctor Wallace MD MTDD
--- NOTE | 2017-06-14 22:49 | CP.PCM.PN ---
Subjective - Date & Time of Evaluation Date of Evaluation: 06/14/17 Time of Evaluation: 21:30 - Subjective Subjective: Infectious Disease Follow Up: June 14, 2017 72 yo male initially admitted for right sided chest pain, cough, and vomiting. The patient also had abdominal pain. Patient was found to have bilateral pulmonary emboli on admission. Patient has been requiring BiPAP to breath. The patient has schizoaffective disorder and history of Atrial fibrillation. He was on Unasyn for antibiotic treatment as well as steroids. Today changed to Zosyn and Vancomycin IV. The patient's CT Chest showing consolidative changes to bases of both lungs. ID called for antibiotic management. This morning the patient had a rapid response and was found unresponsive, tachycardic, and tachypnic. The patient required intubation and ventilation and was transferred to the MICU for further care. Leukocytosis at 18.1 today. Objective - Vital Signs/Intake and Output Vital Signs (last 24 hours): Temp Pulse Resp BP Pulse Ox 101.8 F H 106 H 21 121/76 98 06/14/17 19:10 06/14/17 19:10 06/14/17 08:00 06/14/17 19:00 06/14/17 19:10 Intake and Output: 06/14/17 06/15/17 18:59 06:59 Intake Total 2624 Output Total 1340 Balance 1284 - Medications Medications: Current Medications Acetaminophen (Tylenol 325mg Tab) 650 mg PO Q4H PRN PRN Reason: Pain, Mild (1-3) Last Admin: 06/13/17 15:25 Dose: 650 mg Albuterol/Ipratropium (Duoneb 3 Mg/0.5 Mg (3 Ml) Ud) 3 ml IH Q2H PRN PRN Reason: Shortness of Breath Albuterol/Ipratropium (Duoneb 3 Mg/0.5 Mg (3 Ml) Ud) 3 ml IH Q4H [facility] Last Admin: 06/14/17 19:45 Dose: 3 ml Arformoterol Tartrate (Brovana) 15 mcg IH [id number] [facility] Last Admin: 06/14/17 19:45 Dose: 15 mcg Aspirin (Ecotrin) 81 mg PO DAILY [facility] Last Admin: 06/14/17 10:22 Dose: 81 mg Budesonide (Pulmicort Respules) 1 mg IH [id number] [facility] Last Admin: 06/14/17 19:45 Dose: 0.5 mg Diltiazem HCl (Cardizem) 30 mg PO BID [facility] Last Admin: 06/14/17 18:14 Dose: Not Given Ergocalciferol (Drisdol 50,000 Intl Units Cap) 1 cap PO Q7D [facility] Last Admin: 06/09/17 11:40 Dose: 1 cap Finasteride (Proscar) 5 mg PO DAILY [facility] Last Admin: 06/14/17 10:21 Dose: 5 mg Sodium Chloride (Sodium Chloride 0.9%) 1,000 mls @ 100 mls/hr IV .Q10H [facility] Last Admin: 06/14/17 10:18 Dose: 100 mls/hr Vancomycin HCl (Vancomycin 1gm) 1 gm in 250 mls @ 167 mls/hr IVPB Q12H [facility] PRN Reason: Protocol Last Admin: 06/14/17 15:20 Dose: 167 mls/hr Piperacillin Sod/Tazobactam Sod (Zosyn 3.375 In Ns 100ml) 100 mls @ 200 mls/hr IVPB Q6 [facility] PRN Reason: Protocol Stop: 06/18/17 00:01 Last Admin: 06/14/17 18:15 Dose: 200 mls/hr Acetaminophen (Ofirmev) 1,000 mg in 100 mls @ 400 mls/hr IVPB Q6H PRN PRN Reason: Fever > 99 Stop: 06/16/17 12:09 Propofol (Diprivan) 1,000 mg in 100 mls @ 1.633 mls/hr IV .Q24H PRN; Protocol; 5 MCG/KG/MIN PRN Reason: TITRATE PER MD ORDER Last Titration: 06/14/17 12:15 Dose: 0 mcg/kg/min, 0 mls/hr Lorazepam (Ativan) 1 mg IVP BID PRN; Protocol PRN Reason: Anxiety Last Admin: 06/13/17 16:45 Dose: 1 mg Methylprednisolone (Solu-Medrol) 20 mg IVP Q12 [facility] Last Admin: 06/14/17 21:53 Dose: 20 mg Montelukast Sodium (Singulair) 10 mg PO HS [facility] Last Admin: 06/14/17 21:48 Dose: Not Given Pantoprazole Sodium (Protonix Inj) 40 mg IVP DAILY [facility] Quetiapine Fumarate (Seroquel Xr) 300 mg PO 1700 [facility] Last Admin: 06/14/17 16:15 Dose: Not Given Quetiapine Fumarate (Seroquel Xr) 100 mg PO 1700 [facility] Last Admin: 06/14/17 16:16 Dose: Not Given Tamsulosin HCl (Flomax) 0.4 mg PO DAILY [facility] Last Admin: 06/14/17 10:21 Dose: 0.4 mg Valproate Sodium (Depakene Oral Soln) 500 mg PO BID [facility] Last Admin: 06/14/17 18:15 Dose: Not Given Ziprasidone (Geodon Inj) 20 mg IM TID PRN; Protocol PRN Reason: Agitation - Labs Labs: 06/14/17 07:00 06/14/17 21:01 PT 16.1 SECONDS (9.4-12.5) H 06/14/17 13:07 INR 1.45 (0.93-1.08) H 06/14/17 13:07 APTT 22.4 Seconds (25.1-36.5) L 06/14/17 13:07 - Constitutional Appears: Toxic, In Acute Distress, Chronically Ill - Head Exam Additional comments: intubated and ventilated. - Eye Exam Eye Exam: EOMI, PERRL Pupil Exam: NORMAL ACCOMODATION, PERRL - ENT Exam ENT Exam: Mucous Membranes Moist, Normal External Ear Exam, TM's Normal Bilaterally - Respiratory Exam Respiratory Exam: Decreased Breath Sounds, Rales, Rhonchi - Cardiovascular Exam Cardiovascular Exam: Tachycardia, +S1, +S2 - GI/Abdominal Exam GI & Abdominal Exam: Soft, Normal Bowel Sounds. absent: Distended, Tenderness - Extremities Exam Extremities Exam: Full ROM, Normal Inspection - Neurological Exam Additional comments: intubated, ventilated, sedated. Assessment and Plan - Assessment and Plan (Free Text) Assessment: 72 yo male with COPD exacerbation with possible aspiration or HCAP complicating matters. Currently on Zosyn and IV Vancomycin for care. CT Chest showing new bibasilar infiltrates. On BiPAP for some time in hospital. Patient also has schizoaffective disorder. The patient still has production of thick mucoid sputum with frequent cough. Inability to move at time due to the severity of the coughing fits. Poor air entry and movement. For now continue with Zosyn and IV Vancomycin. Sputum cultures should be taken. Today the patient was found unresponsive, tachycardic, and tachypnic. Intubated and brought to the MICU for further care. Fevers up to 102.6 F. During intubation, a large amount of gastric material was found in the hypopharynx. Given persistent fevers would switch Zosyn to Meropenem for treatment. Spoke with Dr. Cotton. Thank you for allowing me to participate in the care of the patient, we will follow with you.
--- NOTE | 2017-06-14 23:45 | CARD ---
APPROVED REPORT EKG Measurement Heart [id number] <Conclusion> Sinus tachycardia , PVCs Nonspecific ST abnormality vs artifacts Abnormal ECG
[2017-06-15] MEDS: Meropenem 500 MG in Sodium Chloride 0.9% 50 ML IVPB SCH ×3 (00:44→13:28)
[2017-06-15 01:35] LABS: BLOOD UREA NITROGEN 15 mg/dL (7-21); CALCIUM 8.2 mg/dL (8.4-10.5); CARBON DIOXIDE 33 mmol/L (21-33); CHLORIDE 99 mmol/L (98-107); GFR AFRICAN-AMERICAN > 60; GLUCOSE,RANDOM 87 mg/dL (70-110); POTASSIUM 3.8 mmol/L (3.6-5.0); SODIUM 139 mmol/L (132-148)
[2017-06-15] MEDS: Vancomycin 1gm in NS 250ml 1 GM/250 ML BAG IVPB SCH ×2 (03:19→14:53)
[2017-06-15 04:26] LABS: BASO # 0.01 K/mm3 (0.0-2.0); BASO % 0.1 % (0.0-3.0); GRAN # 17.91 (1.4-6.5); GRAN % 92.7 % (50.0-68.0); LYMPH # 0.6 (1.2-3.4); LYMPH % 3.3 % (22.0-35.0); MEAN CELL VOLUME 101.4 fl (80.0-105.0); MEAN CORPUSCULAR HEMOGLOBIN 31.5 pg (25.0-35.0); MEAN CORPUSCULAR HGB CONC 31.1 g/dl (31.0-37.0); MEAN PLATELET VOLUME 8.8 fl (7.0-11.0); MONO # 0.8 (0.1-0.6); MONO % 3.9 % (1.0-6.0); RED CELL DISTRIBUTION WIDTH 14.2 % (11.5-14.5)
[2017-06-15 04:36] LABS: ALB/GLOB RATIO 0.8 (1.1-1.8); ALKALINE PHOSPHATASE 44 U/L (38-126); ALT/SGPT 27 U/L (7-56); AST/SGOT 26 U/L (17-59); BILIRUBIN,TOTAL 0.3 mg/dL (0.2-1.3); BLOOD UREA NITROGEN 14 mg/dL (7-21); CALCIUM 8.4 mg/dL (8.4-10.5); CARBON DIOXIDE 33 mmol/L (21-33); CHLORIDE 99 mmol/L (98-107); GFR AFRICAN-AMERICAN > 60; GLUCOSE,RANDOM 86 mg/dL (70-110); POTASSIUM 3.8 mmol/L (3.6-5.0); SODIUM 138 mmol/L (132-148); TOTAL PROTEIN 5.7 g/dL (5.8-8.3)
[2017-06-15 05:43] LABS: WHITE BLOOD COUNT 19.3 10^3/ul (4.5-11.0)
[2017-06-15] MEDS: Arformoterol 15 mcg/2 ml Inh Sol IH SCH ×2 (07:28→21:15)
[2017-06-15] MEDS: Albuterol-Ipratrop 3 mg / 0.5 (3 ml) UD IH SCH ×5 (07:28→23:38)
[2017-06-15] MEDS: Budesonide 0.5 mg/2 ml Inhal Susp UD IH SCH ×2 (07:29→21:16)
[2017-06-15] MEDS: Sodium Chloride 0.9% 1,000 ML IV SCH (09:05)
[2017-06-15] MEDS: Valproic Acid 250 mg/5 ml UD Cup PO SCH ×2 (09:11→17:15)
[2017-06-15] MEDS: MethylPREDNISolone 40 mg Vial IVP SCH ×2 (09:11→21:43)
--- NOTE | 2017-06-15 09:56 | CP.CCUPN ---
<Titus Tucker - Last Filed: 06/15/17 13:47> CCU Subjective - Physician Review Subjective (Free Text): Critical care progress note Patient seen and examined at bedside this morning. No acute overnight events reported by nursing staff. Patient intubated and unreponsive on examination despite no sedation. Repeat Head CT pending per neurology this morning. No neurosurgical intervention per Dr. Leiva. ROS limited due to patient status. CCU Objective - Vital Signs / Intake & Output Vital Signs (Last 4 hours): Vital Signs Temp Pulse Resp BP Pulse Ox 06/15/17 09:10 100 H 119/66 06/15/17 08:20 100.0 F H 106 H 96 06/15/17 08:10 100.0 F H 105 H 97 06/15/17 08:00 99.9 F H 106 H 111/63 97 06/15/17 07:50 99.9 F H 97 H 97 06/15/17 07:40 99.9 F H 105 H 99 06/15/17 07:39 25 H 99 06/15/17 07:30 99.7 F H 105 H 122/72 99 06/15/17 07:20 99.7 F H 103 H 99 06/15/17 07:10 99.5 F 108 H 100 06/15/17 07:00 99.5 F 101 H 122/60 100 06/15/17 06:50 99.5 F 100 H 99 06/15/17 06:40 99.3 F 103 H 100 06/15/17 06:30 99.3 F 106 H 126/83 100 06/15/17 06:20 99.1 F 104 H 100 06/15/17 06:10 99.1 F 99 H 100 06/15/17 06:08 99.0 F 104 H 128/76 98 06/15/17 06:00 99.0 F 102 H 100 Intake and Output (Last 8hrs): Intake & Output 06/14/17 06/15/17 06/15/17 22:59 06:59 14:59 Intake Total 2612 1300 Output Total 240 700 Balance 2372 600 Weight 112 lb 9.6 oz Intake: IV 2612 1300 Diprivan 12 Left Wrist 0 NS 2000 950 Right Internal Jugular 0 Right Wrist 0 antibiotic 600 350 Oral 0 Tube Feeding 0 TPN/PPN 0 Blood Product 0 Lipid 0 Albumin 0 Other 0 Output: Urine 240 700 Urethral ([place]) 240 700 Stool 0 Urine/Stool Mix 0 Emesis 0 Oral Regurgitation 0 Other 0 Other: # Voids Urethral ([place]) 0 # Bowel Movements 0 - Physical Exam Head: Positive for: Atraumatic Pupils: Positive for: Other (~3mm, non-reactive) Extroacular Muscles: Negative for: EOMI Mouth: Positive for: Other (poor dentition, moist mucous membranes) Respiratory/Chest: Positive for: Wheezes (bilateral wheezing). Negative for: Rales Cardiovascular: Positive for: Normal S1, S2. Negative for: Murmurs, Rub, Gallop Abdomen: Negative for: Tenderness, Distention, Rebound, Guarding Upper Extremity: Positive for: Normal Inspection. Negative for: Cyanosis, Edema Lower Extremity: Positive for: Normal Inspection. Negative for: Edema Neurological: Positive for: Other (GCS 3T). Negative for: GCS=15, CN II-XII Intact, Motor Func Grossly Intact Skin: Positive for: Warm, Dry. Negative for: Diaphoretic Psychiatric: Negative for: Alert, Oriented x 3 - Medications Active Medications: Active Medications Generic Name Dose Route Start Last Admin Trade Name Freq PRN Reason Stop Dose Admin Albuterol/Ipratropium 3 ml 06/11/17 09:58 Duoneb 3 Mg/0.5 Mg (3 Ml) Ud IH Q2H PRN Shortness of Breath Albuterol/Ipratropium 3 ml 06/12/17 11:00 06/15/17 07:28 Duoneb 3 Mg/0.5 Mg (3 Ml) Ud IH 3 ml Q4H SAMEER Administration Arformoterol Tartrate 15 mcg 06/07/17 20:00 06/15/17 07:28 Brovana IH 15 mcg [id number] SAMEER Administration Aspirin 81 mg 06/02/17 10:00 06/14/17 10:22 Ecotrin PO 81 mg DAILY SAMEER Administration Budesonide 1 mg 06/07/17 20:00 06/15/17 07:29 Pulmicort Respules IH 0.5 mg [id number] SAMEER Administration Diltiazem HCl 30 mg 06/01/17 18:00 06/15/17 09:10 Cardizem PO 30 mg BID SAMEER Administration Ergocalciferol 1 cap 06/02/17 10:00 06/09/17 11:40 Drisdol 50,000 Intl Units Cap PO 1 cap Q7D SAMEER Administration Finasteride 5 mg 06/02/17 10:00 06/15/17 09:10 Proscar PO 5 mg DAILY SAMEER Administration Sodium Chloride 1,000 mls @ 100 mls/hr 06/09/17 16:30 06/15/17 09:05 Sodium Chloride 0.9% IV 100 mls/hr .Q10H SAMEER Administration Vancomycin HCl 1 gm in 250 mls @ 167 mls/hr 06/12/17 15:15 06/15/17 03:19 Vancomycin 1gm IVPB 167 mls/hr Q12H SAMEER Administration Protocol Acetaminophen 1,000 mg in 100 mls @ 400 mls/hr 06/14/17 12:08 Ofirmev IVPB 06/16/17 12:09 Q6H PRN Fever > 99 Propofol 1,000 mg in 100 mls @ 1.633 mls/hr 06/14/17 08:00 06/14/17 12:15 Diprivan IV 0 mcg/kg/min .Q24H PRN 0 mls/hr TITRATE PER MD ORDER Titration Protocol 5 MCG/KG/MIN Meropenem 500 mg/ Sodium 50 mls @ 100 mls/hr 06/14/17 23:00 06/15/17 06:16 Chloride IVPB 100 mls/hr Q8 SAMEER Administration Protocol Methylprednisolone 20 mg 06/13/17 10:00 06/15/17 09:11 Solu-Medrol IVP 20 mg Q12 SAMEER Administration Montelukast Sodium 10 mg 06/01/17 22:00 06/14/17 21:48 Singulair PO Not Given HS SAMEER Pantoprazole Sodium 40 mg 06/15/17 10:00 06/15/17 09:11 Protonix Inj IVP 40 mg DAILY SAMEER Administration Quetiapine Fumarate 300 mg 06/12/17 17:00 06/14/17 16:15 Seroquel Xr PO Not Given 1700 SAMEER Quetiapine Fumarate 100 mg 06/12/17 18:02 06/14/17 16:16 Seroquel Xr PO Not Given 1700 SAMERE Tamsulosin HCl 0.4 mg 06/04/17 10:00 06/15/17 09:10 Flomax PO 0.4 mg DAILY SAMEER Administration Valproate Sodium 500 mg 06/06/17 10:00 06/15/17 09:11 Depakene Oral Soln PO 500 mg BID SAMEER Administration Ziprasidone 20 mg 06/05/17 13:52 Geodon Inj IM TID PRN Agitation Protocol - Patient Studies Lab Studies: Microbiology Studies 06/14/17 08:20 Blood Culture - Preliminary Blood-Venous NO GROWTH AFTER 24 HOURS 06/14/17 09:00 Blood Culture - Preliminary Blood-Venous NO GROWTH AFTER 24 HOURS 06/14/17 11:00 Gram Stain - Final Sputum Induced Lab Studies 06/15/17 06/15/17 06/15/17 Range/Units 07:51 04:16 04:05 WBC (4.5-11.0) 10^3/ul RBC (3.5-6.1) 10^6/uL Hgb (14.0-18.0) g/dL Hct (42.0-52.0) % MCV (80.0-105.0) fl MCH (25.0-35.0) pg MCHC (31.0-37.0) g/dl RDW (11.5-14.5) % Plt Count (120.0-450.0) 10^3/uL MPV (7.0-11.0) fl Gran % (50.0-68.0) % Lymph % (Auto) (22.0-35.0) % [place] % (Auto) (1.0-6.0) % Eos % (Auto) (1.5-5.0) % Baso % (Auto) (0.0-3.0) % Gran # (1.4-6.5) Lymph # (1.2-3.4) [place] # (0.1-0.6) Eos # (0.0-0.7) Baso # (0.0-2.0) K/mm3 PT (9.4-12.5) SECONDS INR (0.93-1.08) APTT (25.1-36.5) Seconds pCO2 (35-45) mm/Hg pO2 (80-100) mm/Hg HCO3 (21-28) mmol/L ABG pH (7.35-7.45) ABG Total CO2 (22-28) mmol.L ABG O2 Saturation (95-98) % ABG Base Excess (-2.0-3.0) mmol/L ABG Potassium (3.6-5.2) mmol/L Sodium 138 (132-148) mmol/L Chloride 99 (98-107) mmol/L Glucose (75-110) mg/dl Lactate (0.7-2.1) mmol/L FiO2 % Potassium 3.8 (3.6-5.0) mmol/L Carbon Dioxide 33 (21-33) mmol/L Anion Gap 9 L (10-20) BUN 14 (7-21) mg/dL Creatinine 0.5 L (0.8-1.5) mg/dl Est GFR ( Amer) > 60 Est GFR (Non-Af Amer) > 60 POC Glucose (mg/dL) 72 77 (65-110) mg/dL Random Glucose 86 (70-110) mg/dL Serum Osmolality (272-300) mosm/kg Calcium 8.4 (8.4-10.5) mg/dL Total Bilirubin 0.3 (0.2-1.3) mg/dL AST 26 (17-59) U/L ALT 27 (7-56) U/L Alkaline Phosphatase 44 (38-126) U/L Troponin I ng/mL Total Protein 5.7 L (5.8-8.3) g/dL Albumin 2.5 L (3.0-4.8) g/dL Globulin 3.2 gm/dL Albumin/Globulin Ratio 0.8 L (1.1-1.8) Arterial Blood Potassium (3.6-5.2) mmol/L RSV Antigen (NEGATIVE) 06/15/17 06/15/17 06/15/17 Range/Units 04:05 01:06 00:35 WBC 19.3 H (4.5-11.0) 10^3/ul RBC 2.76 L (3.5-6.1) 10^6/uL Hgb 8.7 L D (14.0-18.0) g/dL Hct 28.0 L (42.0-52.0) % MCV 101.4 (80.0-105.0) fl MCH 31.5 (25.0-35.0) pg MCHC 31.1 (31.0-37.0) g/dl RDW 14.2 (11.5-14.5) % Plt Count 309 (120.0-450.0) 10^3/uL MPV 8.8 (7.0-11.0) fl Gran % 92.7 H (50.0-68.0) % Lymph % (Auto) 3.3 L (22.0-35.0) % [place] % (Auto) 3.9 (1.0-6.0) % Eos % (Auto) 0.0 L (1.5-5.0) % Baso % (Auto) 0.1 (0.0-3.0) % Gran # 17.91 H (1.4-6.5) Lymph # 0.6 L (1.2-3.4) [place] # 0.8 H (0.1-0.6) Eos # 0.0 (0.0-0.7) Baso # 0.01 (0.0-2.0) K/mm3 PT (9.4-12.5) SECONDS INR (0.93-1.08) APTT (25.1-36.5) Seconds pCO2 (35-45) mm/Hg pO2 (80-100) mm/Hg HCO3 (21-28) mmol/L ABG pH (7.35-7.45) ABG Total CO2 (22-28) mmol.L ABG O2 Saturation (95-98) % ABG Base Excess (-2.0-3.0) mmol/L ABG Potassium (3.6-5.2) mmol/L Sodium 139 (132-148) mmol/L Chloride 99 (98-107) mmol/L Glucose (75-110) mg/dl Lactate (0.7-2.1) mmol/L FiO2 % Potassium 3.8 (3.6-5.0) mmol/L Carbon Dioxide 33 (21-33) mmol/L Anion Gap 11 (10-20) BUN 15 (7-21) mg/dL Creatinine 0.6 L (0.8-1.5) mg/dl Est GFR ( Amer) > 60 Est GFR (Non-Af Amer) > 60 POC Glucose (mg/dL) 71 (65-110) mg/dL Random Glucose 87 (70-110) mg/dL Serum Osmolality (272-300) mosm/kg Calcium 8.2 L (8.4-10.5) mg/dL Total Bilirubin (0.2-1.3) mg/dL AST (17-59) U/L ALT (7-56) U/L Alkaline Phosphatase (38-126) U/L Troponin I ng/mL Total Protein (5.8-8.3) g/dL Albumin (3.0-4.8) g/dL Globulin gm/dL Albumin/Globulin Ratio (1.1-1.8) Arterial Blood Potassium (3.6-5.2) mmol/L RSV Antigen (NEGATIVE) 06/14/17 06/14/17 06/14/17 Range/Units 21:10 21:01 17:43 WBC (4.5-11.0) 10^3/ul RBC (3.5-6.1) 10^6/uL Hgb (14.0-18.0) g/dL Hct (42.0-52.0) % MCV (80.0-105.0) fl MCH (25.0-35.0) pg MCHC (31.0-37.0) g/dl RDW (11.5-14.5) % Plt Count (120.0-450.0) 10^3/uL MPV (7.0-11.0) fl Gran % (50.0-68.0) % Lymph % (Auto) (22.0-35.0) % [place] % (Auto) (1.0-6.0) % Eos % (Auto) (1.5-5.0) % Baso % (Auto) (0.0-3.0) % Gran # (1.4-6.5) Lymph # (1.2-3.4) [place] # (0.1-0.6) Eos # (0.0-0.7) Baso # (0.0-2.0) K/mm3 PT (9.4-12.5) SECONDS INR (0.93-1.08) APTT (25.1-36.5) Seconds pCO2 (35-45) mm/Hg pO2 (80-100) mm/Hg HCO3 (21-28) mmol/L ABG pH (7.35-7.45) ABG Total CO2 (22-28) mmol.L ABG O2 Saturation (95-98) % ABG Base Excess (-2.0-3.0) mmol/L ABG Potassium (3.6-5.2) mmol/L Sodium 138 (132-148) mmol/L Chloride 100 (98-107) mmol/L Glucose (75-110) mg/dl Lactate (0.7-2.1) mmol/L FiO2 % Potassium 3.9 (3.6-5.0) mmol/L Carbon Dioxide 33 (21-33) mmol/L Anion Gap 9 L (10-20) BUN 16 (7-21) mg/dL Creatinine 0.7 L (0.8-1.5) mg/dl Est GFR ( Amer) > 60 Est GFR (Non-Af Amer) > 60 POC Glucose (mg/dL) 79 85 (65-110) mg/dL Random Glucose 88 (70-110) mg/dL Serum Osmolality (272-300) mosm/kg Calcium 8.1 L (8.4-10.5) mg/dL Total Bilirubin (0.2-1.3) mg/dL AST (17-59) U/L ALT (7-56) U/L Alkaline Phosphatase (38-126) U/L Troponin I ng/mL Total Protein (5.8-8.3) g/dL Albumin (3.0-4.8) g/dL Globulin gm/dL Albumin/Globulin Ratio (1.1-1.8) Arterial Blood Potassium (3.6-5.2) mmol/L RSV Antigen (NEGATIVE) 06/14/17 06/14/17 06/14/17 Range/Units 15:26 13:30 13:30 WBC (4.5-11.0) 10^3/ul RBC (3.5-6.1) 10^6/uL Hgb (14.0-18.0) g/dL Hct (42.0-52.0) % MCV (80.0-105.0) fl MCH (25.0-35.0) pg MCHC (31.0-37.0) g/dl RDW (11.5-14.5) % Plt Count (120.0-450.0) 10^3/uL MPV (7.0-11.0) fl Gran % (50.0-68.0) % Lymph % (Auto) (22.0-35.0) % [place] % (Auto) (1.0-6.0) % Eos % (Auto) (1.5-5.0) % Baso % (Auto) (0.0-3.0) % Gran # (1.4-6.5) Lymph # (1.2-3.4) [place] # (0.1-0.6) Eos # (0.0-0.7) Baso # (0.0-2.0) K/mm3 PT (9.4-12.5) SECONDS INR (0.93-1.08) APTT (25.1-36.5) Seconds pCO2 (35-45) mm/Hg pO2 (80-100) mm/Hg HCO3 (21-28) mmol/L ABG pH (7.35-7.45) ABG Total CO2 (22-28) mmol.L ABG O2 Saturation (95-98) % ABG Base Excess (-2.0-3.0) mmol/L ABG Potassium (3.6-5.2) mmol/L Sodium 138 140 (132-148) mmol/L Chloride 99 102 (98-107) mmol/L Glucose (75-110) mg/dl Lactate (0.7-2.1) mmol/L FiO2 % Potassium 3.7 3.7 (3.6-5.0) mmol/L Carbon Dioxide 34 H 32 (21-33) mmol/L Anion Gap 9 L 9 L (10-20) BUN 14 15 (7-21) mg/dL Creatinine 0.6 L 0.7 L (0.8-1.5) mg/dl Est GFR ( Amer) > 60 > 60 Est GFR (Non-Af Amer) > 60 > 60 POC Glucose (mg/dL) (65-110) mg/dL Random Glucose 91 85 (70-110) mg/dL Serum Osmolality 293 (272-300) mosm/kg Calcium 7.9 L 7.4 L (8.4-10.5) mg/dL Total Bilirubin (0.2-1.3) mg/dL AST (17-59) U/L ALT (7-56) U/L Alkaline Phosphatase (38-126) U/L Troponin I 0.02 D ng/mL Total Protein (5.8-8.3) g/dL Albumin (3.0-4.8) g/dL Globulin gm/dL Albumin/Globulin Ratio (1.1-1.8) Arterial Blood Potassium (3.6-5.2) mmol/L RSV Antigen (NEGATIVE) 06/14/17 06/14/17 06/14/17 Range/Units 13:07 09:55 09:30 WBC (4.5-11.0) 10^3/ul RBC (3.5-6.1) 10^6/uL Hgb (14.0-18.0) g/dL Hct (42.0-52.0) % MCV (80.0-105.0) fl MCH (25.0-35.0) pg MCHC (31.0-37.0) g/dl RDW (11.5-14.5) % Plt Count (120.0-450.0) 10^3/uL MPV (7.0-11.0) fl Gran % (50.0-68.0) % Lymph % (Auto) (22.0-35.0) % [place] % (Auto) (1.0-6.0) % Eos % (Auto) (1.5-5.0) % Baso % (Auto) (0.0-3.0) % Gran # (1.4-6.5) Lymph # (1.2-3.4) [place] # (0.1-0.6) Eos # (0.0-0.7) Baso # (0.0-2.0) K/mm3 PT 16.1 H (9.4-12.5) SECONDS INR 1.45 H (0.93-1.08) APTT 22.4 L (25.1-36.5) Seconds pCO2 55 H (35-45) mm/Hg pO2 68.0 L (80-100) mm/Hg HCO3 32.5 H (21-28) mmol/L ABG pH 7.38 (7.35-7.45) ABG Total CO2 34.2 H (22-28) mmol.L ABG O2 Saturation 95.8 (95-98) % ABG Base Excess 5.8 H (-2.0-3.0) mmol/L ABG Potassium 3.4 L (3.6-5.2) mmol/L Sodium 138.0 (132-148) mmol/L Chloride 102.0 (98-107) mmol/L Glucose 110 (75-110) mg/dl Lactate 1.1 (0.7-2.1) mmol/L FiO2 80.0 % Potassium (3.6-5.0) mmol/L Carbon Dioxide (21-33) mmol/L Anion Gap (10-20) BUN (7-21) mg/dL Creatinine (0.8-1.5) mg/dl Est GFR ( Amer) Est GFR (Non-Af Amer) POC Glucose (mg/dL) (65-110) mg/dL Random Glucose (70-110) mg/dL Serum Osmolality (272-300) mosm/kg Calcium (8.4-10.5) mg/dL Total Bilirubin (0.2-1.3) mg/dL AST (17-59) U/L ALT (7-56) U/L Alkaline Phosphatase (38-126) U/L Troponin I ng/mL Total Protein (5.8-8.3) g/dL Albumin (3.0-4.8) g/dL Globulin gm/dL Albumin/Globulin Ratio (1.1-1.8) Arterial Blood Potassium 3.4 L (3.6-5.2) mmol/L RSV Antigen Negative (NEGATIVE) Laboratory Results - last 24 hr 06/14/17 06/14/17 06/14/17 09:30 09:55 13:07 WBC RBC Hgb Hct MCV MCH MCHC RDW Plt Count MPV Gran % Lymph % (Auto) [place] % (Auto) Eos % (Auto) Baso % (Auto) Gran # Lymph # [place] # Eos # Baso # PT 16.1 H INR 1.45 H APTT 22.4 L pCO2 55 H pO2 68.0 L HCO3 32.5 H ABG pH 7.38 ABG Total CO2 34.2 H ABG O2 Saturation 95.8 ABG Base Excess 5.8 H ABG Potassium 3.4 L Sodium 138.0 Chloride 102.0 Glucose 110 Lactate 1.1 FiO2 80.0 Potassium Carbon Dioxide Anion Gap BUN Creatinine Est GFR ( Amer) Est GFR (Non-Af Amer) POC Glucose (mg/dL) Random Glucose Serum Osmolality Calcium Total Bilirubin AST ALT Alkaline Phosphatase Troponin I Total Protein Albumin Globulin Albumin/Globulin Ratio Arterial Blood Potassium 3.4 L RSV Antigen Negative 06/14/17 06/14/17 06/14/17 13:30 13:30 15:26 WBC RBC Hgb Hct MCV MCH MCHC RDW Plt Count MPV Gran % Lymph % (Auto) [place] % (Auto) Eos % (Auto) Baso % (Auto) Gran # Lymph # [place] # Eos # Baso # PT INR APTT pCO2 pO2 HCO3 ABG pH ABG Total CO2 ABG O2 Saturation ABG Base Excess ABG Potassium Sodium 140 138 Chloride 102 99 Glucose Lactate FiO2 Potassium 3.7 3.7 Carbon Dioxide 32 34 H Anion Gap 9 L 9 L BUN 15 14 Creatinine 0.7 L 0.6 L Est GFR ( Amer) > 60 > 60 Est GFR (Non-Af Amer) > 60 > 60 POC Glucose (mg/dL) Random Glucose 85 91 Serum Osmolality 293 Calcium 7.4 L 7.9 L Total Bilirubin AST ALT Alkaline Phosphatase Troponin I 0.02 D Total Protein Albumin Globulin Albumin/Globulin Ratio Arterial Blood Potassium RSV Antigen 06/14/17 06/14/17 06/14/17 17:43 21:01 21:10 WBC RBC Hgb Hct MCV MCH MCHC RDW Plt Count MPV Gran % Lymph % (Auto) [place] % (Auto) Eos % (Auto) Baso % (Auto) Gran # Lymph # [place] # Eos # Baso # PT INR APTT pCO2 pO2 HCO3 ABG pH ABG Total CO2 ABG O2 Saturation ABG Base Excess ABG Potassium Sodium 138 Chloride 100 Glucose Lactate FiO2 Potassium 3.9 Carbon Dioxide 33 Anion Gap 9 L BUN 16 Creatinine 0.7 L Est GFR ( Amer) > 60 Est GFR (Non-Af Amer) > 60 POC Glucose (mg/dL) 85 79 Random Glucose 88 Serum Osmolality Calcium 8.1 L Total Bilirubin AST ALT Alkaline Phosphatase Troponin I Total Protein Albumin Globulin Albumin/Globulin Ratio Arterial Blood Potassium RSV Antigen 06/15/17 06/15/17 06/15/17 00:35 01:06 04:05 WBC 19.3 H RBC 2.76 L Hgb 8.7 L D Hct 28.0 L MCV 101.4 MCH 31.5 MCHC 31.1 RDW 14.2 Plt Count 309 MPV 8.8 Gran % 92.7 H Lymph % (Auto) 3.3 L [place] % (Auto) 3.9 Eos % (Auto) 0.0 L Baso % (Auto) 0.1 Gran # 17.91 H Lymph # 0.6 L [place] # 0.8 H Eos # 0.0 Baso # 0.01 PT INR APTT pCO2 pO2 HCO3 ABG pH ABG Total CO2 ABG O2 Saturation ABG Base Excess ABG Potassium Sodium 139 Chloride 99 Glucose Lactate FiO2 Potassium 3.8 Carbon Dioxide 33 Anion Gap 11 BUN 15 Creatinine 0.6 L Est GFR ( Amer) > 60 Est GFR (Non-Af Amer) > 60 POC Glucose (mg/dL) 71 Random Glucose 87 Serum Osmolality Calcium 8.2 L Total Bilirubin AST ALT Alkaline Phosphatase Troponin I Total Protein Albumin Globulin Albumin/Globulin Ratio Arterial Blood Potassium RSV Antigen 06/15/17 06/15/17 06/15/17 04:05 04:16 07:51 WBC RBC Hgb Hct MCV MCH MCHC RDW Plt Count MPV Gran % Lymph % (Auto) [place] % (Auto) Eos % (Auto) Baso % (Auto) Gran # Lymph # [place] # Eos # Baso # PT INR APTT pCO2 pO2 HCO3 ABG pH ABG Total CO2 ABG O2 Saturation ABG Base Excess ABG Potassium Sodium 138 Chloride 99 Glucose Lactate FiO2 Potassium 3.8 Carbon Dioxide 33 Anion Gap 9 L BUN 14 Creatinine 0.5 L Est GFR ( Amer) > 60 Est GFR (Non-Af Amer) > 60 POC Glucose (mg/dL) 77 72 Random Glucose 86 Serum Osmolality Calcium 8.4 Total Bilirubin 0.3 AST 26 ALT 27 Alkaline Phosphatase 44 Troponin I Total Protein 5.7 L Albumin 2.5 L Globulin 3.2 Albumin/Globulin Ratio 0.8 L Arterial Blood Potassium RSV Antigen Fingerstick Blood Sugar Results: 77 Assessment/Plan - Assessment and Plan (Free Text) Plan: 72yo male with history of COPD, hypertension, atrial fibrillation, alcohol abuse and migraines admitted to the ICU for altered mental status found secondary to acute subdural hematoma with 10mm midline shift. Neuro: -CT Head reviewed; revealed a right subdural hematoma measuring 16mm with midline shift of 10mm; see full report -Repeat Head CT reviewed; subdural hematoma stable in appearance; please refer to full report -Patient received 100cc of 3% sodium chloride over 15mins -Unresponsive on examination; GCS of 3T; pupils fixed -Neurosurgery consulted - Dr. Leiva - no neurosurgical intervention recommended due to dismal prognosis -Neurology consulted - Dr. Kwong -Palliative care consulted -Maintain normothermia; IV ofirmev as indicated Cardio: -Monitor and maintain MAP > 65; presently hemodynamically stable with no pressor support -Echocardiogram reviewed; revealed LVEF of 65%, normal LV wall thickness -EKG reviewed; revealed sinus tachycardia with PVC's and nonspecific ST abnormalities -Troponin negative x3 Pulm: -Presently intubated on PRVC 350/15/10/60% -Protective lung ventilation strategy with low tidal volume ventilation at 6mL per predicted body weight -HOB > 35' -VAP bundle -RSV and influenza negative -Sputum culture negative -Continue with meropenem and vancomycin GI: -GI prophylaxis with protonix Endo: -NPO -Monitor and maintain euglycemia with blood glucose between 140-180 Nephro: -Monitor and correct electrolyte abnormalities as indicated -Avoid nephrotoxic medications -[place] catheter in place with ~700cc of urine output over the last 12hrs ID: -febrile with leukocytosis -Continue with antibiotics meropenem and vancomycin -Procalcitonin pending -Cultures pending <Héctor Wallace - Last Filed: 06/15/17 16:40> CCU Objective - Vital Signs / Intake & Output Vital Signs (Last 4 hours): Vital Signs Temp Pulse BP Pulse Ox 06/15/17 16:00 100.4 F H 06/15/17 15:00 100 H 113/61 97 06/15/17 14:30 99 H 111/62 95 06/15/17 14:00 101 H 120/68 99 06/15/17 13:30 104 H 127/68 97 06/15/17 13:00 95 H 114/65 93 L Intake and Output (Last 8hrs): Intake & Output 06/15/17 06/15/17 06/15/17 06:59 14:59 22:59 Intake Total 1300 Output Total 700 Balance 600 Weight 112 lb 9.6 oz 112 lb 9.6 oz Intake: IV 1300 Left Wrist 0 NS 950 Right Internal Jugular 0 Right Wrist 0 antibiotic 350 Oral 0 Tube Feeding 0 TPN/PPN 0 Blood Product 0 Lipid 0 Albumin 0 Other 0 Output: Urine 700 Urethral ([place]) 700 Stool 0 Urine/Stool Mix 0 Emesis 0 Oral Regurgitation 0 Other 0 Other: # Voids Urethral ([place]) 0 # Bowel Movements 0 - Medications Active Medications: Active Medications Generic Name Dose Route Start Last Admin Trade Name Freq PRN Reason Stop Dose Admin Albuterol/Ipratropium 3 ml 06/11/17 09:58 Duoneb 3 Mg/0.5 Mg (3 Ml) Ud IH Q2H PRN Shortness of Breath Albuterol/Ipratropium 3 ml 06/12/17 11:00 06/15/17 15:27 Duoneb 3 Mg/0.5 Mg (3 Ml) Ud IH 3 ml Q4H SAMEER Administration Arformoterol Tartrate 15 mcg 06/07/17 20:00 06/15/17 07:28 Brovana IH 15 mcg [id number] SAMEER Administration Aspirin 81 mg 06/02/17 10:00 06/14/17 10:22 Ecotrin PO 81 mg DAILY SAMEER Administration Budesonide 1 mg 06/07/17 20:00 06/15/17 07:29 Pulmicort Respules IH 0.5 mg [id number] SAMEER Administration Diltiazem HCl 30 mg 06/01/17 18:00 06/15/17 09:10 Cardizem PO 30 mg BID SAMEER Administration Ergocalciferol 1 cap 06/02/17 10:00 06/09/17 11:40 Drisdol 50,000 Intl Units Cap PO 1 cap Q7D SAMEER Administration Finasteride 5 mg 06/02/17 10:00 06/15/17 09:10 Proscar PO 5 mg DAILY SAMEER Administration Sodium Chloride 1,000 mls @ 100 mls/hr 06/09/17 16:30 06/15/17 09:05 Sodium Chloride 0.9% IV 100 mls/hr .Q10H SAMEER Administration Vancomycin HCl 1 gm in 250 mls @ 167 mls/hr 06/12/17 15:15 06/15/17 14:53 Vancomycin 1gm IVPB 167 mls/hr Q12H SAMEER Administration Protocol Acetaminophen 1,000 mg in 100 mls @ 400 mls/hr 06/14/17 12:08 Ofirmev IVPB 06/16/17 12:09 Q6H PRN Fever > 99 Propofol 1,000 mg in 100 mls @ 1.633 mls/hr 06/14/17 08:00 06/14/17 12:15 Diprivan IV 0 mcg/kg/min .Q24H PRN 0 mls/hr TITRATE PER MD ORDER Titration Protocol 5 MCG/KG/MIN Meropenem 500 mg/ Sodium 50 mls @ 100 mls/hr 06/14/17 23:00 06/15/17 13:28 Chloride IVPB 100 mls/hr Q8 SAMEER Administration Protocol Methylprednisolone 20 mg 06/13/17 10:00 06/15/17 09:11 Solu-Medrol IVP 20 mg Q12 SAMEER Administration Montelukast Sodium 10 mg 06/01/17 22:00 06/14/17 21:48 Singulair PO Not Given HS SAMEER Pantoprazole Sodium 40 mg 06/15/17 10:00 06/15/17 09:11 Protonix Inj IVP 40 mg DAILY SAMEER Administration Quetiapine Fumarate 300 mg 06/12/17 17:00 06/14/17 16:15 Seroquel Xr PO Not Given 1700 SAMEER Quetiapine Fumarate 100 mg 06/12/17 18:02 06/14/17 16:16 Seroquel Xr PO Not Given 1700 SAMEER Tamsulosin HCl 0.4 mg 06/04/17 10:00 06/15/17 09:10 Flomax PO 0.4 mg DAILY SAMEER Administration Valproate Sodium 500 mg 06/06/17 10:00 06/15/17 09:11 Depakene Oral Soln PO 500 mg BID SAMEER Administration Ziprasidone 20 mg 06/05/17 13:52 Geodon Inj IM TID PRN Agitation Protocol - Patient Studies Lab Studies: Microbiology Studies 06/14/17 08:20 Blood Culture - Preliminary Blood-Venous NO GROWTH AFTER 24 HOURS 06/14/17 09:00 Blood Culture - Preliminary Blood-Venous NO GROWTH AFTER 24 HOURS 06/14/17 11:00 Gram Stain - Final Sputum Induced Lab Studies 06/15/17 06/15/17 06/15/17 Range/Units 11:30 07:51 04:16 WBC (4.5-11.0) 10^3/ul RBC (3.5-6.1) 10^6/uL Hgb (14.0-18.0) g/dL Hct (42.0-52.0) % MCV (80.0-105.0) fl MCH (25.0-35.0) pg MCHC (31.0-37.0) g/dl RDW (11.5-14.5) % Plt Count (120.0-450.0) 10^3/uL MPV (7.0-11.0) fl Gran % (50.0-68.0) % Lymph % (Auto) (22.0-35.0) % [place] % (Auto) (1.0-6.0) % Eos % (Auto) (1.5-5.0) % Baso % (Auto) (0.0-3.0) % Gran # (1.4-6.5) Lymph # (1.2-3.4) [place] # (0.1-0.6) Eos # (0.0-0.7) Baso # (0.0-2.0) K/mm3 Sodium (132-148) mmol/L Potassium (3.6-5.0) mmol/L Chloride (98-107) mmol/L Carbon Dioxide (21-33) mmol/L Anion Gap (10-20) BUN (7-21) mg/dL Creatinine (0.8-1.5) mg/dl Est GFR ( Amer) Est GFR (Non-Af Amer) POC Glucose (mg/dL) 81 72 77 (65-110) mg/dL Random Glucose (70-110) mg/dL Serum Osmolality (272-300) mosm/kg Calcium (8.4-10.5) mg/dL Total Bilirubin (0.2-1.3) mg/dL AST (17-59) U/L ALT (7-56) U/L Alkaline Phosphatase (38-126) U/L Total Protein (5.8-8.3) g/dL Albumin (3.0-4.8) g/dL Globulin gm/dL Albumin/Globulin Ratio (1.1-1.8) 06/15/17 06/15/17 06/15/17 Range/Units 04:05 04:05 01:06 WBC 19.3 H (4.5-11.0) 10^3/ul RBC 2.76 L (3.5-6.1) 10^6/uL Hgb 8.7 L D (14.0-18.0) g/dL Hct 28.0 L (42.0-52.0) % MCV 101.4 (80.0-105.0) fl MCH 31.5 (25.0-35.0) pg MCHC 31.1 (31.0-37.0) g/dl RDW 14.2 (11.5-14.5) % Plt Count 309 (120.0-450.0) 10^3/uL MPV 8.8 (7.0-11.0) fl Gran % 92.7 H (50.0-68.0) % Lymph % (Auto) 3.3 L (22.0-35.0) % [place] % (Auto) 3.9 (1.0-6.0) % Eos % (Auto) 0.0 L (1.5-5.0) % Baso % (Auto) 0.1 (0.0-3.0) % Gran # 17.91 H (1.4-6.5) Lymph # 0.6 L (1.2-3.4) [place] # 0.8 H (0.1-0.6) Eos # 0.0 (0.0-0.7) Baso # 0.01 (0.0-2.0) K/mm3 Sodium 138 (132-148) mmol/L Potassium 3.8 (3.6-5.0) mmol/L Chloride 99 (98-107) mmol/L Carbon Dioxide 33 (21-33) mmol/L Anion Gap 9 L (10-20) BUN 14 (7-21) mg/dL Creatinine 0.5 L (0.8-1.5) mg/dl Est GFR ( Amer) > 60 Est GFR (Non-Af Amer) > 60 POC Glucose (mg/dL) 71 (65-110) mg/dL Random Glucose 86 (70-110) mg/dL Serum Osmolality (272-300) mosm/kg Calcium 8.4 (8.4-10.5) mg/dL Total Bilirubin 0.3 (0.2-1.3) mg/dL AST 26 (17-59) U/L ALT 27 (7-56) U/L Alkaline Phosphatase 44 (38-126) U/L Total Protein 5.7 L (5.8-8.3) g/dL Albumin 2.5 L (3.0-4.8) g/dL Globulin 3.2 gm/dL Albumin/Globulin Ratio 0.8 L (1.1-1.8) 06/15/17 06/14/17 06/14/17 Range/Units 00:35 21:10 21:01 WBC (4.5-11.0) 10^3/ul RBC (3.5-6.1) 10^6/uL Hgb (14.0-18.0) g/dL Hct (42.0-52.0) % MCV (80.0-105.0) fl MCH (25.0-35.0) pg MCHC (31.0-37.0) g/dl RDW (11.5-14.5) % Plt Count (120.0-450.0) 10^3/uL MPV (7.0-11.0) fl Gran % (50.0-68.0) % Lymph % (Auto) (22.0-35.0) % [place] % (Auto) (1.0-6.0) % Eos % (Auto) (1.5-5.0) % Baso % (Auto) (0.0-3.0) % Gran # (1.4-6.5) Lymph # (1.2-3.4) [place] # (0.1-0.6) Eos # (0.0-0.7) Baso # (0.0-2.0) K/mm3 Sodium 139 138 (132-148) mmol/L Potassium 3.8 3.9 (3.6-5.0) mmol/L Chloride 99 100 (98-107) mmol/L Carbon Dioxide 33 33 (21-33) mmol/L Anion Gap 11 9 L (10-20) BUN 15 16 (7-21) mg/dL Creatinine 0.6 L 0.7 L (0.8-1.5) mg/dl Est GFR ( Amer) > 60 > 60 Est GFR (Non-Af Amer) > 60 > 60 POC Glucose (mg/dL) 79 (65-110) mg/dL Random Glucose 87 88 (70-110) mg/dL Serum Osmolality (272-300) mosm/kg Calcium 8.2 L 8.1 L (8.4-10.5) mg/dL Total Bilirubin (0.2-1.3) mg/dL AST (17-59) U/L ALT (7-56) U/L Alkaline Phosphatase (38-126) U/L Total Protein (5.8-8.3) g/dL Albumin (3.0-4.8) g/dL Globulin gm/dL Albumin/Globulin Ratio (1.1-1.8) 06/14/17 06/14/17 Range/Units 17:43 13:30 WBC (4.5-11.0) 10^3/ul RBC (3.5-6.1) 10^6/uL Hgb (14.0-18.0) g/dL Hct (42.0-52.0) % MCV (80.0-105.0) fl MCH (25.0-35.0) pg MCHC (31.0-37.0) g/dl RDW (11.5-14.5) % Plt Count (120.0-450.0) 10^3/uL MPV (7.0-11.0) fl Gran % (50.0-68.0) % Lymph % (Auto) (22.0-35.0) % [place] % (Auto) (1.0-6.0) % Eos % (Auto) (1.5-5.0) % Baso % (Auto) (0.0-3.0) % Gran # (1.4-6.5) Lymph # (1.2-3.4) [place] # (0.1-0.6) Eos # (0.0-0.7) Baso # (0.0-2.0) K/mm3 Sodium (132-148) mmol/L Potassium (3.6-5.0) mmol/L Chloride (98-107) mmol/L Carbon Dioxide (21-33) mmol/L Anion Gap (10-20) BUN (7-21) mg/dL Creatinine (0.8-1.5) mg/dl Est GFR ( Amer) Est GFR (Non-Af Amer) POC Glucose (mg/dL) 85 (65-110) mg/dL Random Glucose (70-110) mg/dL Serum Osmolality 293 (272-300) mosm/kg Calcium (8.4-10.5) mg/dL Total Bilirubin (0.2-1.3) mg/dL AST (17-59) U/L ALT (7-56) U/L Alkaline Phosphatase (38-126) U/L Total Protein (5.8-8.3) g/dL Albumin (3.0-4.8) g/dL Globulin gm/dL Albumin/Globulin Ratio (1.1-1.8) Laboratory Results - last 24 hr 06/14/17 06/14/17 06/14/17 13:30 17:43 21:01 WBC RBC Hgb Hct MCV MCH MCHC RDW Plt Count MPV Gran % Lymph % (Auto) [place] % (Auto) Eos % (Auto) Baso % (Auto) Gran # Lymph # [place] # Eos # Baso # Sodium 138 Potassium 3.9 Chloride 100 Carbon Dioxide 33 Anion Gap 9 L BUN 16 Creatinine 0.7 L Est GFR ( Amer) > 60 Est GFR (Non-Af Amer) > 60 POC Glucose (mg/dL) 85 Random Glucose 88 Serum Osmolality 293 Calcium 8.1 L Total Bilirubin AST ALT Alkaline Phosphatase Total Protein Albumin Globulin Albumin/Globulin Ratio 06/14/17 06/15/17 06/15/17 21:10 00:35 01:06 WBC RBC Hgb Hct MCV MCH MCHC RDW Plt Count MPV Gran % Lymph % (Auto) [place] % (Auto) Eos % (Auto) Baso % (Auto) Gran # Lymph # [place] # Eos # Baso # Sodium 139 Potassium 3.8 Chloride 99 Carbon Dioxide 33 Anion Gap 11 BUN 15 Creatinine 0.6 L Est GFR ( Amer) > 60 Est GFR (Non-Af Amer) > 60 POC Glucose (mg/dL) 79 71 Random Glucose 87 Serum Osmolality Calcium 8.2 L Total Bilirubin AST ALT Alkaline Phosphatase Total Protein Albumin Globulin Albumin/Globulin Ratio 06/15/17 06/15/17 06/15/17 04:05 04:05 04:16 WBC 19.3 H RBC 2.76 L Hgb 8.7 L D Hct 28.0 L MCV 101.4 MCH 31.5 MCHC 31.1 RDW 14.2 Plt Count 309 MPV 8.8 Gran % 92.7 H Lymph % (Auto) 3.3 L [place] % (Auto) 3.9 Eos % (Auto) 0.0 L Baso % (Auto) 0.1 Gran # 17.91 H Lymph # 0.6 L [place] # 0.8 H Eos # 0.0 Baso # 0.01 Sodium 138 Potassium 3.8 Chloride 99 Carbon Dioxide 33 Anion Gap 9 L BUN 14 Creatinine 0.5 L Est GFR ( Amer) > 60 Est GFR (Non-Af Amer) > 60 POC Glucose (mg/dL) 77 Random Glucose 86 Serum Osmolality Calcium 8.4 Total Bilirubin 0.3 AST 26 ALT 27 Alkaline Phosphatase 44 Total Protein 5.7 L Albumin 2.5 L Globulin 3.2 Albumin/Globulin Ratio 0.8 L 06/15/17 06/15/17 07:51 11:30 WBC RBC Hgb Hct MCV MCH MCHC RDW Plt Count MPV Gran % Lymph % (Auto) [place] % (Auto) Eos % (Auto) Baso % (Auto) Gran # Lymph # [place] # Eos # Baso # Sodium Potassium Chloride Carbon Dioxide Anion Gap BUN Creatinine Est GFR ( Amer) Est GFR (Non-Af Amer) POC Glucose (mg/dL) 72 81 Random Glucose Serum Osmolality Calcium Total Bilirubin AST ALT Alkaline Phosphatase Total Protein Albumin Globulin Albumin/Globulin Ratio Attending/Attestation - Attestation I have personally seen and examined this patient.: Yes I have fully participated in the care of the patient.: Yes I have reviewed all pertinent clinical information: Yes Notes (Text): 06/15/17 16:[address] Wallace's note
--- NOTE | 2017-06-15 10:15 | PN ---
DATE: 06/15/2017 SUBJECTIVE: The patient is seen and examined at the bedside. He appears to be comfortable, but not responsive to painful stimuli. He is on PRVC 350/15/10/60%. PHYSICAL EXAMINATION: VITAL SIGNS: Blood pressure 122/72, heart rate 100, oxygen saturation 98%, end-tidal CO2 on the monitor 35, and temperature 99.9. ENT: Head and neck atraumatic. LUNGS: Clear to auscultation bilaterally. HEART: Regular rate and rhythm. S1 and S2, normal. ABDOMEN: Soft, nontender and nondistended. MUSCULOSKELETAL: No C/C/E. NEUROLOGIC: The patient is not responsive to painful stimuli. overbreathing vent. off sedation, but no other signs of brainstem activity SKIN: Color is moist. PSYCH: The patient is noncommunicative. LABORATORY DATA: Sodium 138, potassium 3.8, chloride 99, carbon dioxide 33, BUN 14, creatinine 0.5, glucose 77 (tube feeds started), AST 26, and ALT 27. WBC 19.3 up from 18.1, hemoglobin 8.7, and platelet count 309. ABG is pending. RSV antigen as well as Influenza antibody is negative. MEDICATIONS: Tylenol p.r.n., DuoNeb every 4 hours, Brovana, aspirin, budesonide, Cardizem, vitamin D, Proscar, Ativan p.r.n., meropenem, Solu-Medrol 20 mg IV q.12 hours, Protonix, quetiapine, normal saline 100 mL/hour, valproic acid, vancomycin, and Geodon p.r.n. ASSESSMENT AND PLAN: This is a 72-year-old gentleman who presented to the ICU with inability to protect his airways due to large subdural hematoma in the setting of iatrogenic coagulopathy (the patient was on Eliquis) with substantial midline shift and intracranial hypertension . The patient was intubated for airway protection. Osmolar therapy instituted. Neurosurgery called. Propofol was started immediately. Maintaining an euvolemia, euglycemia and normothermia were addressed aggressively. aPCC was given to stop bleeding. Neurosurgery evaluation appreciated, unfortunately it was decided that neurosurgical procedure will be futile by Neurosurgery Service. Neurology consult appreciated as well. We will repeat CAT scan of the head today. We will also speak with family about advance directives. We will keep the head in neutral position at 35-degree angle. We will avoid sedatives. We will avoid opioids and benzodiazepines. Addendum: repeated CT head did not show progression of the bleeding. Discussed situation with the family with Dr. Kwong (neuro) on the phone. All questions were answered. Requested DNR/DNI now and switching to comfort care with terminal extubation in am. ccm time 40 min We will continue with DVT/GI prophylaxis. We will start tube feeds. I will continue to monitor blood glucose. Héctor Wallace MD MTDChema
--- NOTE | 2017-06-15 10:59 | CP.PCM.PN ---
<Nell Bhakta - Last Filed: 06/15/17 12:20> Subjective - Date & Time of Evaluation Date of Evaluation: 06/15/17 Time of Evaluation: 10:57 - Subjective Subjective: PGY-2 Neurology progress note for Dr. Kwong's service Patient seen and examined at bedside in icu. Patient is intubated not on sedation. No response to verbal stimuli. Objective - Vital Signs/Intake and Output Vital Signs (last 24 hours): Temp Pulse Resp BP Pulse Ox 100.0 F H 100 H 25 H 119/66 96 06/15/17 08:20 06/15/17 09:10 06/15/17 07:39 06/15/17 09:10 06/15/17 08:20 Intake and Output: 06/15/17 06/15/17 06:59 18:59 Intake Total 1300 Output Total 700 Balance 600 - Medications Medications: Current Medications Albuterol/Ipratropium (Duoneb 3 Mg/0.5 Mg (3 Ml) Ud) 3 ml IH Q2H PRN PRN Reason: Shortness of Breath Albuterol/Ipratropium (Duoneb 3 Mg/0.5 Mg (3 Ml) Ud) 3 ml IH Q4H [facility] Last Admin: 06/15/17 07:28 Dose: 3 ml Arformoterol Tartrate (Brovana) 15 mcg IH [id number] [facility] Last Admin: 06/15/17 07:28 Dose: 15 mcg Aspirin (Ecotrin) 81 mg PO DAILY [facility] Last Admin: 06/14/17 10:22 Dose: 81 mg Budesonide (Pulmicort Respules) 1 mg IH [id number] [facility] Last Admin: 06/15/17 07:29 Dose: 0.5 mg Diltiazem HCl (Cardizem) 30 mg PO BID [facility] Last Admin: 06/15/17 09:10 Dose: 30 mg Ergocalciferol (Drisdol 50,000 Intl Units Cap) 1 cap PO Q7D [facility] Last Admin: 06/09/17 11:40 Dose: 1 cap Finasteride (Proscar) 5 mg PO DAILY [facility] Last Admin: 06/15/17 09:10 Dose: 5 mg Sodium Chloride (Sodium Chloride 0.9%) 1,000 mls @ 100 mls/hr IV .Q10H [facility] Last Admin: 06/15/17 09:05 Dose: 100 mls/hr Vancomycin HCl (Vancomycin 1gm) 1 gm in 250 mls @ 167 mls/hr IVPB Q12H [facility] PRN Reason: Protocol Last Admin: 06/15/17 03:19 Dose: 167 mls/hr Acetaminophen (Ofirmev) 1,000 mg in 100 mls @ 400 mls/hr IVPB Q6H PRN PRN Reason: Fever > 99 Stop: 06/16/17 12:09 Propofol (Diprivan) 1,000 mg in 100 mls @ 1.633 mls/hr IV .Q24H PRN; Protocol; 5 MCG/KG/MIN PRN Reason: TITRATE PER MD ORDER Last Titration: 06/14/17 12:15 Dose: 0 mcg/kg/min, 0 mls/hr Meropenem 500 mg/ Sodium (Chloride) 50 mls @ 100 mls/hr IVPB Q8 [facility] PRN Reason: Protocol Last Admin: 06/15/17 06:16 Dose: 100 mls/hr Methylprednisolone (Solu-Medrol) 20 mg IVP Q12 [facility] Last Admin: 06/15/17 09:11 Dose: 20 mg Montelukast Sodium (Singulair) 10 mg PO HS [facility] Last Admin: 06/14/17 21:48 Dose: Not Given Pantoprazole Sodium (Protonix Inj) 40 mg IVP DAILY [facility] Last Admin: 06/15/17 09:11 Dose: 40 mg Quetiapine Fumarate (Seroquel Xr) 300 mg PO 1700 [facility] Last Admin: 06/14/17 16:15 Dose: Not Given Quetiapine Fumarate (Seroquel Xr) 100 mg PO 1700 [facility] Last Admin: 06/14/17 16:16 Dose: Not Given Tamsulosin HCl (Flomax) 0.4 mg PO DAILY [facility] Last Admin: 06/15/17 09:10 Dose: 0.4 mg Valproate Sodium (Depakene Oral Soln) 500 mg PO BID [facility] Last Admin: 06/15/17 09:11 Dose: 500 mg Ziprasidone (Geodon Inj) 20 mg IM TID PRN; Protocol PRN Reason: Agitation - Labs Labs: 06/15/17 04:05 06/15/17 04:05 PT 16.1 SECONDS (9.4-12.5) H 06/14/17 13:07 INR 1.45 (0.93-1.08) H 06/14/17 13:07 APTT 22.4 Seconds (25.1-36.5) L 06/14/17 13:07 - Head Exam Head Exam: ATRAUMATIC, NORMAL INSPECTION, NORMOCEPHALIC - Eye Exam Pupil Exam: Miosis - ENT Exam Additional comments: intubated for airway protection - Respiratory Exam Respiratory Exam: Clear to Ausculation Bilateral, NORMAL BREATHING PATTERN. absent: Rhonchi, Wheezes, Respiratory Distress - Cardiovascular Exam Cardiovascular Exam: REGULAR RHYTHM - Neurological Exam Additional comments: Pupils are sluggish, no response to verbal of painful stimuli. Assessment and Plan - Assessment and Plan (Free Text) Assessment: 72 yo male with PMH of COPD, asthma, HTN, alcohol abuse, migraines headaches, a. fib was found to be unresponsive this am due to large subdural bleed. 1. large subdrual hematoma 2. intubated for airway protection - CT head showed subdural bleed over right cerebral convexity measured 16mm with midline shift of 10mm - neurosurgery consulted, do not recommend surgery, supportive care - keppra for seizure prophylaxis - will repeat CT head this morning case reviewed and discussed with attending <Ramirez Kwong - Last Filed: 06/15/17 18:00> Objective - Vital Signs/Intake and Output Vital Signs (last 24 hours): Temp Pulse Resp BP Pulse Ox 100.4 F H 106 H 21 116/71 97 06/15/17 16:00 06/15/17 17:15 06/15/17 11:30 06/15/17 17:15 06/15/17 15:00 Intake and Output: 06/15/17 06/15/17 06:59 18:59 Intake Total 1300 Output Total 700 Balance 600 - Medications Medications: Current Medications Albuterol/Ipratropium (Duoneb 3 Mg/0.5 Mg (3 Ml) Ud) 3 ml IH Q2H PRN PRN Reason: Shortness of Breath Albuterol/Ipratropium (Duoneb 3 Mg/0.5 Mg (3 Ml) Ud) 3 ml IH Q4H [facility] Last Admin: 06/15/17 15:27 Dose: 3 ml Arformoterol Tartrate (Brovana) 15 mcg IH [id number] [facility] Last Admin: 12/14/17 07:28 Dose: 15 mcg Aspirin (Ecotrin) 81 mg PO DAILY [facility] Last Admin: 06/14/17 10:22 Dose: 81 mg Budesonide (Pulmicort Respules) 1 mg IH [id number] [facility] Last Admin: 06/15/17 07:29 Dose: 0.5 mg Diltiazem HCl (Cardizem) 30 mg PO BID [facility] Last Admin: 06/15/17 17:15 Dose: 30 mg Ergocalciferol (Drisdol 50,000 Intl Units Cap) 1 cap PO Q7D [facility] Last Admin: 06/09/17 11:40 Dose: 1 cap Finasteride (Proscar) 5 mg PO DAILY [facility] Last Admin: 06/15/17 09:10 Dose: 5 mg Sodium Chloride (Sodium Chloride 0.9%) 1,000 mls @ 100 mls/hr IV .Q10H [facility] Last Admin: 06/15/17 09:05 Dose: 100 mls/hr Vancomycin HCl (Vancomycin 1gm) 1 gm in 250 mls @ 167 mls/hr IVPB Q12H [facility] PRN Reason: Protocol Last Admin: 06/15/17 14:53 Dose: 167 mls/hr Acetaminophen (Ofirmev) 1,000 mg in 100 mls @ 400 mls/hr IVPB Q6H PRN PRN Reason: Fever > 99 Stop: 06/16/17 12:09 Propofol (Diprivan) 1,000 mg in 100 mls @ 1.633 mls/hr IV .Q24H PRN; Protocol; 5 MCG/KG/MIN PRN Reason: TITRATE PER MD ORDER Last Titration: 06/14/17 12:15 Dose: 0 mcg/kg/min, 0 mls/hr Meropenem 500 mg/ Sodium (Chloride) 50 mls @ 100 mls/hr IVPB Q8 [facility] PRN Reason: Protocol Last Admin: 06/15/17 13:28 Dose: 100 mls/hr Methylprednisolone (Solu-Medrol) 20 mg IVP Q12 [facility] Last Admin: 06/15/17 09:11 Dose: 20 mg Montelukast Sodium (Singulair) 10 mg PO HS [facility] Last Admin: 06/14/17 21:48 Dose: Not Given Pantoprazole Sodium (Protonix Inj) 40 mg IVP DAILY [facility] Last Admin: 06/15/17 09:11 Dose: 40 mg Quetiapine Fumarate (Seroquel Xr) 300 mg PO 1700 [facility] Last Admin: 06/15/17 17:13 Dose: 300 mg Quetiapine Fumarate (Seroquel Xr) 100 mg PO 1700 [facility] Last Admin: 06/15/17 17:13 Dose: 100 mg Tamsulosin HCl (Flomax) 0.4 mg PO DAILY [facility] Last Admin: 06/15/17 09:10 Dose: 0.4 mg Valproate Sodium (Depakene Oral Soln) 500 mg PO BID [facility] Last Admin: 06/15/17 17:15 Dose: 500 mg Ziprasidone (Geodon Inj) 20 mg IM TID PRN; Protocol PRN Reason: Agitation - Labs Labs: 06/15/17 04:05 06/15/17 04:05 PT 16.1 SECONDS (9.4-12.5) H 06/14/17 13:07 INR 1.45 (0.93-1.08) H 06/14/17 13:07 APTT 22.4 Seconds (25.1-36.5) L 06/14/17 13:07 Attending/Attestation - Attestation I have personally seen and examined this patient.: Yes I have fully participated in the care of the patient.: Yes I have reviewed all pertinent clinical information, including history, physical exam and plan: Yes
--- NOTE | 2017-06-15 12:13 | CT ---
PROCEDURE: CT HEAD WITHOUT CONTRAST. HISTORY: sdh COMPARISON: 06/14/2017 TECHNIQUE: Axial computed tomography images were obtained through the head/brain without intravenous contrast. Radiation dose: Total exam DLP = 825 mGy-cm. This CT exam was performed using one or more of the following dose reduction techniques: Automated exposure control, adjustment of the mA and/or kV according to patient size, and/or use of iterative reconstruction technique. FINDINGS: HEMORRHAGE: The large right sided subdural hematoma is stable in appearance. This measures approximately 16 mm in thickness. There is 10 mm of midline shift. There is sulcal effacement and edema in the right hemisphere. The findings were discussed with Dr. Wallace at 12 p.m. BRAIN: As above VENTRICLES: Compression of the right lateral ventricle CALVARIUM: Unremarkable. PARANASAL SINUSES: Unremarkable as visualized. No significant inflammatory changes. MASTOID AIR CELLS: Unremarkable as visualized. No inflammatory changes. OTHER FINDINGS: None. IMPRESSION: The large right sided subdural hematoma is stable in appearance. This measures approximately 16 mm in thickness. There is 10 mm of midline shift. There is sulcal effacement and edema in the right hemisphere.
--- NOTE | 2017-06-15 14:47 | CON ---
This consultation was performed under emergency circumstances. HISTORY OF PRESENT ILLNESS: Mr. Tristan is a 72-year-old gentleman with multitude of medical problems, most recently admitted for sometime because of respiratory dysfunction. Apparently, he was found unresponsive today. Rapid response was called. He was emergently intubated. He had CT of the brain done that showed a massive acute subdural hematoma. He is currently intubated and unresponsive. His medical history, medications, allergies, social history that were all reviewed. The most salient item is that he was on Eliquis. PHYSICAL EXAMINATION: NEUROLOGIC: He has a Marion Coma Score of . There is no eye opening, he decerebrates to noxious. His pupils are 3 mm and fixed. His corneal is absent on the right, trace positive on the left. There is no Doll's eye phenomenon. It is very weak, minimal gag and decerebrates to very deep noxious stimuli. CT of the brain documented enormous, acute subdural hematoma with significant compression midline shift and brainstem compromise. IMPRESSION AND PLAN: The patient has very minimal residual neurologic status with massive hemorrhage, chance for any significant recovery is essentially nil; therefore, I advocated not to engage in any aggressive treatment, certainly not surgery. My own recommendation would be supportive care only with initiation of DNR status. I discussed all the above with Dr. Wallace. He additionally had a conversation with the patient's relative, his brother, who seemed to acknowledge and understand the situation. Diego Leiva MD
--- NOTE | 2017-06-15 15:20 | CP.PCM.PN ---
Subjective - Date & Time of Evaluation Date of Evaluation: 06/15/17 Time of Evaluation: 15:20 - Subjective Subjective: Intubated, breathing over the vent.Posturing to noxious stimuli. Objective - Vital Signs/Intake and Output Vital Signs (last 24 hours): Temp Pulse Resp BP Pulse Ox 100.0 F H 112 H 25 H 119/66 96 06/15/17 08:20 06/15/17 14:00 06/15/17 07:39 06/15/17 09:10 06/15/17 08:20 Intake and Output: 06/15/17 06/15/17 06:59 18:59 Intake Total 1300 Output Total 700 Balance 600 - Medications Medications: Current Medications Albuterol/Ipratropium (Duoneb 3 Mg/0.5 Mg (3 Ml) Ud) 3 ml IH Q2H PRN PRN Reason: Shortness of Breath Albuterol/Ipratropium (Duoneb 3 Mg/0.5 Mg (3 Ml) Ud) 3 ml IH Q4H [facility] Last Admin: 06/15/17 11:06 Dose: 3 ml Arformoterol Tartrate (Brovana) 15 mcg IH [id number] [facility] Last Admin: 06/15/17 07:28 Dose: 15 mcg Aspirin (Ecotrin) 81 mg PO DAILY [facility] Last Admin: 06/14/17 10:22 Dose: 81 mg Budesonide (Pulmicort Respules) 1 mg IH [id number] [facility] Last Admin: 06/15/17 07:29 Dose: 0.5 mg Diltiazem HCl (Cardizem) 30 mg PO BID [facility] Last Admin: 06/15/17 09:10 Dose: 30 mg Ergocalciferol (Drisdol 50,000 Intl Units Cap) 1 cap PO Q7D [facility] Last Admin: 06/09/17 11:40 Dose: 1 cap Finasteride (Proscar) 5 mg PO DAILY [facility] Last Admin: 06/15/17 09:10 Dose: 5 mg Sodium Chloride (Sodium Chloride 0.9%) 1,000 mls @ 100 mls/hr IV .Q10H [facility] Last Admin: 06/15/17 09:05 Dose: 100 mls/hr Vancomycin HCl (Vancomycin 1gm) 1 gm in 250 mls @ 167 mls/hr IVPB Q12H [facility] PRN Reason: Protocol Last Admin: 06/15/17 14:53 Dose: 167 mls/hr Acetaminophen (Ofirmev) 1,000 mg in 100 mls @ 400 mls/hr IVPB Q6H PRN PRN Reason: Fever > 99 Stop: 06/16/17 12:09 Propofol (Diprivan) 1,000 mg in 100 mls @ 1.633 mls/hr IV .Q24H PRN; Protocol; 5 MCG/KG/MIN PRN Reason: TITRATE PER MD ORDER Last Titration: 06/14/17 12:15 Dose: 0 mcg/kg/min, 0 mls/hr Meropenem 500 mg/ Sodium (Chloride) 50 mls @ 100 mls/hr IVPB Q8 [facility] PRN Reason: Protocol Last Admin: 06/15/17 13:28 Dose: 100 mls/hr Methylprednisolone (Solu-Medrol) 20 mg IVP Q12 [facility] Last Admin: 06/15/17 09:11 Dose: 20 mg Montelukast Sodium (Singulair) 10 mg PO HS [facility] Last Admin: 06/14/17 21:48 Dose: Not Given Pantoprazole Sodium (Protonix Inj) 40 mg IVP DAILY [facility] Last Admin: 06/15/17 09:11 Dose: 40 mg Quetiapine Fumarate (Seroquel Xr) 300 mg PO 1700 [facility] Last Admin: 06/14/17 16:15 Dose: Not Given Quetiapine Fumarate (Seroquel Xr) 100 mg PO 1700 [facility] Last Admin: 06/14/17 16:16 Dose: Not Given Tamsulosin HCl (Flomax) 0.4 mg PO DAILY [facility] Last Admin: 06/15/17 09:10 Dose: 0.4 mg Valproate Sodium (Depakene Oral Soln) 500 mg PO BID [facility] Last Admin: 06/15/17 09:11 Dose: 500 mg Ziprasidone (Geodon Inj) 20 mg IM TID PRN; Protocol PRN Reason: Agitation - Labs Labs: 06/15/17 04:05 06/15/17 04:05 PT 16.1 SECONDS (9.4-12.5) H 06/14/17 13:07 INR 1.45 (0.93-1.08) H 06/14/17 13:07 APTT 22.4 Seconds (25.1-36.5) L 06/14/17 13:07 - Eye Exam Pupil Exam: Unequal - ENT Exam ENT Exam: Mucous Membranes Moist - Respiratory Exam Respiratory Exam: Decreased Breath Sounds - Cardiovascular Exam Cardiovascular Exam: Tachycardia, Irregular Rhythm - GI/Abdominal Exam GI & Abdominal Exam: Soft, Diminished Bowel Sounds - Extremities Exam Extremities Exam: Normal Inspection - Skin Skin Exam: Dry, Warm Assessment and Plan - Assessment and Plan (Free Text) Assessment: 72 year old male with history of schizophrenia, bipolar disorder, COPD, atrial fibrillation who is admitted with pneumonia, COPD exacerbation, large subdural hematoma with midline shift. Lengthy discussion with family regarding goals of care and terminal extubation took place again today. Dr. Wallace and Dr. Andres Kwong also spoke with family about prognosis. Patient's brother Jose having a hard time accepting the severity of Valentín's condition. Jose did agree to make his brother DNR/DNI. Family intends to proceed with terminal extubation tomorrow Time spent with family in goals of care discussion, end of life counseling regarding terminal extubation, 45 minutes Plan: DNR/DNI Palliative support in establishing goal of care. End of life counseling
--- NOTE | 2017-06-15 16:28 | CP.PCM.PN ---
<Adriana Acosta - Last Filed: 06/15/17 16:34> Subjective - Date & Time of Evaluation Date of Evaluation: 06/15/17 Time of Evaluation: 07:40 - Subjective Subjective: Adriana Acosta DO, PGY-1: Hospitalist Service Patient seen and examined at bedside. Patient is on ventilator, without sedation, and unresponsive to verbal or noxious stimuli. Nurse reports no events overnight. Objective - Vital Signs/Intake and Output Vital Signs (last 24 hours): Temp Pulse Resp BP Pulse Ox 100.4 F H 100 H 21 113/61 97 06/15/17 16:00 06/15/17 15:00 06/15/17 11:30 06/15/17 15:00 06/15/17 15:00 Intake and Output: 06/15/17 06/15/17 06:59 18:59 Intake Total 1300 Output Total 700 Balance 600 - Medications Medications: Current Medications Albuterol/Ipratropium (Duoneb 3 Mg/0.5 Mg (3 Ml) Ud) 3 ml IH Q2H PRN PRN Reason: Shortness of Breath Albuterol/Ipratropium (Duoneb 3 Mg/0.5 Mg (3 Ml) Ud) 3 ml IH Q4H [facility] Last Admin: 06/15/17 15:27 Dose: 3 ml Arformoterol Tartrate (Brovana) 15 mcg IH [id number] [facility] Last Admin: 06/15/17 07:28 Dose: 15 mcg Aspirin (Ecotrin) 81 mg PO DAILY [facility] Last Admin: 06/14/17 10:22 Dose: 81 mg Budesonide (Pulmicort Respules) 1 mg IH [id number] [facility] Last Admin: 06/15/17 07:29 Dose: 0.5 mg Diltiazem HCl (Cardizem) 30 mg PO BID [facility] Last Admin: 06/15/17 09:10 Dose: 30 mg Ergocalciferol (Drisdol 50,000 Intl Units Cap) 1 cap PO Q7D [facility] Last Admin: 06/09/17 11:40 Dose: 1 cap Finasteride (Proscar) 5 mg PO DAILY [facility] Last Admin: 06/15/17 09:10 Dose: 5 mg Sodium Chloride (Sodium Chloride 0.9%) 1,000 mls @ 100 mls/hr IV .Q10H [facility] Last Admin: 06/15/17 09:05 Dose: 100 mls/hr Vancomycin HCl (Vancomycin 1gm) 1 gm in 250 mls @ 167 mls/hr IVPB Q12H [facility] PRN Reason: Protocol Last Admin: 06/15/17 14:53 Dose: 167 mls/hr Acetaminophen (Ofirmev) 1,000 mg in 100 mls @ 400 mls/hr IVPB Q6H PRN PRN Reason: Fever > 99 Stop: 06/16/17 12:09 Propofol (Diprivan) 1,000 mg in 100 mls @ 1.633 mls/hr IV .Q24H PRN; Protocol; 5 MCG/KG/MIN PRN Reason: TITRATE PER MD ORDER Last Titration: 06/14/17 12:15 Dose: 0 mcg/kg/min, 0 mls/hr Meropenem 500 mg/ Sodium (Chloride) 50 mls @ 100 mls/hr IVPB Q8 [facility] PRN Reason: Protocol Last Admin: 06/15/17 13:28 Dose: 100 mls/hr Methylprednisolone (Solu-Medrol) 20 mg IVP Q12 [facility] Last Admin: 06/15/17 09:11 Dose: 20 mg Montelukast Sodium (Singulair) 10 mg PO HS [facility] Last Admin: 06/14/17 21:48 Dose: Not Given Pantoprazole Sodium (Protonix Inj) 40 mg IVP DAILY [facility] Last Admin: 06/15/17 09:11 Dose: 40 mg Quetiapine Fumarate (Seroquel Xr) 300 mg PO 1700 [facility] Last Admin: 06/14/17 16:15 Dose: Not Given Quetiapine Fumarate (Seroquel Xr) 100 mg PO 1700 [facility] Last Admin: 06/14/17 16:16 Dose: Not Given Tamsulosin HCl (Flomax) 0.4 mg PO DAILY [facility] Last Admin: 06/15/17 09:10 Dose: 0.4 mg Valproate Sodium (Depakene Oral Soln) 500 mg PO BID [facility] Last Admin: 06/15/17 09:11 Dose: 500 mg Ziprasidone (Geodon Inj) 20 mg IM TID PRN; Protocol PRN Reason: Agitation - Labs Labs: 06/15/17 04:05 06/15/17 04:05 PT 16.1 SECONDS (9.4-12.5) H 06/14/17 13:07 INR 1.45 (0.93-1.08) H 06/14/17 13:07 APTT 22.4 Seconds (25.1-36.5) L 06/14/17 13:07 - Constitutional Appears: Toxic - Head Exam Head Exam: ATRAUMATIC, NORMOCEPHALIC - Eye Exam Pupil Exam: Fixed - Cardiovascular Exam Cardiovascular Exam: Tachycardia - GI/Abdominal Exam GI & Abdominal Exam: Soft. absent: Rebound Assessment and Plan - Assessment and Plan (Free Text) Assessment: 72 year old male with a past medical history of end-staged COPD, s/p pulmonary embolus on oral anticoagulation, paroxysmal atrial fibrillation, and schizoaffective disorder who [place] [facility]. His hospital course was complicated by pneumonia, hypercapnic, hypoxemic respiratory failure, and newly found right sided subdural hematoma with greater than 10 mm of midline shift after rapid response team called for patient unresponsive to painful stimuli. Patient admitted to the ICU, intubated with poor prognosis. ICU, Neurosurgery, Palliative care,l and Neurology consults placed. Patient now DNR/DNI, with likely terminal extubation planned for tomorrow. Plan: Neuro: -CT Head reviewed; revealed a right subdural hematoma measuring 16mm with midline shift of 10mm; see full report -Repeat Head CT reviewed; subdural hematoma stable in appearance -Patient received 100cc of 3% sodium chloride over 15mins -Unresponsive on examination; GCS of 3T; pupils fixed -Neurosurgery consulted - Dr. Leiva - no neurosurgical intervention recommended due to dismal prognosis -Neurology consulted - Dr. Kwong -Palliative care consulted -Maintain normothermia; IV ofirmev as indicated Cardio: -Monitor and maintain MAP > 65; presently hemodynamically stable with no pressor support -Echocardiogram reviewed; revealed LVEF of 65%, normal LV wall thickness -EKG reviewed; revealed sinus tachycardia with PVC's and nonspecific ST abnormalities -Troponin negative x3 Pulm: -Presently intubated on PRVC 350/15/10/60% -Protective lung ventilation strategy with low tidal volume ventilation at 6mL per predicted body weight -HOB > 35' -VAP bundle -RSV and influenza negative -Sputum culture negative -Continue with meropenem and vancomycin GI: -GI prophylaxis with protonix Endo: -NPO -Monitor and maintain euglycemia with blood glucose between 140-180 Nephro: -Monitor and correct electrolyte abnormalities as indicated -Avoid nephrotoxic medications -Rothman catheter in place with ~700cc of urine output over the last 12hrs ID: -febrile with leukocytosis -Continue with antibiotics meropenem and vancomycin -Procalcitonin pending -Cultures pending <Jessie Cotton - Last Filed: 06/16/17 17:03> Objective - Vital Signs/Intake and Output Vital Signs (last 24 hours): Temp Pulse Resp BP Pulse Ox 100.1 F H 107 H 13 116/55 L 71 L 06/16/17 15:06 06/16/17 15:00 06/16/17 14:00 06/16/17 09:00 06/16/17 15:00 Intake and Output: 06/16/17 06/16/17 06:59 18:59 Intake Total 6 Balance 6 - Medications Medications: Current Medications Acetaminophen (Tylenol 650 Mg Supp) 650 mg RC Q4H PRN PRN Reason: Fever >100.4 F Last Admin: 06/16/17 15:06 Dose: 650 mg Morphine Sulfate (Morphine Felt Hat Pouncing Operator Hand 1 Mg/Ml) 25 mls @ 1 mls/hr IV PRN PRN; Protocol ; 1 MG/HR PRN Reason: SLOT TAG INSERTER PER MD ORDER Last Titration: 06/16/17 15:07 Dose: 2 mg/hr, 2 mls/hr Lorazepam (Ativan) 1 mg IVP Q4H PRN; Protocol PRN Reason: Seizure activity Last Admin: 06/16/17 15:14 Dose: 1 mg Valproate Sodium (Depakene Oral Soln) 500 mg PO BID [facility] Last Admin: 06/16/17 15:38 Dose: Not Given - Labs Labs: 06/16/17 05:30 06/16/17 05:30 PT 16.1 SECONDS (9.4-12.5) H 06/14/17 13:07 INR 1.45 (0.93-1.08) H 06/14/17 13:07 APTT 22.4 Seconds (25.1-36.5) L 06/14/17 13:07 Attending/Attestation - Attestation I have personally seen and examined this patient.: Yes I have fully participated in the care of the patient.: Yes I have reviewed all pertinent clinical information, including history, physical exam and plan: Yes Notes (Text): 06/16/17 17:02 Patient was seen and examined with medical apparatus model maker. 72 year old male with past medical history of COPD, hypertension, paroxysmal afib, and schizophrenia/Schizoaffective disorder with hypercapnic hypoxic respiratory failure due to Pneumonia and COPD exacerbation.Patient was found to have right sided subdural hematoma with greater than 10 mm of midline , patient was transferred to ICU , patient was intubated , patient was evaluated by Neurosurgery, no intervention was recommended. Hospice and palliative care is following. Patient family is planning for extubation tomorrow. Prognosis is guarded.
[2017-06-15] MEDS: QUEtiapine 50 mg XR Tab PO SCH (17:13)
[2017-06-15] MEDS: QUEtiapine 300 mg XR Tab PO SCH (17:13)
--- NOTE | 2017-06-15 18:43 | CP.PCM.PN ---
Subjective - Date & Time of Evaluation Date of Evaluation: 06/15/17 Time of Evaluation: 17:45 - Subjective Subjective: Infectious Disease Follow Up: June 15, 2017 72 yo male initially admitted for right sided chest pain, cough, and vomiting. The patient also had abdominal pain. Patient was found to have bilateral pulmonary emboli on admission. Patient has been requiring BiPAP to breath. The patient has schizoaffective disorder and history of Atrial fibrillation. He was on Unasyn for antibiotic treatment as well as steroids. Today changed to Zosyn and Vancomycin IV. The patient's CT Chest showing consolidative changes to bases of both lungs. ID called for antibiotic management. This morning the patient had a rapid response and was found unresponsive, tachycardic, and tachypnic. The patient required intubation and ventilation and was transferred to the MICU for further care. Leukocytosis at 19.3 today. Patient is poorly responsive. He is not sedated. Objective - Vital Signs/Intake and Output Vital Signs (last 24 hours): Temp Pulse Resp BP Pulse Ox 100.4 F H 106 H 21 116/71 97 06/15/17 16:00 06/15/17 17:15 06/15/17 11:30 06/15/17 17:15 06/15/17 15:00 Intake and Output: 06/15/17 06/15/17 06:59 18:59 Intake Total 1300 Output Total 700 Balance 600 - Medications Medications: Current Medications Albuterol/Ipratropium (Duoneb 3 Mg/0.5 Mg (3 Ml) Ud) 3 ml IH Q2H PRN PRN Reason: Shortness of Breath Albuterol/Ipratropium (Duoneb 3 Mg/0.5 Mg (3 Ml) Ud) 3 ml IH Q4H [facility] Last Admin: 06/15/17 15:27 Dose: 3 ml Arformoterol Tartrate (Brovana) 15 mcg IH [id number] [facility] Last Admin: 06/15/17 07:28 Dose: 15 mcg Aspirin (Ecotrin) 81 mg PO DAILY [facility] Last Admin: 06/14/17 10:22 Dose: 81 mg Budesonide (Pulmicort Respules) 1 mg IH [id number] [facility] Last Admin: 06/15/17 07:29 Dose: 0.5 mg Diltiazem HCl (Cardizem) 30 mg PO BID [facility] Last Admin: 06/15/17 17:15 Dose: 30 mg Ergocalciferol (Drisdol 50,000 Intl Units Cap) 1 cap PO Q7D [facility] Last Admin: 06/09/17 11:40 Dose: 1 cap Finasteride (Proscar) 5 mg PO DAILY [facility] Last Admin: 06/15/17 09:10 Dose: 5 mg Sodium Chloride (Sodium Chloride 0.9%) 1,000 mls @ 100 mls/hr IV .Q10H [facility] Last Admin: 06/15/17 09:05 Dose: 100 mls/hr Vancomycin HCl (Vancomycin 1gm) 1 gm in 250 mls @ 167 mls/hr IVPB Q12H [facility] PRN Reason: Protocol Last Admin: 06/15/17 14:53 Dose: 167 mls/hr Acetaminophen (Ofirmev) 1,000 mg in 100 mls @ 400 mls/hr IVPB Q6H PRN PRN Reason: Fever > 99 Stop: 06/16/17 12:09 Propofol (Diprivan) 1,000 mg in 100 mls @ 1.633 mls/hr IV .Q24H PRN; Protocol; 5 MCG/KG/MIN PRN Reason: TITRATE PER MD ORDER Last Titration: 06/14/17 12:15 Dose: 0 mcg/kg/min, 0 mls/hr Meropenem 500 mg/ Sodium (Chloride) 50 mls @ 100 mls/hr IVPB Q8 [facility] PRN Reason: Protocol Last Admin: 06/15/17 13:28 Dose: 100 mls/hr Methylprednisolone (Solu-Medrol) 20 mg IVP Q12 [facility] Last Admin: 06/15/17 09:11 Dose: 20 mg Montelukast Sodium (Singulair) 10 mg PO HS [facility] Last Admin: 06/14/17 21:48 Dose: Not Given Pantoprazole Sodium (Protonix Inj) 40 mg IVP DAILY [facility] Last Admin: 06/15/17 09:11 Dose: 40 mg Quetiapine Fumarate (Seroquel Xr) 300 mg PO 1700 [facility] Last Admin: 06/15/17 17:13 Dose: 300 mg Quetiapine Fumarate (Seroquel Xr) 100 mg PO 1700 [facility] Last Admin: 06/15/17 17:13 Dose: 100 mg Tamsulosin HCl (Flomax) 0.4 mg PO DAILY [facility] Last Admin: 06/15/17 09:10 Dose: 0.4 mg Valproate Sodium (Depakene Oral Soln) 500 mg PO BID [facility] Last Admin: 06/15/17 17:15 Dose: 500 mg Ziprasidone (Geodon Inj) 20 mg IM TID PRN; Protocol PRN Reason: Agitation - Labs Labs: 06/15/17 04:05 06/15/17 04:05 PT 16.1 SECONDS (9.4-12.5) H 06/14/17 13:07 INR 1.45 (0.93-1.08) H 06/14/17 13:07 APTT 22.4 Seconds (25.1-36.5) L 06/14/17 13:07 - Constitutional Appears: Toxic, In Acute Distress, Chronically Ill - Head Exam Additional comments: intubated and ventilated. - ENT Exam ENT Exam: Mucous Membranes Moist, Normal External Ear Exam, TM's Normal Bilaterally - Respiratory Exam Respiratory Exam: Decreased Breath Sounds. absent: Rales, Rhonchi, Wheezes - Cardiovascular Exam Cardiovascular Exam: Tachycardia, +S1, +S2 - GI/Abdominal Exam GI & Abdominal Exam: Soft, Normal Bowel Sounds. absent: Distended, Tenderness - Extremities Exam Extremities Exam: Full ROM, Normal Inspection - Neurological Exam Additional comments: intubated, ventilated. poorly responsive. Assessment and Plan - Assessment and Plan (Free Text) Assessment: 72 yo male with COPD exacerbation with possible aspiration or HCAP complicating matters. Currently on Zosyn and IV Vancomycin for care. CT Chest showing new bibasilar infiltrates. On BiPAP for some time in hospital. Patient also has schizoaffective disorder. The patient still has production of thick mucoid sputum with frequent cough. Inability to move at time due to the severity of the coughing fits. Poor air entry and movement. For now continue with Zosyn and IV Vancomycin. Sputum cultures should be taken. Today the patient was found unresponsive, tachycardic, and tachypnic. Intubated and brought to the MICU for further care. Fevers up to 102.6 F. During intubation, a large amount of gastric material was found in the hypopharynx. Given persistent fevers would switch Zosyn to Meropenem for treatment. Patient remains intubated and ventilated. He is not on sedation but remains poorly responsive. Prognosis is dismal at this time. Spoke with Dr. Cotton. Thank you for allowing me to participate in the care of the patient, we will follow with you.
[2017-06-15] MEDS ORDERED: Meropenem 500 MG in Sodium Chloride 0.9% 100 ML IVPB SCH (19:18)
[2017-06-15] MEDS: Meropenem 500 MG in Sodium Chloride 0.9% 100 ML IVPB SCH (21:48)
[2017-06-16] MEDS: Sodium Chloride 0.9% 1,000 ML IV SCH (01:17)
[2017-06-16] MEDS: Vancomycin 1gm in NS 250ml 1 GM/250 ML BAG IVPB SCH (03:00)
[2017-06-16] MEDS: Albuterol-Ipratrop 3 mg / 0.5 (3 ml) UD IH SCH ×2 (03:33→07:24)
[2017-06-16] MEDS: Meropenem 500 MG in Sodium Chloride 0.9% 100 ML IVPB SCH (06:00)
[2017-06-16 06:09] LABS: GRAN # 9.78 (1.4-6.5); GRAN % 88.4 % (50.0-68.0); LYMPH # 0.7 (1.2-3.4); MEAN CELL VOLUME 100.9 fl (80.0-105.0); MEAN CORPUSCULAR HEMOGLOBIN 31.6 pg (25.0-35.0); MEAN CORPUSCULAR HGB CONC 31.3 g/dl (31.0-37.0); MEAN PLATELET VOLUME 8.8 fl (7.0-11.0); MONO # 0.6 (0.1-0.6); MONO % 5.6 % (1.0-6.0); RED CELL DISTRIBUTION WIDTH 14.1 % (11.5-14.5); WHITE BLOOD COUNT 11.1 10^3/ul (4.5-11.0)
[2017-06-16 06:21] LABS: HEMATOCRIT 21.7 % (42.0-52.0)
[2017-06-16 06:43] LABS: ALB/GLOB RATIO 0.8 (1.1-1.8); ALKALINE PHOSPHATASE 46 U/L (38-126); ALT/SGPT 24 U/L (7-56); AST/SGOT 12 U/L (17-59); BILIRUBIN,TOTAL 0.3 mg/dL (0.2-1.3); BLOOD UREA NITROGEN 23 mg/dL (7-21); CALCIUM 8.6 mg/dL (8.4-10.5); CARBON DIOXIDE 35 mmol/L (21-33); CHLORIDE 104 mmol/L (98-107); GFR AFRICAN-AMERICAN > 60; GLUCOSE,RANDOM 115 mg/dL (70-110); POTASSIUM 4.1 mmol/L (3.6-5.0); SODIUM 141 mmol/L (132-148); TOTAL PROTEIN 4.9 g/dL (5.8-8.3)
[2017-06-16] MEDS: Budesonide 0.5 mg/2 ml Inhal Susp UD IH SCH (07:24)
[2017-06-16] MEDS: Arformoterol 15 mcg/2 ml Inh Sol IH SCH (07:24)
[2017-06-16] MEDS ORDERED: Morphine PCA 1 mg/ml (25ml) 25 ML IV PRN (09:08)
[2017-06-16] MEDS ORDERED: Morphine 4 mg/ml ISec IVP STA (09:37)
--- NOTE | 2017-06-16 09:53 | CP.PCM.PN ---
Subjective - Date & Time of Evaluation Date of Evaluation: 06/16/17 Time of Evaluation: 10:00 - Subjective Subjective: Intubated, posturing to noxious stimuli Objective - Vital Signs/Intake and Output Vital Signs (last 24 hours): Temp Pulse Resp BP Pulse Ox 100.8 F H 109 H 24 89/49 L 97 06/16/17 05:00 06/16/17 06:00 06/16/17 07:32 06/16/17 06:00 06/16/17 07:32 - Medications Medications: Current Medications Albuterol/Ipratropium (Duoneb 3 Mg/0.5 Mg (3 Ml) Ud) 3 ml IH Q2H PRN PRN Reason: Shortness of Breath Acetaminophen (Ofirmev) 1,000 mg in 100 mls @ 400 mls/hr IVPB Q6H PRN PRN Reason: Fever > 99 Stop: 06/16/17 12:09 Morphine Sulfate (Morphine Construction Recruiter 1 Mg/Ml) 25 mls @ 1 mls/hr IV PRN PRN; Protocol ; 1 MG/HR PRN Reason: STITCHER AROUND PER MD ORDER Lorazepam (Ativan) 1 mg IVP Q4H PRN; Protocol PRN Reason: Seizure activity Valproate Sodium (Depakene Oral Soln) 500 mg PO BID [facility] Last Admin: 06/15/17 17:15 Dose: 500 mg - Labs Labs: 06/16/17 05:30 06/16/17 05:30 PT 16.1 SECONDS (9.4-12.5) H 06/14/17 13:07 INR 1.45 (0.93-1.08) H 06/14/17 13:07 APTT 22.4 Seconds (25.1-36.5) L 06/14/17 13:07 - Constitutional Appears: Chronically Ill - Eye Exam Pupil Exam: Unequal - ENT Exam ENT Exam: Mucous Membranes Moist - Respiratory Exam Respiratory Exam: Decreased Breath Sounds - Cardiovascular Exam Cardiovascular Exam: Tachycardia, Irregular Rhythm - GI/Abdominal Exam GI & Abdominal Exam: Soft, Diminished Bowel Sounds - Neurological Exam Neurological Exam: Altered, Motor Sensory Deficit - Skin Skin Exam: Pallor Assessment and Plan - Assessment and Plan (Free Text) Assessment: 72 year old male with history of COPD, schizophrenia, bipolar disorder,atrial fibrillation, CAD who was admitted with COPD exacerbation, pneumonia, large subdural hemorrhage with midline shift, respiratory failure. Family at bedside. Family has decided to go forward with terminal extubation and comfort measures. Terminal extubation form signed by patients brother, Jose Ramon. Psychosocial support and end of life counseling given. Time spent in end of life counseling, 40 minutes Plan: Terminal extubation Discontue antibiotics, IV fluids, hemodynamic monitoring, lab and radiological testing. Morphine 4 mg IV at time of extubation. Morphine 1 mg continuos IV infusion. Ativan 1 mg IV as needed every 4 hours for seizure activity. Scopolamine transdermal patch to decrease respiratory secretion, gentle suctioning as needed. Tylenol 650 mg RC as needed for fever over 100Fv
[2017-06-16 11:26] VITALS: BP 116/55
--- NOTE | 2017-06-16 12:50 | CP.CCUPN ---
<Titus Tucker - Last Filed: 06/16/17 13:05> CCU Subjective - Physician Review Subjective (Free Text): Critical care progress note Patient seen and examined at bedside this morning. No acute overnight events reported by nursing staff. No neurosurgical intervention per Dr. Leiva due to dismal prognosis. Per families request, patient is DNR/DNI and terminally extubated and placed on comfort care/hospice/palliative care. CCU Objective - Vital Signs / Intake & Output Vital Signs (Last 4 hours): Vital Signs Pulse Resp BP Pulse Ox 06/16/17 11:00 103 H 19 93 L 06/16/17 10:02 88 L 06/16/17 09:00 117 H 116/55 L 96 Intake and Output (Last 8hrs): Intake & Output 06/15/17 06/16/17 06/16/17 22:59 06:59 14:59 Intake Total 1740 Output Total 250 Balance 1490 Intake: IV 1300 Left Wrist 0 NS 950 Right Wrist 0 antibiotic 350 Oral 0 Tube Feeding 380 TPN/PPN 0 Blood Product 0 Lipid 0 Albumin 0 Other 60 Output: Urine 250 Urethral ([place]) 250 Stool 0 Urine/Stool Mix 0 Emesis 0 Oral Regurgitation 0 Other 0 Other: # Voids Urethral ([place]) 0 # Bowel Movements 0 - Physical Exam Head: Positive for: Atraumatic Pupils: Positive for: Other (~3mm, non-reactive) Extroacular Muscles: Negative for: EOMI Mouth: Positive for: Other (poor dentition, moist mucous membranes) Respiratory/Chest: Positive for: Wheezes (bilateral wheezing). Negative for: Rales Cardiovascular: Positive for: Normal S1, S2. Negative for: Murmurs, Rub, Gallop Abdomen: Negative for: Tenderness, Distention, Rebound, Guarding Back: Positive for: Normal Inspection Upper Extremity: Positive for: Normal Inspection. Negative for: Cyanosis, Edema Lower Extremity: Positive for: Normal Inspection. Negative for: Edema Neurological: Positive for: Other (GCS 3T). Negative for: GCS=15, CN II-XII Intact, Motor Func Grossly Intact Skin: Positive for: Warm, Dry. Negative for: Diaphoretic Psychiatric: Negative for: Alert, Oriented x 3 - Medications Active Medications: Active Medications Generic Name Dose Route Start Last Admin Trade Name Freq PRN Reason Stop Dose Admin Acetaminophen 650 mg 06/16/17 10:06 Tylenol 650 Mg Supp RC Q4H PRN Fever >100.4 F Morphine Sulfate 25 mls @ 1 mls/hr 06/16/17 09:08 06/16/17 09:44 Morphine Brush Holder Assembler 1 Mg/Ml IV 1 mg/hr PRN PRN 1 mls/hr CHANNELER OUTSOLE PER MD ORDER Administration Protocol 1 MG/HR Lorazepam 1 mg 06/16/17 09:44 Ativan IVP Q4H PRN Seizure activity Protocol Valproate Sodium 500 mg 06/06/17 10:00 06/15/17 17:15 Depakene Oral Soln PO 500 mg BID SAMEER Administration - Patient Studies Lab Studies: Microbiology Studies 06/14/17 08:20 Blood Culture - Preliminary Blood-Venous NO GROWTH AFTER 48 HOURS 06/14/17 09:00 Blood Culture - Preliminary Blood-Venous NO GROWTH AFTER 48 HOURS 06/14/17 11:00 Gram Stain - Final Sputum Induced Sputum Culture - Final Klebsiella Pneumoniae Ssp Pneu Lab Studies 06/16/17 06/16/17 Range/Units 05:30 05:30 WBC 11.1 H D (4.5-11.0) 10^3/ul RBC 2.15 L (3.5-6.1) 10^6/uL Hgb 6.8 L* (14.0-18.0) g/dL Hct 21.7 L (42.0-52.0) % MCV 100.9 (80.0-105.0) fl MCH 31.6 (25.0-35.0) pg MCHC 31.3 (31.0-37.0) g/dl RDW 14.1 (11.5-14.5) % Plt Count 242 (120.0-450.0) 10^3/uL MPV 8.8 (7.0-11.0) fl Gran % 88.4 H (50.0-68.0) % Lymph % (Auto) 6.0 L (22.0-35.0) % [place] % (Auto) 5.6 (1.0-6.0) % Eos % (Auto) 0.0 L (1.5-5.0) % Baso % (Auto) 0.0 (0.0-3.0) % Gran # 9.78 H (1.4-6.5) Lymph # 0.7 L (1.2-3.4) [place] # 0.6 (0.1-0.6) Eos # 0.0 (0.0-0.7) Baso # 0.00 (0.0-2.0) K/mm3 Sodium 141 (132-148) mmol/L Potassium 4.1 (3.6-5.0) mmol/L Chloride 104 (98-107) mmol/L Carbon Dioxide 35 H (21-33) mmol/L Anion Gap 6 L (10-20) BUN 23 H (7-21) mg/dL Creatinine 0.7 L (0.8-1.5) mg/dl Est GFR ( Amer) > 60 Est GFR (Non-Af Amer) > 60 Random Glucose 115 H (70-110) mg/dL Calcium 8.6 (8.4-10.5) mg/dL Total Bilirubin 0.3 (0.2-1.3) mg/dL AST 12 L D (17-59) U/L ALT 24 (7-56) U/L Alkaline Phosphatase 46 (38-126) U/L Total Protein 4.9 L (5.8-8.3) g/dL Albumin 2.1 L (3.0-4.8) g/dL Globulin 2.8 gm/dL Albumin/Globulin Ratio 0.8 L (1.1-1.8) Laboratory Results - last 24 hr 06/16/17 06/16/17 05:30 05:30 WBC 11.1 H D RBC 2.15 L Hgb 6.8 L* Hct 21.7 L MCV 100.9 MCH 31.6 MCHC 31.3 RDW 14.1 Plt Count 242 MPV 8.8 Gran % 88.4 H Lymph % (Auto) 6.0 L [place] % (Auto) 5.6 Eos % (Auto) 0.0 L Baso % (Auto) 0.0 Gran # 9.78 H Lymph # 0.7 L [place] # 0.6 Eos # 0.0 Baso # 0.00 Sodium 141 Potassium 4.1 Chloride 104 Carbon Dioxide 35 H Anion Gap 6 L BUN 23 H Creatinine 0.7 L Est GFR ( Amer) > 60 Est GFR (Non-Af Amer) > 60 Random Glucose 115 H Calcium 8.6 Total Bilirubin 0.3 AST 12 L D ALT 24 Alkaline Phosphatase 46 Total Protein 4.9 L Albumin 2.1 L Globulin 2.8 Albumin/Globulin Ratio 0.8 L Fingerstick Blood Sugar Results: 100 Assessment/Plan - Assessment and Plan (Free Text) Plan: 72yo male with history of COPD, hypertension, atrial fibrillation, alcohol abuse and migraines admitted to the ICU for altered mental status found secondary to acute subdural hematoma with 10mm midline shift. -CT Head reviewed; revealed a right subdural hematoma measuring 16mm with midline shift of 10mm; see full report -Repeat Head CT reviewed; subdural hematoma stable in appearance; please refer to full report -Patient received 100cc of 3% sodium chloride over 15mins as well as aPCC for reversal of eliquis -Unresponsive on examination; GCS of 3T; pupils fixed -Neurosurgery emergently consulted and per Dr. Leiva no neurosurgical intervention recommended due to dismal prognosis -Neurology consulted - Dr. Kwong -Palliative care consulted Per families request, patient made DNR/DNI and terminally extubated. Patient placed on hospice/palliative care, comfort measures. Patient seen and case discussed/reviewed with attending, Dr. Wallace <Héctor Wallace - Last Filed: 06/16/17 18:31> CCU Objective - Vital Signs / Intake & Output Vital Signs (Last 4 hours): Vital Signs Temp Pulse Pulse Ox 06/16/17 15:06 100.1 F H 06/16/17 15:00 100.1 F H 107 H 71 L Intake and Output (Last 8hrs): Intake & Output 06/16/17 06/16/17 06/16/17 06:59 14:59 22:59 Intake Total 6 Balance 6 Intake: IV 6 - Medications Active Medications: Active Medications Generic Name Dose Route Start Last Admin Trade Name Freq PRN Reason Stop Dose Admin Acetaminophen 650 mg 06/16/17 10:06 06/16/17 15:06 Tylenol 650 Mg Supp RC 650 mg Q4H PRN Administration Fever >100.4 F Morphine Sulfate 25 mls @ 1 mls/hr 06/16/17 09:08 06/16/17 15:07 Morphine Brush Holder Assembler 1 Mg/Ml IV 2 mg/hr PRN PRN 2 mls/hr CHANNELER OUTSOLE PER MD ORDER Titration Protocol 1 MG/HR Lorazepam 1 mg 06/16/17 09:44 06/16/17 15:14 Ativan IVP 1 mg Q4H PRN Administration Seizure activity Protocol Valproate Sodium 500 mg 06/06/17 10:00 06/16/17 15:38 Depakene Oral Soln PO Not Given BID SAMEER - Patient Studies Lab Studies: Microbiology Studies 06/14/17 08:20 Blood Culture - Preliminary Blood-Venous NO GROWTH AFTER 48 HOURS 06/14/17 09:00 Blood Culture - Preliminary Blood-Venous NO GROWTH AFTER 48 HOURS 06/14/17 11:00 Gram Stain - Final Sputum Induced Sputum Culture - Final Klebsiella Pneumoniae Ssp Pneu Lab Studies 06/16/17 06/16/17 Range/Units 05:30 05:30 WBC 11.1 H D (4.5-11.0) 10^3/ul RBC 2.15 L (3.5-6.1) 10^6/uL Hgb 6.8 L* (14.0-18.0) g/dL Hct 21.7 L (42.0-52.0) % MCV 100.9 (80.0-105.0) fl MCH 31.6 (25.0-35.0) pg MCHC 31.3 (31.0-37.0) g/dl RDW 14.1 (11.5-14.5) % Plt Count 242 (120.0-450.0) 10^3/uL MPV 8.8 (7.0-11.0) fl Gran % 88.4 H (50.0-68.0) % Lymph % (Auto) 6.0 L (22.0-35.0) % [place] % (Auto) 5.6 (1.0-6.0) % Eos % (Auto) 0.0 L (1.5-5.0) % Baso % (Auto) 0.0 (0.0-3.0) % Gran # 9.78 H (1.4-6.5) Lymph # 0.7 L (1.2-3.4) [place] # 0.6 (0.1-0.6) Eos # 0.0 (0.0-0.7) Baso # 0.00 (0.0-2.0) K/mm3 Sodium 141 (132-148) mmol/L Potassium 4.1 (3.6-5.0) mmol/L Chloride 104 (98-107) mmol/L Carbon Dioxide 35 H (21-33) mmol/L Anion Gap 6 L (10-20) BUN 23 H (7-21) mg/dL Creatinine 0.7 L (0.8-1.5) mg/dl Est GFR ( Amer) > 60 Est GFR (Non-Af Amer) > 60 Random Glucose 115 H (70-110) mg/dL Calcium 8.6 (8.4-10.5) mg/dL Total Bilirubin 0.3 (0.2-1.3) mg/dL AST 12 L D (17-59) U/L ALT 24 (7-56) U/L Alkaline Phosphatase 46 (38-126) U/L Total Protein 4.9 L (5.8-8.3) g/dL Albumin 2.1 L (3.0-4.8) g/dL Globulin 2.8 gm/dL Albumin/Globulin Ratio 0.8 L (1.1-1.8) Laboratory Results - last 24 hr 06/16/17 06/16/17 05:30 05:30 WBC 11.1 H D RBC 2.15 L Hgb 6.8 L* Hct 21.7 L MCV 100.9 MCH 31.6 MCHC 31.3 RDW 14.1 Plt Count 242 MPV 8.8 Gran % 88.4 H Lymph % (Auto) 6.0 L [place] % (Auto) 5.6 Eos % (Auto) 0.0 L Baso % (Auto) 0.0 Gran # 9.78 H Lymph # 0.7 L [place] # 0.6 Eos # 0.0 Baso # 0.00 Sodium 141 Potassium 4.1 Chloride 104 Carbon Dioxide 35 H Anion Gap 6 L BUN 23 H Creatinine 0.7 L Est GFR ( Amer) > 60 Est GFR (Non-Af Amer) > 60 Random Glucose 115 H Calcium 8.6 Total Bilirubin 0.3 AST 12 L D ALT 24 Alkaline Phosphatase 46 Total Protein 4.9 L Albumin 2.1 L Globulin 2.8 Albumin/Globulin Ratio 0.8 L Attending/Attestation - Attestation I have personally seen and examined this patient.: Yes I have fully participated in the care of the patient.: Yes I have reviewed all pertinent clinical information: Yes Notes (Text): 06/16/17 18:27 72 yo male with devastating SDH and minimal residual neuro function, not a candidate for neurosurgical intervention due to futility. Now DNR/DNI and was transfered to palliative/comfort care only as per family wishes. ccm time 40 min
--- NOTE | 2017-06-16 14:09 | CP.PCM.PN ---
<Adriana Acosta - Last Filed: 06/16/17 14:16> Subjective - Date & Time of Evaluation Date of Evaluation: 06/16/17 Time of Evaluation: 08:00 - Subjective Subjective: Adriana Acosta DO, PGY-1: Hospitalist Service Patient seen and examined at bedside with family present. Case was discussed with family. Patient is DNR/DNI, plans are for him to be terminally extubated. Objective - Vital Signs/Intake and Output Vital Signs (last 24 hours): Temp Pulse Resp BP Pulse Ox 100 F H 103 H 19 116/55 L 93 L 06/16/17 08:00 06/16/17 11:00 06/16/17 11:00 06/16/17 09:00 06/16/17 11:00 - Medications Medications: Current Medications Acetaminophen (Tylenol 650 Mg Supp) 650 mg RC Q4H PRN PRN Reason: Fever >100.4 F Morphine Sulfate (Morphine Police Officer Crime Prevention 1 Mg/Ml) 25 mls @ 1 mls/hr IV PRN PRN; Protocol ; 1 MG/HR PRN Reason: SLOT TECHNICIAN PER MD ORDER Last Admin: 06/16/17 09:44 Dose: 1 mg/hr, 1 mls/hr Lorazepam (Ativan) 1 mg IVP Q4H PRN; Protocol PRN Reason: Seizure activity Valproate Sodium (Depakene Oral Soln) 500 mg PO BID SAMEER Last Admin: 06/15/17 17:15 Dose: 500 mg - Labs Labs: 06/16/17 05:30 06/16/17 05:30 PT 16.1 SECONDS (9.4-12.5) H 06/14/17 13:07 INR 1.45 (0.93-1.08) H 06/14/17 13:07 APTT 22.4 Seconds (25.1-36.5) L 06/14/17 13:07 - Constitutional Appears: Chronically Ill - Head Exam Head Exam: ATRAUMATIC, NORMOCEPHALIC - Eye Exam Pupil Exam: Fixed - Neck Exam Neck Exam: Normal Inspection - Respiratory Exam Additional comments: on ventilator - Cardiovascular Exam Cardiovascular Exam: Tachycardia - GI/Abdominal Exam GI & Abdominal Exam: Soft - Neurological Exam Additional comments: Patient not responsive to painful stimuli Assessment and Plan - Assessment and Plan (Free Text) Assessment: 72 year old male with a past medical history of end-staged COPD, s/p pulmonary embolus on oral anticoagulation, paroxysmal atrial fibrillation, and schizoaffective disorder who presented to [facility] for a COPD exacerbation. His hospital course was complicated by pneumonia, hypercapnic, hypoxemic respiratory failure, and newly found right sided subdural hematoma with greater than 10 mm of midline shift. Patient was admitted to the ICU, intubated with poor prognosis. ICU, Neurosurgery, Palliative care, and Neurology consults were placed. Case was discussed with the family and healthcare proxy and the patient became a DNR/DNI and was terminally extubated. Plan: Terminal extubation - Comfort care measures. Appreciate the recommendations of all the consultants involved in the care of this patient. <Jessie Cotton - Last Filed: 06/17/17 16:20> Objective - Vital Signs/Intake and Output Vital Signs (last 24 hours): Temp Pulse Resp BP Pulse Ox 101.8 F H 107 H 13 116/55 L 71 L 06/16/17 21:45 06/16/17 15:00 06/16/17 14:00 06/16/17 09:00 06/16/17 15:00 - Labs Labs: 06/16/17 05:30 06/16/17 05:30 PT 16.1 SECONDS (9.4-12.5) H 06/14/17 13:07 INR 1.45 (0.93-1.08) H 06/14/17 13:07 APTT 22.4 Seconds (25.1-36.5) L 06/14/17 13:07 Attending/Attestation - Attestation I have personally seen and examined this patient.: Yes I have fully participated in the care of the patient.: Yes I have reviewed all pertinent clinical information, including history, physical exam and plan: Yes Notes (Text): 06/17/17 16:14 Patient was seen and examined .Patient family is at bed side. 72 yo male with devastating SDH and minimal residual neuro function, not a candidate for neurosurgical intervention due to futility. Now DNR/DNI and was transferred to palliative/comfort care only as per family wishes. We will continue hospice and comfort measure. Management plan was discussed with family in detail. Prognosis is guarded.
[2017-06-16 15:32] VITALS: PULSE 107; RESP 13; O2SAT 71
[2017-06-16] MEDS: Valproic Acid 250 mg/5 ml UD Cup PO SCH (15:38)
--- NOTE | 2017-06-16 16:27 | CP.PCM.PN ---
Subjective - Date & Time of Evaluation Date of Evaluation: 06/16/17 Time of Evaluation: 13:00 - Subjective Subjective: Infectious Disease Follow Up: June 16, 2017 72 yo male initially admitted for right sided chest pain, cough, and vomiting. The patient also had abdominal pain. Patient was found to have bilateral pulmonary emboli on admission. Patient has been requiring BiPAP to breath. The patient has schizoaffective disorder and history of Atrial fibrillation. He was on Unasyn for antibiotic treatment as well as steroids. Today changed to Zosyn and Vancomycin IV. The patient's CT Chest showing consolidative changes to bases of both lungs. ID called for antibiotic management. This morning the patient had a rapid response and was found unresponsive, tachycardic, and tachypnic. The patient required intubation and ventilation and was transferred to the MICU for further care. Leukocytosis at 11.1 today. Patient is poorly responsive. He is not sedated. Terminally extubated this morning. No new issues. Moved to comfort care. Off antibiotics. Objective - Vital Signs/Intake and Output Vital Signs (last 24 hours): Temp Pulse Resp BP Pulse Ox 100.1 F H 107 H 13 116/55 L 71 L 06/16/17 15:06 06/16/17 15:00 06/16/17 14:00 06/16/17 09:00 06/16/17 15:00 Intake and Output: 06/16/17 06/16/17 06:59 18:59 Intake Total 6 Balance 6 - Medications Medications: Current Medications Acetaminophen (Tylenol 650 Mg Supp) 650 mg RC Q4H PRN PRN Reason: Fever >100.4 F Last Admin: 06/16/17 15:06 Dose: 650 mg Morphine Sulfate (Morphine Oncology Social Work 1 Mg/Ml) 25 mls @ 1 mls/hr IV PRN PRN; Protocol ; 1 MG/HR PRN Reason: SALES MGR PER MD ORDER Last Titration: 06/16/17 15:07 Dose: 2 mg/hr, 2 mls/hr Lorazepam (Ativan) 1 mg IVP Q4H PRN; Protocol PRN Reason: Seizure activity Last Admin: 06/16/17 15:14 Dose: 1 mg Valproate Sodium (Depakene Oral Soln) 500 mg PO BID SAMEER Last Admin: 06/16/17 15:38 Dose: Not Given - Labs Labs: 06/16/17 05:30 12/15/17 05:30 PT 16.1 SECONDS (9.4-12.5) H 06/14/17 13:07 INR 1.45 (0.93-1.08) H 06/14/17 13:07 APTT 22.4 Seconds (25.1-36.5) L 06/14/17 13:07 - Constitutional Appears: In Acute Distress, Chronically Ill - Head Exam Additional comments: intubated and ventilated. - ENT Exam ENT Exam: Mucous Membranes Moist, Normal External Ear Exam, TM's Normal Bilaterally - Respiratory Exam Respiratory Exam: Decreased Breath Sounds, Rhonchi, Wheezes. absent: Rales - Cardiovascular Exam Cardiovascular Exam: Tachycardia, +S1, +S2 - GI/Abdominal Exam GI & Abdominal Exam: Soft, Normal Bowel Sounds. absent: Distended, Tenderness - Extremities Exam Extremities Exam: Full ROM, Normal Inspection - Neurological Exam Additional comments: poorly responsive. tachypnea. - Skin Skin Exam: Intact, Normal Color Assessment and Plan - Assessment and Plan (Free Text) Assessment: 72 yo male with COPD exacerbation with possible aspiration or HCAP complicating matters. Currently on Zosyn and IV Vancomycin for care. CT Chest showing new bibasilar infiltrates. On BiPAP for some time in hospital. Patient also has schizoaffective disorder. The patient still has production of thick mucoid sputum with frequent cough. Inability to move at time due to the severity of the coughing fits. Poor air entry and movement. For now continue with Zosyn and IV Vancomycin. Sputum cultures should be taken. Today the patient was found unresponsive, tachycardic, and tachypnic. Intubated and brought to the MICU for further care. Fevers up to 102.6 F. During intubation, a large amount of gastric material was found in the hypopharynx. Given persistent fevers would switch Zosyn to Meropenem for treatment. Patient remains intubated and ventilated. He is not on sedation but remains poorly responsive. Prognosis is dismal at this time. Terminally extubated this morning and placed on comfort care. Spoke with Dr. Cotton. Thank you for allowing me to participate in the care of the patient, we will follow with you.
[2017-06-16 21:50] VITALS: TEMP 101.8
--- NOTE | 2017-06-17 00:44 | CP.PCM.PRO ---
Pronouncement of Note - Clinical Findings Physical Exam: No Response Verbal/Painful Stimuli, Absent Peripheral Pulses{ Carotid & Femoral}, Absent Heart & Breath Sounds, No Pupillary Light Reflex, No Corneal Reflex, Pupils Fixed & Dilated, Absence of Vital Signs - Pronouncement Time Time of Pronouncement of : 00:35 - Notifications Pronouncement Notifications: Family Notified (I spoke to nephvonda Garcia. ), Atending Notified (Will be notified in AM by nurse.) Director Community Organization Notified: No - Autopsy Autopsy Requested: No [place] [id number]
--- NOTE | 2017-06-19 08:51 | PN ---
DATE: 06/15/2017 FOLLOWUP CONSULTATION PRESENTATION: Patient is seen at bedside. He has been moved to intensive care unit due to the fact that he had a rapid response critical incident on 06/14/2017. He was found unresponsive, and they were able to intubate him and get him to the ICU, where he is now. He is no longer cognizant, he is unconscious, and he is requiring a ventilator to breathe. His family are all at the bedside. On review of the chart, patient has the DNR ordered. His prognosis is poor in terms of recovery, and he is not able to communicate at this time. So we will sign off on this patient. If there are any needs in the future, please re-contact us. Thank you. Mis King APN
--- NOTE | 2017-06-19 11:31 | PQF RESP ---
06/19/17 Dr. Santamaria, Respiratory failure with hypoxia and hypercapnia is documented and patient was intubated and vented on 06/14. Please specify whether respiratory failure is acute, chronic, or both. Thank you. Clarification of your documentation is requested to better reflect the severity of illness and intensity of treatment of your patient. Indicators present [x] Use of Home Oxygen [x] Respiratory rate > 28 or <8/min (Labored respirations) [] PCO2 > 50 mm Hg or (Hypercapnia) (somnolence) [] PaO2 < 60 mm Hg or Hypoxemia (confusion) [] ABG blood gas pH < 7.35 [] SpO2 < 90% sat on Room Air [] Cyanosis [] Unable to Speak in Full Sentences [] Use of Accessory Muscles / Tripoding [x] Wheezing [] Other: [] Location in the medical record that reflects the above clinical findings: [] Treatment Provided: [] PHYSICIAN'S RESPONSE Based on your medical judgment of the clinical indicators outlined above, are you treating this patient for a known or suspected: [x] Acute Respiratory Failure (hypoxia or hypercapnia) [] Chronic Respiratory Failure (hypoxia or hypercapnia) [] Acute on Chronic Respiratory Failure (hypoxia or hypercapnia) [] Hypoxemia please specify ACUTE, CHRONIC or ACUTE on CHRONIC [] Other []_ [] If unable to determine, please check the box, sign and date. Present On Admission (POA) Indicator: [x] Present at the time of admission [] Not present at the time of admission [] Clinically Undetermined In responding to this query, please exercise your independent professional judgment. The fact that a question is asked does not imply that any particular answer is desired or expected. Thank you for your clarification on this documentation. If you have any questions please call:[ ] * Thank you, [ ] weigher operator Chronic Respiratory Failure Description: Respiratory failure is a syndrome in which the respiratory system fails in one or both of its gas exchange functions: oxygenation and carbon dioxide elimination. In theory, respiratory failure is defined as a Pa02 value of <60 mm/Hg or a PaC02 of >50 mm/Hg. However, these values may be affected by renal compensation. Respiratory failure may be acute or chronic. While acute respiratory failure is characterized by life-threatening derangement in arterial blood gases and acid-base balance, the manifestations of chronic respiratory failure are less dramatic and may not be as readily apparent. Classifications: Respiratory failure may be classified as hypoxemic (usually characterized by Pa02 of <60 mm/Hg) or hypercapnic (usually characterized by PaC02 >50 mm/Hg) and either may be acute or chronic. Chronic hypercapnic respiratory failure develops over time and allows for renal compensation and an increase in bicarbonate concentration; therefore the pH is usually only slightly decreased. The distinction between acute and chronic hypoxemic respiratory failure cannot readily be made on the basis of ABGs; the clinical markers of chronic hypoxemia, such as polythycemia or cor pulmonale suggest a long standing disorder (chronic hypoxemic respiratory failure). Clinical Indicators: dyspnea at rest or "chronic" dyspnea, concomitant conditions such as polycythemia or cor pulmonale, requirement for continuous oxygen support, forced expiratory volume in one second (FEV1) of 49 or less, pursed lip breathing, "barrel" chest, hyperinflation by CXR, muscle wasting, malnutrition/obesity, poor exercise capacity, peripheral edema, description as a "blue bloater" (usually associated with chronic, obstructive bronchitis) or "pink puffer" (usually associated with emphysema) Risks: Chronic Hypoxemic Respiratory Failure - COPD, pulmonary fibrosis, asthma , pulmonary arterial hypertension, granulomatous lung diseases, congenital heart disease, bronchiectasis, kyphoscoliosis, obesity; Chronic Hypercapnic Respiratory Failure - COPD, severe asthma, myasthenia gravis, polyneuropathy, polio, head and cervical spine injuries, obesity hypoventilation syndrome. Treatment: supplemental oxygen, bronchodilators, corticosteroids, adequate nutrition, lung transplant References: Am. J. Respir. Crit. Care Med. "Global Strategy for the Diagnosis, Management and Prevention of COPD: GOLD Exectuive Summary," Bebe Post Anzueto - 2007; Proceedings of the [place] [employer] "Mechanisms and Measurements of Dyspnea in COPD," Griffin - 2006; WebMD; Respiratory Failure, Antelmo Ruiz MD - 12/2005; Luiz's Principles of Internal Medicine, 17th edition. Acute Respiratory Failure Acute Respiratory Failure indicators include: ~Respirations >28 ~Air hunger ~Use of accessory muscles of respiration ~Inability to speak in full sentences Cyanosis ~Pulse ox <90% RA or <95% on O2 pH <7.35 or >7.45 ~pO2 < 60 mm Hg (or 10mm below COPD patient's baseline) ~pCO2 >50mm Hg (or 10mm above COPD patient's baseline) "Respiratory failure may be assigned as a principal diagnosis when it is the condition established after study to be chiefly responsible for occasioning admission to the hospital. The fact that the respiratory failure was managed without intubation and mechanical ventilation does not preclude its use." [facility], [facility] 1988, p. 7 MTDD
--- NOTE | 2017-06-20 09:17 | CP.PCM.DIS ---
Provider - Provider Date of Admission: 06/01/17 15:47 Attending physician: Jessie Cotton MD Consults: Dr. Wallace and Dr. Avina Pulmonary/Critical Care Dr. Black Psychiatry Dr. Adenike Rothman Neurology Time Spent in preparation of Discharge (in minutes): 50 Hospital Course - Lab Results Lab Results: Micro Results 06/14/17 08:20 Blood-Venous Blood Culture - Final NO GROWTH AFTER 5 DAYS 06/14/17 08:20 Blood-Venous Gram Stain - Final TEST NOT PERFORMED 06/14/17 09:00 Blood-Venous Blood Culture - Final NO GROWTH AFTER 5 DAYS 06/14/17 09:00 Blood-Venous Gram Stain - Final TEST NOT PERFORMED 06/14/17 11:00 Sputum Induced Gram Stain - Final 06/14/17 11:00 Sputum Induced Sputum Culture - Final Klebsiella Pneumoniae Ssp Pneu 06/01/17 21:31 Sputum Gram Stain - Final 06/01/17 21:31 Sputum Sputum Culture - Final NORMAL ORAL MARTIR Most Recent Lab Values WBC 11.1 10^3/ul (4.5-11.0) H D 06/16/17 05:30 RBC 2.15 10^6/uL (3.5-6.1) L 06/16/17 05:30 Hgb 6.8 g/dL (14.0-18.0) L* 06/16/17 05:30 Hct 21.7 % (42.0-52.0) L 06/16/17 05:30 MCV 100.9 fl (80.0-105.0) 06/16/17 05:30 MCH 31.6 pg (25.0-35.0) 06/16/17 05:30 MCHC 31.3 g/dl (31.0-37.0) 06/16/17 05:30 RDW 14.1 % (11.5-14.5) 06/16/17 05:30 Plt Count 242 10^3/uL (120.0-450.0) 06/16/17 05:30 MPV 8.8 fl (7.0-11.0) 06/16/17 05:30 Gran % 88.4 % (50.0-68.0) H 06/16/17 05:30 Lymph % (Auto) 6.0 % (22.0-35.0) L 06/16/17 05:30 Cocke % (Auto) 5.6 % (1.0-6.0) 06/16/17 05:30 Eos % (Auto) 0.0 % (1.5-5.0) L 06/16/17 05:30 Baso % (Auto) 0.0 % (0.0-3.0) 06/16/17 05:30 Gran # 9.78 (1.4-6.5) H 06/16/17 05:30 Lymph # 0.7 (1.2-3.4) L 06/16/17 05:30 Cocke # 0.6 (0.1-0.6) 06/16/17 05:30 Eos # 0.0 (0.0-0.7) 06/16/17 05:30 Baso # 0.00 K/mm3 (0.0-2.0) 06/16/17 05:30 Neutrophils % (Manual) 88 % (50.0-70.0) H 06/13/17 06:00 Band Neutrophils % 3 % (0-2) H 06/02/17 05:20 Lymphocytes % (Manual) 8 % (22.0-35.0) L 06/13/17 06:00 Atypical Lymphs % 2 % (0.0-0.0) H 06/13/17 06:00 Monocytes % (Manual) 2 % (1.0-6.0) 06/13/17 06:00 Platelet Evaluation Normal (NORMAL) 06/13/17 06:00 Polychromasia Slight 06/13/17 06:00 Hypochromasia 1+ 06/13/17 06:00 Anisocytosis (manual) 1+ 06/13/17 06:00 PT 16.1 SECONDS (9.4-12.5) H 06/14/17 13:07 INR 1.45 (0.93-1.08) H 06/14/17 13:07 APTT 22.4 Seconds (25.1-36.5) L 06/14/17 13:07 pCO2 55 mm/Hg (35-45) H 06/14/17 09:55 pO2 68.0 mm/Hg (80-100) L 06/14/17 09:55 HCO3 32.5 mmol/L (21-28) H 06/14/17 09:55 ABG pH 7.38 (7.35-7.45) 06/14/17 09:55 ABG Total CO2 34.2 mmol.L (22-28) H 06/14/17 09:55 ABG O2 Saturation 95.8 % (95-98) 06/14/17 09:55 ABG O2 Content 14.9 ML/dl (15-23) L 06/14/17 07:00 ABG Base Excess 5.8 mmol/L (-2.0-3.0) H 06/14/17 09:55 ABG Hemoglobin 10.9 g/dL (11.7-17.4) L 06/14/17 07:00 ABG Carboxyhemoglobin 2.2 % (0.5-1.5) H 06/14/17 07:00 POC ABG HHb (Measured) 0.8 % (0-5) 06/14/17 07:00 ABG Methemoglobin 1.2 % (0.0-3.0) 06/14/17 07:00 ABG O2 Capacity 15.0 mL/dl (16-24) L 06/14/17 07:00 ABG Potassium 3.4 mmol/L (3.6-5.2) L 06/14/17 09:55 VBG pH 7.33 (7.32-7.43) 06/02/17 11:20 VBG pCO2 39.0 (40-60) L 06/02/17 11:20 VBG HCO3 20.6 mmol/l (21-28) L 06/02/17 11:20 VBG Total CO2 21.8 mmol.L (22-28) L 06/02/17 11:20 VBG O2 Sat (Calc) 67.7 % (40-65) H 06/02/17 11:20 VBG Base Excess -4.9 mmol/L (0.0-2.0) L 06/02/17 11:20 VBG Potassium 2.6 mmol/L (3.6-5.2) L 06/02/17 11:20 Hgb O2 Saturation 95.7 % (95.0-98.0) 06/14/17 07:00 Sodium 138.0 mmol/L (132-148) 06/14/17 09:55 Chloride 102.0 mmol/L (98-107) 06/14/17 09:55 Glucose 110 mg/dl (75-110) 06/14/17 09:55 Lactate 1.1 mmol/L (0.7-2.1) 06/14/17 09:55 FiO2 80.0 % 06/14/17 09:55 Sodium 141 mmol/L (132-148) 06/16/17 05:30 Potassium 4.1 mmol/L (3.6-5.0) 06/16/17 05:30 Chloride 104 mmol/L (98-107) 06/16/17 05:30 Carbon Dioxide 35 mmol/L (21-33) H 06/16/17 05:30 Anion Gap 6 (10-20) L 06/16/17 05:30 BUN 23 mg/dL (7-21) H 06/16/17 05:30 Creatinine 0.7 mg/dl (0.8-1.5) L 06/16/17 05:30 Est GFR ( Amer) > 60 06/16/17 05:30 Est GFR (Non-Af Amer) > 60 06/16/17 05:30 POC Glucose (mg/dL) 81 mg/dL (65-110) 06/15/17 11:30 Random Glucose 115 mg/dL (70-110) H 06/16/17 05:30 Serum Osmolality 293 mosm/kg (272-300) 06/14/17 13:30 Lactic Acid 2.5 mmol/L (0.7-2.1) H 06/02/17 08:30 Calcium 8.6 mg/dL (8.4-10.5) 06/16/17 05:30 Total Bilirubin 0.3 mg/dL (0.2-1.3) 06/16/17 05:30 AST 12 U/L (17-59) L D 06/16/17 05:30 ALT 24 U/L (7-56) 06/16/17 05:30 Alkaline Phosphatase 46 U/L (38-126) 06/16/17 05:30 Lactate Dehydrogenase 391 U/L (333-699) 06/01/17 13:25 Total Creatine Kinase 39 U/L (35-230) 06/01/17 13:25 Troponin I 0.02 ng/mL D 06/14/17 13:30 NT-Pro-B Natriuret Pep 868 pg/mL (0-450) H 06/01/17 13:25 Total Protein 4.9 g/dL (5.8-8.3) L 06/16/17 05:30 Albumin 2.1 g/dL (3.0-4.8) L 06/16/17 05:30 Globulin 2.8 gm/dL 06/16/17 05:30 Albumin/Globulin Ratio 0.8 (1.1-1.8) L 06/16/17 05:30 Procalcitonin 0.29 NG/ML (0.19-0.49) 06/13/17 06:00 Arterial Blood Potassium 3.4 mmol/L (3.6-5.2) L 06/14/17 09:55 Venous Blood Potassium 2.6 mmol/L (3.6-5.2) L 06/02/17 11:20 Urine Opiates Screen Negative (NEGATIVE) 06/04/17 05:35 Urine Methadone Screen Negative (NEGATIVE) 06/04/17 05:35 Ur Barbiturates Screen Negative (NEGATIVE) 06/04/17 05:35 Valproic Acid 25 ug/mL (50.0-100.0) L 06/09/17 11:00 Ur Phencyclidine Scrn Negative (NEGATIVE) 06/04/17 05:35 Ur Amphetamines Screen Negative (NEGATIVE) 06/04/17 05:35 U Benzodiazepines Scrn Negative (NEGATIVE) 06/04/17 05:35 U Oth Cocaine Metabols Negative (NEGATIVE) 06/04/17 05:35 U Cannabinoids Screen Negative (NEGATIVE) 06/04/17 05:35 Influenza Typ A,B (EIA) Negative for flu a/b (NEGATIVE) 06/14/17 09:00 RSV Antigen Negative (NEGATIVE) 06/14/17 09:30 - Hospital Course Hospital Course: 72 year old male with a past medical history of COPD, s/p pulmonary embolus on oral anticoagulation, paroxysmal atrial fibrillation, and schizoaffective disorder who presented to [facility] for a COPD exacerbation. His hospital course was complicated by pneumonia, hypercapnic, hypoxemic respiratory failure, and a large right sided subdural hematoma with greater than 10 mm of midline shift after the patient was found to be unresponsive to painful stimuli. Patient was admitted to the ICU, intubated with poor prognosis. Neurosurgery was consulted and recommended no surgical intervention given the already poor prognosis of the patient. Palliative care was consulted. The family and health care proxy were informed upon the patient's prognosis and hence it was decided that the patient become a DNR/DNI. The patient was terminally extubated and on . - Date & Time of H&P Date of H&P: 06/17/17 Time of H&P: 08:45 Discharge Exam - Head Exam Head Exam: ATRAUMATIC, NORMOCEPHALIC - Eye Exam Additional comments: dilated, fixed pupils - Respiratory Exam Additional comments: no respirations - Cardiovascular Exam Additional comments: no pulses palpated - Neurological Exam Additional comments: unresponsive to painful stimuli - Skin Skin Exam: Mottled Discharge Plan - Follow Up Plan Condition: Disposition: WITH WITHOUT AUTOPSY
== END 2017-06-17 00:35 | DRG 882 ==
LOC: ED 12:37 → ERH 15:47 → 3RNO 17:25 → CCU 06-14 08:01 → 5RNO 06-16 16:55
PROVIDERS: ADMIT Internal Medicine; ATTEND Internal Medicine
PROC: 5A1945Z Respiratory Ventilation, 24-96 Consecutive Hours (ICD-10-PCS; principal; 2017-06-14)
PROC: 0BH18EZ Insertion of Endotracheal Airway into Trachea, Via Natural or Artificial Opening Endoscopic (ICD-10-PCS; 2017-06-14)
PROC: 05HM33Z Insertion of Infusion Device into Right Internal Jugular Vein, Percutaneous Approach (ICD-10-PCS; 2017-06-14)
PROC: B543ZZA Ultrasonography of Right Jugular Veins, Guidance (ICD-10-PCS; 2017-06-14)
DX: J44.1 Chronic obstructive pulmonary disease with (acute) exacerbation (principal); I26.99 Other pulmonary embolism without acute cor pulmonale; J69.0 Pneumonitis due to inhalation of food and vomit; A41.9 Sepsis, unspecified organism; J96.01 Acute respiratory failure with hypoxia; J96.02 Acute respiratory failure with hypercapnia; R64 Cachexia; I48.0 Paroxysmal atrial fibrillation; R13.10 Dysphagia, unspecified; E87.3 Alkalosis; F25.9 Schizoaffective disorder, unspecified; J98.19 Other pulmonary collapse; W18.30XA Fall on same level, unspecified, initial encounter; G93.2 Benign intracranial hypertension; F31.9 Bipolar disorder, unspecified; F41.9 Anxiety disorder, unspecified; F91.9 Conduct disorder, unspecified; F95.9 Tic disorder, unspecified; I10 Essential (primary) hypertension; I25.10 Atherosclerotic heart disease of native coronary artery without angina pectoris; J04.0 Acute laryngitis; N40.1 Benign prostatic hyperplasia with lower urinary tract symptoms; S06.5X9A Traumatic subdural hemorrhage with loss of consciousness of unspecified duration, initial encounter; Z51.5 Encounter for palliative care; Z66 Do not resuscitate; Z79.01 Long term (current) use of anticoagulants; Z79.82 Long term (current) use of aspirin; Z79.899 Other long term (current) drug therapy; Z86.711 Personal history of pulmonary embolism; Z87.891 Personal history of nicotine dependence; Z91.14 Patient's other noncompliance with medication regimen; Z91.19 Patient's noncompliance with other medical treatment and regimen; Z91.5 Personal history of self-harm; D64.9 Anemia, unspecified; G43.909 Migraine, unspecified, not intractable, without status migrainosus; R40.2434 Glasgow coma scale score 3-8, 24 hours or more after hospital admission